=== PATIENT | female | born 1975 | race Caucasian/White ===

== ENCOUNTER 2017-10-23 01:24 | Emergency (ER) | payer BC, SELFPAY ==
[2017-10-23] VITALS (7 sets, daily range): BP systolic 123–224; BP diastolic 72–144; PULSE 77–133; RESP 12–18; TEMP 36.4–36.9; O2SAT 9–100; BMI 33.3
--- NOTE | 2017-10-23 01:32 | ED.DCSUM_ITS ---
- ER Visit Summary Date of Service: 10/23/17 Chief Complaint: Suicidal thoughts History of Present Illness: The patient is a 42 F who presents being suicidal. Over the past couple months she has been depressed and she states it hit her hard today she does not want to live anymore. Her mother on September 02 and her father on September 27. Since then she has felt very down and depressed. She thinks she is about to lose her job as well as her fianc?. She states that she has fucked up many things in her life. She thought about taking pills and filling up the bathtub and trying to drown in it. She has never been admitted for suicidal thoughts before. She has never tried anything to hurt herself previously. She does see a psychiatrist at the counseling center. Physical Examination: Vital signs reviewed. HEENT exam unremarkable. Heart is tachycardic and regular rhythm without murmurs. Lungs are clear to auscultation. Abdomen is soft and nontender. Extremities reveal no edema. Skin exam normal. Neurologic exam normal. Patient does voice suicidal thoughts. Insight and judgment are poor. Test Results: CBC normal. BMP shows sodium 135 and glucose 444. Tox screen reveals cannabinoids. Alcohol normal. Emergency Department Course and Treatment: Patient was given NovoLog 20 units Treatment Plan: The patient then told nursing that she was just restarted back on her psychiatric and her diabetic medications after not being on them. This is likely why her blood sugars elevated. Patient was discussed with crisis and they evaluated the patient. They feel the patient would be amenable to transfer to a psychiatric facility. Patient will be transferred to psychiatric facility after acceptance Disposition: Transfer Impression: Suicidal ideation This note was generated with [employer] dictation software. It may contain incorrect words, spelling, and punctuation that were not noted in review of the chart prior to signing ED Disposition - Plan for ED Patient: Chief Complaint: Suicidal Referrals: Amber Hernandez MD [Primary Care Provider] -
[2017-10-23 02:00] LABS: Absolute Neutrophil Count 5.3 X10^3/uL (2.0-7.7); Basophil# 0.02 X10^3/uL; Basophil% 0.2 % (0-1); Eosinophil# 0.24 X10^3/uL; Eosinophils% 2.9 % (0-5); Hematocrit 46.3 % (37-47); Hemoglobin 15.8 g/dl (12.0-15.0); Lymphocyte % 27.7 % (19-41); Mean Corp Hgb Conc 34.1 g/gl (32-36); Mean Corpuscular Hgb 30.2 pg (27.0-32.0); Mean Corpuscular Volume 88.4 fL (81-99); Mean Platelet Vol. 11.1 fl (6.2-12.0); Monocyte# 0.43 X10^3/uL; Monocyte% 5.2 % (0-10); Neutrophil # 5.29 X10^3/uL (2.7-7.7); Neutrophil % 63.6 % (47-70); Platelet Count 181 K/mm3 (150-450); RBC Distribution Width CV 13.5 % (11.6-14.6); RBC Distribution Width SD 43.9 fl (35.1-43.9); Red Blood Count 5.24 M/mm3 (4.2-5.4); White Blood Count 8.3 K/mm3 (4.4-11.0)
[2017-10-23 02:02] LABS: POSITIVE COUNT NO; POSITIVE DIFFERENTIAL NO; POSITIVE MORPHOLOGY NO
[2017-10-23 02:10] LABS: Anion Gap 9 (5-15); BUN 13 mg/dL (7-18); BUN/Creat Ratio 13.3 RATIO (10-20); Calcium,Total 8.6 mg/dL (8.5-10.1); Chloride 100 mmol/L (98-107); Creatinine, Serum 0.98 mg/dL (0.55-1.02); EST Glomerular Filtration Rate 66 mL/min (>60); Est Glom Filt Rate - Afr Amer 79 mL/min (>60); Estimated Creatinine Clearance 66.61 ml/min; Glucose 444 mg/dL (74-106); Potassium 4.1 mmol/L (3.5-5.1); Sodium Level 135 mmol/L (136-145)
[2017-10-23 02:11] LABS: Amphetamine Urine VISTA NEGATIVE (<1000 ng/mL); Barbiturate Urine VISTA NEGATIVE (< 200 ng/mL); Benzodiazepine Urine VISTA NEGATIVE (< 200 ng/mL); Cocaine Urine VISTA NEGATIVE (< 300 ng/mL); Ecstacy Urine VISTA NEGATIVE (< 500 ng/mL); Methadone Urine VISTA NEGATIVE (< 300 ng/mL); PCP Urine VISTA NEGATIVE (< 25 ng/mL); THC Urine VISTA POSITIVE (< 50 ng/mL); Vista UDS pH Range 5
[2017-10-23 02:25] LABS: Pregnancy, Serum, hCG Quali. NEGATIVE Negative (0-9 Nonpreg)
--- NOTE | 2017-10-23 02:41 | ED.RN ---
CALLED [facility] TO HAVE THEM COME SEE PATIENT. 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
[2017-10-23 03:06] LABS: Bedside Glucose 330 mg/dL (70-110)
--- NOTE | 2017-10-23 03:07 | ED.RN ---
CALLED [facility] AGAIN BECAUSE WE HAVE NOT HEARD BACK FROM MISAEL YET. \
--- NOTE | 2017-10-23 03:10 | ED.RN ---
[facility] CALLED STATING SHE WILL BE IN SHORTLY.
--- NOTE | 2017-10-23 04:15 | EKG12_ITS ---
Test Reason : [facility] [place] Pressure : / mmHG Vent. Rate : 100 BPM Atrial Rate : 100 BPM P-R Int : 150 ms QRS Dur : 092 ms QT Int : 360 ms P-R-T Axes : 051 -15 073 degrees QTc Int : 464 ms Normal sinus rhythm Left ventricular hypertrophy Nonspecific T wave abnormality Prolonged QT Abnormal ECG Confirmed by EDSON GUDINO, MARGARITA ([id number]), senior editor MAY WILLIS ([id number]) on 10/26/2017 8:42:26 AM Referred By: CLAUDETTE Confirmed By:MARGARITA SANDHU MD
[2017-10-23 04:24] LABS: Bacteria 0 SEEN /hpf (None Seen); Mucous, Urine 0 SEEN /hpf (<or=2+); Red Blood Cells-Urine 0 SEEN /hpf (0-5); White Blood Cells 0 SEEN /hpf (0-5)
[2017-10-23 04:28] LABS: Color, Urine Yellow (Yellow); Glucose, Dipstick 1000 mg/dl (Normal); Ketone-Dipstick Negative (Negative); Leukocyte Esterase-Dipstick Negative /ul (Negative); Nitrite-Dipstick Negative (Negative); Occult Blood-Urine Negative /ul (Negative); Protein-Dipstick Negative (Negative); Urine Bilirubin Dipstick Negative (Negative); Urine Clarity Clear (Clear); Urine Urobilinogen Normal (Normal)
[2017-10-23 04:36] LABS: AST(SGOT) 18 U/L (15-37); Alanine Aminotransfer ALT/SGPT 35 U/L (13-56); Albumin, Serum 4.1 g/dL (3.2-5.0); Alkaline Phosphatase 100 U/L (45-117); Bilirubin, Direct 0.08 mg/dL (0.00-0.30); Protein, Total 8.1 g/dL (6.4-8.2)
[2017-10-23 04:44] LABS: Squamous Epithelial Cells - UA 0-5 SEEN /hpf (5-10)
--- NOTE | 2017-10-23 06:06 | ED.RN ---
PATIENT'S CAR KEYS WITH HER NAME ON THEM WERE GIVEN TO [employer]TON[employer]. I ALSO GAVE HIM THE DESCRIPTION OF HER [facility] AND WHERE IT WAS PARKED. PATIENT TOLD THIS NURSE THAT HER BOYFRIEND MIGHT BE COMING TO GET THE CAR, AND HIS NAME WAS PUT ON THE KEYS ALSO.
[2017-10-23 07:20] LABS: Bedside Glucose 175 mg/dL (70-110)
== END 2017-10-23 08:20 ==
PROVIDERS: Emergency Provider Emergency Medicine; Family Provider Internal Medicine; PCP Internal Medicine
DX: R45.851 Suicidal ideations (principal); F41.9 Anxiety disorder, unspecified; E11.9 Type 2 diabetes mellitus without complications; Z72.0 Tobacco use
CPT/HCPCS: 80048; 80076; 80307; 80320; 81001; 82962; 84703; 85025; 93005; 99284; A4216; G0480

== ENCOUNTER 2018-02-08 14:56 | Emergency (ER) | payer BC, SELFPAY ==
[2018-02-08 14:57] VITALS: BP 165/95; PULSE 84; RESP 16; TEMP 37.1; O2SAT 98; BMI 33.4
--- NOTE | 2018-02-08 15:16 | EKG12_ITS ---
Test Reason : [facility] Blood Pressure : / mmHG Vent. Rate : 083 BPM Atrial Rate : 083 BPM P-R Int : 154 ms QRS Dur : 092 ms QT Int : 404 ms P-R-T Axes : 058 -14 026 degrees QTc Int : 474 ms Normal sinus rhythm Poor R wave progression Confirmed by DOROTHY GUDINO, DREW ([id number]), editor farm journal MAY WILLIS ([id number]) on 02/11/2018 1:19:36 PM Referred By: JAVIER Confirmed By:DREW DE LA CRUZ MD
--- NOTE | 2018-02-08 15:24 | ED.DCSUM_ITS ---
- ER Visit Summary Date of Service: 02/08/18 Chief Complaint: Syncope History of Present Illness: The patient is a 42 F reports going to the bathroom this morning. She had a hot flash, cold sweats, nausea and vomiting, and passed out. Patient states that another syncopal episode this afternoon with the same symptoms. She is a history of diabetes and admits that she has not taken her insulin in approximately 1 week. She does not check her blood sugars regularly. Physical Examination: Blood pressure is 165/95, temperature 98.7, heart rate 84 , respiratory rate 16, pulse ox 98% on room air. Patient sitting upright in bed no acute distress. Head neck examination normal. Heart is regular rate and rhythm. Lung sounds are clear. Abdomen is soft no focal tenderness on exam. Hypoactive bowel sounds noted throughout. Test Results: EKG is sinus 83 with no sign of acute ischemia. CBC reveals normal white count. Hemoglobin is concentrated at 15.4. Chemistry studies indicated glucose of 418. Urinalysis shows 1000 glucose with 5 ketones. Serum acetone is negative. Emergency Department Course and Treatment: Patient was given Zofran and 2 L of IV fluid. Repeat blood sugar after 2 L is 295. I did review labs from [facility] that were drawn yesterday. Her glucose at that time was 342 with a normal anion gap and bicarb. Her hemoglobin A1c returned at 11.9 At this time patient feels significantly improved. She only has a doctor's appointment this week. I believe his syncopal episodes were secondary to vasovagal/dehydration. She will push fluids at home and take her insulin. Treatment Plan: [] Disposition: Discharge Impression: 1. Vasovagal syncope 2. Hyperglycemia 3. Dehydration This note was generated with [employer] dictation software. It may contain incorrect words, spelling, and punctuation that were not noted in review of the chart prior to signing ED Disposition - Plan for ED Patient: Chief Complaint: General Illness Referrals: Amber Hernandez MD [Primary Care Provider] -
[2018-02-08] MEDS: Ondansetron 4 MG/2 ML Vial IV (15:54)
[2018-02-08] MEDS: 0.9% Normal Saline 1,000 ML 1000 ML IV ×2 (15:54→17:12)
[2018-02-08 15:56] LABS: Bedside Glucose 420 mg/dL (70-110)
[2018-02-08 16:15] LABS: Absolute Lymphocyte Count 1.03 X10^3/ul (0.83-4.51); Absolute Neutrophil Count 4.7 X10^3/uL (2.0-7.7); Basophil# 0.01 X10^3/uL; Basophil% 0.2 % (0-1); Eosinophil# 0.11 X10^3/uL; Eosinophils% 1.8 % (0-5); Hemoglobin 15.4 g/dl (12.0-15.0); Lymphocyte # 1.03 X10^3/ul (4.0); Lymphocyte % 16.8 % (19-41); Mean Corp Hgb Conc 33.5 g/gl (32-36); Mean Corpuscular Hgb 29.2 pg (27.0-32.0); Mean Corpuscular Volume 87.3 fL (81-99); Mean Platelet Vol. 10.7 fl (6.2-12.0); Monocyte# 0.25 X10^3/uL; Monocyte% 4.1 % (0-10); Neutrophil # 4.72 X10^3/uL (2.7-7.7); Neutrophil % 76.9 % (47-70); Platelet Count 191 K/mm3 (150-450); RBC Distribution Width CV 13.5 % (11.6-14.6); RBC Distribution Width SD 43.2 fl (35.1-43.9); Red Blood Count 5.27 M/mm3 (4.2-5.4); White Blood Count 6.1 K/mm3 (4.4-11.0)
[2018-02-08 16:19] LABS: POSITIVE COUNT NO; POSITIVE DIFFERENTIAL NO; POSITIVE MORPHOLOGY NO
[2018-02-08 16:27] LABS: Anion Gap 9 (5-15); BUN 14 mg/dL (7-18); Calcium,Total 9.3 mg/dL (8.5-10.1); Chloride 102 mmol/L (98-107); Creatinine, Serum 0.93 mg/dL (0.55-1.02); EST Glomerular Filtration Rate 69 mL/min (>60); Est Glom Filt Rate - Afr Amer 84 mL/min (>60); Estimated Creatinine Clearance 70.19 ml/min; Glucose 418 mg/dL (74-106); Potassium 4.6 mmol/L (3.5-5.1); Sodium Level 137 mmol/L (136-145)
[2018-02-08 17:13] VITALS: PULSE 82; RESP 16; O2SAT 98
[2018-02-08 17:19] LABS: Bacteria 0 SEEN /hpf (None Seen); Mucous, Urine 0 SEEN /hpf (<or=2+); Squamous Epithelial Cells - UA 0 SEEN /hpf (5-10); White Blood Cells 0 SEEN /hpf (0-5)
[2018-02-08 17:28] LABS: Color, Urine Yellow (Yellow); Glucose, Dipstick 1000 mg/dl (Normal); Ketone-Dipstick 5 mg/dl (Negative); Leukocyte Esterase-Dipstick Negative /ul (Negative); Nitrite-Dipstick Negative (Negative); Occult Blood-Urine 150 /ul (Negative); Protein-Dipstick 15 mg/dl (Negative); Specific Gravity, Urine 1.015 (1.002-1.030); Urine Bilirubin Dipstick Negative (Negative); Urine Clarity Clear (Clear); Urine Urobilinogen Normal (Normal)
[2018-02-08 17:37] LABS: Red Blood Cells-Urine 0-5 SEEN /hpf (0-5)
[2018-02-08 18:04] VITALS: BP 156/95; PULSE 89; RESP 22
[2018-02-08 18:56] LABS: Bedside Glucose 297 mg/dL (70-110)
--- NOTE | 2018-02-08 18:57 | ED.DEP ---
ED Disposition - Plan for ED Patient: Disposition: Home or Assisted Living Chief Complaint: General Illness Instructions: ED Near Syncope Vasovagal, ED Hyperglycemia Diabetic Referrals: Amber Hernandez MD [Primary Care Provider] - Keep Geovany appointment
[2018-02-08 19:07] VITALS: BP 147/78; PULSE 73; RESP 16; O2SAT 99
== END 2018-02-08 19:08 | disposition home or self-care (01) ==
PROVIDERS: Emergency Provider Emergency Medicine; Family Provider Internal Medicine; PCP Internal Medicine
DX: R55 Syncope and collapse (principal); E11.65 Type 2 diabetes mellitus with hyperglycemia; E86.0 Dehydration; Z91.14 Patient's other noncompliance with medication regimen; Z72.0 Tobacco use
CPT/HCPCS: 80048; 81001; 82009; 82962; 85025; 93005; 96361; 96374; 99284; J7030; A4216; J2405

== ENCOUNTER 2018-05-02 01:43 | Emergency (ER) | payer BC, SELFPAY ==
[2018-05-02 01:44] VITALS: BP 157/71; PULSE 103; RESP 18; TEMP 37; O2SAT 98; BMI 31.3
--- NOTE | 2018-05-02 02:29 | ED.DCSUM_ITS ---
History of Present Illness Chief Complaint: Lower Extremity Injury Informant: Patient Onset: Hours - 4 Context: Sudden Onset Timing: Continuous Quality: ache Location: left calf Current Severity: Moderate Maximum Severity: Severe Worsened by: Moving, trying to weight-bear Relieved by: Rest Narrative: Patient states she was doing a hip-hop aerobics routine to a video, and while doing aerobic exercise on her feet, she felt a sudden pop with pain in her left calf, closer to her knee/popliteal area. Pain radiates distally and proximally, but the focus is her calf. She took a bath and babied it for a little while, but the pain did not improve. Able to weight-bear but very difficult. States that she was diagnosed with diabetes and had an elevated A1c couple months ago, so has been trying to undergo a new exercise routine. She was trying to ease her way in, doing some walking for the last couple weeks. Past Medical History - Allergies and Home Meds Allergies/Adverse Reactions: Allergies No Known Allergies Allergy (Verified 05/02/18 01:46) Primary Care Physician: Amber Hernandez MD [Primary Care Provider] - Georges Batista MD [STAFF PHYSICIAN] - As soon as possible Surgical History: - - exploratory abd surgery age 16 for PID, cardiac catheterization approx 2009 Smoking Status: Current every day smoker - Family History Maternal Family History: Reports: No pertinent history Review of Systems Musculoskeletal: Reports: Extremity Pain. Denies: Back pain Skin: Denies: Abrasions, Wounds Neurological: Denies: Weakness, Parasthesia, Numbness Physical Exam Vital Signs/Narrative: Vital Signs Temp Pulse Resp BP Pulse Ox 05/02/18 01:44 98.6 F 103 H 18 157/71 H 98 Inital Vital Signs reviewed: Yes General: Well nourished, Well developed Head: Normocephalic, Atraumatic Neck: Supple, Nontender Extremities: No edema, Tenderness - Left calf and medial gastroc tendon in the popliteal area. No bony knee or lower leg tenderness. Less tender distally in the soleus and nontender Achilles which appears to be intact. She is able to dorsiflex and plantarflex, but the most painful action is passive dorsiflexion of the foot. No deformities. Skin: Normal color, No rash Neurological: Alert, Oriented x3, Cranial nerves II-XII grossly intact, Normal Strength, Normal Sensation Psychological: Normal affect Diagnostic/Tx/Re-eval - Medical Decision Making Consistent with a left gastrocnemius strain versus rupture of muscle or tendon. She may need advanced imaging if the pain persists, which is not available emergently at this time, nor is it indicated emergently. I do not think she needs any x-rays. This is not a DVT. She is given a dose of anti- inflammatories but advised not to continue those due to her diabetes, prescribed Ultram after reviewing her oarrs report, and given crutches along with orthopedic follow-up. ED Disposition - Plan for ED Patient: Chief Complaint: Lower Extremity Injury Diagnosis: Gastrocnemius strain, left Instructions: ED Strain Muscle Ext Prescriptions: traMADol [Ultram (G)] 50 mg PO Q4H PRN PRN 3 Days #16 tablet PRN Reason: Pain Referrals: Amber Hernandez MD [Primary Care Provider] - Georges Batista MD [STAFF PHYSICIAN] - As soon as possible Additional Instructions: Your calf muscle may be ruptured. Limit weightbearing using crutches. Follow- up with orthopedics.
[2018-05-02] MEDS: Naproxen 500 MG Tablet PO (02:52)
[2018-05-02 03:00] VITALS: PULSE 76; RESP 16; O2SAT 98
== END 2018-05-02 03:01 | disposition home or self-care (01) ==
PROVIDERS: Emergency Provider Emergency Medicine; Family Provider Internal Medicine; PCP Internal Medicine
DX: S86.112A Strain of other muscle(s) and tendon(s) of posterior muscle group at lower leg level, left leg, initial encounter (principal); F17.200 Nicotine dependence, unspecified, uncomplicated; X58.XXXA Exposure to other specified factors, initial encounter; Y93.A3 Activity, aerobic and step exercise; Y92.89 Other specified places as the place of occurrence of the external cause; Y99.9 Unspecified external cause status
CPT/HCPCS: 99284

== ENCOUNTER 2019-07-31 04:25 | Emergency (ER) | payer SELFPAY ==
[2019-07-31 04:26] VITALS: BP 179/94; PULSE 120; RESP 16; TEMP 37.4; O2SAT 95; BMI 34.9
--- NOTE | 2019-07-31 04:32 | EKG12_ITS ---
Test Reason : HYPERTENSION Blood Pressure : / mmHG Vent. Rate : 110 BPM Atrial Rate : 110 BPM P-R Int : 146 ms QRS Dur : 092 ms QT Int : 358 ms P-R-T Axes : 061 -24 026 degrees QTc Int : 484 ms Sinus tachycardia with occasional Premature ventricular complexes Possible Left atrial enlargement Borderline ECG Confirmed by EDSON GUDINO, MARGARITA ([id number]), video effects editor DOTTIE GAN ([id number]) on 08/01/2019 10:08:53 AM Referred By: DYLON Confirmed By:MARGARITA SANDHU MD
--- NOTE | 2019-07-31 04:39 | ED.VISSUMM ---
- ER Visit Summary Date of Service: 07/31/19 Chief Complaint: Subjective accelerated heart rate while on break at work. History of Present Illness: The patient is a 44 F prior history of hypertension and diabetes. Was on medication for both previously. His medications were stopped. She has not seen a physician for some period of time. Tonight at work she had what she felt was accelerated heart rate. 1 to the company nurse who said her pulse was fine but her blood pressure that time was around 240/132. She currently denies any headache chest pain or shortness of breath. No abdominal pain. No nausea vomiting or diarrhea. Physical Examination: Middle-aged female currently no acute distress her initial blood pressure is elevated 179/94. Heart rate of 120. Temperature 994. Pulse ox 95% on room air no signs of hypoxia. H EENT exam unremarkable. Pupils round react light. No facial droop. Normal speech. Neck nontender. Lungs clear to auscultation bilaterally. Heart regular rhythm rate about 110 no murmur. Abdomen soft nontender normal bowel sounds no peritoneal signs. Neurologic exam normal. Patient is moving all 4 extremities. Neurovascular intact. No edema. Test Results: EKG shows tachycardia rate of 110 with occasional premature ventricular contractions. CBC normal white count 9. Hemoglobin 15. No bands. Electrolytes unremarkable anion gap of 9. Creatinine of 1. Blood sugar elevated 386. She is not in DKA. Emergency Department Course and Treatment: Patient with elevated blood sugar and acute on chronic hypertension and currently is on no medications. She will be given 1 p.o. lisinopril here for blood pressure. She has been on that for the past. Patient doing well on repeat exam at 5:12 AM. Current blood pressure is 162/89. She denies discussed her test results. Need to follow-up. Need to stop smoking. Need to control her blood pressure and blood sugars. Treatment Plan: Follow-up with primary care physician. I will write patient a prescription for her prior lisinopril dose 10 mg once a day. She knows she needs to restart that. Watch her blood sugars closely. Also for her prior oral hypoglycemic glipizide 2.5 mg a day. Watch her blood sugars closely. Disposition: Discharge Impression: Acute on chronic hypertension Acute hyperglycemia with a prior history of diabetes currently not on medication Premature ventricular contractions This note was generated with [employer]ation software. It may contain incorrect words, spelling, and punctuation that were not noted in review of the chart prior to signing ED Disposition - Plan for ED Patient: Disposition: Home or Assisted Living Instructions: HYPERTENSION, Established Prescriptions: Lisinopril [Prinivil] 10 mg PO DAILY #30 tab Prescription Printed Referrals: Amber Hernandez MD [Primary Care Provider] - As soon as possible Additional Instructions: We will restart you on your prior blood pressure medication lisinopril. Take this once a day. You need to have your blood pressures rechecked to see if this is the right dose. If your blood pressures are running too low it will have to be adjusted or if they are running too high. Follow-up with your primary care physician.
[2019-07-31] MEDS: Lisinopril 10 MG Tablet PO (04:42)
--- NOTE | 2019-07-31 04:42 | ED.DEP ---
ED Disposition - Plan for ED Patient: Disposition: Home or Assisted Living Instructions: HYPERTENSION, Established Prescriptions: Glipizide [Glipizide ER] 30 mg PO DAILY #30 tab.er.24 Prescription Printed Lisinopril [Prinivil] 10 mg PO DAILY #30 tab Prescription Printed Referrals: Amber Hernandez MD [Primary Care Provider] - As soon as possible Additional Instructions: We will restart you on your prior blood pressure medication lisinopril. Take this once a day. You need to have your blood pressures rechecked to see if this is the right dose. If your blood pressures are running too low it will have to be adjusted or if they are running too high. Follow-up with your primary care physician.
[2019-07-31 04:47] LABS: Absolute Lymphocyte Count 1.97 X10^3/uL (0.83-4.51); Absolute Neutrophil Count 7.1 X10^3/uL (2.0-7.7); Basophil# 0.03 X10^3/uL; Basophil% 0.3 % (0-1); Eosinophil# 0.24 X10^3/uL; Eosinophils% 2.5 % (0-5); Hematocrit 44.9 % (37-47); Hemoglobin 15.1 g/dL (12.0-15.0); Lymphocyte # 1.97 X10^3/ul (4.0); Lymphocyte % 20.3 % (19-41); Mean Corp Hgb Conc 33.6 g/dL (32-36); Mean Corpuscular Hgb 29.1 pg (27.0-32.0); Mean Corpuscular Volume 86.5 fL (81-99); Mean Platelet Vol. 11.1 fl (6.2-12.0); Monocyte# 0.34 X10^3/uL; Monocyte% 3.5 % (0-10); NRBC Flagged by Analyzer 0 % (0-5); Platelet Count 215 K/mm3 (150-450); RBC Distribution Width CV 13.2 % (11.6-14.6); RBC Distribution Width SD 41.6 fl (35.1-43.9); Red Blood Count 5.19 M/mm3 (4.2-5.4); White Blood Count 9.7 K/mm3 (4.4-11.0)
[2019-07-31 05:01] LABS: Anion Gap 9 (5-15); BUN 20 mg/dL (7-18); BUN/Creat Ratio 18.5 RATIO (10-20); Chloride 100 mmol/L (98-107); Creatinine, Serum 1.08 mg/dL (0.55-1.02); EST Glomerular Filtration Rate 58 mL/min (>60); Est Glom Filt Rate - Afr Amer 71 mL/min (>60); Estimated Creatinine Clearance 59.19 ml/min; Glucose 386 mg/dL (74-106); Potassium 3.9 mmol/L (3.5-5.1); Sodium Level 135 mmol/L (136-145)
[2019-07-31 05:21] VITALS: BP 168/88; PULSE 109; RESP 19; O2SAT 95
[2019-07-31] MEDS: glyBURIDE 2.5 MG Tablet PO (05:27)
[2019-07-31 05:49] LABS: Hemoglobin A1c 11.7 % (4.2-6.3)
== END 2019-07-31 05:29 | disposition home or self-care (01) ==
PROVIDERS: Emergency Provider Emergency Medicine; Family Provider Internal Medicine; PCP Internal Medicine
DX: I49.3 Ventricular premature depolarization (principal); E11.65 Type 2 diabetes mellitus with hyperglycemia; I10 Essential (primary) hypertension; Z72.0 Tobacco use
CPT/HCPCS: 36415; 80048; 83036; 85025; 93005; 99285; A4216

== ENCOUNTER 2020-01-02 06:35 | Emergency (ER) | payer BC, SELFPAY ==
[2020-01-02] VITALS (9 sets, daily range): BP systolic 129–174; BP diastolic 68–115; PULSE 92–115; RESP 16–36; TEMP 36.6–37; O2SAT 95–99; BMI 42.7
--- NOTE | 2020-01-02 06:36 | EKG12_ITS ---
Test Reason : SOB Blood Pressure : / mmHG Vent. Rate : 108 BPM Atrial Rate : 108 BPM P-R Int : 152 ms QRS Dur : 090 ms QT Int : 358 ms P-R-T Axes : 067 005 065 degrees QTc Int : 479 ms Sinus tachycardia Poor R wave progression Confirmed by DOROTHY GUDINO, DREW ([id number]), editor book MAY WILLIS ([id number]) on 01/05/2020 10:54:27 AM Referred By: LALIT Confirmed By:DREW DE LA CRUZ MD
--- NOTE | 2020-01-02 07:06 | RAD_ITS ---
STUDY: X-RAY CHEST REASON FOR EXAM: Female, 44 years old. COUGH, SOB AND HEADACHE TECHNIQUE: Single AP portable view of the chest. COMPARISON: None. FINDINGS: There is ill-defined opacity in the right lung base suggesting pneumonia. There is no demonstrated pleural abnormality. Normal size heart. Normal mediastinum and liliana. Normal visualized pulmonary arteries. Normal visualized aortic arch and descending thoracic aorta. Normal visualized thoracic spine. Normal visualized ribs, clavicles, and shoulders. There is no demonstrated abnormality of the visualized soft tissue structures of the upper abdomen. RAD/Chest 1 View (Portable) IMPRESSION: Right lower lobe pneumonia. Electronically Signed: Kurt Forbes, at 7:43 EDT Tel , Service support ,
--- NOTE | 2020-01-02 07:06 | ED.VIS.GEN ---
History of Present Illness Chief Complaint: Shortness of Breath Informant: Patient Narrative: Patient presents emergency department for the evaluation of dyspnea. Patient states that towards the end of last week she came home from work exhausted experiencing generalized muscle cramps. The next day she felt short of breath and was coughing. She notes those symptoms have worsened and she is producing clear/white phlegm. She notes runny nose sore throat body aches headache. No vomiting or diarrhea. The patient states that her legs are swollen but are better this morning than they have been. She notes pain in the bilateral lower anterior chest which she describes as pressure. She states she has felt wheezing. No known lung conditions. She quit smoking approximately 6 months ago. She states that yesterday she went to her clinic and was set up for COVID-19 test today. However she feels worse today so therefore she came to the emergency department. Past Medical History - Allergies and Home Meds Allergies/Adverse Reactions: Allergies No Known Allergies Allergy (Verified 01/02/20 06:36) Primary Care Physician: Amber Hernandez MD [Primary Care Provider] - As soon as possible Surgical History: - - exploratory abd surgery age 16 for PID, cardiac catheterization approx 2009 Smoking Status: Never smoker - Family History Maternal Family History: Reports: No pertinent history Review of Systems General: Reports: Malaise. Denies: Chills, Fever, Sweats Eyes: Denies: Visual changes - bilaterally, Diplopia ENT: Reports: Rhinorrhea, Sore throat Cardiovascular: Reports: Chest pain, Heart racing. Denies: Palpitations Respiratory: Reports: Dyspnea, Cough, Dyspnea on exertion Gastrointestinal: Denies: Abdominal pain, Nausea, Vomiting, Diarrhea, Melena, Hematochezia Genitourinary: Denies: Dysuria, Hematuria, Frequency Musculoskeletal: Reports: Myalgias. Denies: Back pain, Extremity Pain Skin: Denies: Rash, Wounds Neurological: Reports: Headache. Denies: Weakness, Numbness Physical Exam Vital Signs/Narrative: Vital Signs Temp Pulse Resp BP Pulse Ox 01/02/20 06:40 97.8 F 109 H 19 H 174/115 H 97 01/02/20 06:37 97.8 F 115 H 36 H 174/115 H 97 Inital Vital Signs reviewed: Yes General: Well nourished, Well developed, Obese, No Acute Distress Head: Normocephalic, Atraumatic Eyes: Perrl, EOMI ENT: Moist mucous membranes, No rhinorrhea Neck: Supple, Nontender Cardiovascular: Regular rate, No murmurs, Tachycardia Respiratory: CTA bilaterally, Chest nontender, - - Patient appears dyspneic but not in distress Abdomen: Soft, Nontender, Nondistended, Normal bowel sounds Back: Nontender, Normal Inspection Extremities: Nontender, No edema Skin: Normal color, No rash Neurological: Alert, Oriented x3, Cranial nerves II-XII grossly intact, Normal Strength, Normal Sensation Psychological: Normal affect, Normal Mood Diagnostic/Tx/Re-eval Clinical Impression(s) from Imaging Studies Chest X-Ray 01/02/20 07:06 IMPRESSION: Right lower lobe pneumonia. Electronically Signed: Kurt Forbes, at 7:43 EDT Tel , Service support , Chest CTA 01/02/20 08:01 IMPRESSION: Small bilateral pleural effusions with bibasilar dependent atelectasis with increased interstitial markings. A mild degree of CHF should be ruled out. There is no evidence of pulmonary embolism. Electronically Signed: Jordan Verma, at 8:59 EDT , Service support , Laboratory Last Values WBC 8.4 K/mm3 (4.4-11.0) 01/02/20 07:15 RBC 4.17 M/mm3 (4.2-5.4) L 01/02/20 07:15 Hgb 12.0 g/dL (12.0-15.0) 01/02/20 07:15 Hct 37.4 % (37-47) 01/02/20 07:15 MCV 89.7 fL (81-99) 01/02/20 07:15 MCH 28.8 pg (27.0-32.0) 01/02/20 07:15 MCHC 32.1 g/dL (32-36) 01/02/20 07:15 RDW Std Deviation 46.0 fl (35.1-43.9) H 01/02/20 07:15 RDW Coeff of Silvia 14.4 % (11.6-14.6) 01/02/20 07:15 Plt Count 254 K/mm3 (150-450) 01/02/20 07:15 MPV 10.6 fl (6.2-12.0) 01/02/20 07:15 Immature Gran % (Auto) 0.500 % (0.0-0.9) 01/02/20 07:15 Neut % (Auto) 71.0 % (47-70) H 01/02/20 07:15 Lymph % (Auto) 19.4 % (19-41) 01/02/20 07:15 [place] % (Auto) 5.6 % (0-10) 01/02/20 07:15 Eos % (Auto) 3.1 % (0-5) 01/02/20 07:15 Baso % (Auto) 0.4 % (0-1) 01/02/20 07:15 Absolute Neuts (auto) 6.0 X10^3/uL (2.0-7.7) 01/02/20 07:15 Absolute Lymphs (auto) 1.63 X10^3/uL (0.83-4.51) 01/02/20 07:15 Nucleated RBC % 0 % (0-5) 01/02/20 07:15 PT 12.5 SECONDS (11.7-14.9) 01/02/20 07:15 INR 1.0 01/02/20 07:15 APTT 28.3 Seconds (24.1-36.2) 01/02/20 07:15 Sodium 139 mmol/L (136-145) 01/02/20 07:15 Potassium 4.1 mmol/L (3.5-5.1) 01/02/20 07:15 Chloride 105 mmol/L (98-107) 01/02/20 07:15 Carbon Dioxide 28.0 mmol/L (21.0-32.0) 01/02/20 07:15 Anion Gap 6 (5-15) 01/02/20 07:15 BUN 16 mg/dL (7-18) 01/02/20 07:15 Creatinine 0.77 mg/dL (0.55-1.02) 01/02/20 07:15 Estim Creat Clear Calc 83.02 ml/min 01/02/20 07:15 Est GFR (MDRD) Af Amer 103 mL/min (>60) 01/02/20 07:15 Est GFR (MDRD) Non-Af 86 mL/min (>60) 01/02/20 07:15 BUN/Creatinine Ratio 20.7 RATIO (10-20) H 01/02/20 07:15 Glucose 222 mg/dL (74-106) H 01/02/20 07:15 Lactic Acid 0.9 mmol/L (0.4-1.9) 01/02/20 07:15 Calcium 8.7 mg/dL (8.5-10.1) 01/02/20 07:15 Total Bilirubin 0.30 mg/dL (0.20-1.00) 01/02/20 07:15 AST 32 U/L (15-37) 01/02/20 07:15 ALT 60 U/L (13-56) H 01/02/20 07:15 Alkaline Phosphatase 96 U/L (45-117) 01/02/20 07:15 Troponin I < 0.015 ng/mL (<0.045) 01/02/20 07:15 B-Natriuretic Peptide 366.5 pg/mL (0-100) H 01/02/20 07:15 Total Protein 7.3 g/dL (6.4-8.2) 01/02/20 07:15 Albumin 3.2 g/dL (3.2-5.0) 01/02/20 07:15 Globulin 4.1 g/dL (2.2-4.2) 01/02/20 07:15 Albumin/Globulin Ratio 0.8 RATIO (0.9-2.4) L 01/02/20 07:15 Serum , Qual NEGATIVE Negative 01/02/20 07:15 COVID-19 (BRAVO) Negative (Not Detect) 01/02/20 06:50 - EKG Initial EKG Interpretation: Sinus Tachycardia - EKG demonstrates a sinus tachycardia at a rate of 108. There are no concerning features of ACS or ectopy. - Medical Decision Making Patient's had no events on the monitor. She reports symptomatic improvement following a DuoNeb. Heart rate is down into the 90s. She is breathing easy. Symptoms have been present for multiple days and she has a normal troponin. I do not think this represents ACS. Genevieve test is negative. CT demonstrates small bilateral pleural effusions and her beta natruretic peptide is 366. Her troponin is negative. I spoke with her primary care physician. We will place her on Lasix write for an albuterol MDI. She is to follow-up with primary care for echocardiogram and further evaluation. ED Disposition - Plan for ED Patient: Disposition: Home or Assisted Living Diagnosis: Dyspnea, Pleural effusion Instructions: ED Effusion Pleural Prescriptions: Furosemide [Lasix] 40 mg PO DAILY #7 tab Transmission Status: Pending to [id number] Albuterol Inhaler [Ventolin Hfa] 2 puff INHALATION Q4H PRN PRN #1 inhaler PRN Reason: Wheezing Transmission Status: Pending to [id number] Referrals: Amber Hernandez MD [Primary Care Provider] - As soon as possible
[2020-01-02] MEDS: 0.9% Normal Saline 1,000 ML 1000 ML IV (07:29)
[2020-01-02 07:42] LABS: Absolute Lymphocyte Count 1.63 X10^3/uL (0.83-4.51); Basophil# 0.03 X10^3/uL; Basophil% 0.4 % (0-1); Eosinophil# 0.26 X10^3/uL; Eosinophils% 3.1 % (0-5); Hematocrit 37.4 % (37-47); Lymphocyte # 1.63 X10^3/ul (4.0); Lymphocyte % 19.4 % (19-41); Mean Corp Hgb Conc 32.1 g/dL (32-36); Mean Corpuscular Hgb 28.8 pg (27.0-32.0); Mean Corpuscular Volume 89.7 fL (81-99); Mean Platelet Vol. 10.6 fl (6.2-12.0); Monocyte# 0.47 X10^3/uL; Monocyte% 5.6 % (0-10); NRBC Flagged by Analyzer 0 % (0-5); Neutrophil # 5.99 X10^3/uL (2.7-7.7); Platelet Count 254 K/mm3 (150-450); RBC Distribution Width CV 14.4 % (11.6-14.6); Red Blood Count 4.17 M/mm3 (4.2-5.4); White Blood Count 8.4 K/mm3 (4.4-11.0)
[2020-01-02 07:49] LABS: Internal QC Validated? YES +Cl - CLEAR BKGD; Pregnancy, Serum, hCG Quali. NEGATIVE Negative
[2020-01-02 08:00] LABS: ALB/GLOB Ratio 0.8 RATIO (0.9-2.4); AST(SGOT) 32 U/L (15-37); Alanine Aminotransfer ALT/SGPT 60 U/L (13-56); Albumin, Serum 3.2 g/dL (3.2-5.0); Alkaline Phosphatase 96 U/L (45-117); Anion Gap 6 (5-15); BUN 16 mg/dL (7-18); BUN/Creat Ratio 20.7 RATIO (10-20); Calcium,Total 8.7 mg/dL (8.5-10.1); Chloride 105 mmol/L (98-107); Creatinine, Serum 0.77 mg/dL (0.55-1.02); EST Glomerular Filtration Rate 86 mL/min (>60); Est Glom Filt Rate - Afr Amer 103 mL/min (>60); Estimated Creatinine Clearance 83.02 ml/min; Globulin 4.1 g/dL (2.2-4.2); Glucose 222 mg/dL (74-106); Potassium 4.1 mmol/L (3.5-5.1); Protein, Total 7.3 g/dL (6.4-8.2); Sodium Level 139 mmol/L (136-145)
--- NOTE | 2020-01-02 08:01 | CT_ITS ---
STUDY: CTA CHEST REASON FOR EXAM: Female, 44 years old. INCREASED MUCUS AND SHORTNESS OF BREATH, HX HTN, DM RADIATION DOSAGE (If Supplied By Facility): CTDIvol = ( 13.85 ) mGy, DLP = ( 55.45 ) mGycm TECHNIQUE: The examination was performed with the intravenous administration of IV 100mL Isovue-370. Post-processing of the angiographic images was performed, with multiplanar reformation and 3D reconstruction. Individualized dose optimization techniques were used for this CT. COMPARISON: None. FINDINGS: Normal enhancement of the main pulmonary artery and right and left pulmonary arteries. Normal enhancement of the bilateral peripheral pulmonary arteries. There is no demonstrated pulmonary embolism. Normal thoracic aorta and visualized great vessels. There is no demonstrated aortic dissection. Left ventricular enlargement. Normal mediastinum. Normal hilar regions. Small bilateral pleural effusions with bibasilar dependent atelectasis. Increased interstitial markings at the lung bases. Findings may represent a mild degree of the CHF. Normal chest wall structures. There are mild degenerative changes of thoracic spine. Normal visualized upper abdomen. CT/CTA Chest W/WO Contrast IMPRESSION: Small bilateral pleural effusions with bibasilar dependent atelectasis with increased interstitial markings. A mild degree of CHF should be ruled out. There is no evidence of pulmonary embolism. Electronically Signed: Jordan Verma, at 8:59 EDT , Service support ,
[2020-01-02 08:06] LABS: Lactic Acid 0.9 mmol/L (0.4-1.9)
[2020-01-02 08:09] LABS: Prothrombin Time (Protime)PT. 12.5 SECONDS (11.7-14.9)
[2020-01-02 08:10] LABS: Partial Thromboplast Time 28.3 Seconds (24.1-36.2)
[2020-01-02] MEDS: Ipratropium/Albuterol Sulfate 3 ML AMPUL.NEB INHALATION (09:28)
[2020-01-02 09:50] LABS: BNP,B-Type NATRIURETIC PEPTIDE 366.5 pg/mL (0-100)
== END 2020-01-02 11:10 | disposition home or self-care (01) ==
PROVIDERS: Emergency Medicine; Emergency Provider Emergency Medicine; PCP Internal Medicine
DX: J90 Pleural effusion, not elsewhere classified (principal); R06.00 Dyspnea, unspecified; E66.9 Obesity, unspecified; Z87.891 Personal history of nicotine dependence
CPT/HCPCS: 36415; 71045; 71275; 80053; 83605; 83880; 84484; 84703; 85025; 85610; 85730; 87040; 87635; 93005; 94640; 96360; 99284; G2023; J7030; Q9967; A4216; U0003

== ENCOUNTER → 2020-04-24 | Outpatient (CLI) | payer BC, SELFPAY ==
[2020-01-02 06:37] VITALS: BMI 42.7
--- NOTE | 2020-04-24 13:54 | NEURO ---
NCS and/or EMG Patient Report DATE OF SERVICE: 04/24/20 Sloane Shelley presents for electrodiagnostic testing of the upper limbs. She reports numbness and tingling in both hands, progressively worsening over the past 4 years. Electrodiagnostic findings: Median motor nerve demonstrates prolonged distal latency bilaterally with normal amplitudes and reduced conduction velocity. Ulnar motor responses within normal limits bilaterally. Median ulnar F waves are normal. Prolonged median sensory latency at the wrist bilaterally. Normal ulnar and radial sensory responses. On needle EMG, all muscles tested in the upper limb showed no evidence of denervation with normal motor unit action potentials. Electrodiagnostic impression: This is an abnormal study in the upper limbs. 1. Electrodiagnostic findings demonstrate bilateral median mononeuropathy. This is consistent with a moderate bilateral carpal tunnel syndrome. If there are any further questions, please do not hesitate to contact me
== END | disposition home or self-care (01) ==
LOC: PSN 11:06
PROVIDERS: PCP Internal Medicine
DX: G56.03 Carpal tunnel syndrome, bilateral upper limbs (principal)
CPT/HCPCS: 95886; 95912

== ENCOUNTER 2020-07-18 07:30 | Outpatient (RCR) | payer BC, SELFPAY ==
[2020-01-02 06:37] VITALS: BMI 42.7
--- NOTE | 2020-05-20 09:57 | HP.OTEVAL ---
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 Date of Evaluation: 05/20/20 Occupational Therapist: Janet Rojas, OTR/Rebekah, CHT - Subjective This 45 year old female was seen for OT eval with dx of middle trigger fingers and bilateral CTS. pt states she had symptoms for over 3-4 years but in the last few months pt had increase in triggering and decided to have sx on 2009. pt currently 5 day s/p demo no wrapping over incision, incision clean and dry-hand swollen. - Pain left hand 6 Pain Intensity Range: 3, 6 - ROM Wrist: right 80/40 left 60/55 Opposition: right 10 left 5 ROM Comments: right hand demo all ROM of digits WNL. left hand demo limited rom of all digits 1 away from composite fist. - Strength Supervisor Denture Department: right 25# left NT Lateral Pinch: right 10# left 2# Tripod Pinch: right 10# left NT Tip-to-Tip Pinch: right 8# left NT - Edema Wrist: right left 16.5 PIP: right MF 5.9 left 6.2 Other: MCP left 19cm right 19cm - Sensation Thumb: right 2.83 left 2.83 Index: right 2.83 left 2.83 Middle: right 2.83 left 2.83 Ring: right 2.83 left 2.83 Little: right 2.83 left 2.83 - Quick DASH-Disab of Arm,Shoulder& Hand Quick DASH Score: 90.0000 - Goals Goal:: pt will demo a left photographic developer and printer strength 30# or greater to increase pts ind. with ADls and IADLs by d/c Goal:: pt will demo the ability to form composite fist for Adls and IADLs by d/c Goal:: pt will report pain no greater than 1/10 with use of left hand with ADLS and IADls Goal:: pt will demo understanding of edema control sher of contrast warm/cool to control edema by end of 2nd session Goal:: pt will demo understanding of scar mtg by end of 2nd session to decrease risk of scar adhsions. - Rehabilitation General Assessment: PT s/p 4 days from CTR and 5 digit trigger finger release. pt demo with edema, limited ROM and pain. This has limited pt on her IND.with ADLs and ADLs at this time. Pt would benefit from skilled OT services 1-2x week for 4 weeks to return pt to pLOF. Today therapist ed. pt on edmea control, tendon glides and ROM ex- pt demo understanding and agree to POC. Rehabilitation Potential: Good - Anticipated Interventions A/AAROM/PROM, Strengthening, Edema Control, Scar Care, Triggerpoint Release, Modalities, Joint Protection/Energy Conservation, Dynamic Sitting Balance, Fine Motor Coord/Ruiz - Visit Plan Frequency: 1-2x /Week Duration: 6 Weeks TEXT: Thank you for the opportunity to evaluate your patient. For Medicare and Medicare HMO plans, please review the plan of care and approve it. It will need to be FAXED BACK to us at [phone] for Medicare purposes. Please let me know if there are questions or concerns regarding this plan of care. Physician Signature: Date:
--- NOTE | 2020-09-24 14:48 | HP.OT.NRP ---
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 The following Plan of Care was established for this patient: Initial Frequency: 1-2x /Week Initial Duration: 6 Weeks Plan: continue with OT POC. further educate on TE to jaz hands to address strength Anticipated Interventions: A/AAROM/PROM, Strengthening, Edema Control, Scar Care, Triggerpoint Release, Modalities, Joint Protection/Energy Conservation, Dynamic Sitting Balance, Fine Motor Coord/Ruiz This patient was last seen in our office 07/18/20. Pertinent comments regarding their Occupational therapy will appear below: pt was seen for 7 OT visits. pt had made gains but cancelled a number of apts. due to time lapse in care pt D/c at this time. At this point I will be discontinuing this patient from occupational therapy. I would be happy to see this patient again in the future if found appropriate by the physician. Thank you! Janet Rojas, OTR/L, CHT
== END 2020-07-18 19:00 | disposition home or self-care (01) ==
LOC: OT 07:30
PROVIDERS: PCP Internal Medicine
DX: M65.339 Trigger finger, unspecified middle finger (principal); G56.03 Carpal tunnel syndrome, bilateral upper limbs
CPT/HCPCS: 97035; 97110; 97140; 97166; 97530

== ENCOUNTER 2021-05-01 02:55 | Emergency (ER) | payer OTHER, SELFPAY ==
[2021-05-01 02:56] VITALS: BP 159/102; PULSE 117; RESP 20; TEMP 38.7; O2SAT 94; BMI 35.8
--- NOTE | 2021-05-01 03:04 | EDS_ITS ---
HPI History of Present Illness Chief Complaint: Cold Sx Informant: patient Narrative Narrative: 46-year-old female presenting to the emergency room with fever and cough. Patient states that she became ill on Wednesday and had runny nose fever nausea and vomiting. She has developed shortness of breath cough and wheezing. She has a history of chronic bronchitis. She states that she was exposed to RSV. She is immunized against Covid. She notes vomiting and diarrhea has continued [facility] Medical History Diabetes mellitus, type II HTN (hypertension) Home Medications acyclovir 400 mg PO BID 01/02/20 [History Last Taken Unknown] albuterol sulfate 2 puff INHALATION Q4H PRN PRN #1 inhaler 01/02/20 [Rx Last Taken Unknown] furosemide 40 mg PO PRN PRN 05/01/21 [History Last Taken Unknown] Allergy/AdvReac Type Severity Reaction Status Date / Time No Known Allergies Allergy Verified 05/01/21 02:58 Social History (Updated 05/01/21 @ 03:[address] Tommy Baker DO) Smoking Status: Former smoker substance use type: does not use ROS ROS ED Constitutional Constitutional ED: Reports chills, fever(s) and sweats; Denies weight loss Eyes Eyes: Denies change in vision or diplopia ENT ENT ED: Reports rhinorrhea; Denies ear pain or sore throat Cardiovascular Cardiovascular: Denies chest pain, orthopnea, palpitations or racing heartbeat Respiratory/Chest Respiratory/Chest: Reports cough, dyspnea and dyspnea on exertion; Denies orthopnea Gastrointestinal Gastrointestinal: Reports diarrhea, nausea and vomiting; Denies abdominal pain Genitourinary Genitourinary ED: Denies dysuria, hematuria or urinary frequency Musculoskeletal Musculoskeletal: Reports myalgias; Denies arthralgias Integumentary Denies abscess or rash Neurologic Neurologic: Reports headache(s); Denies weakness Psychiatric Psychiatric: Denies anxiety, depression, suicidal ideation or suicidal thoughts Endocrine Endocrinology: Denies polydipsia, polyphagia or polyuria Allergic/Immunologic Allergic/Immunologic ED: Denies mouth swelling, tongue swelling or urticaria EXAM Physical Exam Const Vital Signs: 05/01/21 02:56 05/01/21 03:02 05/01/21 03:34 Temperature 101.6 F H Temperature Source Oral Pulse Rate 117 H 117 H Respiratory Rate 20 H 22 H Respiratory Effort Short of Breath Respiratory Pattern Tachypnea Tachypnea Blood Pressure 159/102 H Blood Pressure Mean 121 Pulse Ox 94 Oxygen Delivery Method Room Air 05/01/21 04:16 05/01/21 04:51 Temperature Temperature Source Pulse Rate 95 Respiratory Rate 20 H Respiratory Effort Respiratory Pattern Normal Blood Pressure Blood Pressure Mean Pulse Ox 83 Oxygen Delivery Method Room Air Positive well nourished, well developed and obese General Appearance ED: well developed Nutritional Appearance: obese HEENT Reports normocephalic, head/scalp atraumatic and moist mucous membranes Eyes PERRL and EOMs intact bilaterally Neck no lymphadenopathy, supple and no JVD Resp normal respiratory effort Auscultation: wheezes expiratory wheezes and diminished lung sounds Cardio regular rate and no murmurs Rate: tachycardic GI normal to inspection, nondistended, normoactive bowel sounds and non-tender Palpation: soft Back/Spine no CVA tenderness and normal ROM Extremity normal to inspection General Extremety ED: Negative for edema General Extremity: Negative for edema Neuro oriented x3 and CN's II-XII intact bilaterally Sensorium / Orientation: alert Motor Exam: strength 5/5 throughout Psych mental status grossly normal Mood & Affect: Negative for depressed or tearful Skin no rashes or lesions noted and no wounds MDM MDM MDM Narrative Medical decision making narrative: Patient's Covid test was negative. RSV is My interpretation of the chest x-ray is no acute process. Patient received a DuoNeb prednisone and Tylenol. She also received Zofran. Nursing observed that the patient at one point had a pulse ox of 83%. So they put her on a couple liters of oxygen. I turned it off and observed her being mostly 90-94 depending on how she was positioned in the bed and how she was breathing. Ambulation demarco she is not hypoxic. Patient will be started on albuterol MDI as well as prednisone. Encourage fever reduction return if worsening or concerns Radiography Diagnostic Testing: Clinical Impression(s) from Imaging Studies Chest X-Ray 05/01/21 03:30 IMPRESSION: Nonspecific hazy opacification bilaterally as above, no evidence of a focal confluent pneumonia detected. This was seen to a similar degree on previous examination. Imaging features can be seen with covid 19 pneumonia, but are nonspecific and may occur with a variety of infectious and noninfectious processes. No pulmonary edema, congestive heart failure or confluent pneumonia. Electronically Signed: Alexsandra Zavala MD at 4:13 EDT , Service support , Discharge Plan Triage Chief Complaint: Cold Sx ED Provider: Tommy Baker Dx/Rx/DC Orders Clinical Impression: Acute bronchitis due to respiratory syncytial virus Instructions: ED Bronchitis with Wheezing (Adult) Prescriptions: No Action acyclovir 400 MG tablet 400 mg PO BID RF: 0 albuterol sulfate 1 INHALER inhaler 2 puff inhalation Q4H PRN PRN (Reason: Wheezing) Qty: 1 RF: 0 furosemide 40 MG tablet 40 mg PO PRN PRN (Reason: Edema) RF: 0 Primary Care Provider: Care Physician,No Primary Referrals: Care Physician,No Primary [Primary Care Provider] -
[2021-05-01] MEDS: predniSONE 20 MG Tablet 60 MG PO (03:17)
[2021-05-01] MEDS: Acetaminophen 500 MG Tablet 1000 MG PO (03:17)
[2021-05-01] MEDS: Ondansetron ODT 4 MG Tablet PO (03:20)
--- NOTE | 2021-05-01 03:30 | RAD_ITS ---
STUDY: X-RAY CHEST REASON FOR EXAM: Female, 46 years old. cough and fever TECHNIQUE: Single AP portable view of the chest. COMPARISON: 01/02/2020 FINDINGS: Mild hazy opacification in the right base and left perihilar parenchyma, no air bronchograms or focal consolidation detected. Aeration in the right base appears improved since previous exam. There is no demonstrated pleural abnormality. Normal size heart. Normal mediastinum and liliana. Normal visualized pulmonary arteries. Normal visualized aortic arch and descending thoracic aorta. Normal visualized thoracic spine. Normal visualized ribs, clavicles, and shoulders. There is no demonstrated abnormality of the visualized soft tissue structures of the upper abdomen. RAD/Chest 1 View (Portable) IMPRESSION: Nonspecific hazy opacification bilaterally as above, no evidence of a focal confluent pneumonia detected. This was seen to a similar degree on previous examination. Imaging features can be seen with covid 19 pneumonia, but are nonspecific and may occur with a variety of infectious and noninfectious processes. No pulmonary edema, congestive heart failure or confluent pneumonia. Electronically Signed: Alexsandra Zavala MD at 4:13 EDT , Service support ,
[2021-05-01] MEDS: Ipratropium/Albuterol Sulfate 3 ML AMPUL.NEB INHALATION (03:33)
[2021-05-01 03:34] VITALS: PULSE 117; RESP 22
[2021-05-01 04:16] VITALS: O2SAT 83
[2021-05-01 04:51] VITALS: PULSE 95; RESP 20
[2021-05-01] MEDS: Albuterol 2.5 MG/3 ML VIAL.NEB. INHALATION (04:51)
[2021-05-01 05:35] VITALS: O2SAT 91
[2021-05-01 06:31] VITALS: BP 137/77; PULSE 98; RESP 18; TEMP 33.3
--- NOTE | 2021-05-01 16:58 | ED.RN ---
PER DR HERRERA, PT ALREADY DIAGNOSED WITH RSV. NO NEED FOR FURTHER ACTIONS
== END 2021-05-01 06:32 | disposition home or self-care (01) ==
LOC: ED 03:46
PROVIDERS: Emergency Provider Emergency Medicine
DX: J20.5 Acute bronchitis due to respiratory syncytial virus (principal); E11.9 Type 2 diabetes mellitus without complications; I10 Essential (primary) hypertension; E66.9 Obesity, unspecified; Z87.891 Personal history of nicotine dependence
CPT/HCPCS: 71045; 87426; 87807; 94640; 99283

== ENCOUNTER 2021-06-25 12:22 | Emergency (ER) | payer OTHER, SELFPAY ==
[2021-06-25 12:23] VITALS: BP 144/101; PULSE 110; RESP 15; TEMP 36.7; O2SAT 98; BMI 35.5
[2021-06-25 12:27] VITALS: BP 144/101; PULSE 110; RESP 15; TEMP 36.7; O2SAT 98
[2021-06-25 12:29] VITALS: O2SAT 97
--- NOTE | 2021-06-25 12:54 | CT_ITS ---
STUDY: CT BRAIN WITHOUT CONTRAST REASON FOR EXAM: Female, 46 years old. Dizziness RADIATION DOSAGE (If Supplied By Facility): CTDIvol = ( 47.06 ) mGy, DLP = ( 907.97 ) mGycm TECHNIQUE: Transaxial CT imaging of the brain was performed without administration of intravenous contrast material. Individualized dose optimization techniques were used for this CT. COMPARISON: No relevant priors. FINDINGS: Normal soft tissue structures. Normal calvarium. Normal size ventricles and extra-axial spaces for the patient''s age. Normal white matter tracts of the cerebral hemispheres. Normal basal ganglia and thalami. Normal brainstem. Normal cerebellum. There is no intracranial hemorrhage. There are no findings of an acute ischemic infarction. Normal visualized paranasal sinuses. CT/Brain/Head without Contrast IMPRESSION: Normal unenhanced CT scan of the brain. Electronically Signed: Jordan Verma MD at 14:09 EST , Service support ,
--- NOTE | 2021-06-25 12:56 | EX.ED.DYSGE1 ---
HPI History of Present Illness Chief Complaint: Shortness of Breath Narrative Narrative: Patient presents with multiple somatic complaints. She relates history that 8 days ago she had a breast abscess incised by Dr. Aleman. She has been on doxycycline for the last week. This morning she awoke and states that she had blurry vision and did not feel right. Additionally, she states that she was off her diabetic medications for 3 months, but started them last week. She takes a long-acting insulin and Humalog. She is also supposed to be taking an oral medication/Glucotrol but has not filled this prescription. She took her blood sugar this morning when she did not feel well and it was only 118. She complains of dizziness. She told the RN in triage that she was short of breath. No chest pain. [facility] Medical History Diabetes mellitus, type II HTN (hypertension) Home Medications acyclovir 400 mg PO BID 01/02/20 [History Last Taken Unknown] albuterol sulfate 2 puff INHALATION Q4H PRN PRN #1 inhaler 01/02/20 [Rx Last Taken Unknown] albuterol sulfate [Ventolin HFA] 2 puff INHALATION Q4H PRN PRN #1 inhaler 05/01/21 [Rx Last Taken Unknown] furosemide 40 mg PO PRN PRN 05/01/21 [History Last Taken Unknown] prednisone 60 mg PO DAILY #15 tablet 05/01/21 [Rx Last Taken Unknown] Allergy/AdvReac Type Severity Reaction Status Date / Time No Known Allergies Allergy Verified 06/25/21 12:23 Social History Smoking Status: Former smoker substance use type: does not use ROS ROS ED ROS Narrative Constitutional: No fever, no chills. HEENT: No sore throat. No neck pain. No loss of vision. Positive blurry vision. No rhinorrhea. Cardiovascular: No chest pain. No palpitations. No pedal edema. Respiratory: No cough, no shortness of breath. Abdominal: No abdominal pain. No nausea. No vomiting. Genitourinary: No dysuria. No hematuria. Musculoskeletal: No myalgias. No arthralgias. Neurologic: No headaches. Positive dizziness. No lightheadedness. Positive blurred vision. Skin: No rash. No change in color. Psychiatric: No depression. No anxiety. EXAM Physical Exam Narrative Exam Narrative: Afebrile. Vital signs noted. HEENT: Normocephalic. Atraumatic. PERRL, EOMI. Neck soft and supple. No point tenderness or step off. Cardiovascular: Regular rate and rhythm. No murmurs, rubs, or gallops appreciated. Respiratory: No tachypnea. Lungs clear to auscultation bilaterally. Gastrointestinal: Abdomen soft, nontender, with normoactive bowel sounds. No rebound or guarding. Neurological: Awake. Alert. Nonfocal, nonlateralizing. Skin: No rash. Normal color. No pallor. Musculoskeletal: No pedal edema. Full range of motion extremities. Const Vital Signs: 06/25/21 12:23 06/25/21 12:27 06/25/21 12:29 Temperature 98.0 F 98.0 F Temperature Source Temporal Temporal Pulse Rate 110 H 110 H Respiratory Rate 15 15 Respiratory Effort Normal Respiratory Depth Normal Respiratory Pattern Normal Blood Pressure 144/101 H 144/101 H Blood Pressure Mean 115 115 Pulse Ox 98 98 Oxygen Delivery Method Room Air Room Air MDM MDM MDM Narrative Medical decision making narrative: Comprehensive work-up was pursued. CT the brain shows no acute process. Chest x-ray may show mild vascular congestion, but her pulse ox is 98% on room air, and she already takes furosemide according to her home medication list. She has normal white count of 7.1 with hemoglobin stable at 10.9. Electrolyte panel is grossly unremarkable with a normal sodium of 141, however chloride slightly elevated at 108. Glucose is elevated at 164, but her anion gap is normal at 7. BUN of 23 with a normal creatinine of 0.9. At this point in time, I feel she can be discharged safely home with follow-up. I am unsure as to the cause of her reported blurred vision/tunnel vision, but it seems to have resolved. Return instructions to the emergency department were reviewed. Her significant other is at the bedside who agrees with close follow-up with her primary care physician. Disposition is discharged home in stable condition. Lab Data Attestation: I reviewed the patient's lab results. Labs: Laboratory Results - last 24 hr 06/25/21 06/25/21 13:02 13:02 WBC 7.1 RBC 3.91 L Hgb 10.9 L Hct 34.6 L MCV 88.5 MCH 27.9 MCHC 31.5 L RDW Std Deviation 47.8 H RDW Coeff of Silvia 15.0 H Plt Count 290 MPV 10.2 Immature Gran % (Auto) 0.800 Neut % (Auto) 65.7 Lymph % (Auto) 24.8 [place] % (Auto) 4.9 Eos % (Auto) 3.2 Baso % (Auto) 0.6 Absolute Neuts (auto) 4.7 Absolute Lymphs (auto) 1.77 Nucleated RBC % 0 Sodium 141 Potassium 4.0 Chloride 108 H Carbon Dioxide 26.0 Anion Gap 7 BUN 23 H Creatinine 0.92 Estim Creat Clear Calc 70.77 Est GFR (MDRD) Af Amer 84 Est GFR (MDRD) Non-Af 69 BUN/Creatinine Ratio 24.9 H Glucose 164 H Calcium 9.3 Total Bilirubin 0.30 AST 59 H ALT 125 H Alkaline Phosphatase 191 H Total Protein 6.9 Albumin 2.5 L Globulin 4.4 H Albumin/Globulin Ratio 0.6 L Radiography Diagnostic Testing: Clinical Impression(s) from Imaging Studies Brain CT 06/25/21 12:54 IMPRESSION: Normal unenhanced CT scan of the brain. Electronically Signed: Jordan Verma MD at 14:09 EST , Service support , Chest X-Ray 06/25/21 13:36 IMPRESSION: Findings suggestive of mild degree of vascular congestion. Electronically Signed: Jordan Verma MD at 14:09 EST , Service support , Discharge Plan Triage Chief Complaint: Shortness of Breath ED Provider: Luis Angel Aleman Dx/Rx/DC Orders Clinical Impression: Blurred vision, Pain, Shortness of breath Instructions: ED Blurred Vision, ED Dyspnea, ED Pain, Acute, Uncertain Cause Prescriptions: No Action acyclovir 400 MG tablet 400 mg PO BID RF: 0 albuterol sulfate 1 INHALER inhaler 2 puff inhalation Q4H PRN PRN (Reason: Wheezing) Qty: 1 RF: 0 furosemide 40 MG tablet 40 mg PO PRN PRN (Reason: Edema) RF: 0 prednisone 20 MG tablet 60 mg PO DAILY Qty: 15 RF: 0 albuterol sulfate [Ventolin HFA] 1 INHALER inhaler 2 puff inhalation Q4H PRN PRN (Reason: Wheezing) Qty: 1 RF: 0 Primary Care Provider: Amber Hernandez Referrals: Amber Hernandez MD [Primary Care Provider] - 06/27/21 Disposition Disposition: Home, Self Care
[2021-06-25] MEDS: 0.9% Normal Saline 1,000 ML 1000 ML IV (13:08)
[2021-06-25 13:17] LABS: Absolute Lymphocyte Count 1.77 X10^3/uL (0.83-4.51); Absolute Neutrophil Count 4.7 X10^3/uL (2.0-7.7); Basophil# 0.04 X10^3/uL; Basophil% 0.6 % (0-1); Eosinophil# 0.23 X10^3/uL; Eosinophils% 3.2 % (0-5); Hematocrit 34.6 % (37-47); Hemoglobin 10.9 g/dL (12.0-15.0); Lymphocyte # 1.77 X10^3/ul (0.83-4.51); Lymphocyte % 24.8 % (19-41); Mean Corp Hgb Conc 31.5 g/dL (32-36); Mean Corpuscular Hgb 27.9 pg (27.0-32.0); Mean Corpuscular Volume 88.5 fL (81-99); Mean Platelet Vol. 10.2 fl (6.2-12.0); Monocyte# 0.35 X10^3/uL; Monocyte% 4.9 % (0-10); NRBC Flagged by Analyzer 0 % (0-5); Neutrophil # 4.69 X10^3/uL (2.7-7.7); Neutrophil % 65.7 % (47-70); Platelet Count 290 K/mm3 (150-450); RBC Distribution Width SD 47.8 fl (35.1-43.9); Red Blood Count 3.91 M/mm3 (4.2-5.4); White Blood Count 7.1 K/mm3 (4.4-11.0)
--- NOTE | 2021-06-25 13:23 | CM.ED ---
SW Note Referral Source: Case Find- No PCP listed on face sheet/demographics Referral reason: No PCP SW met with patient. She reports that her PCP is Dr. Hernandez. No further SW services needed. Ivis ORR
[2021-06-25 13:36] LABS: ALB/GLOB Ratio 0.6 RATIO (0.9-2.4); AST(SGOT) 59 U/L (15-37); Alanine Aminotransfer ALT/SGPT 125 U/L (13-56); Albumin, Serum 2.5 g/dL (3.2-5.0); Alkaline Phosphatase 191 U/L (45-117); Anion Gap 7 (5-15); BUN 23 mg/dL (7-18); BUN/Creat Ratio 24.9 RATIO (10-20); Calcium,Total 9.3 mg/dL (8.5-10.1); Chloride 108 mmol/L (98-107); Creatinine, Serum 0.92 mg/dL (0.55-1.02); EST Glomerular Filtration Rate 69 mL/min (>60); Est Glom Filt Rate - Afr Amer 84 mL/min (>60); Estimated Creatinine Clearance 70.77 ml/min; Globulin 4.4 g/dL (2.2-4.2); Glucose 164 mg/dL (74-106); Protein, Total 6.9 g/dL (6.4-8.2); Sodium Level 141 mmol/L (136-145)
--- NOTE | 2021-06-25 13:36 | RAD_ITS ---
STUDY: X-RAY CHEST REASON FOR EXAM: Female, 46 years old. Increasing shortness of breath. TECHNIQUE: Single AP portable view of the chest. COMPARISON: Comparison is made with prior study dated 05/01/2021. FINDINGS: Findings suggestive of a mild degree of vascular congestion. There is no demonstrated pleural abnormality. Normal size heart. Normal mediastinum and liliana. Normal visualized pulmonary arteries. Normal visualized aortic arch and descending thoracic aorta. Normal visualized thoracic spine. Normal visualized ribs, clavicles, and shoulders. There is no demonstrated abnormality of the visualized soft tissue structures of the upper abdomen. RAD/Chest 1 View (Portable) IMPRESSION: Findings suggestive of mild degree of vascular congestion. Electronically Signed: Jordan Verma MD at 14:09 EST , Service support ,
[2021-06-25 15:00] VITALS: BP 138/84; PULSE 82; RESP 18; O2SAT 98
== END 2021-06-25 15:07 | disposition home or self-care (01) ==
PROVIDERS: Emergency Provider Emergency Medicine; PCP Internal Medicine
DX: H53.8 Other visual disturbances (principal); R06.02 Shortness of breath; E11.9 Type 2 diabetes mellitus without complications; I10 Essential (primary) hypertension; Z79.4 Long term (current) use of insulin; Z79.899 Other long term (current) drug therapy; Z87.891 Personal history of nicotine dependence
CPT/HCPCS: 70450; 71045; 80053; 85025; 87426; 96360; 96361; 99283; J7030

== ENCOUNTER 2021-07-02 11:22 | Emergency (ER) | payer OTHER, SELFPAY ==
[2021-07-02 11:23] VITALS: BP 161/101; PULSE 107; RESP 18; TEMP 35.6; O2SAT 98; BMI 39.4
[2021-07-02 11:32] VITALS: O2SAT 100
--- NOTE | 2021-07-02 11:35 | RAD_ITS ---
STUDY: X-RAY CHEST REASON FOR EXAM: Female, 46 years old. Dyspnea TECHNIQUE: Single AP portable view of the chest. COMPARISON: Comparison is made with prior examination dated 06/25/2021. FINDINGS: EKG electrodes are seen. Mild degree of vascular congestion. There is no demonstrated pleural abnormality. There is moderate cardiac enlargement. Normal mediastinum and liliana. Normal visualized pulmonary arteries. Normal visualized aortic arch and descending thoracic aorta. Normal visualized thoracic spine. Normal visualized ribs, clavicles, and shoulders. There is no demonstrated abnormality of the visualized soft tissue structures of the upper abdomen. RAD/Chest 1 View (Portable) IMPRESSION: Cardiomegaly. Mild degree of vascular congestion. Electronically Signed: Jordan Verma MD at 13:03 EST , Service support ,
--- NOTE | 2021-07-02 11:35 | EKG12_ITS ---
Test Reason : SOB/CP Blood Pressure : / mmHG Vent. Rate : 104 BPM Atrial Rate : 104 BPM P-R Int : 154 ms QRS Dur : 090 ms QT Int : 382 ms P-R-T Axes : 064 -22 044 degrees QTc Int : 502 ms Sinus tachycardia Low voltage QRS Borderline ECG Confirmed by BETTY GUDINO, ANAYELI ([id number]), field map editor ARIELA HERNANDEZ ([id number]) on 07/04/2021 12:46:17 PM Referred By: MARCUS Confirmed By:ROSENDA HERNÁNDEZ MD
--- NOTE | 2021-07-02 11:36 | EDS_ITS ---
HPI History of Present Illness Chief Complaint: Shortness of Breath Detail of Chief Complaint: Shortness of breath and edema Informant: patient Narrative Narrative: Patient presents to the emergency department with complaint of of leg edema all the way up onto the abdomen for the last 5 days. Patient complains of exertional dyspnea as well as orthopnea and paroxysmal nocturnal dyspnea. Patient sleeps on 2 pillows at night. She started having chest tightness last evening. Patient has history of edema of the lower extremities for which in the past she is taken Lasix. Patient started taking Lasix 5 days ago 20 mg daily but not getting much relief. Patient states that she has gained about 40 pounds in the last 2 weeks which she believes is water weight. She denies any fever or cough or recent illness. Patient states that she thinks she was told years ago that she had the beginning of CHF and and she quit smoking and had been doing relatively well. Denies any heart history. Denies any kidney disease. Patient is a diabetic. Prior similar symptoms: No PFSH PFSH Medical History Diabetes mellitus, type II HTN (hypertension) Home Medications furosemide 40 mg PO PRN PRN 05/01/21 [History Last Taken Unknown] atorvastatin 20 mg PO DAILY 07/02/21 [History Last Taken Unknown] furosemide [Lasix] 40 mg PO BID #60 tab 07/02/21 [Rx Last Taken Unknown] glipizide 2.5 mg PO DAILY 07/02/21 [History Last Taken Unknown] insulin aspart U-100 [Novolog Flexpen U-100 Insulin] 15 unit SUBCUT TID 07/02/21 [History Last Taken Unknown] insulin degludec [Tresiba FlexTouch U-100] 30 unit SUBCUT QHS 07/02/21 [History Last Taken Unknown] lisinopril 10 mg PO DAILY #30 tab 07/02/21 [Rx Last Taken Unknown] Allergy/AdvReac Type Severity Reaction Status Date / Time No Known Allergies Allergy Verified 07/02/21 11:23 Social History Smoking Status: Current every day smoker tobacco type: cigarettes substance use type: does not use ROS ROS ED Constitutional Constitutional ED: Reports systems reviewed and no addt'l complaints, except as documented; Denies body ache(s), change in weight or chills Eyes Eyes: Denies acute decrease in peripheral vision, change in vision, double vision or loss of vision ENT ENT ED: Reports none; Denies ear pain, lip swelling, loss taste/smell, neck pain, otalgia or sore throat Cardiovascular Cardiovascular: Reports none; Denies abdominal pain, chest pain with activity, leg edema, lightheadedness, palpitations, rapid heart rate or syncope Respiratory/Chest Respiratory/Chest: Reports none and dyspnea; Denies change in mental status, dry cough, hemoptysis, shortness of breath at rest or shortness of breath with exertion Gastrointestinal Gastrointestinal: Reports none; Denies abdominal pain, change in stool character, diarrhea, hematemesis, hematochezia, melena, rectal bleeding or vomiting Genitourinary Genitourinary ED: Reports none; Denies abdominal discomfort, anuria, dysuria, genital pain or polyuria Musculoskeletal Musculoskeletal: Reports none and other Details: Leg edema ; Denies arthralgias, back pain, difficulty walking, extremity pain, muscle weakness or myalgias Integumentary Reports none; Denies abscess or rash Neurologic Neurologic: Reports none; Denies abnormal gait, confusion, focal weakness, frequent falls, headache(s), loss of vision, numbness, paresthesias, radicular pain, vertigo or weakness Psychiatric Psychiatric: Reports systems reviewed and no addt'l complaints, except as documented and none; Denies behavioral changes, confusion, difficulty concent rating, hallucinations, suicidal ideation, tactile hallucinations or visual hallucinations Endocrine Endocrinology: Denies none, cold intolerance, excessive sweating, fatigue or heat intolerance Hematologic/Lymphatic Hematologic/Lymphatic: Reports none; Denies anemia, easy bleeding or easy bruising Allergic/Immunologic Allergic/Immunologic ED: Denies as per HPI, none, lip swelling, mouth swelling, throat swelling, tongue swelling or hives EXAM Physical Exam Const Vital Signs: 07/02/21 11:23 07/02/21 11:32 07/02/21 12:51 Temperature 96.0 F L Temperature Source Temporal Pulse Rate 107 H 95 Respiratory Rate 18 18 Respiratory Effort Short of Breath Respiratory Depth Deep Respiratory Pattern Tachypnea Blood Pressure 161/101 H 140/95 H Blood Pressure Mean 121 110 Pulse Ox 98 97 Oxygen Delivery Method Room Air Room Air Room Air Positive well nourished and well developed General Appearance ED: well developed and NAD HEENT Reports TM's clear and moist mucous membranes normocephalic and atraumatic; Negative for trauma or tenderness Tympanic Membrane ED: Yes TM's clear Eyes PERRL and EOMs intact bilaterally General Eye ED: Negative for pale conjunctiva or scleral icterus Neck no lymphadenopathy, supple and no JVD General: Negative for tenderness Chest Wall inspection of chest normal and palpation of chest normal Chest: Negative for tenderness Resp normal respiratory effort and clear to auscultation bilaterally Effort and Inspection: Negative for respiratory distress or pain with movement Auscultation: Negative for rhonchi, wheezes or diminished lung sounds Cardio regular rate, regular rhythm, S1 normal heart sound, S2 normal heart sound and no murmurs Peripheral Pulses: pulses 2+ throughout GI normal to inspection, nondistended, normoactive bowel sounds, soft to palpation, non-tender, non-distended and no masses Back/Spine no CVA tenderness and no thoracic nor lumbar tenderness Extremity normal to inspection Extremity Narrative: +2 edema both lower extremities with edema onto the thighs and abdomen. General Extremety ED: Yes edema General Extremity: edema Neuro oriented x3, CN's II-XII intact bilaterally, no sensory deficits noted and gait normal Sensorium / Orientation: awake, alert, oriented to person, oriented to place and oriented to time Motor Exam: strength 5/5 throughout and strength abnormal Psych mental status grossly normal Skin no rashes or lesions noted and no wounds MDM MDM MDM Narrative Medical decision making narrative: IV line established on arrival. Patient placed on a cardiac cath technologist. Patient noted to have pulmonary congestion on x- ray and her BNP is elevated therefore suspect her symptoms may be due to CHF. Patient was given Lasix 60 mg IV. Case was discussed with exhibitor sales on-call Dr. Sharath Mario who would like to start patient on lisinopril and 40 mg of Lasix twice daily for home and he can see her in the office. It was not felt that she would need admission at this time. Patient advised to return if increasing sh ortness of breath or condition should worsen anyway. Lab Data Attestation: I reviewed the patient's lab results. Labs: Laboratory Results - last 24 hr 07/02/21 07/02/21 07/02/21 11:40 11:45 11:45 WBC 8.6 RBC 4.03 L Hgb 11.1 L Hct 36.8 L MCV 91.3 MCH 27.5 MCHC 30.2 L RDW Std Deviation 51.9 H RDW Coeff of Silvia 15.9 H Plt Count 281 MPV 10.5 Immature Gran % (Auto) 0.700 Neut % (Auto) 70.3 H Lymph % (Auto) 21.4 [place] % (Auto) 5.0 Eos % (Auto) 2.0 Baso % (Auto) 0.6 Absolute Neuts (auto) 6.0 Absolute Lymphs (auto) 1.83 Nucleated RBC % 0 Sodium 139 Potassium 4.3 Chloride 109 H Carbon Dioxide 23.0 Anion Gap 7 BUN 32 H Creatinine 1.09 H Estim Creat Clear Calc 59.73 Est GFR (MDRD) Af Amer 69 Est GFR (MDRD) Non-Af 57 L BUN/Creatinine Ratio 29.4 H Glucose 174 H Calcium 8.2 L Total Bilirubin 0.30 Direct Bilirubin 0.11 AST 60 H ALT 122 H Alkaline Phosphatase 197 H Troponin I High Sens 34 B-Natriuretic Peptide Total Protein 6.6 Albumin 2.7 L Globulin 3.9 Urine Color Yellow Urine Clarity Sl. Cloudy Urine pH 5.0 Ur Specific Hannah 1.025 Urine Protein 100 H Urine Glucose (UA) Normal Urine Ketones 5 H Urine Occult Blood 50 H Urine Nitrite Negative Urine Bilirubin Negative Urine Urobilinogen Normal Ur Leukocyte Esterase Negative Urine RBC 0 SEEN Urine WBC 0-5 SEEN Ur Squamous Epith Cells 0-5 SEEN Urine Bacteria 0 SEEN Fine Granular Casts 0-5 SEEN WBC Casts 0-5 SEEN Urine Mucus 0 SEEN 07/02/21 11:45 WBC RBC Hgb Hct MCV MCH MCHC RDW Std Deviation RDW Coeff of Silvia Plt Count MPV Immature Gran % (Auto) Neut % (Auto) Lymph % (Auto) [place] % (Auto) Eos % (Auto) Baso % (Auto) Absolute Neuts (auto) Absolute Lymphs (auto) Nucleated RBC % Sodium Potassium Chloride Carbon Dioxide Anion Gap BUN Creatinine Estim Creat Clear Calc Est GFR (MDRD) Af Amer Est GFR (MDRD) Non-Af BUN/Creatinine Ratio Glucose Calcium Total Bilirubin Direct Bilirubin AST ALT Alkaline Phosphatase Troponin I High Sens B-Natriuretic Peptide 781.1 H Total Protein Albumin Globulin Urine Color Urine Clarity Urine pH Ur Specific Hannah Urine Protein Urine Glucose (UA) Urine Ketones Urine Occult Blood Urine Nitrite Urine Bilirubin Urine Urobilinogen Ur Leukocyte Esterase Urine RBC Urine WBC Ur Squamous Epith Cells Urine Bacteria Fine Granular Casts WBC Casts Urine Mucus Radiography Diagnostic Testing: Clinical Impression(s) from Imaging Studies Chest X-Ray 07/02/21 11:35 IMPRESSION: Cardiomegaly. Mild degree of vascular congestion. Electronically Signed: Jordan Verma MD at 13:03 EST , Service support , 1 view chest x-ray obtained interpreted by myself is cardiomegaly and vascular congestion. Radiology was in agreement. I felt x-ray consistent with mild CHF. No effusions noted. EKG Initial EKG: Attestation: I personally reviewed and interpreted this EKG as follows: Interpretation: Sinus Rhythm Comments: Sinus rhythm with a ventricular rate of 104 bpm with low voltage. Prior EKG tracings: available for review Prior: Unchanged Discharge Plan Triage Chief Complaint: Shortness of Breath ED Provider: Ebenezer Puentes Dx/Rx/DC Orders Clinical Impression: CHF (congestive heart failure), Edema Instructions: Heart Failure Dc, ED Peripheral Edema, Bilateral Prescriptions: New lisinopril 10 mg tablet 10 mg PO DAILY Qty: 30 RF: 0 furosemide [Lasix] 40 mg tablet 40 mg PO BID Qty: 60 RF: 0 No Action furosemide 40 MG tablet 40 mg PO PRN PRN (Reason: Edema) RF: 0 atorvastatin 20 mg tablet 20 mg PO DAILY RF: 0 glipizide 2.5 mg tablet extended release 24 hr 2.5 mg PO DAILY RF: 0 insulin aspart U-100 [Novolog Flexpen U-100 Insulin] 100 unit/mL (3 mL) insulin pen 15 unit SUBCUT TID RF: 0 Tresiba FlexTouch U-100 100 unit/mL (3 mL) insulin pen 30 unit SUBCUT QHS RF: 0 Primary Care Provider: Amber Hernandez Referrals: Sharath Mario MD [STAFF PHYSICIAN] - 3-5 Days Amber Hernandez MD [Primary Care Provider] - Disposition Disposition: Home, Self Care
[2021-07-02 11:52] LABS: Bacteria 0 SEEN /hpf (None Seen); Mucous, Urine 0 SEEN /hpf (<or=2+); Red Blood Cells-Urine 0 SEEN /hpf (0-5)
[2021-07-02 11:58] LABS: Absolute Lymphocyte Count 1.83 X10^3/uL (0.83-4.51); Basophil# 0.05 X10^3/uL; Basophil% 0.6 % (0-1); Eosinophil# 0.17 X10^3/uL; Hematocrit 36.8 % (37-47); Hemoglobin 11.1 g/dL (12.0-15.0); Lymphocyte # 1.83 X10^3/ul (0.83-4.51); Lymphocyte % 21.4 % (19-41); Mean Corp Hgb Conc 30.2 g/dL (32-36); Mean Corpuscular Hgb 27.5 pg (27.0-32.0); Mean Corpuscular Volume 91.3 fL (81-99); Mean Platelet Vol. 10.5 fl (6.2-12.0); Monocyte# 0.43 X10^3/uL; NRBC Flagged by Analyzer 0 % (0-5); Neutrophil # 6.01 X10^3/uL (2.7-7.7); Neutrophil % 70.3 % (47-70); Platelet Count 281 K/mm3 (150-450); RBC Distribution Width CV 15.9 % (11.6-14.6); RBC Distribution Width SD 51.9 fl (35.1-43.9); Red Blood Count 4.03 M/mm3 (4.2-5.4); White Blood Count 8.6 K/mm3 (4.4-11.0)
[2021-07-02 12:08] LABS: Color, Urine Yellow (Yellow); Glucose, Dipstick Normal (Normal); Ketone-Dipstick 5 mg/dl (Negative); Leukocyte Esterase-Dipstick Negative /ul (Negative); Nitrite-Dipstick Negative (Negative); Occult Blood-Urine 50 /ul (Negative); Protein-Dipstick 100 mg/dl (Negative); Specific Gravity, Urine 1.025 (1.002-1.030); Urine Bilirubin Dipstick Negative (Negative); Urine Clarity Sl. Cloudy (Clear); Urine Urobilinogen Normal (Normal)
[2021-07-02 12:17] LABS: AST(SGOT) 60 U/L (15-37); Alanine Aminotransfer ALT/SGPT 122 U/L (13-56); Albumin, Serum 2.7 g/dL (3.2-5.0); Alkaline Phosphatase 197 U/L (45-117); Anion Gap 7 (5-15); BNP,B-Type NATRIURETIC PEPTIDE 781.1 pg/mL (0-100); BUN 32 mg/dL (7-18); BUN/Creat Ratio 29.4 RATIO (10-20); Bilirubin, Direct 0.11 mg/dL (0.00-0.30); Calcium,Total 8.2 mg/dL (8.5-10.1); Chloride 109 mmol/L (98-107); Creatinine, Serum 1.09 mg/dL (0.55-1.02); EST Glomerular Filtration Rate 57 mL/min (>60); Est Glom Filt Rate - Afr Amer 69 mL/min (>60); Estimated Creatinine Clearance 59.73 ml/min; Globulin 3.9 g/dL (2.2-4.2); Glucose 174 mg/dL (74-106); Potassium 4.3 mmol/L (3.5-5.1); Protein, Total 6.6 g/dL (6.4-8.2); Sodium Level 139 mmol/L (136-145); Troponin-I HS 34 pg/mL (3.0-54.0)
[2021-07-02 12:23] LABS: Squamous Epithelial Cells - UA 0-5 SEEN /hpf (5-10); White Blood Cells 0-5 SEEN /hpf (0-5); White Cell Cast 0-5 SEEN /lpf (None Seen)
[2021-07-02 12:24] LABS: Fine Granular Cast- Urine 0-5 SEEN /lpf (0-5)
[2021-07-02] MEDS: Furosemide 100 MG/10 ML Vial 60 MG IV (12:49)
[2021-07-02 12:51] VITALS: BP 140/95; PULSE 95; RESP 18; O2SAT 97
[2021-07-02 14:04] VITALS: BP 149/93; PULSE 78; RESP 17; O2SAT 98
== END 2021-07-02 14:16 | disposition home or self-care (01) ==
PROVIDERS: Emergency Provider Emergency Medicine; PCP Internal Medicine
DX: I11.0 Hypertensive heart disease with heart failure (principal); I50.9 Heart failure, unspecified; E11.9 Type 2 diabetes mellitus without complications; Z79.899 Other long term (current) drug therapy; Z79.4 Long term (current) use of insulin; F17.210 Nicotine dependence, cigarettes, uncomplicated
CPT/HCPCS: 71045; 80048; 80076; 81001; 83880; 84484; 85025; 93005; 96374; 99284; J1940

== ENCOUNTER → 2021-07-09 16:39 | Outpatient (CLI) | payer OTHER, SELFPAY ==
[2021-07-09 17:04] LABS: Absolute Lymphocyte Count 2.25 X10^3/uL (0.83-4.51); Absolute Neutrophil Count 5.4 X10^3/uL (2.0-7.7); Basophil# 0.04 X10^3/uL; Basophil% 0.5 % (0-1); Eosinophil# 0.11 X10^3/uL; Eosinophils% 1.3 % (0-5); Hematocrit 39.4 % (37-47); Hemoglobin 12.4 g/dL (12.0-15.0); Lymphocyte # 2.25 X10^3/ul (0.83-4.51); Lymphocyte % 26.5 % (19-41); Mean Corp Hgb Conc 31.5 g/dL (32-36); Mean Corpuscular Hgb 28.6 pg (27.0-32.0); Mean Corpuscular Volume 90.8 fL (81-99); Mean Platelet Vol. 10.6 fl (6.2-12.0); Monocyte% 8.2 % (0-10); NRBC Flagged by Analyzer 0 % (0-5); Neutrophil # 5.37 X10^3/uL (2.7-7.7); Neutrophil % 63.1 % (47-70); Platelet Count 238 K/mm3 (150-450); RBC Distribution Width CV 16.9 % (11.6-14.6); RBC Distribution Width SD 53.8 fl (35.1-43.9); Red Blood Count 4.34 M/mm3 (4.2-5.4); White Blood Count 8.5 K/mm3 (4.4-11.0)
[2021-07-09 17:15] LABS: Anion Gap 8 (5-15); BUN 33 mg/dL (7-18); Calcium,Total 8.5 mg/dL (8.5-10.1); Chloride 103 mmol/L (98-107); Creatinine, Serum 1.22 mg/dL (0.55-1.02); EST Glomerular Filtration Rate 50 mL/min (>60); Est Glom Filt Rate - Afr Amer 61 mL/min (>60); Glucose 117 mg/dL (74-106); Potassium 4.2 mmol/L (3.5-5.1); Sodium Level 139 mmol/L (136-145)
== END ==
LOC: LAB 16:40
PROVIDERS: PCP Internal Medicine; Referring Provider Internal Medicine Cardiovascular Disease; Visit Provider Internal Medicine Cardiovascular Disease
DX: I42.8 Other cardiomyopathies (principal); I50.21 Acute systolic (congestive) heart failure
CPT/HCPCS: 36415; 80048; 85025

== ENCOUNTER → 2021-07-14 10:42 | Outpatient (CLI) | payer OTHER, SELFPAY ==
--- NOTE | 2021-07-14 10:44 | ECHOCS_ITS ---
Reason For Study: Dyspnea/SOB Procedure This was a 2D Doppler, Color Flow transthoracic echocardiogram. Contrast injection was performed. Exam performed in department. Left Ventricle Mildly dilated left ventricle. The estimated ejection fraction is 15 %. Stage 3 diastolic dysfunction. There is severe global hypokinesis of the left ventricle. Right Ventricle Normal RV size. Normal systolic function. Atria Normal left atrium. Normal right atrium. Mitral Valve Normal mitral valve. Mild-Moderate (1-2+) mitral valve insufficiency. Tricuspid Valve Normal tricuspid valve. Moderate (2+) tricuspid valve insufficiency. Pulmonary artery systolic pressure is 60 mmHg. Moderate pulmonary hypertension. Aortic Valve Trisinus/trileaflet aortic valve. Pulmonic Valve Normal pulmonic valve. Great Vessels Normal aortic root. The pulmonary artery is normal size. No collapse of the inferior vena cava. Pericardium/Pleural No pericardial effusion. Medication Diluted definity 3ml given slow IV push to enhance endocardial definition. MMode/2D Measurements & Calculations LVIDd: 5.9 cm IVSd: 0.84 cm Ao root diam: 3.3 cm LVIDs: 5.3 cm LVPWd: 1.4 cm RVDd: 3.5 cm FS: 9.6 % LAV(MOD-bp): 57.0 ml LVAd ap4: 39.3 cm2 SV(MOD-sp4): 28.1 ml LAV(MOD-bp) Indexed: 29.5 ml/m2 LVLd ap4: 8.3 cm LAV(MOD-sp2): 69.8 ml EDV(MOD-sp4): 154.1 ml LAV(MOD-sp4): 44.7 ml EDV(sp4-el): 158.3 ml LVAs ap4: 34.7 cm2 LVLs ap4: 7.9 cm ESV(MOD-sp4): 126.0 ml ESV(sp4-el): 129.3 ml EF(MOD-sp4): 18.2 % EF(sp4-el): 18.3 % SV(sp4-el): 29.0 ml LA A4 area: 16.4 cm2 LA dimension(2D): 4.5 cm RA A4 area: 12.9 cm2 Doppler Measurements & Calculations MV E max patrick: 117.8 cm/sec Lat Peak E' Patrick: 8.6 cm/sec Med Peak E' Patrick: 4.3 cm/sec MV A max patrick: 50.2 cm/sec E/E' lat: 13.6 E/E' med: 27.2 MV E/A: 2.3 Ao V2 max: 135.2 cm/sec LV V1 max: 102.3 cm/sec PA V2 max: 72.8 cm/sec Ao max P.3 mmHg LV V1 max P.2 mmHg Ao V2 mean: 97.3 cm/sec Ao mean P.1 mmHg Ao V2 VTI: 20.6 cm PI end-d patrick: 141.7 cm/sec TR max patrick: 364.5 cm/sec TR max P.1 mmHg ECHO/Echo Complete W/ Contrast Interpretation Summary Mildly dilated left ventricle. The estimated ejection fraction is 15 %. There is severe global hypokinesis of the left ventricle. Stage 3 diastolic dysfunction. Pulmonary artery systolic pressure is 60 mmHg. Moderate pulmonary hypertension. Contrast injection was performed. Ordering Physician: Sharath Mario Referring Physician: Amber Hernandez Performed By: Mena Wise, JAI, RVT
== END ==
PROVIDERS: PCP Internal Medicine; Referring Provider Internal Medicine Cardiovascular Disease; Visit Provider Internal Medicine Cardiovascular Disease
DX: I42.8 Other cardiomyopathies (principal); R06.00 Dyspnea, unspecified
CPT/HCPCS: 93306; Q9957; A4216; C8929

== ENCOUNTER 2021-07-16 06:41 | Day surgery (SDC) | payer OTHER, SELFPAY ==
[2021-07-15 08:42] VITALS: BMI 39.0
[2021-07-16 07:11] LABS: Internal QC Validated? YES +Cl - CLEAR BKGD; Pregnancy, Urine Negative Negative
[2021-07-16 08:50] LABS: Base Excess 5 mmol/L (-2 to +2); Bicarbonate 30.2 mmol/L (22-26); Blood Gas Specimen Type ART; PO2 60 mmHG (75-100); SO2 90 % (95-99); Total Carbon Dioxide 32 mmol/L; pCO2 50.3 mmHg (35-45); pH 7.39 (7.35-7.45)
[2021-07-16 08:56] LABS: Blood Gas Specimen Type VEN; VBG BASE EXCESS 7 mmol/L (-1.0-3.5); VBG Bicarbonate 33 mmol/L (22-26); VBG PO2 29 mmHg (25-40); VBG SO2 50 % (50-70); VBG TCO2 34 mmol/L (23-33); VBG pCO2 58.2 mmHg (41-51); VBG pH 7.36 (7.32-7.42)
[2021-07-16 09:00] LABS: Blood Gas Specimen Type VEN; VBG BASE EXCESS 8 mmol/L (-1.0-3.5); VBG Bicarbonate 33 mmol/L (22-26); VBG PO2 28 mmHg (25-40); VBG SO2 49 % (50-70); VBG TCO2 35 mmol/L (23-33); VBG pCO2 58.3 mmHg (41-51); VBG pH 7.36 (7.32-7.42)
[2021-07-16 09:05] LABS: Blood Gas Specimen Type VEN; VBG BASE EXCESS 6 mmol/L (-1.0-3.5); VBG Bicarbonate 32 mmol/L (22-26); VBG PO2 29 mmHg (25-40); VBG SO2 51 % (50-70); VBG TCO2 34 mmol/L (23-33); VBG pCO2 56.7 mmHg (41-51); VBG pH 7.36 (7.32-7.42)
--- NOTE | 2021-07-16 09:05 | CL.D_ITS ---
Patient Name: NEWTON FARMER Study Date: 07/16/2021 Performing: Sharath Mario MD Ht: 66 inches 168 cm : 1975 Wt: 242.8 lbs 110 kg Age: 46 Gender: female BSA: 2.17 PROCEDURE(S) PERFORMED [id number])RHC/LHC/COR/LV CLINICAL PROFILE AND INDICATIONS Indications: Cardiomyopathy Heart Failure: NYHA Class: 3, Newly Diagnosed: Yes, Heart Failure Type: Systolic CONCLUSIONS Normal coronary arteries Cardiomyopathy: Dilated idiopathic Right heart pressures - moderately to severely elevated RECOMMENDATIONS Medical therapy DESCRIPTION OF PROCEDURE The patient arrived to the procedure lab. The risks and benefits of the procedure as well as a full d escription of our services here and current unavailability of surgical backup were fully explained to the patient and/or their significant other prior to the catheterization. The Timeout was completed, verifying the correct patient and procedure. The patient's procedural site was prepped and draped in the usual fashion. Local anesthetic was given subcutaneously to right radial region with Lidocaine 2% . Using a modified Seldinger technique, arterial access was obtained via the right radial artery, a 6 Fr sheath was inserted. Venous access was obtained via the right brachiocephalic vein, a 7Fr sheath w as inserted. Left Coronary Artery selective angiography was performed in multiple views using a 5 Fr. 4.0 [place] catheter. Right Coronary Artery selective angiography was then performed in multiple views using a 5 Fr. 4.0 [place] catheter. Left Ventriculography was performed in MOREL projection using a 5 Fr. Pigtail catheter. LV to AO pullback pressures were then recorded. A 7Fr thermal dilutio n catheter was inserted and right heart pressures were recorded, it was then advanced to PA position for cardiac outputs. Thermal dilution cardiac outputs were then recorded. O2 saturations were then ob tained. The Thermal dilution catheter was then removed.The arterial sheath was pulled and a TR Band w as applied for hemostasis. Sheath Flushed prior to removal. 10cc air inserted.. The venous sheath was then pulled and manual compression applied until hemostasis achieved CORONARY ANGIOGRAPHY DOMINANCE: Right Dominant LEFT HEART ASSESSMENT Left Ventricular Ejection Fraction: by LV Gram 15 % Global Hypokinesis - Severe Depressed Left Ventricular systolic function RIGHT HEART ASSESSMENT Thermal CO: 4.96 Thermal CI: 2.29 PW: 22/20 21 PA: 60/25 40 RV: 63/7 26 RA: 18 PVR: 306 SVR: 1484 Right Heart pressures - elevated LEFT MAIN: Angiographically normal LEFT ANTERIOR DESCENDING ARTERY: Angiographically normal CIRCUMFLEX ARTERY: Angiographically normal RIGHT CORONARY ARTERY: Angiographically normal COMPLICATIONS No Complications PROCEDURE MEDICATIONS Fentanyl 50 mcg IV Versed 1 mg IV Versed 1 mg IV Heparin given IA 07/16/2021 08:39:13 SUMMARY OF HEMODYNAMIC DATA Time AIR REST ECG 07:20:32 ECG 07:59:21 AO 138/87 (110) SA 08:41:09 LV 119/4, 20 08:45:46 LV 120/7, 26 08:45:52 LV 122/10, 33 08:46:32 LVp 124/5, 25 08:46:35 AOp 120/75 (93) 08:46:40 RA (18) SV 08:49:54 RV 63/7, 26 08:50:22 PW (21) PV 08:51:12 PA 60/25 (40) PA 08:51:30 PA 66/21 (42) 08:55:52 RV 62/6, 25 08:56:00 RA (19) 08:56:17 Type SV CO (l/m) CI (l/m/ HR Time AIR REST Thermal 56.40 4.96 2.29 88 07:20:32 Signed By Sharath Mario MD On 07/16/2021 9:05:33 AM Signed By Sharath Mario MD On 07/16/2021 09:05:11 Sharath Mario MD
== END 2021-07-16 10:45 | disposition home or self-care (01) ==
LOC: CLSP 06:44
PROVIDERS: PCP Internal Medicine; Referring Provider Internal Medicine Cardiovascular Disease; Visit Provider Internal Medicine Cardiovascular Disease
DX: I42.0 Dilated cardiomyopathy (principal); E11.9 Type 2 diabetes mellitus without complications; I11.0 Hypertensive heart disease with heart failure; I50.21 Acute systolic (congestive) heart failure; Z79.899 Other long term (current) drug therapy; Z79.4 Long term (current) use of insulin; E78.5 Hyperlipidemia, unspecified; F17.210 Nicotine dependence, cigarettes, uncomplicated; I27.21 Secondary pulmonary arterial hypertension
CPT/HCPCS: 81025; 82803; 93460; 99152; 99153; J7040; C1751; C1769; C1894; Q9967

== ENCOUNTER 2021-08-28 22:39 | Emergency (ER) | payer OTHER, SELFPAY ==
[2021-08-28 22:40] VITALS: BP 145/83; PULSE 92; RESP 16; TEMP 36.6; O2SAT 99; BMI 35.5
[2021-08-28 23:01] VITALS: BP 145/83; PULSE 92; RESP 16; TEMP 36.6; O2SAT 98
[2021-08-28] MEDS: Morphine 4 MG/ML Syringe IV (23:36)
[2021-08-28] MEDS: Ondansetron 4 MG/2 ML Vial IV (23:36)
--- NOTE | 2021-08-28 23:45 | EX.ED.DYSGE1 ---
HPI History of Present Illness Chief Complaint: Cellulitis Narrative Narrative: Patient is a 46-year-old female with history of diabetes and reported previous MRSA infection. She states that she has noticed some redness swelling and pain to her right upper abdomen over the past 2 to 3 days with no known injury. She denies any fevers or chills and states that her sugars have been relatively under control. She states she is concerned she is developing infection once again and secondary to this comes in for evaluation. [facility] Medical History Acute HFrEF (heart failure with reduced ejection fraction) (07/02/21) Bilateral pleural effusion (12/2019) Diabetes mellitus, type II Essential hypertension Genital herpes Hyperlipidemia Non-ischemic cardiomyopathy Nonrheumatic mitral (valve) insufficiency RSV (acute bronchiolitis due to respiratory syncytial virus) (04/2021) Secondary pulmonary arterial hypertension Home Medications atorvastatin 20 mg PO DAILY 07/02/21 [History Last Taken Unknown] furosemide [Lasix] 40 mg PO BID #60 tab 07/02/21 [Rx Last Taken Unknown] glipizide 2.5 mg PO DAILY 07/02/21 [History Last Taken Unknown] insulin aspart U-100 [Novolog Flexpen U-100 Insulin] 15 unit SUBCUT TID 07/02/21 [History Last Taken Unknown] insulin degludec [Tresiba FlexTouch U-100] 30 unit SUBCUT QHS 07/02/21 [History Last Taken Unknown] aspirin 81 mg tablet,delayed release 81 mg PO DAILY 07/09/21 [History Last Taken 07/16/21] carvedilol 6.25 mg tablet 6.25 mg PO BID #60 tab 07/16/21 [Rx Last Taken Unknown] spironolactone 50 mg tablet 50 mg PO DAILY #30 tab 07/16/21 [Rx Last Taken Unknown] lisinopril 10 mg tablet 10 mg PO DAILY #30 tab 08/08/21 [Rx Last Taken Unknown] clindamycin HCl [Cleocin HCl] 300 mg PO 4X/DAY #40 cap 08/29/21 [Rx Last Taken Unknown] oxycodone-acetaminophen [Endocet] 1 tab PO Q6H PRN 3 Days #12 tab 08/29/21 [Rx Last Taken Unknown] Allergy/AdvReac Type Severity Reaction Status Date / Time No Known Allergies Allergy Verified 08/28/21 22:39 Surgical History History of carpal tunnel release History of incision and drainage (06/2021) History of left heart catheterization (2006) History of right and left heart catheterization (07/16/21) Social History Smoking Status: Current every day smoker tobacco type: cigarettes substance use type: does not use ROS ROS ED Constitutional Constitutional ED: Denies chills or fever(s) ENT ENT ED: Denies sore throat Cardiovascular Cardiovascular: Denies chest pain Respiratory/Chest Respiratory/Chest: Denies cough or dyspnea Gastrointestinal Gastrointestinal: Reports abdominal pain; Denies diarrhea, nausea or vomiting Genitourinary Genitourinary ED: Denies dysuria Musculoskeletal Musculoskeletal: Denies myalgias Integumentary Reports abscess; Denies rash Neurologic Neurologic: Denies headache(s) Hematologic/Lymphatic Hematologic/Lymphatic: Denies easy bleeding or easy bruising EXAM Physical Exam Const Vital Signs: 08/28/21 22:40 08/28/21 23:01 Temperature 97.8 F 97.8 F Temperature Source Temporal Temporal Pulse Rate 92 92 Respiratory Rate 16 16 Blood Pressure 145/83 H 145/83 H Blood Pressure Mean 103 103 Pulse Ox 99 98 Oxygen Delivery Method Room Air Room Air Positive well nourished and well developed General Appearance ED: well developed HEENT Reports moist mucous membranes Eyes PERRL and EOMs intact bilaterally Neck supple Resp normal respiratory effort and clear to auscultation bilaterally Cardio regular rate and regular rhythm GI non-distended GI Narrative: Patient has asymmetric erythema and warmth that is blanchable in nature to the right upper quadrant of her abdomen is approximately 1.5 x 3.5 cm in size. There is induration with this consistent with abscess. No lymphangitic streaking or vesicular/pustule changes noted. No active drainage or discharge. No voluntary guarding or rigidity no pulsatile mass Auscultation: normoactive bowel sounds Palpation: soft Extremity normal to inspection Neuro oriented x3 and CN's II-XII intact bilaterally Sensorium / Orientation: alert Motor Exam: strength 5/5 throughout Psych mental status grossly normal Skin Skin Narrative: Soft tissue changes to the right upper quadrant of the abdomen as documented above consistent with abdominal wall abscess with cellulitis MDM MDM MDM Narrative Medical decision making narrative: Patient presented to the ER afebrile and is slightly hypertensive and without symptoms concerning for systemic infection so I felt no need for laboratory or imaging studies at this time. Based on her diabetic status and the fact that she does have a history of MRSA I did elect to go ahead and medicate her with 15 mg/kg of vancomycin at this time. The abdominal wall abscess was incised and drained as documented below. Following this patient will be placed on clindamycin and pain medication and given strict return precautions because as she is technically immunosuppressed because of her diabetes there is concern she may need IV antibiotic treatment to resolve this or even possible surgical intervention. Patient agrees with the plan at this time and will be discharged in stable condition Patient had the abdominal wall cleaned with chlorhexidine. She was anesthetized using 10 mL of 2% lidocaine with epinephrine local fashion. A 1.5 cm linear incision was made over top the area of induration with a #11 blade scalpel. A large amount of purulent material was expressed. Loculations were dissected with a needle diego and the wound did track approximately 7 cm toward the midline. The wound was copiously irrigated with normal saline and then packed with half-inch iodoform gauze. Patient tolerated procedure well without complication. Discharge Plan Triage Chief Complaint: Cellulitis ED Provider: Sami Garcia Dx/Rx/DC Orders Clinical Impression: Abdominal wall abscess Instructions: ED Abscess Incision And Drainage Prescriptions: New clindamycin HCl [Cleocin HCl] 300 mg capsule 300 mg PO 4X/DAY Qty: 40 RF: 0 oxycodone-acetaminophen [Endocet] 5-325 mg tablet 1 tab PO Q6H PRN (Reason: pain) 3 Days Qty: 12 RF: 0 No Action aspirin [Adult Aspirin Regimen] 81 mg tablet,delayed release (DR/EC) 81 mg PO DAILY RF: 0 atorvastatin 20 mg tablet 20 mg PO DAILY RF: 0 glipizide 2.5 mg tablet extended release 24 hr 2.5 mg PO DAILY RF: 0 insulin aspart U-100 [Novolog Flexpen U-100 Insulin] 100 unit/mL (3 mL) insulin pen 15 unit SUBCUT TID RF: 0 Tresiba FlexTouch U-100 100 unit/mL (3 mL) insulin pen 30 unit SUBCUT QHS RF: 0 furosemide [Lasix] 40 mg tablet 40 mg PO BID Qty: 60 RF: 0 carvedilol 6.25 mg tablet 6.25 mg PO BID Qty: 60 RF: 11 spironolactone 50 mg tablet 50 mg PO DAILY Qty: 30 RF: 11 lisinopril 10 mg tablet 10 mg PO DAILY Qty: 30 RF: 11 Primary Care Provider: Amber Hernandez Referrals: Amber Hernandez MD [Primary Care Provider] - Activity Restrictions/Additional Instructions: Please stop your doxycycline and start clindamycin. Remove your packing in 48 to 72-hour and return to the ER if you notice worsening of the redness outside the marked areas today or development of a fever over 100.4. Disposition Disposition: Home, Self Care
[2021-08-29] MEDS: HYDROmorphone 1 MG/ML Syringe IV (00:43)
[2021-08-29] MEDS: Lidocaine 2% /Epi 1:100 (20ml) 20 ML VIAL INFILT (00:44)
[2021-08-29 02:24] VITALS: BP 128/55; PULSE 85; RESP 16; TEMP 36.6; O2SAT 97
== END 2021-08-29 02:26 | disposition home or self-care (01) ==
PROVIDERS: Emergency Provider Emergency Medicine; PCP Internal Medicine; Visit Provider Emergency Medicine
DX: L02.211 Cutaneous abscess of abdominal wall (principal); I11.0 Hypertensive heart disease with heart failure; I50.22 Chronic systolic (congestive) heart failure; I42.8 Other cardiomyopathies; E11.9 Type 2 diabetes mellitus without complications; F17.210 Nicotine dependence, cigarettes, uncomplicated; E78.5 Hyperlipidemia, unspecified; Z86.14 Personal history of Methicillin resistant Staphylococcus aureus infection
CPT/HCPCS: 10060; 96365; 96366; 96375; 99283; J7040; J7050; A4216; J2405

== ENCOUNTER → 2022-09-18 | Outpatient (CLI) | payer BC, SELFPAY ==
[2022-09-18 13:00] LABS: Absolute Lymphocyte Count 2.18 X10^3/uL (0.83-4.51); Absolute Neutrophil Count 5.4 X10^3/uL (2.0-7.7); Basophil# 0.03 X10^3/uL; Basophil% 0.4 % (0-1); Eosinophil# 0.32 X10^3/uL; Eosinophils% 3.8 % (0-5); Hematocrit 36.8 % (37-47); Hemoglobin 11.9 g/dL (12.0-15.0); Lymphocyte # 2.18 X10^3/ul (0.83-4.51); Lymphocyte % 26.2 % (19-41); Mean Corp Hgb Conc 32.3 g/dL (32-36); Mean Corpuscular Hgb 29.5 pg (27.0-32.0); Mean Corpuscular Volume 91.1 fL (81-99); Monocyte# 0.42 X10^3/uL; NRBC Flagged by Analyzer 0 % (0-5); Neutrophil # 5.35 X10^3/uL (2.7-7.7); Neutrophil % 64.2 % (47-70); Platelet Count 227 K/mm3 (150-450); RBC Distribution Width CV 14.6 % (11.6-14.6); RBC Distribution Width SD 48.2 fl (35.1-43.9); Red Blood Count 4.04 M/mm3 (4.2-5.4); White Blood Count 8.3 K/mm3 (4.4-11.0)
[2022-09-18 13:37] LABS: ALB/GLOB Ratio 0.9 RATIO (0.9-2.4); AST(SGOT) 13 U/L (15-37); Alanine Aminotransfer ALT/SGPT 23 U/L (13-56); Albumin, Serum 3.4 g/dL (3.2-5.0); Alkaline Phosphatase 90 U/L (45-117); Anion Gap 10 (5-15); BUN 38 mg/dL (7-18); BUN/Creat Ratio 21.3 RATIO (10-20); Calcium,Total 8.7 mg/dL (8.5-10.1); Chloride 101 mmol/L (98-107); Cholesterol 141 mg/dL (200); Creatinine, Serum 1.78 mg/dL (0.55-1.02); EST Glomerular Filtration Rate 32 mL/min (>60); Est Glom Filt Rate - Afr Amer 39 mL/min (>60); Globulin 3.8 g/dL (2.2-4.2); Glucose 413 mg/dL (74-106); High Density Lipoprotein 37 mg/dL; Potassium 4.6 mmol/L (3.5-5.1); Protein, Total 7.2 g/dL (6.4-8.2); Sodium Level 137 mmol/L (136-145); Thyroid Stim Hormone (TSH) 2.59 uIU/mL (0.358-3.74); Triglycerides 197 mg/dL; Very Low Density Lipoprotein 39 mg/dL (5-40)
== END | disposition home or self-care (01) ==
LOC: LAB 12:16
PROVIDERS: PCP Internal Medicine; Referring Provider Physician Assistant Medical; Visit Provider Physician Assistant Medical
DX: R06.00 Dyspnea, unspecified (principal); R00.0 Tachycardia, unspecified
CPT/HCPCS: 36415; 80053; 80061; 84443; 85025

== ENCOUNTER 2023-09-14 00:58 | Emergency (ER) | payer OTHER, SELFPAY ==
[2023-09-14 01:00] VITALS: BP 169/106; PULSE 89; RESP 14; TEMP 36.8; O2SAT 97; BMI 36.5
--- NOTE | 2023-09-14 01:23 | RAD_ITS ---
EXAM: XR CHEST, 2 VIEWS CLINICAL INDICATION: chest pain chest pain TECHNIQUE: Frontal and lateral views of the chest. COMPARISON: Chest x-ray 07/02/2021. FINDINGS: LUNGS AND PLEURAL SPACES: Unremarkable. No consolidation or edema. No pneumothorax. No effusion. HEART: The heart is enlarged. MEDIASTINUM: Central airways and mediastinal contour are unremarkable. BONES/JOINTS: There is mild multilevel spondylosis in the thoracic spine. No acute fracture. SOFT TISSUES: Unremarkable. RAD/Chest PA and Lateral IMPRESSION: 1. Cardiomegaly. 2. No evidence for acute cardiopulmonary pathology. Electronically Signed: Zackary Jaeger MD at 2:28 EST Reading Location ID and State: [facility] / [place] , Service support ,
--- NOTE | 2023-09-14 01:23 | EKG12_ITS ---
Test Reason : Blood Pressure : / mmHG Vent. Rate : 086 BPM Atrial Rate : 086 BPM P-R Int : 176 ms QRS Dur : 094 ms QT Int : 388 ms P-R-T Axes : 059 -46 075 degrees QTc Int : 464 ms Normal sinus rhythm Possible Left atrial enlargement Left axis deviation Possible Anterior infarct , age undetermined Abnormal ECG Confirmed by BETTY GUDINO, ANAYELI ([id number]), city editor SERENA CAVAZOS ([id number]) on 09/20/2023 10:01:04 AM Referred By: Confirmed By:ROSENDA HERNÁNDEZ MD
--- NOTE | 2023-09-14 01:24 | EDS_ITS ---
HPI History of Present Illness Chief Complaint: Palpitations Informant: patient Narrative Narrative: Patient is a 48-year-old female with history of heart failure with reduced ejection fraction, nonischemic cardiomyopathy, type 2 diabetes mellitus, hypertension and CKD presenting with palpitations and chest discomfort. Patient states she was feeling fine earlier today and then about 30 minutes prior to arrival started feel fluttering in her chest, tingling across her scalp and then a pain in the center of her chest that she describes as sharp and stabbing the last for couple minutes. Her boss who is an EMT checked her heart rate and states it was 150. He then recommend she go to the emergency room. Patient notes that she has not had any recent weight loculations or swelling of her legs. Denies any associated nausea, vomiting or black or blood in her stool. Had normal bowel movement today. No show some chronic nasal congestion runny nose which is unchanged. Denies any recent fever or chills. Denies any recent respiratory changes or cough. Does have some tingling in her fingers bilaterally. Continues to have fluttering and discomfort in her chest. No other complaints at this time. [facility] Medical History Acute HFrEF (heart failure with reduced ejection fraction) (07/02/21) Anxiety Bilateral pleural effusion (12/2019) Depression Diabetes Diabetes mellitus, type II Essential hypertension Genital herpes Hyperlipidemia Hypertension Kidney stones Migraines Non-ischemic cardiomyopathy Nonrheumatic mitral (valve) insufficiency RSV (acute bronchiolitis due to respiratory syncytial virus) (04/2021) Secondary pulmonary arterial hypertension Smoker Home Medications aspirin 81 mg tablet,delayed release (Adult Aspirin Regimen) 81 mg PO DAILY 07/09/21 [History Last Taken 07/16/21] atorvastatin 20 mg tablet 20 mg PO DAILY #90 tabs 08/20/23 [Rx Last Taken Unknown] blood-glucose meter,continuous (FreeStyle Janna 3 [place]) #1 ea 08/20/23 [Rx Last Taken Unknown] carvedilol 3.125 mg tablet 3.125 mg PO BID this is a dose increase 30 days #60 tabs 08/20/23 [Rx Last Taken Unknown] furosemide 40 mg tablet (Lasix) 40 mg PO DAILY 30 days #30 tabs 08/20/23 [Rx Last Taken Unknown] glipizide 2.5 mg tablet, extended release 24 hr 2.5 mg PO DAILY #30 tabs 08/20/23 [Rx Last Taken Unknown] insulin aspart U-100 100 unit/mL (3 mL) subcutaneous pen (Novolog FlexPen U-100 Insulin aspart) 15 unit (0.15 mL) subcut TID #15 mL 08/20/23 [Rx Last Taken Unknown] insulin degludec 100 unit/mL (3 mL) subcutaneous pen (Tresiba FlexTouch U-100 insulin) 30 unit (0.3 mL) subcut QHS #15 mL 08/20/23 [Rx Last Taken Unknown] lisinopril 5 mg tablet 5 mg PO DAILY 30 days #30 tabs 08/20/23 [Rx Last Taken Unknown] spironolactone 25 mg tablet 25 mg PO DAILY 30 days #30 tabs 08/20/23 [Rx Last Taken Unknown] blood-glucose sensor (Walk-in Appointment SchedulerStyle Janna 3 Sensor device) #1 ea 08/26/23 [Rx Last Taken Unknown] Allergy/AdvReac Type Severity Reaction Status Date / Time metformin AdvReac Severe Abd Verified 08/20/23 07:34 cramps/diarrhea Family History Father Alcoholism Abnormal respiratory function Cancer Brother Alcoholism Myocardial infarction Sister Alcoholism Anxiety Depression Diabetes Mental disorder Psychiatric care Mother History of blood transfusion Depression Diabetes Heart disease Hypertension Age related osteoporosis Grandfather Cancer Grandmother Cancer cervical cancer Aunt Asthma Diabetes Surgical History H/O dilation and curettage History of carpal tunnel release History of incision and drainage (06/2021) History of left heart catheterization (2006) History of right and left heart catheterization (07/16/21) Social History household members: spouse current occupational status: employed Smoking Status: Current every day smoker tobacco type: cigarettes alcohol intake: never substance use type: does not use what type of physical activity do you participate in: walking do you feel safe at home: Yes ROS ROS ED Constitutional Constitutional ED: Denies chills or fever(s) ENT ENT ED: Reports rhinorrhea; Denies sore throat Cardiovascular Cardiovascular: Reports as per HPI, chest pain and palpitations Respiratory/Chest Respiratory/Chest: Denies cough, dyspnea or dyspnea on exertion Gastrointestinal Gastrointestinal: Denies diarrhea, melena, nausea or vomiting Musculoskeletal Musculoskeletal: Denies arthralgias or myalgias Integumentary Denies rash Neurologic Neurologic: Reports paresthesias; Denies headache(s) or weakness Psychiatric Psychiatric: Denies anxiety Hematologic/Lymphatic Hematologic/Lymphatic: Denies easy bleeding or easy bruising EXAM Physical Exam Const Vital Signs: 09/14/23 01:00 09/14/23 01:26 09/14/23 03:00 Temperature 98.2 F Temperature Source Oral Pulse Rate 89 82 Respiratory Rate 14 16 Blood Pressure 169/106 H 139/90 H Blood Pressure Mean 127 106 Pulse Ox 97 98 Oxygen Delivery Method Room Air Room Air Room Air 09/14/23 05:10 09/14/23 05:10 Temperature 97.5 F L 97.5 F L Temperature Source Oral Pulse Rate 87 87 Respiratory Rate 16 16 Blood Pressure 146/84 H 146/84 H Blood Pressure Mean 104 104 Pulse Ox 97 97 Oxygen Delivery Method Room Air Positive well nourished and well developed General Appearance ED: well developed and NAD HEENT Reports moist mucous membranes Eyes PERRL Neck supple and no JVD Chest Wall inspection of chest normal and palpation of chest normal Resp normal respiratory effort and clear to auscultation bilaterally Cardio regular rate, regular rhythm and no murmurs Rhythm: Negative for abnormal rhythm Peripheral Pulses: radial pulses present GI normal to inspection, nondistended, normoactive bowel sounds, soft to palpation and non-tender Extremity normal to inspection General Extremety ED: Negative for edema General Extremity: Negative for edema Neuro oriented x3 Sensorium / Orientation: awake Motor Exam: Negative for general weakness Psych mental status grossly normal Skin no rashes or lesions noted MDM MDM MDM Narrative Medical decision making narrative: Patient valuated for palpitations and reported tachycardia. Patient is currently normal sinus rhythm but does have some PVCs on the monitor. Will perform cardiac evaluation. Patient is PE RC negative so lower suspicion for pulmonary emboli. Differential includes pneumonia, arrhythmia, thyroid dysfunction, electrolyte abnormality, ACS. Workup is largely normal. Patient has normal and downtrending high-sensitivity troponin (26 and 23). No significant electrolyte abnormalities. Creatinine is mildly elevated but actually improving. She does not have a leukocytosis or anemia. 2 view chest x-ray viewed by myself as well as radiology shows cardiomegaly with no acute process. She does not appear to be in any type of acute or decompensated heart failure. The cause of her palpitations is not clear and she does not have any significant arrhythmia or tacky arrhythmia in the emergency room. Will be discharged home with outpatient follow-up with cardiology. Patient agreeable with this plan of care. Discharged home in stable condition. Lab Data Attestation: I reviewed the patient's lab results. Labs: Laboratory Results - last 24 hr 09/14/23 09/14/23 01:05 03:52 WBC 10.6 RBC 5.25 Hgb 14.6 Hct 45.3 MCV 86.3 MCH 27.8 MCHC 32.2 RDW Std Deviation 45.3 H RDW Coeff of Silvia 14.3 Plt Count 229 MPV 11.9 Immature Gran % (Auto) 0.300 Neut % (Auto) 68.3 Lymph % (Auto) 20.5 [place] % (Auto) 5.0 Eos % (Auto) 5.3 H Baso % (Auto) 0.6 Absolute Neuts (auto) 7.3 Absolute Lymphs (auto) 2.18 Nucleated RBC % 0 Sodium 138 Potassium 4.7 Chloride 109 H Carbon Dioxide 26.0 Anion Gap 3 L BUN 33 H Creatinine 1.34 H Estim Creat Clear Calc 59.36 Est GFR (MDRD) Af Amer 54 L Est GFR (MDRD) Non-Af 45 L BUN/Creatinine Ratio 24.6 H Glucose 124 H Calcium 9.4 Magnesium 2.1 Troponin I High Sens 26 23 TSH 2.21 Radiography Diagnostic Testing: Clinical Impression(s) from Imaging Studies Chest X-Ray 09/14/23 01:23 IMPRESSION: 1. Cardiomegaly. 2. No evidence for acute cardiopulmonary pathology. Electronically Signed: Zackary Jaeger MD at 2:28 EST Reading Location ID and State: [facility] / [place] , Service support , Rhythm Strip Rhythm Strip: Sinus Rhythm Rate: 86 Ectopy: PVC(s) EKG Initial EKG: Attestation: I personally reviewed and interpreted this EKG as follows: Interpretation: Sinus Rhythm Comments: Normal sinus rhythm at a rate of 86 bpm Left axis deviation Normal intervals Normal ST segments Differential Diagnosis Chest pain/SOB: pulmonary embolism Reason(s) PE less likely: Positive for PERC negative, not tachycardic and not hypoxic Discharge Plan Triage Chief Complaint: Palpitations ED Provider: Gale Hull Dx/Rx/DC Orders Clinical Impression: Heart palpitations Instructions: ED Palpitations Prescriptions: No Action aspirin [Adult Aspirin Regimen] 81 mg tablet,delayed release (DR/EC) 81 mg PO DAILY atorvastatin 20 mg tablet 20 mg PO DAILY Qty: 90 1RF insulin aspart U-100 [Novolog FlexPen U-100 Insulin] 100 unit/mL (3 mL) insulin pen 15 unit SUBCUT TID Qty: 15 2RF Tresiba FlexTouch U-100 100 unit/mL (3 mL) insulin pen 30 unit SUBCUT QHS Qty: 15 1RF glipizide 2.5 mg tablet extended release 24hr 2.5 mg PO DAILY Qty: 30 1RF carvedilol 3.125 mg tablet 3.125 mg PO BID 30 Days Qty: 60 1RF Rx Instructions: must administer with a meal/food furosemide [Lasix] 40 mg tablet 40 mg PO DAILY 30 Days Qty: 30 1RF spironolactone 25 mg tablet 25 mg PO DAILY 30 Days Qty: 30 1RF lisinopril 5 mg tablet 5 mg PO DAILY 30 Days Qty: 30 1RF (DME) FreeStyle Janna 3 [place] Misc See Rx Instructions .Route Qty: 1 0RF Rx Instructions: As directed (DME) FreeStyle Janna 3 Sensor Device See Rx Instructions .Route Qty: 1 10RF Rx Instructions: As directed Stand Alone Forms: ED Work / School Excuse Referrals: Sharath Mario MD [Med Staff - Active Staff] - As soon as possible Disposition Disposition: Home, Self Care
--- OUTSIDE RECORDS SUMMARY | 2023-09-14 01:25 | XMS RPT_ITS | CCD ---
Author Name Unknown Address [id number] [place] [address] Organization [facility] Care Team Providers Care Repair Technician Name Role Phone Rosendo Hernandez MD Primary Care Provider Jarrett Nguyen RPh Unavailable REBECCA STEINBERG Attending Unavailable ROSENDO HERNANDEZ Primary Care Unavailable Allergies Allergy Classification Reported Allergen(s) Allergy Type Date of Onset Reaction(s) Facility (1 source) metFORMIN Drug Allergy 07-03-2015 Diarrhea [facility] Work Phone: Medications Current Medications Medication Drug Class(es) Dates Sig (Normalized) Sig (Original) carvedilol 6.25 mg oral tablet (5 sources) alpha-Adrenergic Woody, beta-Adrenergic Woody Start: 07-16-2021 End: 11-12-2022 take 1 tablet by mouth twice daily at mealtime carvedilol (COREG) 6.25 mg tablet Indications: Decreased cardiac ejection fraction Take 1 tablet by mouth twice daily with meals. 180 tablet 0 08/14/2022 11/12/2022 Active Completed/Discontinued Medications Medication Drug Class(es) Dates Sig (Normalized) Sig (Original) acyclovir 400 mg oral tablet (4 sources) Herpesvirus Nucleoside Analog DNA Polymerase Inhibitor, Herpes Simplex Virus Nucleoside Analog DNA Polymerase Inhibitor, Herpes Zoster Virus Nucleoside Analog DNA Polymerase Inhibitor Start: 08-10-2019 End: 08-14-2022 take 1 tablet by mouth twice daily acyclovir (ZOVIRAX) 400 mg tablet Take 1 tablet by mouth twice daily. 60 tablet 5 08/10/2019 08/14/2022 Discontinued Problems Active Problems Problem Classification Problem Date Documented Da te Episodic/Chronic Abdominal pain (1 source) Abdominal pain; Translations: [Unspecified abdominal pain] Onset: 08-14-2022 08-14-2022 Episodic Anxiety disorders (5 sources) Generalized anxiety disorder; Translations: [Generalized anxiety disorder] Onset: 07-03-2015 07-14-2021 Chronic Congestive heart failure; nonhypertensive (1 source) Acute systolic heart failure; Translations: [Acute systolic (congestive) heart failure] Onset: 07-02-2021 08-14-2022 Chronic Diabetes mellitus with complications (2 sources) Type II diabetes mellitus uncontrolled; Translations: [Type 2 diabetes mellitus with hyperglycemia] Chronic Diabetes mellitus without complication (6 sources) Type 2 diabetes mellitus without complication; Translations: [Type 2 diabetes mellitus without complications] Onset: 07-03-2015 07-03-2015 Chronic Disorders of lipid metabolism (5 sources) Mixed hyperlipidemia; Translations: [Mixed hyperlipidemia] Onset: 07-04-2015 07-04-2015 Chronic Essential hypertension (5 sources) Essential hypertension; Translations: [Essential (primary) hypertension] Onset: 05-13-2020 05-13-2020 Chronic Genitourinary symptoms and ill-defined conditions (4 sources) Female stress incontinence; Translations: [Stress incontinence (female) (male)] Onset: 08-25-2018 08-25-2018 Chronic Heart valve disorders (4 sources) Mitral valve regurgitation; Translations: [Nonrheumatic mitral (valve) insufficiency] Onset: 05-13-2020 05-13-2020 Chronic Mood disorders (5 sources) Depressive disorder; Translations: [Depression] Onset: 07-03-2015 07-03-2015 Chronic Other gastrointestinal disorders (1 source) Ascites; Translations: [Other ascites] Onset: 08-14-2022 08-14-2022 Episodic Other inflammatory condition of skin (4 sources) Psoriasis; Translations: [Psoriasis, unspecified] 07-03-2015 Chronic Other nutritional; endocrine; and metabolic disorders (4 sources) Morbid obesity; Translations: [Morbid (severe) obesity due to excess calories] Onset: 05-13-2020 05-13-2020 Chronic Pleurisy; pneumothorax; pulmonary collapse (1 source) Bilateral pleural effusion; Translations: [Pleural effusion, not elsewhere classified] Onset: 08-14-2022 08-14-2022 Episodic Pulmonary heart disease (4 sources) Pulmonary hypertension; Translations: [Pulmonary hypertension, unspecified] Onset: 05-13-2020 05-15-2020 Chronic Substance-related disorders (5 sources) Smoker; Translations: [Nicotine dependence, unspecified, uncomplicated] Onset: 07-03-2015 07-14-2021 Chronic Viral infection (4 sources) Genital herpes simplex; Translations: [Herpesviral infection of urogenital system, unspecified] Onset: 09-28-2014 09-28-2014 Chronic Past or Other Problems Problem Classification Problem Date Documented Da te Episodic/Chronic Immunizations and screening for infectious disease (1 source) Encounter for immunization; Translations: [Encounter for immunization] Onset: 08-14-2022 Episodic Other screening for suspected conditions (not mental disorders or infectious disease) (11 sources) Patient encounter status; Translations: [Encounter for screening mammogram for malignant neoplasm of breast] Onset: 05-13-2020 Episodic Substance-related disorders (4 sources) Marijuana user; Translations: [Cannabis use, unspecified, uncomplicated] Onset: 02-19-2020 02-19-2020 Episodic Results Test Name Value Interpretation Reference Range Facil ity Vital Signs Date Time Vital Sign Value Performing Clinician Lupe guillen 08-14-2022 11:28-0500 Body weight 99.79 kg Rebecca Steinberg SAFETY AND HEALTH CONSULTANT.FURNACE BUILDER Work Phone: [facility] 08-14-2022 11:28-0500 Diastolic blood pressure 82 mm[Hg] Rebecca Rais SAFETY AND HEALTH CONSULTANT.FURNACE BUILDER Work Phone: [facility] 08-14-2022 11:28-0500 Heart rate 112 /min Rebecca Steinberg SAFETY AND HEALTH CONSULTANT.FURNACE BUILDER Work Phone: [facility] 08-14-2022 11:28-0500 Respiratory rate 16 /min Rebecca Steinberg SAFETY AND HEALTH CONSULTANT.FURNACE BUILDER Work Phone: [facility] 08-14-2022 11:28-0500 SaO2% (BldA) [Mass fraction] 97 % Rebecca Steinberg SAFETY AND HEALTH CONSULTANT.FURNACE BUILDER Work Phone: [facility] 08-14-2022 11:28-0500 Systolic blood pressure 120 mm[Hg] Rebecca Steinberg SAFETY AND HEALTH CONSULTANT.FURNACE BUILDER Work Phone: [facility] Encounters Encounter Date Encounter Type Care Provider Facility Start: 08-14-2022 End: 08-14-2022 ambulatory [facility] Facility:[facility] Start: 08-14-2022 End: 08-14-2022 Office outpatient visit 25 minutes Rebeccakerri Steinberg SAFETY AND HEALTH CONSULTANT.FURNACE BUILDER Work Phone: Internal Medicine [facility] Procedures Date Procedure Procedure Detail Performing Clinician Start: 08-14-2022 INFLUENZA VACCINE QUADRIVALENT 6 MO - 64 YRS IM Rebecca Idris SAFETY AND HEALTH CONSULTANT.FURNACE BUILDER Work Phone: Start: 08-14-2022 PFIZER-BIONTECH COVI D-19 BIVALENT BOOSTER VACCINE, AGE 12+ YR Rebecca Idris SAFETY AND HEALTH CONSULTANT.FURNACE BUILDER Work Phone: Start: 09-06-2019 Mammography Rosendo peng MD Work Phone: Plan of Treatment Date Care Activity Detail Author Start: 2039 PNEUMOCOCCAL (3 - PP SV23 if available, else PCV20) PNEUMOCOCCAL (3 - PPSV23 if available, else PCV20) [facility] Start: 2039 PNEUMOCOCCAL (3 - PP SV23 or PCV20) PNEUMOCOCCAL (3 - PPSV23 or PCV20) [facility] Start: 09-06-2024 HPV TESTING HPV TESTING [facility] Start: 09-06-2024 PAP TESTING PAP TESTING [facility] Start: 08-14-2023 ANNUAL PCP TEAM [employer]GER IRENE DISEASE VISIT ANNUAL PCP TEAM CHRONIC DISEASE VISIT [facility] Start: 08-14-2023 BP CONTROLLED (<130/80) BP CONTROLLE D (<130/80) [facility] Start: 08-14-2023 COLORECTAL CANCER SCREENING COLORECTAL CANCER SCREENING [facility] Immunizations Immunization Date Immunization Notes Care Provider Vicki estevez 08-14-2022 COVID-19 booster vaccine, age 12+ yr, bivalent (PFIZER-BIONTECH) Rebecca Steinberg SAFETY AND HEALTH CONSULTANT.FURNACE BUILDER Work Phone: [facility] Work Phone: 08-14-2022 influenza, injectabl e, quadrivalent, contains preservative Rebeccakerri Steinberg SAFETY AND HEALTH CONSULTANT.FURNACE BUILDER Work Phone: [facility] Work Phone: 03-29-2020 influenza, injectabl e, quadrivalent, contains preservative Rosendo Hernandez MD Work Phone: [facility] 03-29-2020 pneumococcal polysaccharide vaccine, 23 valent Rosendo Hernandez MD Work Phone: [facility] 08-28-2019 influenza, injectabl e, quadrivalent, contains preservative Rosendo Hernandez MD Work Phone: [facility] Work Phone: 05-08-2016 influenza, injectabl e, quadrivalent, contains preservative Rosendo Hernandez MD Work Phone: [facility] Work Phone: 07-03-2015 influenza, injectabl e, quadrivalent, contains preservative Rosendo Hernandez MD Work Phone: [facility] Work Phone: 07-03-2015 pneumococcal conjuga te vaccine, 13 valent Rosendo Hernandez MD Work Phone: [facility] Work Phone: 01-23-2013 tetanus toxoid, redu trina diphtheria toxoid, and acellular pertussis vaccine, adsorbed Rosendo Hernandez MD Work Phone: [facility] Work Phone: Payers Date Payer Category Payer Unknown PRICILA JANG PPO [id number] 2022-Present [phone] [address] [place] [address] PPO [id number] 2022 Unknown [id number] 2021 Private Health Insurance [employer] Jose Martin RACHELE OAP [id number] 2021-Present [phone] [address] [place] [id number] Open Access [id number] Social History Date Type Detail Facility Start: 06-24-2021 End: 08-14-2022 Tobacco smoking status HIIS Smokes tobacco daily [facility] Work Phone: End: 08-12-2019 History of tobacco use Cigarette Smoker [facility] Work Phone: Start: 06-24-2021 End: 08-14-2022 Cigarettes smoked current (pack per day) - Reported 1 [facility] Start: 06-24-2021 End: 08-14-2022 Tobacco use and exposure Smokeless tobacco non-user [facility] Work Phone: Start: 09-05-2021 End: 08-14-2022 Alcohol intake Ex-drinker (finding) [facility] Start: 06-19-2021 History SDOH Alcohol Frequency 2 [facility] Start: 06-19-2021 History SDOH Alcohol Std Drinks 1 [facility] Start: 05-13-2020 History SDOH Alcohol Comment last drink 09/02/2017 [facility] Start: 06-19-2021 History SDOH Social Connections Phone 5 [facility] Start: 06-19-2021 History SDOH Social Connections Living 8 [facility] Start: 06-19-2021 History SDOH Stress 3 [facility] Start: 03-28-2020 Education 15 [facility] Start: 06-24-2021 End: 08-14-2022 Tobacco Comment 5 cigarettes daily [facility] Start: 1975 Sex Assigned At Female C [facility] Medical Equipment Procedure Code Equipment Code Equipment Origin al Text Equipment Identifier Dates Start: 08-10-2019 Clinical Notes 07-03-2015 to 12-23-2022 Rebecca Steinberg APRN.CASSIDY - 08/14/2022 11:20 AM ESTTelephone Encounter - Emily Charles LPN - 07/23/2022 1:23 PM EST Note Date & Type Note Facility 12-23-2022 Note Patient Outreach (IN [facility]) SLOANE SHELLEY ([id number]) 1975 F FNS Date Time Provider Department 12/23/22 ROSENDO HERNANDEZ During your visit today, we recorded the following information about you: Allergies As of Date: 12/23/2022 Noted Allergy Reaction METFORMIN 07/03/2015 6 - Diarrhea Comments: GI (severe) Date Reviewed: 08/14/2022 Reviewed by: Emily Charles LPN - Fully Assessed Visit Diagnosis:Encounter for screening mammogram for breast cancer [Z12.31] Order(s):[facility] SCREENING [[id number]] Order #: [id number] FUTURE Prescriptions as of 12/28/2022 - insulin degludec (TRESIBA FLEXTOUCH U-100) 100 unit/mL (3 mL) injection pen Inject 30 Units subcutaneously daily at bedtime. - insulin aspart U-100 (NOVOLOG FLEXPEN U-100 INSULIN) 100 unit/mL (3 mL) Inject 15 Units subcutaneously three times daily before meals. Adjust as directed with sliding scale - glipiZIDE (GLUCOTROL XL) 2.5 mg 24 hr tablet Take 1 tablet by mouth once daily. - losartan (COZAAR) 50 mg tablet Take 1 tablet by mouth once daily. - spironolactone (ALDACTONE) 50 mg tablet Take 1 tablet by mouth once daily. - atorvastatin (LIPITOR) 20 mg tablet Take 1 tablet by mouth daily at bedtime. For cholesterol. - carvedilol (COREG) 6.25 mg tablet Take 1 tablet by mouth twice daily with meals. - furosemide (LASIX) 40 mg tablet Take 40 mg by mouth twice daily. - docusate sodium (COLACE) 100 mg capsule Take 1 capsule by mouth twice daily as needed for constipation. - aspirin, enteric coated (ASPIRIN, ENTERIC COATED) 81 mg EC tablet Take by mouth once daily. - ibuprofen (MOTRIN) 200 mg tablet Take 800 mg by mouth every 12 hours. - Insulin Kimberly, Disposable, (BD ULTRA-FINE PAULA PEN NEEDLE) 32 gauge x Use one needle for each dose. 4/day and as needed. - fluticasone (FLONASE) 50 mcg/actuation nasal spray Use 2 Sprays in each nostril once daily. Rinse mouth after use. - Blood Pressure Monitor 1 Each once daily. - levonorgestrel (MIRENA) 20 mcg/24 hours (5 yrs) 52 mg IUD 1 Each by INTRAUTERINE route as directed. - Insulin Syringe-Needle U-100 (INSULIN SYRINGE) 0.5 mL 30 gauge x 12/01 syrg Use 1 syringe for each dose 4/day and as needed - Lancets lancets Test blood sugar(s) 3 daily. Dx: Uncontrolled type 2 diabetes . Insulin: yes - blood sugar diagnostic (BLOOD GLUCOSE TEST) test strip Test blood sugar(s) 3 daily. Dx: Uncontrolled type 2 diabetes . Insulin: yes - levonorgestrel (MIRENA) 20 mcg/24 hr (5 years) IUD Inserted in office Problem List As Of Date 12/23/2022 Noted Resolved 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] 09/28/2014 Diabetes mellitus type 2, uncomplicated (HCC) [*07/03/2015 Generalized anxiety disorder [F41.1] 07/03/2015 Depression [F32.A] 07/03/2015 Psoriasis [L40.9] Well adult exam [Z00.00] 07/03/2015 04/27/2016 Smoker [F17.200] 07/03/2015 Mixed hyperlipidemia [E78.2] 07/04/2015 Urinary, incontinence, stress female [N39.3] 08/25/2018 Marijuana use [F12.90] 02/19/2020 Morbid obesity (HCC) [E66.01] 05/13/2020 Essential hypertension [I10] 05/13/2020 Mitral valve regurgitation [I34.0] 05/13/2020 Decreased cardiac ejection fraction [R93.1] 05/13/2020 Pulmonary HTN (HCC) [I27.20] 05/13/2020 Ascites [R18.8] 08/14/2022 Abdominal pain [R10.9] 08/14/2022 Acute HFrEF (heart failure with reduced ejectio*07/02/2021 Bilateral pleural effusion [J90] 08/14/2022 Encounter Status:Closed by [employer], PRODUSER on 12/28/22 [facility] 08-14-2022 Note HNO ID: [id number] Author: Rebecca Steinberg APRN.FURNACE BUILDER Service: ? Author Type: Nurse Specialist Type: Progress Notes Filed: 08/14/2022 12:43 PM Note Text: SUBJECTIVE: HEPATITIS B(1 of 3 - 3-dose series) Never done COLORECTAL CANCER SCREENING Never done DILATED RETINAL EXAM due on 08/21/2020 BP CONTROLLED (<130/80) due on 08/28/2020 MAMMOGRAM due on 09/06/2020 DIABETIC FOOT EXAM due on 02/15/2021 COVID-19 VACCINE(3 - Booster for Pfizer series) due on 02/19/2021 HBA1C due on 09/17/2021 INFLUENZA(1) due on 03/19/2022 URINE ALBUMIN:CREATININE RATIO due on 06/19/2022 LDL CHOLESTEROL due on 06/19/2022 ANNUAL PCP TEAM CHRONIC DISEASE VISIT due on 06/24/2022 HPI Sloane Shelley is a 47 year old female. PMH significant for ACTIVE PROBLEM LIST Genital Hsv Diabetes Mellitus Type 2, Uncomplicated (Hcc) Generalized Anxiety Disorder Depression Psoriasis Smoker Mixed Hyperlipidemia Urinary, Incontinence, Stress Female Marijuana Use Morbid Obesity (Hcc) Essential Hypertension Mitral Valve Regurgitation Decreased Cardiac Ejection Fraction Pulmonary Htn (Hcc) Ascites Abdominal Pain Acute Hfref (Heart Failure With Reduced Ejection Fraction) (Hcc) Bilateral Pleural Effusion HPI excerpted from previous visits: Seen at ED June 2021 for dyspnea, acute systolic heart failure hypertension and hyperlipidemia. She has been following with Dr. Mario, [facility]. On carvedilol. Presents for follow up of cellulitis and abscess of trunk, viral illness, suspected COVID-19. Seen in urgent care August 25, 2021. COVID-19 testing was negative. Doxycycline was provided to treat cellulitis x5 days. She presented [facility] on August 28, 2021 with cellulitis of the abdomen. Incision and drainage was completed. A 1.5 cm linear incision was made over the top of induration with 11 blade scalpel. Large amount of purulent material was expressed. Wound did track 7 cm toward the midline. Was irrigated and packed with half-inch iodoform gauze. Cultures not completed. Today she reports she has been applying topical dressing, no packing. Does have prior history of MRSA. Today reports changing the dressing 2-3 times per day as dressings are saturated. Notes blood and pus drainage is present. Feels as if the abscess is increasing in size, tunneling across her upper abdomen. Afebrile. She notes wound is painful and making it difficult for her to sleep. She reports continuing to smoke, trying to quit. She reports diabetes has been in better control, currently taking medications. She reports being off work due to the abscess needs a letter to be off work for this week. She is worried about her job She reports 3 deaths in family recently, that she had to arrange for one. Notes she is having a difficult time managing things now. Cardiology follow up: Dr [facility], due for follow up visit. DIABETES MELLITUS: Notes BS well controlled when checking at home. 100-120 FBS, under 200 when checking later in the day. Without report of excessive thirst or increased frequency of urination, chest pain or dyspnea , numbness, tingling or pain in extremities, new or unusual visual symptoms, low sugar/hypoglycemic reactions, weight loss/gain, lightheadedness/dizziness, and bowel changes/loose stools. She gets testing supplies OTC due to lower cost to her thta way. as Patient's last HgA1C was Hemoglobin A1C (%) Date Value 06/19/2021 14.9 02/16/2020 7.5 ) Podiatry: Eye exam: [facility] Smoking: HTN: Without report of headache, chest pain, palpitations, dyspnea, peripheral edema, orthopnea, fatigue, and PND. Last 14 Encounter BP Readings: Date: BP: 09/04/2021 122/80 08/25/2021 112/76 06/24/2021 134/68 06/20/2021 147/92 06/19/2021 138/90 06/16/2021 140/92 06/04/2021 114/84 05/31/2020 170/65 05/27/2020 115/65 05/15/2020 93/55 05/13/2020 148/94[per patient's home BP cuff[ 05/07/2020 118/60 03/29/2020 138/78 03/13/2020 140/76[BP Uday average[ Hyperlipidemia. Ms. Shelley reports doing well on current therapy Her most recent lipid panels are: Cholesterol, Total (mg/dL) Date Value 02/07/2018 202 05/22/2016 158 Total Cholesterol, Nonfasting (mg/dL) Date Value 06/19/2021 227 02/16/2020 168 HDL Cholesterol (mg/dL) Date Value 02/07/2018 41 05/22/2016 50 HDL Cholesterol, Nonfasting (mg/dL) Date Value 06/19/2021 32 02/16/2020 43 LDL Cholesterol (mg/dL) Date Value 02/07/2018 95 05/22/2016 88 LDL Cholesterol, Nonfasting (mg/dL) Date Value 06/19/2021 151 02/16/2020 73 Triglyceride (mg/dL) Date Value 02/07/2018 331 05/22/2016 101 Triglycerides, Nonfasting (mg/dL) Date Value 06/19/2021 221 02/16/2020 260 Review of Systems Constitutional: Negative. Objective BP 120/82 Pulse 112 Resp 16 Wt 99.8 kg (220 lb) LMP 05/09/2020 SpO2 97% BMI 35.51 kg/m? Physical E (more content not included)... [facility] 08-14-2022 History of Presen t illness Narrative SUBJECTIVE: HEPATITIS B(1 of 3 - 3-dose series) Never done COLORECTAL CANCER SCREENING Never done DILATED RETINAL EXAM due on 08/21/2020 BP CONTROLLED (<130/80) due on 08/28/2020 MAMMOGRAM due on 09/06/2020 DIABETIC FOOT EXAM due on 02/15/2021 COVID-19 VACCINE(3 - Booster for Pfizer series) due on 02/19/2021 HBA1C due on 09/17/2021 INFLUENZA(1) due on 03/19/2022 URINE ALBUMIN:CREATININE RATIO due on 06/19/2022 LDL CHOLESTEROL due on 06/19/2022 ANNUAL PCP TEAM CHRONIC DISEASE VISIT due on 06/24/2022 HPI Sloane Shelley is a 47 year old female. PMH significant for ACTIVE PROBLEM LIST Genital Hsv Diabetes Mellitus Type 2, Uncomplicated (Hcc) Generalized Anxiety Disorder Depression Psoriasis Smoker Mixed Hyperlipidemia Urinary, Incontinence, Stress Female Marijuana Use Morbid Obesity (Hcc) Essential Hypertension Mitral Valve Regurgitation Decreased Cardiac Ejection Fraction Pulmonary Htn (Hcc) Ascites Abdominal Pain Acute Hfref (Heart Failure With Reduced Ejection Fraction) (Hcc) Bilateral Pleural Effusion HPI excerpted from previous visits: Seen at ED June 2021 for dyspnea, acute systolic heart failure hypertension and hyperlipidemia. She has been following with Dr. Mario, [facility]. On carvedilol. Presents for follow up of cellulitis and abscess of trunk, viral illness, suspected COVID-19. Seen in urgent care August 25, 2021. COVID-19 testing was negative. Doxycycline was provided to treat cellulitis x5 days. She presented [facility] on August 28, 2021 with cellulitis of the abdomen. Incision and drainage was completed. A 1.5 cm linear incision was made over the top of induration with 11 blade scalpel. Large amount of purulent material was expressed. Wound did track 7 cm toward the midline. Was irrigated and packed with half-inch iodoform gauze. Cultures not completed. Today she reports she has been applying topical dressing, no packing. Does have prior history of MRSA. Today reports changing the dressing 2-3 times per day as dressings are saturated. Notes blood and pus drainage is present. Feels as if the abscess is increasing in size, tunneling across her upper abdomen. Afebrile. She notes wound is painful and making it difficult for her to sleep. She reports continuing to smoke, trying to quit. She reports diabetes has been in better control, currently taking medications. She reports being off work due to the abscess needs a letter to be off work for this week. She is worried about her job She reports 3 deaths in family recently, that she had to arrange for one. Notes she is having a difficult time managing things now. Cardiology follow up: Dr [facility], due for follow up visit. DIABETES MELLITUS: Notes BS well controlled when checking at home. 100-120 FBS, under 200 when checking later in the day. Without report of excessive thirst or increased frequency of urination, chest pain or dyspnea , numbness, tingling or pain in extremities, new or unusual visual symptoms, low sugar/hypoglycemic reactions, weight loss/gain, lightheadedness/dizziness, and bowel changes/loose stools. She gets testing supplies OTC due to lower cost to her ta way. as Patient's last HgA1C was Hemoglobin A1C (%) Date Value 06/19/2021 14.9 02/16/2020 7.5 ) Podiatry: Eye exam: [facility] Smoking: HTN: Without report of headache, chest pain, palpitations, dyspnea, peripheral edema, orthopnea, fatigue, and PND. Last 14 Encounter BP Readings: Date: BP: 09/04/2021 122/80 08/25/2021 112/76 06/24/2021 134/68 06/20/2021 147/92 06/19/2021 138/90 06/16/2021 140/92 06/04/2021 114/84 05/31/2020 170/65 05/27/2020 115/65 05/15/2020 93/55 05/13/2020 148/94[per patient's home BP cuff[ 05/07/2020 118/60 03/29/2020 138/78 03/13/2020 140/76[BP Uday average[ Hyperlipidemia. Ms. Shelley reports doing well on current therapy Her most recent lipid panels are: Cholesterol, Total (mg/dL) Date Value 02/07/2018 202 05/22/2016 158 Total Cholesterol, Nonfasting (mg/dL) Date Value 06/19/2021 227 02/16/2020 168 HDL Cholesterol (mg/dL) Date Value 02/07/2018 41 05/22/2016 50 HDL Cholesterol, Nonfasting (mg/dL) Date Value 06/19/2021 32 02/16/2020 43 LDL Cholesterol (mg/dL) Date Value 02/07/2018 95 05/22/2016 88 LDL Cholesterol, Nonfasting (mg/dL) Date Value 06/19/2021 151 02/16/2020 73 Triglyceride (mg/dL) Date Value 02/07/2018 331 05/22/2016 101 Triglycerides, Nonfasting (mg/dL) Date Value 06/19/2021 221 02/16/2020 260 Review of Systems Constitutional: Negative. Objective BP 120/82 Pulse 112 Resp 16 Wt 99.8 kg (220 lb) LMP 05/09/2020 SpO2 97% BMI 35.51 kg/m Physical Exam Vitals and nursing note reviewed. Constitutional: Appearance: Normal appearance. HENT: Head: Normocephalic and atraumatic. Eyes: Conjunctiva/sclera: Conjunctivae normal. Neck: Thyroid: No thyromegaly. Vascular: Normal carotid pulses. No JVD. Cardiovascular: Rate and Rhythm: Normal rate and regular rhythm. Pulses: Carotid pulses are 2+ on the right side and 2+ on the left side. Radial pulses are 2+ on the right side and 2+ on the left side. Heart sounds: Normal heart sounds. Pulmonary: Effort: Pulmonary effort is normal. Breath sounds: Normal breath sounds. Abdominal: General: Bowel sounds are normal. Palpations: Abdomen is soft. Musculoskeletal: Right lower leg: No edema. Left lower leg: No edema. Skin: General: Skin is warm and dry. Neurological: General: No focal deficit present. Mental Status: She is alert and oriented to person, place, and time. ALLERGIES Allergen Reactions Metformin Diarrhea GI (severe) MEDICATIONS carvedilol (COREG) 6.25 mg tablet TAKE 1 TABLET TWICE DAILY must take with food/meal. this is a dose increase furosemide (LASIX) 40 mg tablet Take 40 mg by mouth twice daily. spironolactone (ALDACTONE) 25 mg tablet Take 50 mg by mouth once daily. aspirin, enteric coated (ASPIRIN, ENTERIC COATED) 81 mg EC tablet Take by mouth once daily. atorvastatin (LIPITOR) 20 mg tablet Take 1 tablet by mouth daily at bedtime. For cholesterol. Insulin Kimberly, Disposable, (BD ULTRA-FINE PAULA PEN NEEDLE) 32 gauge x Use one needle for each dose. 4/day and as needed. fluticasone (FLONASE) 50 mcg/actuation nasal spray Use 2 Sprays in each nostril once daily. Rinse mouth after use. (Patient taking differently: Use 2 Sprays in each nostril as needed. Rinse mouth after use.) Blood Pressure Monitor 1 Each once daily. Lancets lancets Test blood sugar(s) 3 daily. Dx: Uncontrolled type 2 diabetes . Insulin: yes blood sugar diagnostic (BLOOD GLUCOSE TEST) test strip Test blood sugar(s) 3 daily. Dx: Uncontrolled type 2 diabetes . Insulin: yes insulin degludec (TRESIBA FLEXTOUCH U-100) 100 unit/mL (3 mL) injection pen Inject 30 Units subcutaneously daily at bedtime. insulin aspart U-100 (NOVOLOG FLEXPEN U-100 INSULIN) 100 unit/mL (3 mL) Inject 15 Units subcutaneously three times daily before meals. Adjust as directed with sliding scale glipiZIDE (GLUCOTROL XL) 2.5 mg 24 hr tablet Take 1 tablet by mouth once daily. losartan (COZAAR) 50 mg tablet Take 1 tablet by mouth once daily. buPROPion XL (WELLBUTRIN XL) 150 mg 24 hr tablet Take 1 tablet by mouth once daily. clindamycin (CLEOCIN) 300 mg capsule Take 300 mg by mouth four times daily. (Patient not taking: Reported on 08/14/2022) docusate sodium (COLACE) 100 mg capsule Take 1 capsule by mouth twice daily as needed for constipation. (Patient not taking: No sig reported) ibuprofen (MOTRIN) 200 mg tablet Take 800 mg by mouth every 12 hours. (Patient not taking: No sig reported) furosemide (LASIX) 20 mg tablet Take 1 tablet by mouth once daily. (Patient not taking: No sig reported) levonorgestrel (MIRENA) 20 mcg/24 hours (5 yrs) 52 mg IUD 1 Each by INTRAUTERINE route as directed. (Patient not taking: No sig reported) Insulin Syringe-Needle U-100 (INSULIN SYRINGE) 0.5 mL 30 gauge x 5/16 syrg Use 1 syringe for each dose 4/day and as needed (Patient not taking: No sig reported) levonorgestrel (MIRENA) 20 mcg/24 hr (5 years) IUD Inserted in office PAST MEDICAL HISTORY Diagnosis Date Depression 07/03/2015 Diabetes mellitus type 2, uncomplicated (HCC) 07/03/2015 Encounter for insertion of mirena IUD 10/22/14, 10/17/19 Generalized anxiety disorder 07/03/[address] [facility] Genital herpes Genital HSV 09/28/2014 PID (acute pelvic inflammatory disease) age 16 Psoriasis Social History Tobacco Use Smoking status: Every Day Packs/day: 1.00 Years: 23.00 Pack years: 23.00 Types: Cigarettes Last attempt to quit: 08/12/2019 Years since quittin.0 Smokeless tobacco: Never Tobacco comments: 5 cigarettes daily Vaping Use Vaping Use: Never used Substance Use Topics Alcohol use: Not Currently Comment: last drink 09/02/2017 Drug use: Not Currently Types: Marijuana Comment: last marijuana 04/2019 ASSESSMENT/PLAN: 1. Type 2 diabetes mellitus without complication, with long-term current use of insulin ([facility]) - ICD9: 250.00, V58.67, ICD10: E11.9, Z79.4 (primary diagnosis) She reports improved control at home. Endorse lab work today 6-month follow-up visit with PCP - LIPID PANEL BASIC - COMP METABOLIC PANEL - CBC + DIFF - ALBUMIN/CREAT RATIO RND UR - HGB A1C - INSULIN DEGLUDEC (U-100) 100 UNIT/ML (3 ML) SUBCUTANEOUS PEN 2. Encounter for immunization - ICD9: V03.89, ICD10: Z23 - [employer] Information COVID-19 BIVALENT BOOSTER VACCINE, AGE 12+ YR - INFLUENZA VACCINE QUADRIVALENT 6 MO - 64 YRS IM 3. Screening for colon cancer - ICD9: V76.51, ICD10: Z12.11 Declined 4. Screening for diabetic retinopathy - ICD9: V80.2, ICD10: Z13.5 Completes at [facility] 5. Mixed hyperlipidemia - ICD9: 272.2, ICD10: E78.2 Recommend a plant based diet such as Mediterranean diet with plenty of vegetables, fruits,whole grains, fish, chicken, turkey or plant proteins and routine exercise such as walking Continue with statin - ATORVASTATIN 20 MG TABLET 6. Smoker - ICD9: 305.1, ICD10: F17.200 Endorse cessation - BUPROPION XL 150 MG TAB 7. Essential hypertension - ICD9: 401.9, ICD10: I10 - good control - Continue current medication(s) - Encouraged dietary sodium restriction/DASH diet - Recommended regular aerobic exercise. - Goal of BP <130/80 8. Uncontrolled type 2 diabetes mellitus with hyperglycemia (HCC) - ICD9: 250.02, ICD10: E11.65 - GLIPIZIDE ER 2.5 MG TABLET, EXTENDED RELEASE 24 HR - ATORVASTATIN 20 MG TABLET 9. Generalized anxiety disorder - ICD9: 300.02, ICD10: F41.1 10. Depression, unspecified depression type - ICD9: 311, ICD10: F32.A Reports stopped bupropion, resume if needed. Refer to counseling if so desires 11. Decreased cardiac ejection fraction - ICD9: 794.39, ICD10: R93.1 Has been following with [facility]. Lisinopril spironolactone and carvedilol have been ordered by the heart group. She reports cough with lisinopril so we will switch to losartan today. Left abruptly and angrily at the end of the visit, presumed that she wanted cardiology medicines refilled. 3-month supply Rx provided. Follow-up with cardiology as indicated / needed - SPIRONOLACTONE 50 MG TABLET - CARVEDILOL 6.25 MG TABLET Labs today 6 mo follow up MD Rebecca Sanders APRN.FURNACE BUILDER Medical Decision Making: Problems: Moderate: 2+ stable chronic illnesses Data: Unique test(s) ordered: 3+ Risk: Moderate: Drug management Medical Decision Making Level: 4 - Moderate documented in this encounter [facility] 07-23-2022 Miscellaneous Notes Formattin g of this note is different from the original. Patient has been identified by name and date of : Yes, Provider Mary Date 07/23/22 Time 1:25pm. Called patient, no answer. Left message for patient to call office and ask to speak to nurse/stress analyst to schedule an appointment. Patient phones for refill(s): Requested Prescriptions Pending Prescriptions Disp Refills insulin degludec (TRESIBA FLEXTOUCH U-100) 100 unit/mL (3 mL) injection pen 15 mL 3 Sig: Inject 30 Units subcutaneously daily at bedtime. insulin aspart U-100 (NOVOLOG FLEXPEN U-100 INSULIN) 100 unit/mL (3 mL) 15 mL 11 Sig: Inject 15 Units subcutaneously three times daily before meals. Adjust as directed with sliding scale glipiZIDE XL (GLUCOTROL XL) 2.5 mg 24 hr tablet 30 tablet 11 Sig: Take 1 tablet by mouth once daily. Date of last office visit in primary care: 09/04/21 Last 2 Encounter Wt Readings: Date: Wt: 09/05/2021 97.5 kg (215 lb) 09/04/2021 96.6 kg (213 lb) Previous labs/tests for medication: Diabetes: Hemoglobin A1C (%) Date Value 06/19/2021 14.9 02/16/2020 7.5 Please advise. Thank you. Emily Charles LPN documented in this encounter [facility] 01-14-2022 Note Patient Outreach (IN [facility]) SLOANE SHELLEY ([id number]) 1975 F FNS Date Time Provider Department 01/14/22 TALAMPAS, ROSENDO D [facility] During your visit today, we recorded the following information about you: Allergies As of Date: 01/14/2022 (No Known Allergies) Date Reviewed: 09/05/2021 Reviewed by: Jazmine Nayak LPN - Fully Assessed Visit Diagnosis:Encounter for screening mammogram for breast cancer [Z12.31] Order(s):[facility] [[id number]] Order #: [id number] FUTURE Prescriptions as of 01/19/2022 - carvedilol (COREG) 6.25 mg tablet TAKE 1 TABLET TWICE DAILY must take with food/meal. this is a dose increase - furosemide (LASIX) 40 mg tablet Take 40 mg by mouth twice daily. - lisinopril (ZESTRIL, PRINIVIL) 10 mg tablet Take 10 mg by mouth once daily. - clindamycin (CLEOCIN) 300 mg capsule Take 300 mg by mouth four times daily. - buPROPion XL (WELLBUTRIN XL) 150 mg 24 hr tablet Take 1 tablet by mouth once daily. - docusate sodium (COLACE) 100 mg capsule Take 1 capsule by mouth twice daily as needed for constipation. - spironolactone (ALDACTONE) 25 mg tablet Take 50 mg by mouth once daily. - aspirin, enteric coated (ASPIRIN, ENTERIC COATED) 81 mg EC tablet Take by mouth once daily. - insulin degludec (TRESIBA FLEXTOUCH U-100) 100 unit/mL (3 mL) injection pen Inject 30 Units subcutaneously daily at bedtime. - atorvastatin (LIPITOR) 20 mg tablet Take 1 tablet by mouth daily at bedtime. For cholesterol. - insulin aspart U-100 (NOVOLOG FLEXPEN U-100 INSULIN) 100 unit/mL (3 mL) Inject 15 Units subcutaneously three times daily before meals. Adjust as directed with sliding scale - glipiZIDE (GLUCOTROL XL) 2.5 mg 24 hr tablet Take 1 tablet by mouth once daily. - lidocaine viscous (LIDOCAINE VISCOUS) 2 % solution Take 5-10 mL by mouth as needed. - ibuprofen (MOTRIN) 200 mg tablet Take 800 mg by mouth every 12 hours. - Insulin Kimberly, Disposable, (BD ULTRA-FINE PAULA PEN NEEDLE) 32 gauge x 5/32 Use one needle for each dose. 4/day and as needed. - metoprolol succinate ER (TOPROL XL) 25 mg 24 hr tablet Take 1 tablet by mouth once daily. - losartan (COZAAR) 100 mg tablet Take 1 tablet by mouth once daily. - furosemide (LASIX) 20 mg tablet Take 1 tablet by mouth once daily. - potassium chloride (K-TAB) 10 mEq tablet Take 1 tablet by mouth daily with breakfast. - fluticasone (FLONASE) 50 mcg/actuation nasal spray Use 2 Sprays in each nostril once daily. Rinse mouth after use. - Blood Pressure Monitor 1 Each once daily. - levonorgestrel (MIRENA) 20 mcg/24 hours (5 yrs) 52 mg IUD 1 Each by INTRAUTERINE route as directed. - Insulin Syringe-Needle U-100 (INSULIN SYRINGE) 0.5 mL 30 gauge x 5/16 syrg Use 1 syringe for each dose 4/day and as needed - acyclovir (ZOVIRAX) 400 mg tablet Take 1 tablet by mouth twice daily. - Lancets lancets Test blood sugar(s) 3 daily. Dx: Uncontrolled type 2 diabetes . Insulin: yes - blood sugar diagnostic (BLOOD GLUCOSE TEST) test strip Test blood sugar(s) 3 daily. Dx: Uncontrolled type 2 diabetes . Insulin: yes - levonorgestrel (MIRENA) 20 mcg/24 hr (5 years) IUD Inserted in office Problem List As Of Date 01/14/2022 Noted Resolved 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] 09/28/2014 Diabetes mellitus type 2, uncomplicated (HCC) [*07/03/2015 Generalized anxiety disorder [F41.1] 07/03/2015 Depression [F32.A] 07/03/2015 Psoriasis [L40.9] Well adult exam [Z00.00] 07/03/2015 04/27/2016 Smoker [F17.200] 07/03/2015 Mixed hyperlipidemia [E78.2] 07/04/2015 Urinary, incontinence, stress female [N39.3] 08/25/2018 Marijuana use [F12.90] 02/19/2020 Morbid obesity (HCC) [E66.01] 05/13/2020 Essential hypertension [I10] 05/13/2020 Mitral valve regurgitation [I34.0] 05/13/2020 Decreased cardiac ejection fraction [R93.1] 05/13/2020 Pulmonary HTN (HCC) [I27.20] 05/13/2020 Encounter Status:Closed by EPIC, PRODUSER on 01/19/22 [facility] documented as of this encounter (statuses as of 01/19/2022) [facility]12-16-2015 History of Past illness Narrative* Problem Noted Date Resolved Date Well adult exam 07/03/2015 04/27/2016 Overview: Last done: 07/03/2015 documented as of this encounter (statuses as of 07/24/2022) [facility]12-16-2015 History of Past illness Narrative* Problem Noted Date Resolved Date Well adult exam 07/03/2015 04/27/2016 Overview: Last done: 07/03/2015 documented as of this encounter (statuses as of 07/24/2022) [place] [id number] History of Past illness Narrative* Problem Noted Date Resolved Date Well adult exam 07/03/2015 04/27/2016 Overview: Last done: 07/03/2015 documented as of this encounter (statuses as of 08/14/2022) [facility] [place] [facility] Diagnosis Encounter for screening mammogram for breast cancer [facility] [place] [facility]* Diagnosis Type 2 diabetes mellitus without complication, with long-term current use of insulin (HCC) Uncontrolled type 2 diabetes mellitus with hyperglycemia (HCC) [facility] [place] [facility]* Diagnosis Type 2 diabetes mellitus without complication, with long-term current use of insulin (HCC)- Primary Encounter for immunization Need for other specified prophylactic vaccination against single bacterial disease Screening for colon cancer Special screening for malignant neoplasms, colon Screening for diabetic retinopathy Screening for other eye conditions Mixed hyperlipidemia Smoker Tobacco use disorder Essential hypertension Unspecified essential hypertension Uncontrolled type 2 diabetes mellitus with hyperglycemia (HCC) Generalized anxiety disorder Depression, unspecified depression type Decreased cardiac ejection fraction Other nonspecific abnormal cardiovascular system function study [facility] this [facility] Diagnostic Procedure Only (Routine) - Pending Review Specialty Diagnoses / Procedures Referred By Contac t Referred To Contact [facility] Diagnoses Encounter for screening mammogram for breast cancer Procedures CHICO SCREENING SCREENING MAMMOGRAPHY BI 2-VIEW BREAST INC CAD Rosendo Hernandez MD [address] [place] [address] [facility] [address] [place] [address] Referral ID Status Reason Start Date Expiration Date Visits Requested Visits Authorized [id number] Pending Review Auto-Generat ed Referral 01/14/2022 02/13/2023 1 1 [facility] Summary Purpose Family History No Family History Records FoundNo Family History Records FoundNo Family History Records Found Advance Directives No Advanced Directives Records FoundDocuments on File Type Date Recorded Patient Service Member Expl anation Advance Directive(s) 05/28/2020 8:38 AM Advance Directive(s) 05/15/2020 1:09 PM Advance Directive(s) 05/13/2020 8:23 AM Additional Source Comments INFORMATION SOURCE (unrecogn ized section and content) DATE CREATED AUTHOR AUTHOR'S ORGANIZ ATION 05/31/[address] [facility] DATE CREATED AUTHOR AUTHOR'S ORGANIZ ATION 12/30/2022 [facility] Source Comments (unrecognize d section and content) In the event this informatio n is protected by the Federal Confidentiality of Alcohol and Drug Abuse Patient Records regulations: The Federal rules restrict any use of the information to criminally investigate or prosecute any alcohol or drug abuse patient.[facility] the event this information is protected by the Federal Confidentiality of Alcohol and Drug Abuse Patient Records regulations: The Federal rules restrict any use of the information to criminally investigate or prosecute any alcohol or drug abuse patient.[facility] the event this information is protected by the Federal Confidentiality of Alcohol and Drug Abuse Patient Records regulations: The Federal rules restrict any use of the information to criminally investigate or prosecute any alcohol or drug abuse patient.[facility] the event this information is protected by the Federal Confidentiality of Alcohol and Drug Abuse Patient Records regulations: The Federal rules restrict any use of the information to criminally investigate or prosecute any alcohol or drug abuse patient.[facility] Care Teams (unrecognized sec tion and content) Repair Technician Relationship Specialty Start Date End Date Rosendo Hernandez MD [address] [place] [address] PCP - General Internal Medicine 07/27/18 Jarrett Nguyen [facility] [address] [place] [address] Pharmacist Pharmacy 06/26/21 Repair Technician Relationship Specialty Start Date End Date Rosendo Hernandez MD [address] [place] [address] PCP - General Internal Medicine 07/27/18 Jarrett Nguyen, [facility] [address] [place] [address] Pharmacist Pharmacy 06/26/21 Repair Technician Relationship Specialty Start Date End Date Rosendo Hernandez MD [address] [place] [address] PCP - General Internal Medicine 07/27/18 Jarrett Nguyen, [facility] [address] [facility] [place] [address] Pharmacist Pharmacy 06/26/21 Reason for Visit (unrecogniz ed section and content) Reason Comments Follow Up FOR RECORDS PERTAINING TO PATIENTS WHO ARE OR HAVE BEEN ENROLLED IN A CHEMICAL DEPENDENCY/SUBSTANCEABUSE PROGRAM, SOME INFORMATION MAY BE OMITTED. This clinical summary was aggregated from multiple sources. Caution should be exercised in using it in the provision of clinical care. This summary normalizes information from multiple sources, and as a consequence, information in this document may materially change the coding, format and clinical context of patient data. In addition, data may be omitted in some cases. CLINICAL DECISIONS SHOULD BE BASED ON THE PRIMARY CLINICAL RECORDS. [facility]. provides no warranty or guarantee of the accuracy or completeness of information in this document.
[2023-09-14] MEDS: Aspirin 81 MG TAB.CHEW 324 MG PO (01:28)
[2023-09-14 01:41] LABS: Absolute Lymphocyte Count 2.18 X10^3/uL (0.83-4.51); Absolute Neutrophil Count 7.3 X10^3/uL (2.0-7.7); Basophil# 0.06 X10^3/uL; Basophil% 0.6 % (0-1); Eosinophil# 0.56 X10^3/uL; Eosinophils% 5.3 % (0-5); Hematocrit 45.3 % (37-47); Hemoglobin 14.6 g/dL (12.0-15.0); Lymphocyte # 2.18 X10^3/ul (0.83-4.51); Lymphocyte % 20.5 % (19-41); Mean Corp Hgb Conc 32.2 g/dL (32-36); Mean Corpuscular Hgb 27.8 pg (27.0-32.0); Mean Corpuscular Volume 86.3 fL (81-99); Mean Platelet Vol. 11.9 fl (6.2-12.0); Monocyte# 0.53 X10^3/uL; NRBC Flagged by Analyzer 0 % (0-5); Neutrophil # 7.27 X10^3/uL (2.7-7.7); Neutrophil % 68.3 % (47-70); Platelet Count 229 K/mm3 (150-450); RBC Distribution Width CV 14.3 % (11.6-14.6); RBC Distribution Width SD 45.3 fl (35.1-43.9); Red Blood Count 5.25 M/mm3 (4.2-5.4); White Blood Count 10.6 K/mm3 (4.4-11.0)
[2023-09-14 02:09] LABS: Anion Gap 3 (5-15); BUN 33 mg/dL (7-18); BUN/Creat Ratio 24.6 RATIO (10-20); Calcium,Total 9.4 mg/dL (8.5-10.1); Chloride 109 mmol/L (98-107); Creatinine, Serum 1.34 mg/dL (0.55-1.02); EST Glomerular Filtration Rate 45 mL/min (>60); Est Glom Filt Rate - Afr Amer 54 mL/min (>60); Estimated Creatinine Clearance 59.36 ml/min; Glucose 124 mg/dL (74-106); Magnesium 2.1 mg/dL (1.6-2.6); Potassium 4.7 mmol/L (3.5-5.1); Sodium Level 138 mmol/L (136-145); Thyroid Stim Hormone (TSH) 2.21 uIU/mL (0.358-3.74); Troponin-I HS (w/2H Reflex) 26 pg/mL (3.0-54.0)
[2023-09-14 03:00] VITALS: BP 139/90; PULSE 82; RESP 16; O2SAT 98
[2023-09-14 03:38] LABS: Reflex Troponin-HS? (from REC) Y
[2023-09-14 04:42] LABS: Troponin-I HS 23 pg/mL (3.0-54.0)
[2023-09-14 05:10] VITALS: BP 146/84; PULSE 87; RESP 16; TEMP 36.4; O2SAT 97
== END 2023-09-14 05:28 | disposition home or self-care (01) ==
PROVIDERS: Emergency Provider Emergency Medicine; Visit Provider Emergency Medicine
DX: R00.2 Palpitations (principal); I50.22 Chronic systolic (congestive) heart failure; I13.0 Hypertensive heart and chronic kidney disease with heart failure and stage 1 through stage 4 chronic kidney disease, or unspecified chronic kidney disease; E11.22 Type 2 diabetes mellitus with diabetic chronic kidney disease; N18.9 Chronic kidney disease, unspecified; Q24.8 Other specified congenital malformations of heart
CPT/HCPCS: 71046; 80048; 83735; 84443; 84484; 85025; 93005; 99285; A4216

== ENCOUNTER → 2023-09-21 | Outpatient (CLI) | payer OTHER, SELFPAY ==
[2023-09-21 18:11] LABS: Absolute Lymphocyte Count 2.53 X10^3/uL (0.83-4.51); Absolute Neutrophil Count 5.4 X10^3/uL (2.0-7.7); Basophil# 0.04 X10^3/uL; Basophil% 0.4 % (0-1); Eosinophil# 0.53 X10^3/uL; Eosinophils% 5.9 % (0-5); Hematocrit 43.5 % (37-47); Hemoglobin 13.8 g/dL (12.0-15.0); Lymphocyte # 2.53 X10^3/ul (0.83-4.51); Lymphocyte % 28.2 % (19-41); Mean Corp Hgb Conc 31.7 g/dL (32-36); Mean Corpuscular Hgb 28.3 pg (27.0-32.0); Mean Corpuscular Volume 89.1 fL (81-99); Mean Platelet Vol. 10.8 fl (6.2-12.0); Monocyte# 0.45 X10^3/uL; NRBC Flagged by Analyzer 0 % (0-5); Neutrophil % 60.3 % (47-70); Platelet Count 199 K/mm3 (150-450); RBC Distribution Width CV 14.2 % (11.6-14.6); RBC Distribution Width SD 46.5 fl (35.1-43.9); Red Blood Count 4.88 M/mm3 (4.2-5.4)
[2023-09-21 18:29] LABS: ALB/GLOB Ratio 0.9 RATIO (0.9-2.4); AST(SGOT) 19 U/L (15-37); Alanine Aminotransfer ALT/SGPT 26 U/L (13-56); Albumin, Serum 3.3 g/dL (3.2-5.0); Alkaline Phosphatase 83 U/L (45-117); Anion Gap 0 (5-15); BUN 39 mg/dL (7-18); BUN/Creat Ratio 26.5 RATIO (10-20); Calcium,Total 9.2 mg/dL (8.5-10.1); Chloride 111 mmol/L (98-107); Cholesterol 168 mg/dL (200); Creatinine, Serum 1.47 mg/dL (0.55-1.02); EST Glomerular Filtration Rate 40 mL/min (>60); Est Glom Filt Rate - Afr Amer 49 mL/min (>60); Globulin 3.7 g/dL (2.2-4.2); Glucose 96 mg/dL (74-106); High Density Lipoprotein 51 mg/dL; Potassium 4.6 mmol/L (3.5-5.1); Sodium Level 141 mmol/L (136-145); Triglycerides 132 mg/dL; Very Low Density Lipoprotein 26 mg/dL (5-40)
[2023-09-21 18:34] LABS: Protein:Creat Ratio 1138 mg/g CRE (0-200)
== END | disposition home or self-care (01) ==
LOC: LAB 17:55
PROVIDERS: Referring Provider Nurse Practitioner; Visit Provider Nurse Practitioner
DX: I12.9 Hypertensive chronic kidney disease with stage 1 through stage 4 chronic kidney disease, or unspecified chronic kidney disease (principal); I50.21 Acute systolic (congestive) heart failure; E78.5 Hyperlipidemia, unspecified; N18.9 Chronic kidney disease, unspecified
CPT/HCPCS: 36415; 80053; 80061; 82043; 82570; 84156; 85025

== ENCOUNTER → 2023-10-01 | Outpatient (CLI) | payer OTHER, SELFPAY ==
[2023-10-01 13:19] LABS: Anion Gap 6 (5-15); BUN 49 mg/dL (7-18); BUN/Creat Ratio 25.8 RATIO (10-20); Calcium,Total 8.8 mg/dL (8.5-10.1); Chloride 108 mmol/L (98-107); EST Glomerular Filtration Rate 30 mL/min (>60); Est Glom Filt Rate - Afr Amer 36 mL/min (>60); Glucose 186 mg/dL (74-106); Potassium 5.1 mmol/L (3.5-5.1); Sodium Level 137 mmol/L (136-145)
== END | disposition home or self-care (01) ==
LOC: BIMLAB 09:11
PROVIDERS: Visit Provider Nurse Practitioner
DX: N18.9 Chronic kidney disease, unspecified (principal)
CPT/HCPCS: 36415; 80048

== ENCOUNTER → 2023-10-08 | Outpatient (CLI) | payer OTHER, SELFPAY ==
[2023-10-08 12:26] LABS: Anion Gap 6 (5-15); BUN 60 mg/dL (7-18); BUN/Creat Ratio 26.9 RATIO (10-20); Calcium,Total 9.9 mg/dL (8.5-10.1); Chloride 106 mmol/L (98-107); Creatinine, Serum 2.23 mg/dL (0.55-1.02); EST Glomerular Filtration Rate 25 mL/min (>60); Est Glom Filt Rate - Afr Amer 30 mL/min (>60); Glucose 153 mg/dL (74-106); Potassium 5.3 mmol/L (3.5-5.1); Sodium Level 138 mmol/L (136-145)
== END | disposition home or self-care (01) ==
LOC: BIMLAB 08:21
PROVIDERS: PCP Nurse Practitioner; Referring Provider Nurse Practitioner; Visit Provider Nurse Practitioner
DX: N18.32 Chronic kidney disease, stage 3b (principal)
CPT/HCPCS: 36415; 80048

== ENCOUNTER → 2023-10-15 | Outpatient (CLI) | payer OTHER, SELFPAY ==
[2023-10-15 13:21] LABS: Anion Gap 3 (5-15); BUN 34 mg/dL (7-18); BUN/Creat Ratio 26.8 RATIO (10-20); Calcium,Total 9.1 mg/dL (8.5-10.1); Chloride 108 mmol/L (98-107); Creatinine, Serum 1.27 mg/dL (0.55-1.02); EST Glomerular Filtration Rate 47 mL/min (>60); Est Glom Filt Rate - Afr Amer 57 mL/min (>60); Glucose 191 mg/dL (74-106); Potassium 4.8 mmol/L (3.5-5.1); Sodium Level 140 mmol/L (136-145)
== END | disposition home or self-care (01) ==
LOC: BIMLAB 08:04
PROVIDERS: PCP Nurse Practitioner; Referring Provider Nurse Practitioner; Visit Provider Nurse Practitioner
DX: N18.32 Chronic kidney disease, stage 3b (principal)
CPT/HCPCS: 36415; 80048

== ENCOUNTER → 2023-12-24 | Outpatient (CLI) | payer OTHER, SELFPAY ==
[2023-12-24 10:18] LABS: Absolute Lymphocyte Count 1.93 X10^3/uL (0.83-4.51); Absolute Neutrophil Count 6.4 X10^3/uL (2.0-7.7); Basophil# 0.04 X10^3/uL; Basophil% 0.4 % (0-1); Eosinophil# 0.38 X10^3/uL; Eosinophils% 4.1 % (0-5); Hemoglobin 12.3 g/dL (12.0-15.0); Lymphocyte # 1.93 X10^3/ul (0.83-4.51); Lymphocyte % 20.9 % (19-41); Mean Corp Hgb Conc 32.4 g/dL (32-36); Mean Corpuscular Hgb 29.4 pg (27.0-32.0); Mean Corpuscular Volume 90.9 fL (81-99); Mean Platelet Vol. 11.5 fl (6.2-12.0); Monocyte# 0.46 X10^3/uL; NRBC Flagged by Analyzer 0 % (0-5); Neutrophil # 6.39 X10^3/uL (2.7-7.7); Neutrophil % 69.3 % (47-70); Platelet Count 230 K/mm3 (150-450); RBC Distribution Width CV 13.5 % (11.6-14.6); Red Blood Count 4.18 M/mm3 (4.2-5.4); White Blood Count 9.2 K/mm3 (4.4-11.0)
[2023-12-24 10:45] LABS: Hemoglobin A1c 6.2 % (3.8-5.6)
[2023-12-24 11:12] LABS: ALB/GLOB Ratio 0.9 RATIO (0.9-2.4); AST(SGOT) 22 U/L (15-37); Alanine Aminotransfer ALT/SGPT 26 U/L (13-56); Albumin, Serum 3.7 g/dL (3.2-5.0); Alkaline Phosphatase 92 U/L (45-117); Anion Gap 7 (5-15); BUN 33 mg/dL (7-18); BUN/Creat Ratio 22.6 RATIO (10-20); Calcium,Total 9.3 mg/dL (8.5-10.1); Chloride 106 mmol/L (98-107); Creatinine, Serum 1.46 mg/dL (0.55-1.02); EST Glomerular Filtration Rate 40 mL/min (>60); Est Glom Filt Rate - Afr Amer 49 mL/min (>60); Globulin 3.9 g/dL (2.2-4.2); Glucose 99 mg/dL (74-106); Potassium 4.4 mmol/L (3.5-5.1); Protein, Total 7.6 g/dL (6.4-8.2); Sodium Level 139 mmol/L (136-145)
== END | disposition home or self-care (01) ==
LOC: MTLAB 08:34
PROVIDERS: PCP Nurse Practitioner; Referring Provider Nurse Practitioner; Visit Provider Nurse Practitioner
DX: E11.22 Type 2 diabetes mellitus with diabetic chronic kidney disease (principal); N18.32 Chronic kidney disease, stage 3b
CPT/HCPCS: 36415; 80053; 82043; 83036; 85025

== ENCOUNTER 2024-05-03 20:21 | Emergency (ER) | payer OTHER, SELFPAY ==
[2024-05-03 20:22] VITALS: BP 155/96; PULSE 86; RESP 18; TEMP 36.6; O2SAT 98; BMI 34.9
--- NOTE | 2024-05-03 21:10 | CT_ITS ---
EXAM: CT ABDOMEN AND PELVIS WITH INTRAVENOUS CONTRAST CLINICAL INDICATION: LUQ abd pain TECHNIQUE: Helically acquired images were obtained of the abdomen and pelvis with intravenous contrast. This CT exam was performed using one or more of the following dose reduction techniques: automated exposure control, adjustment of the mA and/or kV according to patient size, and/or use of iterative reconstruction technique. CONTRAST: IV 100mL Isovue-370 COMPARISON: 08/12/2016 FINDINGS: LOWER THORAX: Small hiatal hernia. Lung bases are clear. No cardiomegaly. No significant pericardial effusion. ABDOMEN: LIVER: Low-attenuation foci scattered throughout the liver are too small to further characterize. GALLBLADDER AND BILE DUCTS: No significant abnormality. No calcified gallstones. No gallbladder distention or wall edema. No intra- or extrahepatic biliary ductal dilation. PANCREAS: No significant abnormality. No focal cystic or solid mass. SPLEEN: No significant abnormality. Normal size without focal cystic or solid mass. ADRENALS: No significant abnormality. No nodules. KIDNEYS AND URETERS: No significant abnormality. Normal renal size and position. No hydronephrosis. STOMACH AND BOWEL: Mildly distended gastric lumen. Colonic diverticulosis without evidence of acute diverticulitis. PELVIS: APPENDIX: There is a normal appendix identified in the right lower quadrant. BLADDER: No significant abnormality. REPRODUCTIVE: An IUD is present. ABDOMEN and PELVIS: INTRAPERITONEAL SPACE: No significant abnormality. No ascites or other fluid collection. No free air. BONES/JOINTS: Degenerative changes in the axial and appendicular skeleton visualized. No suspicious lytic or blastic abnormality. SOFT TISSUES: No significant abnormality. No discrete abdominal or pelvic wall hernia. VASCULATURE: Atherosclerosis of the aorta. Abdominal aorta is non-dilated. LYMPH NODES: No significant abnormality. No enlarged lymph nodes. CT/Abdomen/Pelvis W IV Cont ONLY IMPRESSION: 1. Low-attenuation foci scattered throughout the liver are too small to further characterize. ACR White Paper guidelines (Jacky et al. JACR 2017; 14(11):9344-4342.) suggest the following. For patients with a low risk of malignancy, no further follow-up is necessary. For patients with high risk of malignancy (known malignancy with a propensity to metastasize to the liver, cirrhosis, and/or other hepatic risk factors), recommend follow-up abdominal CT or MR in 6 months. 2. Small hiatal hernia. 3. Mildly distended gastric lumen. Correlate for gastroparesis. No definitive evidence of gastric outlet obstruction. No bowel obstruction. 4. Colonic diverticulosis without evidence of acute diverticulitis. Electronically Signed: Talib Humphrey DO at 22:08 EDT ,
--- NOTE | 2024-05-03 21:13 | ED.VIS.GI ---
HPI HPI - GI History of Present Illness Chief Complaint: Nausea/Vomiting Informant: patient Abdominal Pain/Flank Pain Onset: Days Context: Gradual Onset Timing: Continuous Location: LUQ Current Severity: Mild Maximum Severity: Mild Worsened by: Nothing Relieved by: Nothing Nausea/Vomiting/Emesis GI Symptom: Positive for Nausea and Vomiting Onset: Days Severity: Moderate Diarrhea/Melena/Hematochezia GI Symptom: Positive for Diarrhea (On Wednesday then resolved after she has not been able to hold anything down.); Negative for Melena or Hematochezia Stool Quality: Positive for Loose Severity: Mild Associated Symptoms Associated Symptoms: Negative for Dysuria, Frequency, Hematuria or Urgency Narrative Narrative: 49-year-old female history of diabetes, cardiomyopathy with CHF. States she started Ozempic on Wednesday and since that time on Wednesday started having nausea vomiting and left upper quadrant abdominal pain. No prior abdominal surgery other than a prior D&C. Said she had diarrhea on Wednesday and it has since resolved. She is having left upper quadrant abdominal pain after all the nausea and vomiting. Denies fever. Denies dysuria. Prior similar symptoms: Yes Recent Illness/Hospitalization: No PFSH PFSH Medical History Depression Anxiety Diabetes Kidney stones Smoker Hypertension Migraines RSV (acute bronchiolitis due to respiratory syncytial virus) (04/2021) Hyperlipidemia Non-ischemic cardiomyopathy Genital herpes Bilateral pleural effusion (12/2019) Nonrheumatic mitral (valve) insufficiency Secondary pulmonary arterial hypertension Acute HFrEF (heart failure with reduced ejection fraction) (07/02/21) Essential hypertension Diabetes mellitus, type II Home Medications ?Medication ?Instructions ?Recorded ?Last Taken ?Type blood-glucose meter,continuous #1 ea 08/20/23 Unknown Rx (FreeStyle Janna 3 [place]) aspirin 81 mg tablet,delayed 81 mg PO DAILY #30 tabs 09/24/23 Unknown Rx release (Adult Aspirin Regimen) insulin lispro 100 unit/mL 15 unit (0.15 mL) subcut BID #15 mL 10/15/23 Unknown Rx subcutaneous pen (Humalog KwikPen (U-100) Insulin) atorvastatin 20 mg tablet 20 mg PO DAILY #90 tabs 03/06/24 Unknown Rx blood-glucose sensor (FreeStyle #1 ea 03/06/24 Unknown Rx Janna 3 Sensor device) insulin degludec 100 unit/mL (3 30 unit (0.3 mL) subcut QHS #15 mL 03/06/24 Unknown Rx mL) subcutaneous pen (Tresiba FlexTouch U-100 insulin) carvedilol 3.125 mg tablet 3.125 mg PO BID 30 days #60 tabs 03/31/24 Unknown Rx furosemide 40 mg tablet (Lasix) 40 mg PO DAILY 30 days #30 tabs 03/31/24 Unknown Rx lisinopril 10 mg tablet 10 mg PO DAILY 30 days #30 tabs 03/31/24 Unknown Rx semaglutide 0.25 mg or 0.5 mg (2 0.25 mg (0.368 mL) subcut QWEEK #3 03/31/24 Unknown Rx mg/3 mL) subcutaneous pen injector mL ondansetron 4 mg disintegrating 4 mg PO Q6H PRN nausea and 05/03/24 Unknown Rx tablet vomiting #7 tabs Allergy/AdvReac Type Severity Reaction Status Date / Time metformin AdvReac Severe Abd Verified 05/03/24 20:22 cramps/diarrhea Family History Father Alcoholism Abnormal respiratory function Cancer Brother Alcoholism Myocardial infarction Sister Alcoholism Anxiety Depression Diabetes Mental disorder Psychiatric care Mother History of blood transfusion Depression Diabetes Heart disease Hypertension Age related osteoporosis Grandfather Cancer Grandmother Cancer cervical cancer Aunt Asthma Diabetes Surgical History H/O dilation and curettage History of right and left heart catheterization (07/16/21) History of incision and drainage (06/2021) History of carpal tunnel release History of left heart catheterization (2006) Social History household members: spouse current occupational status: employed Smoking Status: Current every day smoker tobacco type: cigarettes alcohol intake: never substance use type: does not use what type of physical activity do you participate in: walking do you feel safe at home: Yes ROS ROS ED ROS Narrative Nausea, vomiting and diarrhea. Left upper quadrant abdominal pain. Constitutional Constitutional ED: Denies chills ENT ENT ED: Denies ear pain Cardiovascular Cardiovascular: Denies chest pain Respiratory/Chest Respiratory/Chest: Denies cough or dyspnea Gastrointestinal Gastrointestinal: Reports abdominal pain, diarrhea, nausea and vomiting; Denies constipation or melena Genitourinary Genitourinary ED: Denies dysuria or hematuria Musculoskeletal Musculoskeletal: Denies arthralgias Integumentary Denies abscess Neurologic Neurologic: Denies headache(s) Psychiatric Psychiatric: Denies anxiety Endocrine Endocrinology: Denies polydipsia Hematologic/Lymphatic Hematologic/Lymphatic: Denies easy bleeding Allergic/Immunologic Allergic/Immunologic ED: Denies mouth swelling, tongue swelling or urticaria EXAM Physical Exam Narrative Exam Narrative: 49-year-old female sitting upright in bed. Vital signs stable afebrile. H EENT exam unremarkable. Pupils round react light. Mytrex members. Neck nontender no lymphadenopathy. Lungs clear to auscultation. Heart regular rate and rhythm rate about 85 no murmur. Chest wall and ribs nontender. Abdomen soft nondistended normal bowel sounds no peritoneal signs. Left upper quadrant tenderness. Right upper or right lower quadrant unremarkable. No hernia or mass. No obvious obstruction. Moving all 4 extremities. Nontender. No edema. Neurologically she is awake alert no focal motor deficits. Answering questions following commands. Const Vital Signs: 05/03/24 20:22 05/03/24 22:19 Temperature 97.8 F Temperature Source Temporal Pulse Rate 86 95 Respiratory Rate 18 18 Blood Pressure 155/96 H 140/91 H Blood Pressure Mean 115 107 Pulse Ox 98 95 Oxygen Delivery Method Room Air Room Air Positive well nourished and well developed; Negative for cachectic, contractures or unkempt General Appearance ED: well developed and NAD; Negative for unkempt, cachectic, contractures or pallor Nutritional Appearance: Negative for cachectic HEENT Reports moist mucous membranes normocephalic and atraumatic; Negative for trauma or tenderness Eyes EOMs intact bilaterally General Eye ED: Negative for pale conjunctiva or scleral icterus Neck no lymphadenopathy, supple and no JVD Resp normal respiratory effort and clear to auscultation bilaterally Cardio regular rate, regular rhythm, S1 normal heart sound, S2 normal heart sound and no murmurs GI non-distended and no masses; Negative for non-tender GI Narrative: Left upper quadrant reproducible tenderness only. Auscultation: normoactive bowel sounds Palpation: soft and tender; Negative for guarding, rigid, hepatomegaly, splenomegaly, hernia, mass, pulsatile mass or rebound tenderness present Back/Spine no CVA tenderness General Back: Negative for CVA tenderness Cervical Spine: Negative for cervical spine tenderness Thoracic Spine / Upper Back: Negative for thoracic spinal tenderness Lumbar Spine / Lower Back: Negative for lumbar spinal tenderness Extremity full ROM General Extremety ED: Negative for edema General Extremity: Negative for edema Neuro CN's II-XII intact bilaterally Sensorium / Orientation: alert, oriented to person, oriented to place and oriented to time; Negative for orientation impaired Psych mental status grossly normal and thought process normal Appearance: Negative for unkempt Attitude: No agitated Mood & Affect: Negative for depressed, anxious or tearful Skin no wounds General Skin Exam: Negative for jaundice or pallor Lesions: no lesions Rashes: no rashes Trauma: Negative for abrasion MDM MDM MDM Narrative Medical decision making narrative: 49-year-old female with nausea, vomiting diarrhea may be secondary to viral syndrome. She also has left upper quadrant abdominal pain. States that she is able to hold down p.o. fluids socially given p.o. fluids and set IV. IV Zofran. CAT scan and labs. Repeat exam at 11 PM patient is doing much better. Abdomen is benign. Nausea is resolved. Pain is resolved. She and I went over her test results. I think this is a viral gastroenteritis versus possibly a reaction to the Ozempic. Increase diet slowly. Follow-up if not improving. Zofran as needed for nausea. History & Record Review Discussion w/independent historian: Patient Additional record(s) reviewed:: Prior inpatient record, Prior outpatient record, Prior ED visit and Prior labs Lab Data Attestation: I reviewed the patient's lab results. Lab results narrative: CBC normal. White count of 9. H&H 12.9 and 39. Platelets 197. Electrolytes show gap 6. BUN and creatinine 25 and 1.7. Glucose 213. Liver enzymes normal. Lipase normal at 33. Serum test negative. UA shows no white or red cells. No nitrites. 2+ bacteria. Negative. Labs: Laboratory Results - last 24 hr 05/03/24 21:27 WBC 9.6 RBC 4.46 Hgb 12.9 Hct 39.1 MCV 87.7 MCH 28.9 MCHC 33.0 RDW Std Deviation 43.3 RDW Coeff of Silvia 13.4 Plt Count 197 MPV 11.2 Immature Gran % (Auto) 0.400 Neut % (Auto) 74.5 H Lymph % (Auto) 16.4 L [place] % (Auto) 4.8 Eos % (Auto) 3.5 Baso % (Auto) 0.4 Absolute Neuts (auto) 7.2 Absolute Lymphs (auto) 1.58 Nucleated RBC % 0 Sodium 137 Potassium 4.1 Chloride 104 Carbon Dioxide 27.0 Anion Gap 6 BUN 25 H Creatinine 1.77 H Estim Creat Clear Calc 43.41 Est GFR (MDRD) Af Amer 39 L Est GFR (MDRD) Non-Af 32 L BUN/Creatinine Ratio 14.1 Glucose 213 H Calcium 9.0 Total Bilirubin 0.60 AST 14 L ALT 19 Alkaline Phosphatase 84 Total Protein 7.1 Albumin 3.3 Globulin 3.8 Albumin/Globulin Ratio 0.9 Lipase 33 Serum , Qual NEGATIVE Urine Color Yellow Urine Clarity Clear Urine pH 6.5 Ur Specific [place] 1.015 Urine Protein 500 H Urine Glucose (UA) Normal Urine Ketones Negative Urine Occult Blood 50 H Urine Nitrite Negative Urine Bilirubin Negative Urine Urobilinogen 1 H Ur Leukocyte Esterase 25 H Urine RBC 0-5 SEEN Urine WBC 0-5 SEEN Ur Squamous Epith Cells 5-10 SEEN Ur Renal Epithelial Cell 0-5 SEEN Urine Bacteria 2+ Hyaline Casts 10-25 SEEN Urine Mucus 0 SEEN Radiography Diagnostic Testing: Clinical Impression(s) from Imaging Studies Abdomen/Pelvis CT 05/03/24 21:10 IMPRESSION: 1. Low-attenuation foci scattered throughout the liver are too small to further characterize. ACR White Paper guidelines (Jacky et al. JACR 2017; 14(11):1566-4307.) suggest the following. For patients with a low risk of malignancy, no further follow-up is necessary. For patients with high risk of malignancy (known malignancy with a propensity to metastasize to the liver, cirrhosis, and/or other hepatic risk factors), recommend follow-up abdominal CT or MR in 6 months. 2. Small hiatal hernia. 3. Mildly distended gastric lumen. Correlate for gastroparesis. No definitive evidence of gastric outlet obstruction. No bowel obstruction. 4. Colonic diverticulosis without evidence of acute diverticulitis. Electronically Signed: Talib Humphrey DO at 22:08 EDT , Discharge Plan Triage Chief Complaint: Nausea/Vomiting ED Provider: Clifton Esquivel Dx/Rx/DC Orders Clinical Impression: Nausea vomiting and diarrhea, Viral gastroenteritis, Chronic renal insufficiency, History of diabetes mellitus, History of cardiomyopathy Instructions: Viral Gastroenteritis, ED Vomiting (Adult) Prescriptions: New ondansetron 4 mg tablet,disintegrating 4 mg PO Q6H PRN (Reason: nausea and vomiting) Qty: 7 0RF No Action (DME) FreeStyle Janna 3 [place] Misc See Rx Instructions .Route Qty: 1 0RF Rx Instructions: As directed aspirin [Adult Aspirin Regimen] 81 mg tablet,delayed release (DR/EC) 81 mg PO DAILY Qty: 30 0RF carvedilol 3.125 mg tablet 3.125 mg PO BID 30 Days Qty: 60 1RF Rx Instructions: must administer with a meal/food furosemide [Lasix] 40 mg tablet 40 mg PO DAILY 30 Days Qty: 30 1RF lisinopril 10 mg tablet 10 mg PO DAILY 30 Days Qty: 30 1RF semaglutide 0.25 mg or 0.5 mg (2 mg/3 mL) pen injector 0.25 mg subcut QWEEK Qty: 3 1RF Rx Instructions: for 4 weeks insulin lispro [Humalog KwikPen Insulin] 100 unit/mL insulin pen 15 unit subcut BID Qty: 15 2RF (DME) FreeStyle Janna 3 Sensor Device See Rx Instructions .Route Qty: 1 10RF Rx Instructions: As directed Tresiba FlexTouch U-100 100 unit/mL (3 mL) insulin pen 30 unit SUBCUT QHS Qty: 15 1RF atorvastatin 20 mg tablet 20 mg PO DAILY Qty: 90 1RF Primary Care Provider: Irene Park Referrals: Irene Park, [facility] [Primary Care Provider] - 3-5 Days if not improving Activity Restrictions/Additional Instructions: Plenty of fluids and rest. Increase your diet slowly as tolerated. Follow-up with your primary care provider if not improving. Zofran as needed for nausea. All for tonight and tomorrow night. Print Language: Marshallese Disposition Disposition: Home, Self Care
[2024-05-03 21:33] LABS: Mucous, Urine 0 SEEN /hpf (<or=2+)
[2024-05-03 21:35] LABS: Absolute Lymphocyte Count 1.58 X10^3/uL (0.83-4.51); Absolute Neutrophil Count 7.2 X10^3/uL (2.0-7.7); Basophil# 0.04 X10^3/uL; Basophil% 0.4 % (0-1); Eosinophil# 0.34 X10^3/uL; Eosinophils% 3.5 % (0-5); Hematocrit 39.1 % (37-47); Hemoglobin 12.9 g/dL (12.0-15.0); Lymphocyte # 1.58 X10^3/ul (0.83-4.51); Lymphocyte % 16.4 % (19-41); Mean Corpuscular Hgb 28.9 pg (27.0-32.0); Mean Corpuscular Volume 87.7 fL (81-99); Mean Platelet Vol. 11.2 fl (6.2-12.0); Monocyte# 0.46 X10^3/uL; Monocyte% 4.8 % (0-10); NRBC Flagged by Analyzer 0 % (0-5); Neutrophil # 7.15 X10^3/uL (2.7-7.7); Neutrophil % 74.5 % (47-70); Platelet Count 197 K/mm3 (150-450); RBC Distribution Width CV 13.4 % (11.6-14.6); RBC Distribution Width SD 43.3 fl (35.1-43.9); Red Blood Count 4.46 M/mm3 (4.2-5.4); White Blood Count 9.6 K/mm3 (4.4-11.0)
[2024-05-03] MEDS: Morphine 4 MG/ML Syringe IV (21:35)
[2024-05-03] MEDS: Ondansetron 4 MG/2 ML Vial IV (21:35)
[2024-05-03 21:42] LABS: Color, Urine Yellow (Yellow); Glucose, Dipstick Normal (Normal); Ketone-Dipstick Negative (Negative); Leukocyte Esterase-Dipstick 25 /ul (Negative); Nitrite-Dipstick Negative (Negative); Occult Blood-Urine 50 /ul (Negative); Protein-Dipstick 500 mg/dl (Negative); Specific Gravity, Urine 1.015 (1.002-1.030); Urine Bilirubin Dipstick Negative (Negative); Urine Clarity Clear (Clear); Urine Urobilinogen 1 mg/dl (Normal); Urine pH 6.5 (5.0 - 8.0)
[2024-05-03 21:53] LABS: Internal QC Validated? YES +Cl - CLEAR BKGD; Pregnancy, Serum, hCG Quali. NEGATIVE Negative; Record Kit Lot#, Serum Preg. 869294
[2024-05-03 21:55] LABS: Hyaline Cast 10-25 SEEN /lpf (0-5); Squamous Epithelial Cells - UA 5-10 SEEN /hpf (5-10)
[2024-05-03 21:56] LABS: Bacteria 2+ /hpf (None Seen); Red Blood Cells-Urine 0-5 SEEN /hpf (0-5); Renal Epithelial Cells 0-5 SEEN /hpf (0-5); White Blood Cells 0-5 SEEN /hpf (0-5)
[2024-05-03 21:57] LABS: ALB/GLOB Ratio 0.9 RATIO (0.9-2.4); AST(SGOT) 14 U/L (15-37); Alanine Aminotransfer ALT/SGPT 19 U/L (13-56); Albumin, Serum 3.3 g/dL (3.2-5.0); Alkaline Phosphatase 84 U/L (45-117); Anion Gap 6 (5-15); BUN 25 mg/dL (7-18); BUN/Creat Ratio 14.1 RATIO (10-20); Chloride 104 mmol/L (98-107); Creatinine, Serum 1.77 mg/dL (0.55-1.02); EST Glomerular Filtration Rate 32 mL/min (>60); Est Glom Filt Rate - Afr Amer 39 mL/min (>60); Estimated Creatinine Clearance 43.41 ml/min; Globulin 3.8 g/dL (2.2-4.2); Glucose 213 mg/dL (74-106); Lipase 33 U/L (13-75); Potassium 4.1 mmol/L (3.5-5.1); Protein, Total 7.1 g/dL (6.4-8.2); Sodium Level 137 mmol/L (136-145)
[2024-05-03 22:19] VITALS: BP 140/91; PULSE 95; RESP 18; O2SAT 95
[2024-05-03 23:14] VITALS: BP 140/76; PULSE 95; RESP 18; TEMP 36.3; O2SAT 95
== END 2024-05-03 23:15 | disposition home or self-care (01) ==
PROVIDERS: Emergency Provider Emergency Medicine; PCP Nurse Practitioner; Visit Provider Emergency Medicine
DX: A08.4 Viral intestinal infection, unspecified (principal); I13.0 Hypertensive heart and chronic kidney disease with heart failure and stage 1 through stage 4 chronic kidney disease, or unspecified chronic kidney disease; I50.22 Chronic systolic (congestive) heart failure; I42.9 Cardiomyopathy, unspecified; E11.22 Type 2 diabetes mellitus with diabetic chronic kidney disease; Z79.4 Long term (current) use of insulin; E78.5 Hyperlipidemia, unspecified; F17.210 Nicotine dependence, cigarettes, uncomplicated; N18.9 Chronic kidney disease, unspecified; R11.2 Nausea with vomiting, unspecified; R19.7 Diarrhea, unspecified
CPT/HCPCS: 74177; 80053; 81001; 83690; 84703; 85025; 96361; 96374; 96375; 99284; Q9967; A4216; J2405

== ENCOUNTER 2025-07-09 16:48 | Observation (INO) | payer BC, SELFPAY ==
[2025-07-09] VITALS (8 sets, daily range): BP systolic 148–187; BP diastolic 95–112; PULSE 87–102; RESP 12–19; TEMP 36.4–36.6; O2SAT 92–100; BMI 36.1; BMI 34.7
--- NOTE | 2025-07-09 19:14 | EKG12_ITS ---
Test Reason : DYSRHYTHMIA Blood Pressure : */* mmHG Vent. Rate : 101 BPM Atrial Rate : 101 BPM P-R Int : 198 ms QRS Dur : 100 ms QT Int : 374 ms P-R-T Axes : 61 -49 92 degrees QTcB Int : 484 ms Sinus tachycardia Possible Left atrial enlargement Left axis deviation Abnormal QRS-T angle, consider primary T wave abnormality QTcB >= 480 msec Abnormal ECG Confirmed by Red Low ([id number]), editor trade journal SERENA CAVAZOS ([id number]) on 07/10/2025 10:54:15 AM Also confirmed by Red Low ([id number]), editor trade journal SERENA CAVAZOS ([id number]) on 07/11/2025 10:59:58 AM Referred By: Confirmed By: Red Low
--- NOTE | 2025-07-09 19:15 | ED.VIS.CHEST ---
HPI History of Present Illness Chief Complaint: Palpitations PFSH [facility] Medical History Abscess of right breast MRSA cellulitis Depression Anxiety Diabetes Kidney stones Smoker Hypertension Migraines RSV (acute bronchiolitis due to respiratory syncytial virus) (04/2021) Hyperlipidemia Non-ischemic cardiomyopathy Genital herpes Bilateral pleural effusion (12/2019) Nonrheumatic mitral (valve) insufficiency Secondary pulmonary arterial hypertension Acute HFrEF (heart failure with reduced ejection fraction) (07/02/21) Essential hypertension Diabetes mellitus, type II Home Medications ?Medication ?Instructions ?Recorded ?Last Taken ?Type aspirin 81 mg tablet,delayed 81 mg PO DAILY #30 tabs 09/24/23 Unknown Rx release (Adult Aspirin Regimen) carvedilol 3.125 mg tablet 3.125 mg PO BID 30 days #60 tabs 03/31/24 Unknown Rx lisinopril 10 mg tablet 10 mg PO DAILY 30 days #30 tabs 03/31/24 Unknown Rx atorvastatin 20 mg tablet 20 mg PO DAILY #90 tabs 03/12/25 Unknown Rx blood-glucose sensor (FreeStyle #1 ea 03/12/25 Unknown Rx Janna 3 Sensor device) blood-glucose,veterans service representative,cont #1 ea 03/12/25 Unknown Rx (FreeStyle Janna 3 [place]) furosemide 40 mg tablet (Lasix) 40 mg PO DAILY PRN edema #30 tabs 03/12/25 Unknown Rx insulin degludec 100 unit/mL (3 30 unit (0.3 mL) subcut QHS #15 mL 03/12/25 Unknown Rx mL) subcutaneous pen (Tresiba FlexTouch U-100 insulin) insulin lispro 100 unit/mL 15 unit (0.15 mL) subcut BID #15 mL 03/12/25 Unknown Rx subcutaneous pen (Humalog KwikPen (U-100) Insulin) Allergy/AdvReac Type Severity Reaction Status Date / Time metformin AdvReac Severe Abd Verified 07/09/25 17:00 cramps/diarrhea Family History Father Alcoholism Abnormal respiratory function Cancer Brother Alcoholism Myocardial infarction Sister Alcoholism Anxiety Depression Diabetes Mental disorder Psychiatric care Mother History of blood transfusion Depression Diabetes Heart disease Hypertension Age related osteoporosis Grandfather Cancer Grandmother Cancer cervical cancer Aunt Asthma Diabetes Surgical History H/O dilation and curettage History of right and left heart catheterization (07/16/21) History of incision and drainage (06/2021) History of carpal tunnel release History of left heart catheterization (2006) Social History household members: spouse current occupational status: employed Smoking Status: Current every day smoker tobacco type: cigarettes alcohol intake: never substance use type: does not use what type of physical activity do you participate in: walking do you feel safe at home: Yes EXAM Physical Exam Const Vital Signs: 07/09/25 16:58 07/09/25 19:06 07/09/25 19:11 Temperature 97.5 F L Temperature Source Temporal Pulse Rate 96 100 Respiratory Rate 18 19 H Respiratory Effort Normal Blood Pressure 187/110 H 161/106 H Blood Pressure Mean 135 124 Pulse Ox 99 98 Oxygen Delivery Method Room Air Room Air 07/09/25 20:00 07/09/25 21:00 07/09/25 22:00 Temperature Temperature Source Pulse Rate 102 H 99 93 Respiratory Rate 18 18 18 Respiratory Effort Blood Pressure 162/103 H 174/112 H 166/108 H Blood Pressure Mean 122 132 127 Pulse Ox 92 96 97 Oxygen Delivery Method Room Air Room Air Room Air 07/09/25 22:02 07/09/25 23:00 Temperature 97.5 F L Temperature Source Pulse Rate 93 87 Respiratory Rate 18 18 Respiratory Effort Blood Pressure 166/108 H 150/95 H Blood Pressure Mean 127 113 Pulse Ox 97 99 Oxygen Delivery Method Room Air MDM MDM MDM Narrative Medical decision making narrative: HISTORY OF PRESENT ILLNESS: Chief complaint: Palpitation 50-year-old F here with palpitations. Hx of nonischemic cardiomyopathy, hypertension, hypervolemia, type 2 diabetes, heart failure, CKD nose palpitations began earlier today. Denies reyes chest pain. Denies any shortness of breath. Does note increased lower extremity swelling denies unilateral leg swelling any other PE risk factors denies new cough fever or chills. Denies any bleeding diathesis. Denies syncope. REVIEW OF SYSTEMS: Pertinent positives: Palpitations Pertinent negatives: As per HPI PHYSICAL EXAM: Nursing triage notes reviewed, Vital signs reviewed Constitutional: please see mdm HENT: MMM Eyes: Pupils equal round and reactive to light, Extraocular muscles intact Neck: No stridor, no JVD, full neck ROM Lungs: Clear to auscultation, No wheezing or rales. No increased work of breathing, no conversational dyspnea, no accessory muscle use, no nasal flaring. No respiratory distress noted Heart: Regular rate and rhythm, No murmurs, No rubs and No gallops, 2+ distal pulses (radial, femoral, posterior tibial) in all extremities Abdomen: Soft, there is no tenderness, rigidity, rebound or guarding, no obvious peritoneal signs, no palpable pulsatile abdominal masses, no auscultated abdominal bruit : No CVAT Extremities: Trace edema Neuro: No new focal neurological deficits, cranial nerves II through XII intact, 5/5 strength in all present extremities. Intact sensation to light touch in all present extremities, 2+ reflexes bilateral patella tendons. Skin: No rash or lesions noted MEDICAL DECISION MAKING: Chief Complaint: please see HPI External records reviewed: Reviewed medications. Patient is currently on carvedilol, lisinopril and Lasix for blood pressure control at home. Reviewed prior echocardiogram from 2020 that showed ejection fraction of 15% Factors affecting care: n as per HPI Social determinants of health: Denies drug use History obtained from others: none Consults: Internal medicine (Dr. Asher Villarreal) [facility] Narrative: Patient was seen approximate 2 hours after initial arrival to the ED secondary to poor department of dynamics including high-volume high acuity The patient was initially hypertensive with a blood pressure 187/110, afebrile and nontoxic-appearing. Exam without focal cardiopulmonary normalities. There is slight less than 1+ edema in bilateral lower EXTR I considered the following differential diagnosis: Arrhythmia, anemia, electrolyte disturbance, poorly controlled hypertension, heart failure exacerbation I obtained a broad lab and imaging work to further determine if the patient was suffering from a life-threatening etiology. Initially treat the patient with oral metoprolol. ALL IMAGES (IF OBTAINED) HAVE BEEN PERSONALLY REVIEWED AND INTERPRETED BY MYSELF. EKG with sinus tachycardia 101, left ax deviation, prolonged QTc interval, no obvious STEMI BMP grossly elevated from baseline consistent with likely volume overload and likely heart failure Chest x-ray with cardiomegaly and slight pulmonary edema High-sensitivity troponin is negative, no evidence of myocardial ischemia x2 CBC without leukocytosis, severe anemia, no thrombocytopenia. BMP with baseline CKD, no significant electrolyte abnormalities, no reported controlled diabetes The synthesis of the patient's history, physical exam, labs images suggest likely heart failure exacerbation. Given the patient's history of heart failure, signs of heart exacerbation and poorly controlled diabetes I opted to admit the patient to the internal medicine service for diuresis and blood pressure control. Discussed with Dr. Asher Villarreal who agreed with admit. The patient and/or family, caregivers express understanding. The patient and/or family, caregivers agrees with the plan. Shared decision making: I will have a discussion with the patient and or visitors regarding risk/benefits of further testing or admission. They will be made aware of of the risk/benefits inherent in this decision they will be given the opportunity to voice understanding. Total critical care time today provided was at least 0 [] minutes. This excludes separately billable procedures. Critical care time (if documented) is secondary to the patient having high probability of clinically significant/life threatening deterioration in the patient's condition which required my urgent intervention. Impression: 1. Palpitations 2. CHF exacerbation 3. Poorly controlled Hypertension Dispo: admit This note was generated with [employer] dictation software. It may contain incorrect words, spelling, and punctuation that were not noted in review of the chart prior to signing. Lab Data Labs: Laboratory Results - last 24 hr 07/09/25 07/09/25 19:04 20:55 WBC 8.8 RBC 5.11 Hgb 14.7 Hct 45.4 MCV 88.8 MCH 28.8 MCHC 32.4 RDW Std Deviation 47.2 H RDW Coeff of Silvia 14.6 Plt Count 198 MPV 12.3 H Immature Gran % (Auto) 0.600 Neut % (Auto) 77.9 H Lymph % (Auto) 15.5 L [place] % (Auto) 4.3 Eos % (Auto) 1.1 Baso % (Auto) 0.6 Absolute Neuts (auto) 6.8 Absolute Lymphs (auto) 1.36 Nucleated RBC % 0 Sodium 137 Potassium 4.1 Chloride 98 Carbon Dioxide 24.9 Anion Gap 14 BUN 28 H Creatinine 1.76 H Estim Creat Clear Calc 43.91 L Est GFR (MDRD) Non-Af 35 L BUN/Creatinine Ratio 15.7 Glucose 365 H Calcium 9.0 Troponin T High Sens 48 H Troponin T Hi Sens 2 Hr 45 [place] [address] H Radiography Diagnostic Testing: Clinical Impression(s) from Imaging Studies Chest X-Ray 07/09/25 19:28 IMPRESSION: Mild cardiomegaly and central vascular congestion. No airspace consolidation or sizable pleural effusion. Reading Location: [id number] Discharge Plan Triage Chief Complaint: Palpitations ED Provider: Abilio Aranda Dx/Rx/DC Orders Prescriptions: No Action aspirin [Adult Aspirin Regimen] 81 mg tablet,delayed release (DR/EC) 81 mg PO DAILY Qty: 30 0RF carvedilol 3.125 mg tablet 3.125 mg PO BID 30 Days Qty: 60 1RF Rx Instructions: must administer with a meal/food lisinopril 10 mg tablet 10 mg PO DAILY 30 Days Qty: 30 1RF atorvastatin 20 mg tablet 20 mg PO DAILY Qty: 90 1RF (DME) FreeStyle Janna 3 Sensor Device See Rx Instructions .Route Qty: 1 10RF Rx Instructions: As directed (DME) FreeStyle Janna 3 [place] Misc See Rx Instructions .Route Qty: 1 0RF Rx Instructions: As directed furosemide [Lasix] 40 mg tablet 40 mg PO DAILY PRN (Reason: edema) Qty: 30 0RF Tresiba FlexTouch U-100 100 unit/mL (3 mL) insulin pen 30 unit SUBCUT QHS Qty: 15 1RF insulin lispro [Humalog KwikPen Insulin] 100 unit/mL insulin pen 15 unit subcut BID Qty: 15 2RF Primary Care Provider: Care Physician,No Primary Referrals: Care Physician,No Primary [Primary Care Provider, Medical] Print Language: Yoruba
--- NOTE | 2025-07-09 19:28 | RAD_ITS ---
PROCEDURE: CHEST 1 VIEW (PORTABLE) 07/09/2025 REASON FOR EXAM: PALPITATIONS TECHNIQUE: Frontal view of the chest. COMPARISON: 09/14/2023 FINDINGS: Mildly enlarged cardiac silhouette, although likely exaggerated by technique. There is mild central vascular congestion. No airspace consolidation, pneumothorax or sizable pleural effusion. RAD/Chest 1 View (Portable) IMPRESSION: Mild cardiomegaly and central vascular congestion. No airspace consolidation or sizable pleural effusion. Reading Location: [id number]
[2025-07-09 19:47] LABS: Hematocrit 45.4 % (37-47); Hemoglobin 14.7 g/dL (12.0-15.0); Immature Granulocytes Count 0.050 X10^3/uL (0.0-0.0); Mean Corp Hgb Conc 32.4 g/dL (32-36); Mean Corpuscular Volume 88.8 fL (81-99); Mean Platelet Vol. 12.3 fl (6.2-12.0); NRBC Flagged by Analyzer 0 % (0-5); Platelet Count 198 K/mm3 (150-450); RBC Distribution Width CV 14.6 % (11.6-14.6); RBC Distribution Width SD 47.2 fl (35.1-43.9); Red Blood Count 5.11 M/mm3 (4.2-5.4); White Blood Count 8.8 K/mm3 (4.4-11.0)
[2025-07-09 20:13] LABS: Anion Gap 14 (7-18); BUN 28 mg/dL (4-19); BUN/Creat Ratio 15.7 RATIO (10-20); Calcium,Total 9.0 mg/dL (7.6-11.0); Carbon Dioxide 24.9 mmol/L (20.0-29.0); Chloride 98 mmol/L (96-106); Estimated Creatinine Clearance 43.91 ml/min (50-250); Glucose 365 mg/dL (70-99); Potassium 4.1 mmol/L (3.5-5.1); Pro- Brain NATRIURETIC PEPTIDE 27920 pg/mL (<=900); Troponin T High Sensitivity 48 ng/L (<=14)
[2025-07-09 21:44] LABS: Troponin T High Sens 2 HR 45 ng/L (<=14)
--- NOTE | 2025-07-09 21:49 | CM.ED ---
Social Work Reason for visit: No PCP Patient confirmed she does not currently have a PCP. [facility] provider list along with Why Wait brochure was given to patient. No further needs identified at this time HUGO Hernandez, EMERGENCY SERVICES DIRECTOR
--- OUTSIDE RECORDS SUMMARY | 2025-07-09 23:14 | XMS RPT_ITS | CCD ---
Author Organization [facility] Care Team Providers Care Trade Specialist Name Role Phone Rosendo Hernandez MD [facility] Unavailable Dr. Rosendo Hernandez Primary Care Provider Dr. Rosendo Hernandez Referring Provider VERONIKA Clinton Attending Provider Dr. Rosendo Hernandez Primary Care Provider Dr. Rosendo Hernandez Referring Provider JUDE Park Attending Provider Dr. Rosendo Hernandez Primary Care Provider Dr. Rosendo Hernandez Referring Provider IRENE ParkC Irene Attending Provider NURSE, BIM Attending Provider Unavailable Rosendo Hernandez MD Primary Care Provider Steinberg PLOW AND BORING MACHINE TENDER.CLOTHING AND TEXTILES TEACHER, Rebecca Unavailable Lulu PLOW AND BORING MACHINE TENDER.PERFECT BINDER SETTER, Michaela Unavailable ROSENDO HERNANDEZ Primary Care Unavailable Amanda ENVIRONMENTAL ADVISER-CBridgett Attending Provider [phone] Raoul Hancock Attending Unavailable Irene Park Referring Unavailable JonathanoIrene Primary Care Unavailable Raoul Hancock Attending Unavailable Bridgett Patel Attending Unavailable Ferullo, Irene Primary Care Unavailable Ferullo, Irene Attending Unavailable Ferullo, Irene Referring Unavailable Raoul Hancock Attending Unavailable Clifton Esquivel Attending Unavailable Irene Park Primary Care Unavailable Allergies Allergy Classification Reported Allergen(s) Allergy Type Date of Onset Reaction(s) Facility (10 sources) metFORMIN; Translations: [METFORMIN] Drug Allergy 07-03-2015 Diarrhea [facility] Work Phone: (1 source) metFORMIN Drug Allergy 03-08-2025 [facility] Medications Current Medications Medication Drug Class(es) Dates Sig (Normalized) Sig (Original) aspirin 81 mg delayed release oral tablet (18 sources) Platelet Aggregation Inhibitor, Nonsteroidal Anti-inflammatory Drug Start: 07-09-2021 End: 09-24-2023 take 1 tablet by mouth once daily Aspirin (Adult Aspirin Regimen) 81 mg tablet,delayed release (DR/EC) Active 81 mg PO DAILY 30 September 24, 2023 9:10am Comment on above: Take by mouth once d aily. Blood Pressure Monitor (7 sources) Start: 01-02-2020 Blood Pressure Monitor Indications: Elevated blood pressure reading with diagnosis of hypertension 1 Each once daily. 1 Each 01/02/2020 Active Start: 01-02-2020 Blood Pressure Monitor Indications: Elevated blood pressure reading with diagnosis of hypertension 1 Each once daily. 1 Each 0 01/02/2020 Active Comment on above: 1 Each once daily. Blood-Glucose Meter,Continuous (Freestyle Janna 3 [place]) misc (4 sources) Start: 08-20-2023 Blood-Glucose Meter,Continuous (Freestyle Janna 3 [place]) misc Active 0 .Route 1 August 20, 2023 1:00am As directed Start: 08-20-2023 Blood-Glucose Meter,Continuous (Freestyle Janna 3 [place]) misc Active 0 .Route 1 August 20, 2023 12:00am As directed Blood-Glucose Sensor (Freest yle Janna 3 Sensor) device (16 sources) Start: 03-06-2024 Blood-Glucose Sensor (Freestyle Janna 3 Sensor) device Active 0 .Route 1 March 06, 2024 8:00am Type 2 diabetes mellitus Type 2 diabetes mellitus without complications lobsterman (current) use of insulin As directed Start: 09-24-2023 End: 03-06-2024 Blood-Glucose Sensor (Freest yle Janna 3 Sensor) device Discontinued 0 .Route 1 September 24, 2023 9:10am March 06, 2024 8:00am Type 2 diabetes mellitus Type 2 diabetes mellitus without complications lobsterman (current) use of insulin As directed Start: 09-24-2023 Blood-Glucose Sensor (Freestyle Janna 3 Sensor) device Active 0 .Route September 24, 2023 9:10am As directed Start: 09-24-2023 Blood-Glucose Sensor (Freestyle Janna 3 Sensor) device Active 0 .Route September 24, 2023 8:10am As directed Start: 08-26-2023 End: 09-24-2023 Blood-Glucose Sensor (Freest yle Janna 3 Sensor) device Discontinued 0 .Route 1 August 26, 2023 10:12am September 24, 2023 9:11am Type 2 diabetes mellitus Type 2 diabetes mellitus without complications [facility] (current) use of insulin As directed Start: 08-26-2023 End: 09-24-2023 Blood-Glucose Sensor (Freest yle Janna 3 Sensor) device Discontinued 0 .Route August 26, 2023 10:12am September 24, 2023 9:11am As directed Start: 08-26-2023 End: 09-24-2023 Blood-Glucose Sensor (Freest yle Janna 3 Sensor) device Discontinued 0 .Route August 26, 2023 9:12am September 24, 2023 8:11am As directed Start: 08-20-2023 End: 08-26-2023 Blood-Glucose Sensor (Freest yle Janna 3 Sensor) device Discontinued 0 .Route 1 0 August 20, 2023 1:00am August 26, 2023 10:12am As directed Start: 08-20-2023 End: 08-26-2023 Blood-Glucose Sensor (Freest yle Janna 3 Sensor) device Discontinued 0 .Route August 20, 2023 1:00am August 26, 2023 10:12am As directed Start: 08-20-2023 End: 08-26-2023 Blood-Glucose Sensor (Freest yle Janna 3 Sensor) device Discontinued 0 .Route August 20, 2023 12:00am August 26, 2023 9:12am As directed Blood-Glucose,Director Of Product Design,Cont (Freestyle Janna 3 [place]) misc (1 source) Start: 08-20-2023 Blood-Glucose,Director Of Product Design,Cont (Freestyle Janna 3 [place]) misc Active 0 .Route 1 0 August 20, 2023 1:00am As directed carvedilol 3.125 mg oral tablet (20 sources) alpha-Ad renergic Woody, beta-Adr energic Woody Start: 08-20-2023 End: 03-31-2024 take 1 tablet by mouth twice daily at mealtime Carvedilol 3.125 mg tablet Active 3.125 mg PO TWICE A DAY 60 30 1 March 31, 2024 9:12am Primary hypertension Essential (primary) hypertension must administer with a meal/food Start: 07-16-2021 End: 08-20-2023 take 1 tablet by mouth twice daily at mealtime Carvedilol 6.25 mg tablet Discontinued 6.25 mg PO TWICE A DAY 180 3 August 14, 2022 5:54pm August 20, 2023 8:39am this is a dose increase must administer with a meal/food Start: 07-09-2021 End: 07-16-2021 take 1 tablet by mouth twice daily at mealtime Carvedilol (Coreg) 3.125 mg tablet Discontinued 3.125 mg PO TWICE A DAY 60 2 July 09, 2021 1:00am July 16, 2021 10:41am administer with food (meal or snack) Comment on above: TAKE 1 TABLET TWICE DAILY must take with food/meal. this is a dose increase Take 1 tablet by santhosh twice daily with meals. docusate sodium 100 mg oral capsule (7 sources) Start: 09-04-19 take 1 capsule by mouth every twelve hours as needed docusate sodium (COLACE) 100 mg capsule Take 1 capsule by mouth twice daily as needed for constipation. 14 capsule 09/04/2021 Active Comment on above: Take 1 capsule by mo [facility] twice daily as needed for constipation. fluticasone propionate 0.05 mg/actuat metered dose nasal spray (7 sources) Corticosteroid Start: 01-05-20 take 2 spray(s) by mouth once daily fluticasone (FLONASE) 50 mcg/actuation nasal spray Indications: PND (post-nasal drip) Use 2 Sprays in each nostril once daily. Rinse mouth after use. 1 Bottle 11 01/05/2020 Active Comment on above: Use 2 Sprays in each nostril once daily. Rinse mouth after use. furosemide 40 mg oral tablet (20 sources) Loop Diuretic Start: 05-01-20 End: 08-20-19 take 1 tablet by mouth twice daily Furosemide (Lasix) 40 mg tablet Discontinued 40 mg PO TWICE A DAY 180 August 14, 2022 5:54pm August 20, 2023 9:46am Start: 01-15-2020 End: 08-14-2022 take 1 tablet by mouth once daily furosemide (LASIX) 20 mg tablet Take 1 tablet by mouth once daily. 30 tablet 2 01/15/2020 08/14/2022 Discontinued Start: 01-02-2020 End: 03-08-2025 take 1 tablet by mouth once daily as needed Furosemide (Lasix) 40 mg tablet Active 40 mg PO DAILY as needed March 08, 2025 9:08am Acute systolic heart failure Acute systolic (congestive) heart failure Comment on above: Take 1 tablet by santhosh th once daily. Take 40 mg by mouth twice daily. ibuprofen 200 mg oral tablet (7 sources) Nonsteroidal Anti-inflammatory Drug take 4 tablets by mouth every twelve hours ibuprofen (MOTRIN) 200 mg tablet Take 800 mg by mouth every 12 hours. Active Comment on above: Take 800 mg by mouth every 12 hours. 3 ml insulin degludec 100 unt/ml pen injector (20 sources) Insulin Analog Start: End: Insulin Degludec (Tresiba Flextouch U-100) 100 unit/mL (3 mL) insulin pen Active 30 U SC AT BEDTIME 15 March 06, 2024 8:00am Type 2 diabetes mellitus Type 2 diabetes mellitus without complications Start: 06-26-2021 End: 08-14-2022 insulin degludec (TRESIBA FL EXTOUCH U-100) 100 unit/mL (3 mL) injection pen Indications: Type 2 diabetes mellitus without complication, with long-term current use of insulin (HCC) Inject 30 Units subcutaneously daily at bedtime. 15 mL 11 08/14/2022 Active Comment on above: Inject 30 Units subc utaneously daily at bedtime. 3 ml insulin lispro 100 unt/ml pen injector (3 sources) Insulin Analog Start: 10-15-2023 Insulin Lispro (Humalog Kwikpen Insulin) 100 unit/mL insulin pen Active 15 U SC TWICE A DAY 15 October 15, 2023 12:00am Type 2 diabetes mellitus Type 2 diabetes mellitus without complications [facility] (current) use of insulin levonorgestrel 0.259969 mg/hr intrauterine system (12 sources) Progestin, Progestin-containing Intrauterine Device Start: 10-17-2019 End: 10-15-2024 levonorgestrel (MIRENA) 20 mcg/24 hours (5 yrs) 52 mg IUD Indications: Encounter for IUD insertion 1 Each by INTRAUTERINE route as directed. 1 Each 10/17/2019 10/15/2024 Active Start: 10-22-2014 levonorgestrel (MIRENA) 20 mcg/24 hr (5 years) IUD Inserted in office 1 Each 0 10/22/2014 Active Comment on above: 1 Each by INTRAUTERI NE route as directed. Inserted in office lisinopril 10 mg oral tablet (20 sources) Angiotensin Converting Enzyme Inhibitor Start: End: take 1 tablet by mouth once daily Lisinopril 10 mg tablet Active 10 mg PO DAILY March 31, 2024 9:12am Primary hypertension Essential (primary) hypertension Start: 08-20-2023 End: 09-24-2023 take 1 tablet by mouth once daily Lisinopril 5 mg tablet Discontinued 5 mg PO DAILY August 20, 2023 9:45am September 24, 2023 9:11am Primary hypertension Essential (primary) hypertension Start: 07-02-2021 End: 08-20-2023 take 1 tablet by mouth once daily Lisinopril 10 mg tablet Discontinued 10 mg PO DAILY 17 06August 08, 2021 3:05pm August 20, 2023 8:40am Comment on above: Take 10 mg by mouth once daily. OZEMPIC 0.25 mg or 0.5 mg (2 mg/3 mL) pen (1 source) Start: 03-31-2024 OZEMPIC 0.25 mg or 0.5 mg (2 mg/3 mL) pen Inject 0.25 mg subcutaneously one time a week. 03/31/2024 Active Completed/Discontinued Medications Medication Drug Class(es) Dates Sig (Normalized) Sig (Original) acetaminophen 325 mg / oxyCODONE hydrochloride 5 mg oral tablet (6 sources) Opioid Agonist Start: 08-29-2021 End: 09-18-2022 Oxycodone-Acetamin ophen (Endocet) 5-325 mg tablet Discontinued 1 {tbl} PO EVERY 6 HOURS as needed for pain 12 3 August 29, 2021 September 18, 2022 12:41pm Abscess of abdominal wall Cutaneous abscess of abdominal wall acyclovir 400 mg oral tablet (4 sources) Herpesvirus Nucleoside Analog DNA Polymerase Inhibitor, Herpes Simplex Virus Nucleoside Analog DNA Polymerase Inhibitor, Herpes Zoster Virus Nucleoside Analog DNA Polymerase Inhibitor Start: 08-10-2019 End: 08-14-2022 take 1 tablet by mouth twice daily acyclovir (ZOVIRAX) 400 mg tablet Take 1 tablet by mouth twice daily. 60 tablet 5 08/10/2019 08/14/2022 Discontinued Comment on above: Take 1 tablet by santhosh th twice daily. atorvastatin 20 mg oral tablet (20 sources) HMG-CoA Reductase Inhibitor Start: 06-24-2021 End: 03-06-2024 take 1 tablet by mouth once daily Atorvastatin 20 mg tablet Discontinued 20 mg PO DAILY 90 August 14, 2022 5:53pm August 20, 2023 9:46am Comment on above: Take 1 tablet by santhosh daily at bedtime. For cholesterol. 24 hr buPROPion hydrochloride 150 mg extended release oral tablet (5 sources) Aminoketone Start: 09-04-2021 End: 08-14-2022 take 1 tablet by mouth once daily buPROPion XL (WELLBUTRIN XL) 150 mg 24 hr tablet Indications: Smoker , Generalized anxiety disorder , Depression, unspecified depression type Take 1 tablet by mouth once daily. 30 tablet 11 08/14/2022 08/14/2022 Discontinued Comment on above: Take 1 tablet by santhosh once daily. clindamycin 300 mg oral capsule (10 sources) Lincosamide Antibacterial Start: 08-29-2021 End: 09-18-2022 take 1 capsule by mouth four times daily Clindamycin Hcl (Cleocin Hcl) 300 mg capsule Discontinued 300 mg PO 4 TIMES DAILY 40 0 August 29, 2021 1:00am September 18, 2022 12:41pm Comment on above: Take 300 mg by mouth four times daily. empagliflozin 10 mg oral tablet (5 sources) Sodium-Glucose Cotransporter 2 Inhibitor Start: 09-24-2023 End: 12-24-2023 take 1 tablet by mouth once daily in the morning Empagliflozin 10 mg tablet Discontinued 10 mg PO EVERY MORNING 30 September 24, 2023 1:00am December 24, 2023 7:46am glipiZIDE er 2.5 mg 24 hr extended release oral tablet (20 sources) Sulfonylurea Start: 06-19-2021 End: 09-24-2023 take 1 tablet by mouth once daily Glipizide 2.5 mg tablet extended release 24 hr Discontinued 2.5 mg PO DAILY July 02, 2021 1:00am August 20, 2023 9:46am Comment on above: Take 1 tablet by santhosh th once daily. 3 ml insulin aspart, human 100 unt/ml pen injector (20 sources) Insulin Analog Start: 09-24-2023 End: 10-15-2023 Insulin Aspart U-100 (Novolog Flexpen U-100 Insulin) 100 unit/mL (3 mL) insulin pen Discontinued 15 U SC TWICE A DAY 02 09September 24, 2023 10:41am October 15, 2023 8:10am Type 2 diabetes mellitus Type 2 diabetes mellitus without complications Start: 07-02-2021 End: 09-24-2023 Insulin Aspart U-100 (Novolo g Flexpen U-100 Insulin) 100 unit/mL (3 mL) insulin pen Discontinued 15 U SC THREE TIMES A DAY 15 August 20, 2023 9:28am September 24, 2023 9:11am Type 2 diabetes mellitus Type 2 diabetes mellitus without complications Start: 06-24-2021 End: 09-16-2022 insulin aspart U-100 (NOVOLO G FLEXPEN U-100 INSULIN) 100 unit/mL (3 mL) Inject 15 Units subcutaneously three times daily before meals. Adjust as directed with sliding scale 15 mL 08/14/2022 Active Comment on above: Inject 15 Units subc utaneously three times daily before meals. Adjust as directed with sliding scale lidocaine hydrochloride 20 mg/ml mucous membrane topical solution (4 sources) Antiarrhythmic, Amide Local Anesthetic Start: 06-04-20 End: 08-14-19 lidocaine viscous (LIDOCAINE VISCOUS) 2 % solution Indications: Sore throat Take 5-10 mL by mouth as needed. 100 mL 1 06/04/2021 08/14/2022 Discontinued Comment on above: Take 5-10 mL by mout h as needed. losartan potassium 50 mg oral tablet (8 sources) Angiotensin 2 Receptor Woody Start: 08-14-19 23 End: 05-02-20 24 take 1 tablet by mouth once daily losartan (COZAAR) 50 mg tablet Take 1 tablet by mouth once daily. 30 tablet 11 08/14/2022 05/02/2024 Discontinued (Other) Start: 03-29-2020 End: 08-14-2022 take 1 tablet by mouth once daily losartan (COZAAR) 100 mg tablet Take 1 tablet by mouth once daily. 30 tablet 11 08/14/2022 08/14/2022 Discontinued Comment on above: Take 1 tablet by santhosh th once daily. 24 hr metoprolol succinate 25 mg extended release oral tablet (4 sources) beta-Adrenergic Woody Start: 0 End: 3 take 1 tablet by mouth once daily metoprolol succinate ER (TOPROL XL) 25 mg 24 hr tablet Take 1 tablet by mouth once daily. 90 tablet 1 03/29/2020 08/14/2022 Discontinued Comment on above: Take 1 tablet by santhosh th once daily. ondansetron 4 mg disintegrating oral tablet (4 sources) Serotonin-3 Receptor Antagonist Start: 4 End: 4 take 1 tablet by mouth once 4 mg, ORAL, ONCE, 1 dose, On Wed05/02/24 at 1900, Place tablet on tongue and allow to dissolve; do not chew. Open packaging using dry hands; do not push tablet through packaging. Start: 05-02-2024 End: 03-08-2025 take 1 tablet by mouth every six hours as needed for nausea and vomiting Ondansetron 4 mg tablet,disintegrating Discontinued 4 mg PO EVERY 6 HOURS as needed for nausea and vomiting 7 0 May 03, 2024 12:00am March 08, 2025 9:08am potassium chloride 10 meq extended release oral tablet (4 sources) Start: 01-15-2020 End: 08-14-2022 take 1 tablet by mouth once daily at breakfast potassium chloride (K-TAB) 10 mEq tablet Take 1 tablet by mouth daily with breakfast. 30 tablet 2 01/15/2020 08/14/2022 Discontinued Comment on above: Take 1 tablet by santhosh th daily with breakfast. Semaglutide 0.25 mg or 0.5 mg (2 mg/3 mL) pen injector (1 source) Start: 03-31-2024 End: 03-08-2025 Semaglutide 0.25 mg or 0.5 mg (2 mg/3 mL) pen injector Discontinued 0.25 mg SC EVERY WEEK 3 March 31, 2024 12:00am March 08, 2025 9:09am Type 2 diabetes mellitus Type 2 diabetes mellitus without complications [facility] (current) use of insulin for 4 weeks spironolactone 25 mg oral tablet (20 sources) Aldosterone Antagonist Start: 08-20-2023 End: 12-24-2023 take 1 tablet by mouth once daily Spironolactone 25 mg tablet Discontinued 25 mg PO DAILY 30 30 September 24, 2023 9:11am December 24, 2023 7:59am Primary hypertension Essential (primary) hypertension Start: 07-16-2021 End: 08-20-2023 take 1 tablet by mouth once daily Spironolactone 50 mg tablet Discontinued 50 mg PO DAILY 90 August 14, 2022 5:54pm August 20, 2023 9:46am Start: 07-09-2021 End: 08-14-2022 take 2 tablets by mouth once daily spironolactone (ALDACTONE) 25 mg tablet Take 50 mg by mouth once daily. 0 07/09/2021 08/14/2022 Discontinued Start: 07-09-2021 End: 07-16-2021 take 1 tablet by mouth once daily Spironolactone 25 mg tablet Discontinued 25 mg PO DAILY 60 0 July 09, 2021 1:00am July 16, 2021 10:41am Comment on above: Take 50 mg by mouth once daily. Take 1 tablet by santhosh th once daily. traMADol hydrochloride 50 mg oral tablet (6 sources) Opioid Agonist Start: 8 End: 8 take 1 tablet by mouth every four hours as needed for pain Tramadol 50 MG tablet Discontinued 50 mg PO EVERY 4 HOURS NEEDED as needed for Pain 16 3 0 May 02, 2018 12:00am May 04, 2018 12:00am May 05, 2018 12:11am Gastrocnemius strain, left Problems Active Problems Problem Classification Problem Date Documented Da te Episodic/Chronic Abdominal pain (10 sources) Abdominal pain; Translations: [Unspecified abdominal pain] Onset: 08-14-2022 08-14-2022 Episodic Acute bronchitis (6 sources) Acute respiratory syncytial virus bronchitis; Translations: [Acute bronchitis due to respiratory syncytial virus] 05-09-2021 Episodic Anxiety disorders (8 sources) Generalized anxiety disorder; Translations: [Generalized anxiety disorder] Onset: 07-03-2015 07-14-2021 Chronic Blindness and vision defects (6 sources) Blurring of visual image; Translations: [Other visual disturbances] 07-03-2021 Episodic Cardiac dysrhythmias (12 sources) Tachycardia; Translations: [Tachycardia, unspecified] 09-18-2022 Episodic Chronic kidney disease (14 sources) Chronic kidney disease; Translations: [Chronic kidney disease, unspecified] 09-24-2023 Chronic Comment on above: stage 3a Congestive heart failure; nonhypertensive (20 sources) Acute systolic heart failure; Translations: [Acute systolic (congestive) heart failure] Onset: 07-02-2021 08-14-2022 Chronic Contraceptive and procreative management (1 source) Intrauterine contraceptive device in situ; Translations: [Presence of (intrauterine) contraceptive device] 12-24-2023 Episodic Diabetes mellitus with complications (2 sources) Type II diabetes mellitus uncontrolled; Translations: [Type 2 diabetes mellitus with hyperglycemia] Chronic Diabetes mellitus without complication (20 sources) Type 2 diabetes mellitus without complication; Translations: [Type 2 diabetes mellitus without complications] Onset: 07-03-2015 07-03-2015 Chronic Disorders of lipid metabolism (20 sources) Mixed hyperlipidemia; Translations: [Mixed hyperlipidemia] Onset: 07-04-2015 07-04-2015 Chronic Disorders of teeth and jaw (6 sources) Toothache; Translations: [Other specified disorders of teeth and supporting structures] 12-12-2014 Episodic Essential hypertension (20 sources) Essential hypertension; Translations: [Essential (primary) hypertension] Onset: 05-13-2020 05-13-2020 Chronic Genitourinary symptoms and ill-defined conditions (7 sources) Female stress incontinence; Translations: [Stress incontinence (female) (male)] Onset: 08-25-2018 08-25-2018 Chronic Heart valve disorders (14 sources) Mitral valve regurgitation; Translations: [Nonrheumatic mitral (valve) insufficiency] Onset: 05-13-2020 05-13-2020 Chronic Intestinal infection (1 source) Viral gastroenteritis; Translations: [Viral intestinal infection, unspecified] 05-11-2024 Episodic Mood disorders (8 sources) Depressive disorder; Translations: [Depression] Onset: 07-03-2015 07-03-2015 Chronic Nonmalignant breast conditions (6 sources) Abscess of breast; Translations: [Abscess of the breast and nipple] 07-09-2021 Episodic Other aftercare (1 source) [facility] (current) use of insulin; Translations: [lobsterman (current) use of insulin] Onset: 03-08-2025 Episodic Other circulatory disease (1 source) History of cardiomyopathy; Translations: [Personal history of other diseases of the circulatory system] 05-11-2024 Episodic Other gastrointestinal disorders (10 sources) Ascites; Translations: [Other ascites] Onset: 08-14-2022 08-14-2022 Episodic Other inflammatory condition of skin (7 sources) Psoriasis; Translations: [Psoriasis, unspecified] 07-03-2015 Chronic Other lower respiratory disease (18 sources) Dyspnea; Translations: [Shortness of breath] 07-03-2021 Episodic Other lower respiratory disease (6 sources) Orthopnea; Translations: [Orthopnea] 07-09-2021 Episodic Other nutritional; endocrine; and metabolic disorders (7 sources) Morbid obesity; Translations: [Morbid (severe) obesity due to excess calories] Onset: 05-13-2020 05-13-2020 Chronic Other nutritional; endocrine; and metabolic disorders (1 source) H/O: diabetes mellitus; Translations: [Personal history of other endocrine, nutritional and metabolic disease] 05-11-2024 Episodic Other screening for suspected conditions (not mental disorders or infectious disease) (20 sources) Patient encounter status; Translations: [Encounter for screening mammogram for malignant neoplasm of breast] Onset: 05-13-2020 Episodic Ruma-; endo-; and myocarditis; cardiomyopathy (except that caused by tuberculosis or sexually transmitted disease) (11 sources) Cardiomyopathy; Translations: [Other cardiomyopathies] 07-09-2021 Chronic Pleurisy; pneumothorax; pulmonary collapse (16 sources) Bilateral pleural effusion; Translations: [Pleural effusion, not elsewhere classified] Onset: 12-18-2019 08-14-2022 Episodic Pulmonary heart disease (14 sources) Pulmonary hypertension; Translations: [Pulmonary hypertension, unspecified] Onset: 05-13-2020 05-15-2020 Chronic Residual codes; unclassified (6 sources) Pain; Translations: [Pain, unspecified] 07-03-2021 Episodic Residual codes; unclassified (6 sources) Edema; Translations: [Edema, unspecified] 07-10-2021 Episodic Skin and subcutaneous tissue infections (12 sources) Abscess of abdominal wall; Translations: [Cutaneous abscess of abdominal wall] 09-06-2021 Episodic Sprains and strains (6 sources) Strain of other muscle(s) and tendon(s) of posterior muscle group at lower leg level, left leg, initial encounter; Translations: [Gastrocnemius strain, left] 05-03-2018 Episodic Substance-related disorders (8 sources) Smoker; Translations: [Nicotine dependence, unspecified, uncomplicated] Onset: 07-03-2015 07-14-2021 Chronic Viral infection (7 sources) Genital herpes simplex; Translations: [Herpesviral infection of urogenital system, unspecified] Onset: 09-28-2014 09-28-2014 Chronic Viral infection (1 source) Viral disease; Translations: [Viral infection, unspecified] 05-02-2024 Episodic Past or Other Problems Problem Classification Problem Date Documented Date Episodic/Chronic Administrative/social admission (6 sources) Persons encountering health services in other specified circumstances; Translations: [Other reasons for seeking consultation] Onset: 09-14-2024 08-20-2023 Episodic Immunizations and screening for infectious disease (2 sources) Influenza vaccination given; Translations: [Encounter for immunization] Onset: 03-31-2024 03-31-2024 Episodic Nausea and vomiting (2 sources) Nausea, vomiting and diarrhea; Translations: [Nausea with vomiting, unspecified] Onset: 05-24-2024 05-11-2024 Episodic Residual codes; unclassified (6 sources) History of cardiac catheterization; Translations: [Other specified postprocedural states] Onset: 07-16-2021 07-26-2021 Episodic Comment on above: 07/16/2021 Normal co ronary arteriesCardiomyopathy: Dilated idiopathicRight heart pressures - moderately to severely elevated Substance-related disorders (7 sources) Marijuana user; Translations: [Cannabis use, unspecified, uncomplicated] Onset: 02-19-2020 02-19-2020 Episodic Results Test Name Value Interpretation Reference Range Facility Internal Medicine Office Vis kiran 03-08-2025 Internal Medicine Office Visit [facility] [address] [place] [address] [place] [address] OFFICE VISIT Date of Service: 03/08/25 MR#: [id number] Acct: [id number] Name: SLOANE THORNE Rep #: [id number] : 1975 Provider: JUDE ramires Age/Sex: 49/F Location: [facility] Status: Signed with Addenda ADDENDUM by JUDE Patel on 03/22/25 at 0830 HPI Details: SLOANE THORNE, is a 49 F who presents to the office today for Assessment and Plan Assessment and Plan (1) Diabetes mellitus, type II: Status: Acute Qualifiers: Diabetes mellitus correction insulin use: with correction use Diabetes mellitus complication status: without complication Qualified Code(s): E11.9 - Type 2 diabetes mellitus without complications; Z79.4 - MCFP (current) use of insulin (2) CKD (chronic kidney disease): Status: Chronic Qualifiers: Chronic kidney disease stage: stage 3 (moderate) Chronic kidney disease stage 3 subtype: stage 3b (GFR 30-44) Qualified Code(s): N18.32 - Chronic kidney disease, stage 3b Comment: stage 3a (3) Acute HFrEF (heart failure with reduced ejection fraction): Status: Acute (4) Essential hypertension: Status: Acute (5) Hyperlipidemia: Status: Acute Qualifiers: Hyperlipidemia type: pure hypercholesterolemia Qualified Code(s): E78.00 - Pure hypercholesterolemia, unspecified (6) Screening for depression: Status: Acute Orders: Orders POC A1C 03/08/25 JUDE Flores E11.9 - Type 2 diabetes mellitus without complications, Z79.4 - MCFP (current) use of insulin CBC W/Diff, Automated 1 Month JUDE Flores E78.00 - Pure hypercholesterolemia, unspecified, I10 - Essential (primary) hypertension, N18.32 - Chronic kidney disease, stage 3b Comprehensive Metabolic Profil 1 Month JUDE Flores E78.00 - Pure hypercholesterolemia, unspecified, I10 - Essential (primary) hypertension, N18.32 - Chronic kidney disease, stage 3b Lipid Profile 1 Month JUDE Flores E78.00 - Pure hypercholesterolemia, unspecified, I10 - Essential (primary) hypertension, N18.32 - Chronic kidney disease, stage 3b Medications: Changed From furosemide 40 mg PO DAILY 30 days 30 tabs 1RF I50.21 - Acute systolic (congestive) heart failure To furosemide 40 mg PO DAILY PRN I50.21 - Acute systolic (congestive) heart failure Irene Park, PRATIK-C Refilled atorvastatin 20 mg PO DAILY 90 tabs 1RF Bridgettjoy Hurdr, ENVIRONMENTAL ADVISER-C E78.5 - Hyperlipidemia, unspecified blood-glucose sensor As directed 1 ea 10RF Bridgett Manuelaadamr, ENVIRONMENTAL ADVISER-C E11.9 - Type 2 diabetes mellitus without complications, Z79.4 - lobsterman (current) use of insulin blood-glucose,floor technician,c ont As directed 1 ea 0RF Bridgettjoy Hurdr ENVIRONMENTAL ADVISER-C insulin degludec 30 units (0.3 mL) subcut QHS 15 mL 1RF Bridgett Vannessar, ENVIRONMENTAL ADVISER-C E11.9 - Type 2 diabetes mellitus without complications insulin lispro 15 units (0.15 mL) subcut BID 15 mL 2RF Bridgett Vannessar, ENVIRONMENTAL ADVISER-C E11.9 - Type 2 diabetes mellitus without complications, Z79.4 - lobsterman (current) use of insulin Plan Details Follow Up: As scheduled 03/22/25829 Date Bridgett Patel cc: * Signed Intake Vital Signs 03/05/25 13:31 03/08/25 09:10 Height 5 ft 5 in 5 ft 5 in Weight: 207 lb BMI 34.4 BP 130/80 H Blood Pressure Location Lt brachial Position Sitting Respiration 16 Pulse 76 Pulse Source Monitor Temp 98.2 F Temp Source Temporal Pulse Oximetry (%) 99 Oxygen Delivery Method room air Intake Visit Reasons: MED REFILL-ESTABLISHING WITH DR. BRAUN Chief Complaint: MED REFILL-ESTABLISHING WITH DR. BRAUN Is patient in pain?: Yes (LEFT LOWER BACK RIGHT HEEL) Pain scale (1-10): 3 Allergies metformin Adverse Reaction (Severe, Verified 03/08/25 09:05) Abd cramps/diarrhea Medications ???Medication ???Instructions ???Recorded ???Confirmed ???Type aspirin 81 mg tablet,delayed 81 mg PO DAILY #30 tabs 09/24/23 0 03/08/25 Rx release (Adult Aspirin Regimen) carvedilol 3.125 mg tablet 3.125 mg PO BID 30 days #60 tabs 0 03/31/24 03/08/25 Rx lisinopril 10 mg tablet 10 mg PO DAILY 30 days #30 tabs 03/08/25 Rx atorvastatin 20 mg tablet 20 mg PO DAILY #90 tabs 03/08/25 0 03/08/25 Rx blood-glucose sensor (FreeStyle #1 ea 03/08/25 03/08/25 Rx Janna 3 Sensor device) blood-glucose,floor technician,c ont #1 ea 03/08/25 03/08/25 Rx (FreeStyle Janna 3 [place]) furosemide 40 mg tablet (Lasix) 40 mg PO DAILY PRN 03/08/25 History insulin degludec 100 unit/mL (3 30 unit (0.3 mL) subcut QHS #15 mL 03/08/25 03/08/25 Rx mL) subcutaneous pen (Tresiba FlexTouch U-100 insulin) insulin lispro 100 unit/mL 15 unit (0.15 mL) subcut BID #15 m L 03/08/25 03/08/25 Rx subcutaneous pen (Humalog KwikPen (U-100) Insulin) PFSH (more content not included)... 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 Chief Complaint: 3m f/u Allergies metformin Adverse Reaction (Severe, Verified 07/27/24 15:11) Abd cramps/diarrhea Office Procedures [facility] Billing Sheet Testing Breath Alcohol Test Pre-Employment: Yes Pre-Employment Drug Screen: Yes Pre-Employment PE: Yes 09/15/24 1558 Date Raoul Oliver Signature: Date (if applicable) CC: [facility] Urgent Care Visit Reporton 0 09-14-2024 Urgent Care Visit Report [facility] [address], [address] [place] [address] OFFICE VISIT Date of Service: 09/14/24 MR#: [id number] Acct: [id number] Name: SLOANE THORNE Rep #: [id number] : 1975 Provider: VERONIKA Saravia Age/Sex: 49/F Location: [facility] Status: Signed Intake Vital Signs 05/03/24 20:22 09/14/24 06:28 Height 5 ft 5 in 5 ft 5 in Intake Visit Reasons: 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 Chief Complaint: 3m f/u Allergies metformin Adverse Reaction (Severe, Verified 07/27/24 15:11) Abd cramps/diarrhea [facility] Medical History Depression Anxiety Diabetes Kidney stones Smoker Hypertension Migraines RSV (acute bronchiolitis due to respiratory syncytial virus) (04/2021) Hyperlipidemia Non-ischemic cardiomyopathy Genital herpes Bilateral pleural effusion (12/2019) Nonrheumatic mitral (valve) insufficiency Secondary pulmonary arterial hypertension Acute HFrEF (heart failure with reduced ejection fraction) (07/02/21) Essential hypertension Diabetes mellitus, type II Surgical History H/O dilation and curettage History of right and left heart catheterization (07/16/21) History of incision and drainage (06/2021) History of carpal tunnel release History of left heart catheterization (2006) Family History Father Alcoholism Abnormal respiratory function Cancer Brother Alcoholism Myocardial infarction Sister Alcoholism Anxiety Depression Diabetes Mental disorder Psychiatric care Mother History of blood transfusion Depression Diabetes Heart disease Hypertension Age related osteoporosis Grandfather Cancer Grandmother Cancer cervical cancer Aunt Asthma Diabetes Social History household members: spouse current occupational status: employed Smoking Status: Current every day smoker tobacco type: cigarettes alcohol intake: never substance use type: does not use what type of physical activity do you participate in: walking do you feel safe at home: Yes HPI HPI Chief Complaint: 3m f/u Details: SLOANE THORNE, is a 49 F who presents to the office today for Office Procedures Physical Exam Coding PE Coding Pre-employment PE: Yes Coding Level of Care Code No Charge Diagnoses Encounter for pre-employment health screening examination Z02.1 Assessment and Plan Assessment and Plan (1) Encounter for pre-employment health screening examination: Status: Acute 09/14/24 1229 Date Raoul Oliver Signature: Date (if applicable) CC: [facility] Office Visit Reporton 2024 Office Visit Report [facility] [address] 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 Chief Complaint: 3m f/u Allergies metformin Adverse Reaction (Severe, Verified 07/27/24 15:11) Abd cramps/diarrhea [facility] Billing Sheet Testing Breath Alcohol Test Pre-Employment: Yes Other Non-DOT Drug Screen: Yes Pre-Employment PE: Yes 08/17/24914 Date Raoul Nealignsarabjit Signature: Date (if applicable) CC: [facility] Urgent Care Visit Reporton 0 07-27-2024 Urgent Care Visit Report [facility] [address], [address] [place] [address] OFFICE VISIT Date of Service: 07/27/24 MR#: [id number] Acct: [id number] Name: SLOANE THORNE Rep #: [id number] : 1975 Provider: VERONIKA Saravia Age/Sex: 49/F Location: [facility] Status: Signed Intake Vital Signs 05/03/24 20:22 Height 5 ft 5 in Intake Visit Reasons: 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 Allergies metformin Adverse Reaction (Severe, Verified 07/27/24 15:11) Abd cramps/diarrhea Medications ???Medication ???Instructions ???Recorded ???Confirmed ???Type blood-glucose meter,continuous #1 ea 08/20/23 03/31/24 Rx (FreeStyle Janna 3 [place]) aspirin 81 mg tablet,delayed 81 mg PO DAILY #30 tabs 09/24/23 03/31/24 Rx release (Adult Aspirin Regimen) insulin lispro 100 unit/mL 15 unit (0.15 mL) subcut BID #15 mL 10/15/23 03/31/24 Rx subcutaneous pen (Humalog KwikPen (U-100) Insulin) atorvastatin 20 mg tablet 20 mg PO DAILY #90 tabs 03/06/24 07/27/24 Rx blood-glucose sensor (FreeStyle #1 ea 03/06/24 03/31/24 Rx Janna 3 Sensor device) insulin degludec 100 unit/mL (3 30 unit (0.3 mL) subcut QHS #15 mL 03/06/24 03/31/24 Rx mL) subcutaneous pen (Tresiba FlexTouch U-100 insulin) carvedilol 3.125 mg tablet 3.125 mg PO BID 30 days #60 tabs 03/31/24 07/27/24 Rx furosemide 40 mg tablet (Lasix) 40 mg PO DAILY 30 days #30 tabs 03/31/24 03/31/24 Rx lisinopril 10 mg tablet 10 mg PO DAILY 30 days #30 tabs 03/31/24 07/27/24 Rx semaglutide 0.25 mg or 0.5 mg (2 0.25 mg (0.368 mL) subcut QWEEK #3 03/31/24 03/31/24 Rx mg/3 mL) subcutaneous pen injector mL ondansetron 4 mg disintegrating 4 mg PO Q6H PRN nausea and 05/03/24 Rx tablet vomiting #7 tabs Nurse's Note: Patient here for a pre-employment physical. [facility] Medical History Depression Anxiety Diabetes Kidney stones Smoker Hypertension Migraines RSV (acute bronchiolitis due to respiratory syncytial virus) (04/2021) Hyperlipidemia Non-ischemic cardiomyopathy Genital herpes Bilateral pleural effusion (12/2019) Nonrheumatic mitral (valve) insufficiency Secondary pulmonary arterial hypertension Acute HFrEF (heart failure with reduced ejection fraction) (07/02/21) Essential hypertension Diabetes mellitus, type II Surgical History H/O dilation and curettage History of right and left heart catheterization (07/16/21) History of incision and drainage (06/2021) History of carpal tunnel release History of left heart catheterization (2006) Family History Father Alcoholism Abnormal respiratory function Cancer Brother Alcoholism Myocardial infarction Sister Alcoholism Anxiety Depression Diabetes Mental disorder Psychiatric care Mother History of blood transfusion Depression Diabetes Heart disease Hypertension Age related osteoporosis Grandfather Cancer Grandmother Cancer cervical cancer Aunt Asthma Diabetes Social History household members: spouse current occupational status: employed Smoking Status: Current every day smoker tobacco type: cigarettes alcohol intake: never substance use type: does not use what type of physical activity do you participate in: walking do you feel safe at home: Yes HPI HPI Details: SLOANE THORNE, is a 49 F who presents to the office today for preemployment physical. Please see corresponding scanned documents with today's date. Office Procedures Physical Exam Coding PE Coding Pre-employment PE: Yes Coding Level of Care Code No Charge Diagnoses Encounter for pre-employment health screening examination Z02.1 Assessment and Plan Assessment and Plan (1) Encounter for pre-employment health screening examination: Status: Acute 07/27/24 1548 Date Raoul Oliver Signature: Date (if applicable) CC: [facility] Abdomen/Pelvis W IV Cont ONL [facility] 05-03-2024 Abdomen/Pelvis W IV Cont ONLY [facility] Imaging Services [address] [place] [id number] Abdomen/Pelvis W IV Cont ONLY MR#: [id number] Acct: [id number] Name: SLOANE THORNE Rep #: [id number] : 1975 F 49 From: Talib bro DO PCP: Irene Park, ENVIRONMENTAL ADVISER-C Status: REG ER Study: Abdomen/Pelvis W IV Cont ONLY Date of Exam: Exam# [id number] Ordering Dr: Clifton Esquivel MD [id number] EXAM: CT ABDOMEN AND PELVIS WITH INTRAVENOUS CONTRAST CLINICAL INDICATION: LUQ abd pain TECHNIQUE: Helically acquired images were obtained of the abdomen and pelvis with intravenous contrast. This CT exam was performed using one or more of the following dose reduction techniques: automated exposure control, adjustment of the mA and/or kV according to patient size, and/or use of iterative reconstruction technique. CONTRAST: IV 100mL Isovue-370 COMPARISON: 08/12/2016 FINDINGS: LOWER THORAX: Small hiatal hernia. Lung bases are clear. No cardiomegaly. No significant pericardial effusion. ABDOMEN: LIVER: Low-attenuation foci scattered throughout the liver are too small to further characterize. GALLBLADDER AND BILE DUCTS: No significant abnormality. No calcified gallstones. No gallbladder distention or wall edema. No intra- or extrahepatic biliary ductal dilation. PANCREAS: No significant abnormality. No focal cystic or solid mass. SPLEEN: No significant abnormality. Normal size without focal cystic or solid mass. ADRENALS: No significant abnormality. No nodules. KIDNEYS AND URETERS: No significant abnormality. Normal renal size and position. No hydronephrosis. STOMACH AND BOWEL: Mildly distended gastric lumen. Colonic diverticulosis without evidence of acute diverticulitis. PELVIS: APPENDIX: There is a normal appendix identified in the right lower quadrant. BLADDER: No significant abnormality. REPRODUCTIVE: An IUD is present. ABDOMEN and PELVIS: INTRAPERITONEAL SPACE: No significant abnormality. No ascites or other fluid collection. No free air. BONES/JOINTS: Degenerative changes in the axial and appendicular skeleton visualized. No suspicious lytic or blastic abnormality. SOFT TISSUES: No significant abnormality. No discrete abdominal or pelvic wall hernia. VASCULATURE: Atherosclerosis of the aorta. Abdominal aorta is non-dilated. LYMPH NODES: No significant abnormality. No enlarged lymph nodes. CT/Abdomen/Pelvis W IV Cont ONLY IMPRESSION: 1. Low-attenuation foci scattered throughout the liver are too small to further characterize. ACR White Paper guidelines (Jacky et al. JACR 2017; 14(11):4785-3648.) suggest the following. For patients with a low risk of malignancy, no further follow-up is necessary. For patients with high risk of malignancy (known malignancy with a propensity to metastasize to the liver, cirrhosis, and/or other hepatic risk factors), recommend follow-up abdominal CT or MR in 6 months. 2. Small hiatal hernia. 3. Mildly distended gastric lumen. Correlate for gastroparesis. No definitive evidence of gastric outlet obstruction. No bowel obstruction. 4. Colonic diverticulosis without evidence of acute diverticulitis. Electronically Signed: Talib Humphrey DO at 22:08 EDT , CC: JUDE Park; Dr. Clifton Esquivel MD Cold Rolling Machine Setter: Signed [facility] CBC W/Diff, Automatedon 04-18 Absolute Lymph 1.58 X10 3/uL Normal 0.83-4.51 [facility] Comment on above: Performed By: #### L 700.6800, L501.2450, L100.0100, L500.4050 #### [facility] [address] [place], [address] Absolute Neut 7.2 X10 3/uL Normal 2.0-7.7 [facility] Comment on above: Performed By: #### L 700.6800, L501.2450, L100.0100, L500.4050 #### [facility] [address] [place], [address] Basophils/100 WBC (Bld) 0.4 % Normal 0-1 [facility] Comment on above: Performed By: #### L 700.6800, L501.2450, L100.0100, L500.4050 #### [facility] [address] [place], [address] Eosinophils/100 WBC (Bld) 3.5 % Normal 0-5 [facility] Comment on above: Performed By: #### L 700.6800, L501.2450, L100.0100, L500.4050 #### [facility] [address] [place], [address] Erythrocyte distribution width (RBC) [Ratio] 13.4 % Normal 11.6-14.6 [facility] Comment on above: Performed By: #### L 700.6800, L501.2450, L100.0100, L500.4050 #### [facility] [address] [place], [address] Hematocrit (Bld) [Volume fraction] 39.1 % Normal 37-47 [facility] Comment on above: Performed By: #### L 700.6800, L501.2450, L100.0100, L500.4050 #### [facility] [address] [place], [address] Hemoglobin (Bld) [Mass/Vol] 12.9 g/dL Normal 12.0-15.0 [facility] Comment on above: Performed By: #### L 700.6800, L501.2450, L100.0100, L500.4050 #### [facility] [address] [place], [address] IG% 0.400 Normal 0.0-0.9 [facility] Comment on above: Result Comment: IG% - Immature Granulocytes (promyelocytes, myelocytes and metamyelocytes) > 1% indicates that a LEFT SHIFT is Present. Performed By: #### L 700.6800, L501.2450, L100.0100, L500.4050 #### [facility] [address] [place], [address] Lymphocytes/100 WBC (Bld) 16.4 % Low 19-41 [facility] Comment on above: Performed By: #### L 700.6800, L501.2450, L100.0100, L500.4050 #### [facility] [address] [place], [address] MCH (RBC) [Entitic mass] 28.9 pg Normal 27.0-32.0 [facility] Comment on above: Performed By: #### L 700.6800, L501.2450, L100.0100, L500.4050 #### [facility] [address] [place], [address] MCHC (RBC) [Mass/Vol] 33.0 g/dL Normal 32-36 [facility] Comment on above: Performed By: #### L 700.6800, L501.2450, L100.0100, L500.4050 #### [facility] [address] [place], [address] MCV (RBC) [Entitic vol] 87.7 fL Normal 81-99 [facility] Comment on above: Performed By: #### L 700.6800, L501.2450, L100.0100, L500.4050 #### [facility] [address] [place], [address] Monocytes/100 WBC (Bld) 4.8 % Normal 0-10 [facility] Comment on above: Performed By: #### L 700.6800, L501.2450, L100.0100, L500.4050 #### [facility] [address] [place], [address] Neutrophils/100 WBC (Bld) 74.5 % High 47-70 [facility] Comment on above: Performed By: #### L 700.6800, L501.2450, L100.0100, L500.4050 #### [facility] [address] [place], [address] Nucleated RBC (Bld) [#/Vol] 0 10*3/uL Normal 0-5 [facility] Comment on above: Performed By: #### L 700.6800, L501.2450, L100.0100, L500.4050 #### [facility] [address] [place], [address] Platelet mean volume (Bld) [Entitic vol] 11.2 fL Normal 6.2-12.0 [facility] Comment on above: Performed By: #### L 700.6800, L501.2450, L100.0100, L500.4050 #### [facility] [address] [place], [address] Platelets (Bld) [#/Vol] 197 10*3/uL Normal 150-450 [facility] Comment on above: Performed By: #### L 700.6800, L501.2450, L100.0100, L500.4050 #### [facility] [address] [place], [address] RBC (Bld) [#/Vol] 4.46 10*6/uL Normal 4.2-5.4 [facility] Comment on above: Performed By: #### L 700.6800, L501.2450, L100.0100, L500.4050 #### [facility] [address] [place], [address] RDW SD 43.3 fl Normal 35.1-43.9 [facility] Comment on above: Performed By: #### L 700.6800, L501.2450, L100.0100, L500.4050 #### [facility] [address] [place], [address] WBC (Bld) [#/Vol] 9.6 10*3/uL Normal 4.4-11.0 [facility] Comment on above: Performed By: #### L 700.6800, L501.2450, L100.0100, L500.4050 #### [facility] [address] [place], [address] Comprehensive Metabolic Prof ilon 05-03-2024 Albumin [Mass/Vol] 3.3 g/dL Normal 3.2-5.0 [facility] Comment on above: Performed By: #### L 700.6800, L501.2450, L100.0100, L500.4050 #### [facility] [address] [place], [address] Albumin/Globulin [Mass ratio] 0.9 {ratio} Normal 0.9-2.4 [facility] Comment on above: Performed By: #### L 700.6800, L501.2450, L100.0100, L500.4050 #### [facility] [address] [place], [address] ALK P 84 U/L Normal 45-117 [facility] Comment on above: Performed By: #### L 700.6800, L501.2450, L100.0100, L500.4050 #### [facility] [address] [place], [address] ALT [Catalytic activity/Vol] 19 U/L Normal 13-56 [facility] Comment on above: Performed By: #### L 700.6800, L501.2450, L100.0100, L500.4050 #### [facility] [address] [place], [address] AST [Catalytic activity/Vol] 14 U/L Low 15-37 [facility] Comment on above: Performed By: #### L 700.6800, L501.2450, L100.0100, L500.4050 #### [facility] [address] [place], [address] Bilirubin [Mass/Vol] 0.60 mg/dL Normal 0.20-1.00 [facility] Comment on above: Result Comment: For patients on eltrombopag therapy, use of Dimension [place] TBIL is not recommended. Performed By: #### L 700.6800, L501.2450, L100.0100, L500.4050 #### [facility] [address] [place], [address] BUN/CRE 14.1 RATIO Normal 10-20 [facility] Comment on above: Performed By: #### L 700.6800, L501.2450, L100.0100, L500.4050 #### [facility] [address] [place], [address] CA,Total 9.0 mg/dL Normal 8.5-10.1 [facility] Comment on above: Performed By: #### L 700.6800, L501.2450, L100.0100, L500.4050 #### [facility] [address] [place], [address] Chloride [Moles/Vol] 104 mmol/L Normal 98-107 [facility] Comment on above: Performed By: #### L 700.6800, L501.2450, L100.0100, L500.4050 #### [facility] [address] [place], [address] CO2 [Moles/Vol] 27.0 mmol/L Normal 21.0-32.0 [facility] Comment on above: Performed By: #### L 700.6800, L501.2450, L100.0100, L500.4050 #### [facility] [address] [place], [address] Creatinine [Mass/Vol] 1.77 mg/dL High 0.55-1.02 [facility] Comment on above: Result Comment: The validity of the calculated GFR GFRAA in patients over 70 years has not been determined. Clinical correlation is essential. Performed By: #### L 700.6800, L501.2450, L100.0100, L500.4050 #### [facility] [address] [place], [address] ECRCL 43.41 ml/min Normal [facility] Comment on above: Performed By: #### L 700.6800, L501.2450, L100.0100, L500.4050 #### [facility] [address] [place], [address] EST GFR - AA 39 mL/min Low >60 [facility] Comment on above: Result Comment: Afri can Polish GFR Calc Performed By: #### L 700.6800, L501.2450, L100.0100, L500.4050 #### [facility] [address] [place], [address] GAP 6 Normal 5-15 [facility] Comment on above: Performed By: #### L 700.6800, L501.2450, L100.0100, L500.4050 #### [facility] [address] [place], [address] GFR/1.73 sq M.predicted among non-blacks MDRD (S/P/Bld) [Vol rate/Area] 32 mL/min/{1.73_m2} Low >60 [facility] Comment on above: Result Comment: Non- GFR Calc Performed By: #### L 700.6800, L501.2450, L100.0100, L500.4050 #### [facility] [address] [place], [address] Globulin (S) [Mass/Vol] 3.8 g/dL Normal 2.2-4.2 [facility] Comment on above: Performed By: #### L 700.6800, L501.2450, L100.0100, L500.4050 #### [facility] [address] [place], [address] Glucose [Mass/Vol] 213 mg/dL High 74-106 [facility] Comment on above: Result Comment: Gluc ose result greater than or equal to 200 mg/dL suggests DIABETES MELLITUS per A.D.A. criteria. Performed By: #### L 700.6800, L501.2450, L100.0100, L500.4050 #### [facility] [address] [place], [address] Potassium [Moles/Vol] 4.1 mmol/L Normal 3.5-5.1 [facility] Comment on above: Performed By: #### L 700.6800, L501.2450, L100.0100, L500.4050 #### [facility] [address] [place], [address] Sodium [Moles/Vol] 137 mmol/L Normal 136-145 [facility] Comment on above: Performed By: #### L 700.6800, L501.2450, L100.0100, L500.4050 #### [facility] [address] [place], [address] T PROT 7.1 g/dL Normal 6.4-8.2 [facility] Comment on above: Performed By: #### L 700.6800, L501.2450, L100.0100, L500.4050 #### [facility] [address] [place], [address] Urea nitrogen [Mass/Vol] 25 mg/dL High 7-18 [facility] Comment on above: Performed By: #### L 700.6800, L501.2450, L100.0100, L500.4050 #### [facility] [address] [place], [address] Emergency Department Summary on 05-03-2024 Emergency Department Summary [facility] Medical Records Department [address] [place] [address] Emergency Department Summary 05/03/24 MR#: [id number] Acct: [id number] Name: SLOANE THORNE Rep #: [id number] : 1975 49 From: Clifton Esquivel MD PCP: Irene Park ENVIRONMENTAL ADVISER-C Status:REG ER Location: ED HPI HPI - GI History of Present Illness Chief Complaint: Nausea/Vomiting Informant: patient Abdominal Pain/Flank Pain Onset: Days Context: Gradual Onset Timing: Continuous Location: LUQ Current Severity: Mild Maximum Severity: Mild Worsened by: Nothing Relieved by: Nothing Nausea/Vomiting/Emesis GI Symptom: Positive for Nausea and Vomiting Onset: Days Severity: Moderate Diarrhea/Melena/Hematoch ezia GI Symptom: Positive for Diarrhea (On Wednesday then resolved after she has not been able to hold anything down.); Negative for Melena or Hematochezia Stool Quality: Positive for Loose Severity: Mild Associated Symptoms Associated Symptoms: Negative for Dysuria, Frequency, Hematuria or Urgency Narrative Narrative: 49-year-old female history of diabetes, cardiomyopathy with CHF. States she started Ozempic on Wednesday and since that time on Wednesday started having nausea vomiting and left upper quadrant abdominal pain. No prior abdominal surgery other than a prior D C. Said she had diarrhea on Wednesday and it has since resolved. She is having left upper quadrant abdominal pain after all the nausea and vomiting. Denies fever. Denies dysuria. Prior similar symptoms: Yes Recent Illness/Hospitalization: No PFSH [facility] Medical History Depression Anxiety Diabetes Kidney stones Smoker Hypertension Migraines RSV (acute bronchiolitis due to respiratory syncytial virus) (04/2021) Hyperlipidemia Non-ischemic cardiomyopathy Genital herpes Bilateral pleural effusion (12/2019) Nonrheumatic mitral (valve) insufficiency Secondary pulmonary arterial hypertension Acute HFrEF (heart failure with reduced ejection fraction) (07/02/21) Essential hypertension Diabetes mellitus, type II Home Medications ???Medication ???Instructions ???Recorded ???Last Taken ???Type blood-glucose meter,continuous #1 ea 08/20/23 Unknown Rx (FreeStyle Janna 3 [place]) aspirin 81 mg tablet,delayed 81 mg PO DAILY #30 tabs 09/24/23 Unknown Rx release (Adult Aspirin Regimen) insulin lispro 100 unit/mL 15 unit (0.15 mL) subcut BID #15 mL 10/15/23 Unknown Rx subcutaneous pen (Humalog KwikPen (U-100) Insulin) atorvastatin 20 mg tablet 20 mg PO DAILY #90 tabs 03/06/24 Unknown Rx blood-glucose sensor (FreeStyle #1 ea 03/06/24 Unknown Rx Janna 3 Sensor device) insulin degludec 100 unit/mL (3 30 unit (0.3 mL) subcut QHS #15 mL 03/06/24 Unknown Rx mL) subcutaneous pen (Tresiba FlexTouch U-100 insulin) carvedilol 3.125 mg tablet 3.125 mg PO BID 30 days #60 tabs 03/31/24 Unknown Rx furosemide 40 mg tablet (Lasix) 40 mg PO DAILY 30 days #30 tabs 03/31/24 Unknown Rx lisinopril 10 mg tablet 10 mg PO DAILY 30 days #30 tabs 03/31/24 Unknown Rx semaglutide 0.25 mg or 0.5 mg (2 0.25 mg (0.368 mL) subcut QWEEK #3 03/31/24 Unknown Rx mg/3 mL) subcutaneous pen injector mL ondansetron 4 mg disintegrating 4 mg PO Q6H PRN nausea and 05/03/24 Unknown Rx tablet vomiting #7 tabs Allergy/AdvReac Type Severity Reaction Status Date / Time metformin AdvReac Severe Abd Verified 05/03/24 20:22 cramps/diarrhea Family History Father Alcoholism Abnormal respiratory function Cancer Brother Alcoholism Myocardial infarction Sister Alcoholism Anxiety Depression Diabetes Mental disorder Psychiatric care Mother History of blood transfusion Depression Diabetes Heart disease Hypertension Age related osteoporosis Grandfather Cancer Grandmother Cancer cervical cancer Aunt Asthma Diabetes Surgical History H/O dilation and curettage History of right and left heart catheterization (07/16/21) History of incision and drainage (06/2021) History of carpal tunnel release History of left heart catheterization (2006) Social History household members: spouse current occupational status: employed Smoking Status: Current every day smoker tobacco type: cigarettes alcohol intake: never substance use type: does not use what type of physical activity do you participate in: walking do you feel safe at home: Yes ROS ROS ED ROS Narrative Nausea, vomiting and diarrhea. Left upper quadrant abdominal pain. Constitutional Constitutional ED: Denies chills ENT ENT ED: Denies ear pain Cardiovascular Cardiovascular: Denies chest pain Respiratory/Chest Respiratory/Chest (more content not included)... Normal [facility] Lipaseon 10-16-2024 Lipase [Catalytic activity/Vol] 33 U/L Normal 13-75 [facility] Comment on above: Result Comment: Nelida camarena note: LIPASE revised reference range effective 22. New Lipase methodology. Expected to produce lower values than the previous assay method. NEW Reference Range: 13 - 75 U/L Performed By: #### L 700.6800, L501.2450, L100.0100, L500.4050 #### [facility] [address] [place], [address] ,Serum,hCG Quali.on 05-03-2024 HCG, SERUM QUAL Negative Normal [facility] Comment on above: Performed By: #### L 700.6800, L501.2450, L100.0100, L500.4050 #### [facility] [address] [place], [address] Urinalysis, Completeon 05-03 BACTERIA 2+ /hpf Normal None Seen [facility] Comment on above: Order Comment: CLEAN CATCH Performed By: #### L 400.0001 #### [facility] [address] [place], [address] EPI,RENAL 0-5 SEEN Normal 0-5 [facility] Comment on above: Order Comment: CLEAN CATCH Performed By: #### L 400.0001 #### [facility] [address] [place], [address] RBC 0-5 SEEN Normal 0-5 [facility] Comment on above: Order Comment: CLEAN CATCH Performed By: #### L 400.0001 #### [facility] [address] [place], [address] WBC 0-5 SEEN Normal 0-5 [facility] Comment on above: Order Comment: CLEAN CATCH Performed By: #### L 400.0001 #### [facility] [address] [place], [address] CAST,HYALINE 10-25 SEEN Normal 0-5 [facility] Comment on above: Order Comment: CLEAN CATCH Performed By: #### L 400.0001 #### [facility] [address] [place], [address] EPI,SQUAMOUS 5-10 SEEN Normal 5-10 [facility] Comment on above: Order Comment: CLEAN CATCH Performed By: #### L 400.0001 #### [facility] [address] [place], [address] Mucus Ql (Urine sed) 0 SEEN Normal [facility] Comment on above: Order Comment: CLEAN CATCH Performed By: #### L 400.0001 #### [facility] [address] [place], [place], [address] CNOVon 05-02-2024 CNOV Office Visit (UCWSTR ) -------- SLOANE THORNE ([id number]) 1975 F FNS Date Time Provider Department 05/02/24 6:15 PM GUILLE GRIFFITH [facility] During your visit today, we recorded the following information about you: Temperature Pulse Respiration Blood pressure 97.2 degrees 90/minute 18/minute 167/99 Weight 95 kg Guille Griffith APRN.PERFECT BINDER SETTER 05/02/2024 7:04 PM Signed Subjective HPI Nontoxic-appearing female presents urgent care chief complaint nausea vomiting stomach cramping cough chest congestion runny nose headache fatigue. Duration of symptoms 2 days. Associated symptoms listed above. Most prominent symptom today is body aches chills vomiting. Vomited 3-4 times today. Vomited more yesterday. Was able to sleep today. Does work third shift. sick similar signs and symptoms. Denies any blood in vomit chest pain hemoptysis pleuritic pain. Is urinating. Able to tolerate oral fluids. Past medical history prescription medications allergies reviewed. BP 167/99 Pulse 90 Temp 36.2 ?C (97.2 ?F) Resp 18 Wt 95 kg (209 lb 7 oz) LMP 05/09/2020 SpO2 100% BMI 33.80 kg/m? .Patient presents with: Nausea AND Vomiting: Stomach cramping, some cough and congestion, runny nose, headache, body aching x 2 days PAST MEDICAL HISTORY Diagnosis Date Depression 07/03/2015 Diabetes mellitus type 2, uncomplicated (HCC) 07/03/2015 Encounter for insertion of Mirena IUD 10/22/14, 10/17/19 Generalized anxiety disorder 07/03/[address] Gonzalez at the [facility] Genital herpes Genital HSV 09/28/2014 PID (acute pelvic inflammatory disease) age 16 Psoriasis PAST SURGICAL HISTORY Procedure Laterality Date DANDC DIAG AND/OR THERAP, NOT OB PID- 16years old HEART CATHETERIZATION 2011 INCISE FINGER TENDON SHEATH Left 05/15/2020 Left 1-5 trigger finger releases INSERTION OF IUD 10/17/2019 Mirena LAPAROSCOPY DIAGNOSTIC 1991 NEUROPLASTY AND/TRANSPOS MEDIAN NRV CARPAL TUNNE Left 05/15/2020 Left carpal tunnel syndrome NEUROPLASTY AND/TRANSPOS MEDIAN NRV CARPAL TUNNE Right 05/31/2020 Right carpal tunnel release PAST SURGICAL HISTORY OF 2021 heart catherization ALLERGIES Metformin MEDICATIONS insulin degludec (TRESIBA FLEXTOUCH U-100) 100 unit/mL [...] Take 1 tablet by mouth once daily. spironolactone (ALDACTONE) 50 mg tablet Take 1 tablet by mouth once daily. atorvastatin (LIPITOR) 20 mg tablet Take 1 tablet by mouth daily at bedtime. For cholesterol. carvedilol (COREG) 6.25 mg tablet Take 1 tablet by mouth twice daily with meals. furosemide (LASIX) 40 mg tablet Take 40 mg by mouth twice daily. docusate sodium (COLACE) 100 mg capsule Take 1 capsule by mouth twice daily as needed for constipation. (Patient not taking: No sig reported) aspirin, enteric coated (ASPIRIN, ENTERIC COATED) 81 mg EC tablet Take by mouth once daily. ibuprofen (MOTRIN) 200 mg tablet Take 800 mg by mouth every 12 hours. (Patient not taking: No sig reported) Insulin Fishtail, Disposable, (BD ULTRA-FINE PAULA PEN NEEDLE) 32 gauge x 5/32 Use one needle for each dose. 4/day and as needed. fluticasone (FLONASE) 50 mcg/actuation nasal spray Use 2 Sprays in each nostril once daily. Rinse mouth after use. (Patient taking differently: Use 2 Sprays in each nostril as needed. Rinse mouth after use.) Blood Pressure Monitor 1 Each once daily. levonorgestrel (MIRENA) 20 mcg/24 hours (5 yrs) 52 mg IUD 1 Each by INTRAUTERINE route as directed. (Patient not taking: No sig reported) Insulin Syringe-Needle U-100 (INSULIN SYRINGE) 0.5 mL 30 gauge x 5/16 syrg Use 1 syringe for each dose 4/day and as needed (Patient not taking: No sig reported) Lancets lancets Test blood sugar(s) 3 daily. Dx: Uncontrolled type 2 diabetes . Insulin: yes blood sugar diagnostic (BLOOD GLUCOSE TEST) test strip Test blood sugar(s) 3 daily. Dx: Uncontrolled type 2 diabetes . Insulin: yes levonorgestrel (MIRENA) 20 mcg/24 hr (5 years) IUD Inserted in office FAMILY HISTORY Problem Relation Age of Onset Diabetes Mother Heart Mother Hypertension Mother Alzheimer's Disease Mother Cancer Maternal Grandfather Cervical Cancer Paternal Grandmother other (lung cancer) Father smoker Anesthesia Problems No Family History Early No Family History Social History Tobacco Use Smoking status: Every Day Current packs/day: 0.00 Average packs/day: 1 pack/day for 23.0 years (23.0 ttl pk-yrs) Types: Cigarettes Start date: 08/12/1996 Last attempt to quit: 08/12/2019 Years since alyssa (more content not included)... Normal [facility] COVID AND INFLUENZA A/B AND RSV PCR, ROUTINEon 05-02-2024 SARS-CoV-2 (COVID-19) RNA BRAVO+probe Ql (Unsp spec) SARS-COV-2 (AGENT OF COVID-19) RNA: Not detected INFLUENZA A RNA: Not detected INFLUENZA B RNA: Not detected RESPIRATORY SYNCYTIAL VIRUS (RSV) RNA: Not detected Normal [facility] Comment on above: Performed By: #### C VFLRS #### [facility] CLIA [id number] [address] [place] [address] [address] [facility] Internal Medicine Office Vis iton 03-30-2024 Internal Medicine Office Visit [facility] [address] [place] [id number] OFFICE VISIT Date of Service: 03/31/24 MR#: [id number] Acct: [id number] Name: SLOANE THORNE Rep #: [id number] : 1975 Provider: JUDE vega Age/Sex: 48/F Location: [facility] Status: Signed Intake Vital Signs 12/24/23 07:34 03/31/24 07:40 Height 5 ft 5 in 5 ft 5 in Weight: 217 lb 4 oz 222 lb BMI 36.1 36.9 BP 120/76 126/80 H Blood Pressure Location Lt brachial Lt brachial Position Sitting Sitting Respiration 16 016 H Pulse 80 93 Pulse Source Monitor Monitor Temp 97.0 F L 97.2 F L Temp Source Temporal Temporal Pulse Oximetry (%) 97 96 Oxygen Delivery Method room air room air Intake Visit Reasons: 3 M FU Chief Complaint: 3m f/u 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 Required: No Accompanied by: Self Is patient in pain?: No Allergies metformin Adverse Reaction (Severe, Verified 03/31/24 07:31) Abd cramps/diarrhea Medications ???Medication ???Instructions ???Recorded ???Confirmed ???Type blood-glucose meter,continuous #1 ea 08/20/23 03/31/24 Rx (FreeStyle Janna 3 [place]) aspirin 81 mg tablet,delayed 81 mg PO DAILY #30 tabs 09/24/23 03/31/24 Rx release (Adult Aspirin Regimen) insulin lispro 100 unit/mL 15 unit (0.15 mL) subcut BID #15 mL 10/15/23 03/31/24 Rx subcutaneous pen (Humalog KwikPen (U-100) Insulin) atorvastatin 20 mg tablet 20 mg PO DAILY #90 tabs 03/06/24 03/31/24 Rx blood-glucose sensor (FreeStyle #1 ea 03/06/24 03/31/24 Rx Janna 3 Sensor device) insulin degludec 100 unit/mL (3 30 unit (0.3 mL) subcut QHS #15 mL 03/06/24 03/31/24 Rx mL) subcutaneous pen (Tresiba FlexTouch U-100 insulin) carvedilol 3.125 mg tablet 3.125 mg PO BID 30 days #60 tabs 03/31/24 03/31/24 Rx furosemide 40 mg tablet (Lasix) 40 mg PO DAILY 30 days #30 tabs 03/31/24 03/31/24 Rx lisinopril 10 mg tablet 10 mg PO DAILY 30 days #30 tabs 03/31/24 03/31/24 Rx semaglutide 0.25 mg or 0.5 mg (2 0.25 mg (0.368 mL) subcut QWEEK #3 03/31/24 03/31/24 Rx mg/3 mL) subcutaneous pen injector mL PFSH Medical History Depression Anxiety Diabetes Kidney stones Smoker Hypertension Migraines RSV (acute bronchiolitis due to respiratory syncytial virus) (04/2021) Hyperlipidemia Non-ischemic cardiomyopathy Genital herpes Bilateral pleural effusion (12/2019) Nonrheumatic mitral (valve) insufficiency Secondary pulmonary arterial hypertension Acute HFrEF (heart failure with reduced ejection fraction) (07/02/21) Essential hypertension Diabetes mellitus, type II Surgical History H/O dilation and curettage History of right and left heart catheterization (07/16/21) History of incision and drainage (06/2021) History of carpal tunnel release History of left heart catheterization (2006) Family History Father Alcoholism Abnormal respiratory function Cancer Brother Alcoholism Myocardial infarction Sister Alcoholism Anxiety Depression Diabetes Mental disorder Psychiatric care Mother History of blood transfusion Depression Diabetes Heart disease Hypertension Age related osteoporosis Grandfather Cancer Grandmother Cancer cervical cancer Aunt Asthma Diabetes Social History household members: spouse current occupational status: employed Smoking Status: Current every day smoker tobacco type: cigarettes alcohol intake: never substance use type: does not use what type of physical activity do you participate in: walking do you feel safe at home: Yes HPI HPI Chief Complaint: 3m f/u Details: SLOANE SHELLEY, is a 48 F who presents to the office today for 3 month follow-up. DM: She has a CGM. BG have been ranging 114 fasting, 280s PP. She reports a few of her sensors fell off and she was not monitoring her glucose well at these times over the past few months and was only using tresiba and not her sliding scale insulin during these periods. 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 At her last visit on 12/24/2023, novolog was changed from scheduled to sliding scale due to hypoglycemia. HTN: Checks BP at home: yes BP has been rangin/70-80s Medications:coreg 3.125 mg BID, lisinopril 10 mg BID Medication adherence: 100% No chest pain, SOB, edema, PN (more content not included)... Normal [facility] 02-07-2024 [facility] Telephone (INTMWS) -------- SLOANE THORNE ([id number]) 1975 F Date Time Provider Department 02/07/24 ROSENDO HERNANDEZ INTMWS During your visit today, we recorded the following information about you: Emily De Jesus LPN 02/07/2024 2:40 PM Signed Attempted to contact patient for an appointment. Patient has not been seen in over a year for her diabetes. When scheduled please route back so provider can order lab work to be done prior to appointment. Allergies As of Date: 02/07/2024 Noted Allergy Reaction METFORMIN 07/03/2015 6 - Diarrhea Comments: GI (severe) Date Reviewed: 08/14/2022 Reviewed by: Emily Charles LPN - Fully Assessed Reason for Visit: Appointment [[id number]] Prescriptions as of 08/15/2024 - OZEMPIC 0.25 mg or 0.5 mg (2 mg/3 mL) pen Inject 0.25 mg subcutaneously one time a week. - lisinopril (ZESTRIL) 10 mg tablet Take 10 mg by mouth once daily. - insulin degludec [...] mg tablet Take 40 mg by mouth as needed (swelling). - docusate sodium (COLACE) 100 mg capsule Take 1 capsule by mouth twice daily as needed for constipation. - aspirin, enteric coated (ASPIRIN, ENTERIC COATED) 81 mg EC tablet Take by mouth once daily. - ibuprofen (MOTRIN) 200 mg tablet Take 800 mg by mouth every 12 hours. - Insulin Fishtail, Disposable, (BD ULTRA-FINE PAULA PEN NEEDLE) 32 [...] in office Problem List As Of Date 02/07/2024 Noted Resolved 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] 09/28/2014 Diabetes [...] pleural effusion [J90] 08/14/2022 Encounter Status:Closed by EMILY DE JESUS on 08/15/24 Normal [facility] Basophil percentageOrdered B y: Irene Xavier on 10-15-2023 Chloride [Moles/Vol] 108 mmol/L 98-107 [facility] Glucose [Mass/Vol] 191 mg/dL 74-106 [facility] Comment on above: Fasting Glucose resu lt greater than or equal to 126 mg/dL suggests DIABETES MELLITUS per A.D.A. criteria. Potassium [Moles/Vol] 4.8 mmol/L 3.5-5.1 [facility] Sodium [Moles/Vol] 140 mmol/L 136-145 [facility] - Chemistry and C hemistry - challengeOrdered By: Irene Park on 10-15-2023 CO2 [Moles/Vol] 29.0 mmol/L 21.0-32.0 [facility] Urea nitrogen/Creatinine [Mass ratio] 26.8 mg/mg 10-20 [facility] No Panel InformationOrdered By: Irene Park on 10-15-2023 Estimated GFR (MDRD) Amer 57 mL/min >60 [facility] Comment on above: GFR Calc Estimated GFR (MDRD) Non-Af Amer 47 mL/min >60 [facility] Comment on above: Non- GFR Calc Serum or plasma calcium kit urement (mass/volume)Ordered By: Irene Park on 10-15-2023 Calcium [Mass/Vol] 9.1 mg/dL 8.5-10.1 [facility] Serum or plasma creatinine m easurement (mass/volume)Ordered By: Irene Park on 10-15-2023 Creatinine [Mass/Vol] 1.27 mg/dL 0.55-1.02 [facility] Comment on above: The validity of the calculated GFR & GFRAA in patients over 70 years has not been determined. Clinical correlation is essential. Serum or plasma urea nitroge n measurement (mass/volume)Ordered By: Irene Park on 10-15-2023 Urea nitrogen [Mass/Vol] 34 mg/dL 7-18 [facility] Thin prep Papanicolaou smear with manual screeningOrdered By: Irene Park on 10-15-2023 Thin prep Papanicolaou smear with manual screening 3 5-15 [facility] Basophil percentageOrdered B y: Irene Park on 10-08-2023 Chloride [Moles/Vol] 106 mmol/L 98-107 [facility] Glucose [Mass/Vol] 153 mg/dL 74-106 [facility] Comment on above: Fasting Glucose resu lt greater than or equal to 126 mg/dL suggests DIABETES MELLITUS per A.D.A. criteria. Potassium [Moles/Vol] 5.3 mmol/L 3.5-5.1 [facility] Sodium [Moles/Vol] 138 mmol/L 136-145 [facility] - Chemistry and C hemistry - challengeOrdered By: Irene Park on 10-08-2023 CO2 [Moles/Vol] 26.0 mmol/L 21.0-32.0 [facility] Urea nitrogen/Creatinine [Mass ratio] 26.9 mg/mg 10-20 [facility] No Panel InformationOrdered By: Irene Park on 10-08-2023 Estimated GFR (MDRD) Amer 30 mL/min >60 [facility] Comment on above: GFR Calc Estimated GFR (MDRD) Non-Af Amer 25 mL/min >60 [facility] Comment on above: Non- GFR Calc Serum or plasma calcium kit urement (mass/volume)Ordered By: Irene Park on 10-08-2023 Calcium [Mass/Vol] 9.9 mg/dL 8.5-10.1 [facility] Serum or plasma creatinine m easurement (mass/volume)Ordered By: Irene Park on 10-08-2023 Creatinine [Mass/Vol] 2.23 mg/dL 0.55-1.02 [facility] Comment on above: The validity of the calculated GFR & GFRAA in patients over 70 years has not been determined. Clinical correlation is essential. Serum or plasma urea nitroge n measurement (mass/volume)Ordered By: Irene Park on 10-08-2023 Urea nitrogen [Mass/Vol] 60 mg/dL 7-18 [facility] Thin prep Papanicolaou smear with manual screeningOrdered By: Irene Park on 10-08-2023 Thin prep Papanicolaou smear with manual screening 6 5-15 [facility] Basophil percentageOrdered B y: Irene Park on 10-01-2023 Chloride [Moles/Vol] 108 mmol/L 98-107 [facility] Glucose [Mass/Vol] 186 mg/dL 74-106 [facility] Comment on above: Fasting Glucose resu lt greater than or equal to 126 mg/dL suggests DIABETES MELLITUS per A.D.A. criteria. Potassium [Moles/Vol] 5.1 mmol/L 3.5-5.1 [facility] Sodium [Moles/Vol] 137 mmol/L 136-145 [facility] - Chemistry and C hemistry - challengeOrdered By: Irene Park on 10-01-2023 CO2 [Moles/Vol] 23.0 mmol/L 21.0-32.0 [facility] Urea nitrogen/Creatinine [Mass ratio] 25.8 mg/mg 10- [facility] No Panel InformationOrdered By: Irene Park on 10-01-2023 Estimated GFR (MDRD) Amer 36 mL/min >60 [facility] Comment on above: GFR Calc Estimated GFR (MDRD) Non-Af Amer 30 mL/min >60 [facility] [facility] Comment on above: Non- GFR Calc Serum or plasma calcium kit urement (mass/volume)Ordered By: Irene Park on 10-01-2023 Calcium [Mass/Vol] 8.8 mg/dL 8.5-10.1 [facility] Serum or plasma creatinine m easurement (mass/volume)Ordered By: Irene Park on 10-01-2023 Creatinine [Mass/Vol] 1.90 mg/dL 0.55-1.02 [facility] Comment on above: The validity of the calculated GFR & GFRAA in patients over 70 years has not been determined. Clinical correlation is essential. Serum or plasma urea nitroge n measurement (mass/volume)Ordered By: Irene Park on 10-01-2023 Urea nitrogen [Mass/Vol] 49 mg/dL - [facility] Thin prep Papanicolaou smear with manual screeningOrdered By: Irene Park on 10-01-2023 Thin prep Papanicolaou smear with manual screening 6 11-30 [facility] Absolute lymphocyte countOrd ered By: Irene Park on 09-21-2023 Lymphocytes Auto (Unsp spec) [#/Vol] 2.53 10*3/uL 0.83-4.51 [facility] Automated lymphocyte count a s percentage of total leukocytesOrdered By: Irene Park on 09-21-2023 Lymphocytes/100 WBC Auto (Unsp spec) 28.2 % 19-41 [facility] Basophil percentageOrdered B y: Irene Park on 09-21-2023 Basophils/100 WBC (Bld) 0.4 % 0-1 [facility] Bilirubin [Mass/Vol] 0.20 mg/dL 0.20-1.00 [facility] Comment on above: For patients on eltr ombopag therapy, use of Dimension [place] TBIL is not recommended. Chloride [Moles/Vol] 111 mmol/L 98-107 [facility] Cholesterol [Mass/Vol] 168 mg/dL <200 [facility] Comment on above: <200 mg/dL Desirable 200-240 mg/dL Borderline >240 mg/dL High Risk Eosinophils/100 WBC (Bld) 5.9 % 0-5 [facility] Glucose [Mass/Vol] 96 mg/dL 74-106 [facility] Hemoglobin (Bld) [Mass/Vol] 13.8 g/dL 12.0-15.0 [facility] Monocytes/100 WBC (Bld) 5.0 % 0-10 [facility] Neutrophils (Bld) [#/Vol] 5.4 10*3/uL 2.0-7.7 [facility] Neutrophils/100 WBC (Bld) 60.3 % 47-70 [facility] Potassium [Moles/Vol] 4.6 mmol/L 3.5-5.1 [facility] Protein [Mass/Vol] 7.0 g/dL 6.4-8.2 [facility] Sodium [Moles/Vol] 141 mmol/L 136-145 [facility] Triglyceride [Mass/Vol] 132 mg/dL <199 [facility] Comment on above: The drugs N-Acetylcy steine and Metamizole may falsely depress this assay.Serum Triglycerides Reference Interval Normal <150 mg/dL Borderline high 150 - 199 mg/dL High 200 - 499 mg/dL Very High > or = 500 mg/dL WBC (Bld) [#/Vol] 9.0 10*3/uL 4.4-11.0 [facility] Determination of erythrocyte mean corpuscular volume (MCV)Ordered By: Irene Park on 09-21-2023 MCV (RBC) [Entitic vol] 89.1 fL 81-99 [facility] Erythrocyte distribution wid th ratioOrdered By: Irene Park on 09-21-2023 Erythrocyte distribution width (RBC) [Ratio] 14.2 % 11.6-14.6 [facility] Erythrocyte distribution wid th standard deviationOrdered By: Irene Park on 09-21-2023 Erythrocyte distribution width (RBC) [Entitic vol] 46.5 fL 35.1-43.9 [facility] Hematocrit Auto (Bld) [Volum e fraction]Ordered By: Irene Park on 09-21-2023 Hematocrit (Bld) [Volume fraction] 43.5 % 37-47 [facility] Immature granulocytes/100 WB C Auto (Bld)Ordered By: Irene Park on 09-21-2023 Immature granulocytes/100 WBC (Bld) 0.200 % 0.0-0.9 [facility] Comment on above: IG% - Immature Granu locytes (promyelocytes, myelocytes and metamyelocytes) > 1% indicates that a LEFT SHIFT is Present. Laboratory - Chemistry and C hemistry - challengeOrdered By: Irene Park on 09-21-2023 Albumin/Globulin [Mass ratio] 0.9 {ratio} 0.9-2.4 [facility] ALP [Catalytic activity/Vol] 83 U/L 45-117 [facility] ALT [Catalytic activity/Vol] 26 U/L 13-56 [facility] Cholesterol in HDL [Mass/Vol] 51 mg/dL >40 [facility] Comment on above: The drugs N-Acetylcy steine and Metamizole may falsely depress this assay. Reference Range HDL <40 mg/dL Low HDL Cholesterol HDL >or= 60 mg/dL High HDL Cholesterol Cholesterol in LDL [Mass/Vol] 91 mg/dL 0-130 [facility] CO2 [Moles/Vol] 30.0 mmol/L 21.0-32.0 [facility] Globulin (S) [Mass/Vol] 3.7 g/dL 2.2-4.2 [facility] Urea nitrogen/Creatinine [Mass ratio] 26.5 mg/mg 10-20 [facility] Laboratory - Hematology and Cell countsOrdered By: Irene Park on 09-21-2023 MCH (RBC) [Entitic mass] 28.3 pg 27.0-32.0 [facility] MCHC (RBC) [Mass/Vol] 31.7 g/dL 32-36 [facility] Nucleated RBC/100 WBC (Bld) [Ratio] 0 % 0-5 [facility] Platelet mean volume (Bld) [Entitic vol] 10.8 fL 6.2-12.0 [facility] Platelets (Bld) [#/Vol] 199 10*3/uL 150-450 [facility] No Panel InformationOrdered By: Irene Park on 09-21-2023 Estimated GFR (MDRD) Amer 49 mL/min >60 [facility] Comment on above: GFR Calc Estimated GFR (MDRD) Non-Af Amer 40 mL/min >60 [facility] Comment on above: Non- GFR Calc VLDL Cholesterol 26 mg/dL 5-40 [facility] RBC Auto (Bld) [#/Vol]Ordere d By: Irene Park on 09-21-2023 RBC (Bld) [#/Vol] 4.88 10*6/uL 4.2-5.4 [facility] Serum or plasma calcium kit urement (mass/volume)Ordered By: Irene Park on 09-21-2023 Calcium [Mass/Vol] 9.2 mg/dL 8.5-10.1 [facility] Serum or plasma creatinine m easurement (mass/volume)Ordered By: Irene Park on 09-21-2023 Creatinine [Mass/Vol] 1.47 mg/dL 0.55-1.02 [facility] Comment on above: The validity of the calculated GFR & GFRAA in patients over 70 years has not been determined. Clinical correlation is essential. Serum or plasma urea nitroge n measurement (mass/volume)Ordered By: Irene Park on 09-21-2023 Urea nitrogen [Mass/Vol] 39 mg/dL 7-18 [facility] Thin prep Papanicolaou smear with manual screeningOrdered By: Irene Park on 09-21-2023 Protein (U) [Mass/Vol] 124.0 mg/dL 0.0-11.8 [facility] Thin prep Papanicolaou smear with manual screening 3.3 g/dL 3.2-5.0 [facility] Thin prep Papanicolaou smear with manual screening 19 U/L 15-37 [facility] Thin prep Papanicolaou smear with manual screening 0 5-15 [facility] Thin prep Papanicolaou smear with manual screening 859.0 mg/L NO RANGE EST. [facility] Urine creatinine measurement (mass/volume)Ordered By: Irene Park on 09-21-2023 Creatinine (U) [Mass/Vol] 109.00 mg/dL NO RANGE EST. [facility] Urine protein/creatinine mas s ratioOrdered By: Irene Park on 09-21-2023 Protein/Creatinine (U) [Mass ratio] 1138 mg/g CRE 0-200 [facility] Absolute lymphocyte countOrd ered By: Gale Hull on 09-14-2023 Lymphocytes Auto (Unsp spec) [#/Vol] 2.18 10*3/uL 0.83-4.51 [facility] Automated lymphocyte count a s percentage of total leukocytesOrdered By: Gale Hull on 09-14-2023 Lymphocytes/100 WBC Auto (Unsp spec) 20.5 % 19-41 [facility] Basophil percentageOrdered B y: Gale Hull on 09-14-2023 Basophils/100 WBC (Bld) 0.6 % 0-1 [facility] Chloride [Moles/Vol] 109 mmol/L 98-107 [facility] Eosinophils/100 WBC (Bld) 5.3 % 0-5 [facility] Glucose [Mass/Vol] 124 mg/dL 74-106 [facility] Comment on above: Fasting Glucose resu lt from 100 to 125 mg/dL suggests IMPAIRED HOMEOSTASIS per A.D.A. criteria. Hemoglobin (Bld) [Mass/Vol] 14.6 g/dL 12.0-15.0 [facility] Monocytes/100 WBC (Bld) 5.0 % 0-10 [facility] Neutrophils (Bld) [#/Vol] 7.3 10*3/uL 2.0-7.7 [facility] Neutrophils/100 WBC (Bld) 68.3 % 47-70 [facility] Potassium [Moles/Vol] 4.7 mmol/L 3.5-5.1 [facility] Sodium [Moles/Vol] 138 mmol/L 136-145 [facility] WBC (Bld) [#/Vol] 10.6 10*3/uL 4.4-11.0 [facility] Determination of erythrocyte mean corpuscular volume (MCV)Ordered By: Gale Hull on 09-14-2023 MCV (RBC) [Entitic vol] 86.3 fL 81-99 [facility] Erythrocyte distribution wid th ratioOrdered By: Galehaydee Hull on 09-14-2023 Erythrocyte distribution width (RBC) [Ratio] 14.3 % 11.6-14.6 [facility] Erythrocyte distribution wid th standard deviationOrdered By: Gale Hull on 09-14-2023 Erythrocyte distribution width (RBC) [Entitic vol] 45.3 fL 35.1-43.9 [facility] Hematocrit Auto (Bld) [Volum e fraction]Ordered By: Gale Hull on 09-14-2023 Hematocrit (Bld) [Volume fraction] 45.3 % 37-47 [facility] Immature granulocytes/100 WB C Auto (Bld)Ordered By: Gale Hull on 09-14-2023 Immature granulocytes/100 WBC (Bld) 0.300 % 0.0-0.9 [facility] Comment on above: IG% - Immature Granu locytes (promyelocytes, myelocytes and metamyelocytes) > 1% indicates that a LEFT SHIFT is Present. Laboratory - Chemistry and C hemistry - challengeOrdered By: Gale Hull on 09-14-2023 CO2 [Moles/Vol] 26.0 mmol/L 21.0-32.0 [facility] Magnesium [Mass/Vol] 2.1 mg/dL 1.6-2.6 [facility] Urea nitrogen/Creatinine [Mass ratio] 24.6 mg/mg 10-20 [facility] Laboratory - Hematology and Cell countsOrdered By: Gale Hull on 09-14-2023 MCH (RBC) [Entitic mass] 27.8 pg 27.0-32.0 [facility] MCHC (RBC) [Mass/Vol] 32.2 g/dL 32-36 [facility] Nucleated RBC/100 WBC (Bld) [Ratio] 0 % 0-5 [facility] Platelet mean volume (Bld) [Entitic vol] 11.9 fL 6.2-12.0 [facility] Platelets (Bld) [#/Vol] 229 10*3/uL 150-450 [facility] No Panel InformationOrdered By: Gale Hull on 09-14-2023 Troponin I High Sensitivity 23 pg/mL 3.0-54.0 [facility] Comment on above: Please Note: [place] t Units and Gender Specific Reference Ranges. For more information see Policy Stat Procedure [place] High Sensitivity Troponin (TNIH) and attachments. Estimated Creatinine Clearance Calc 59.36 ml/min [facility] Estimated GFR (MDRD) Amer 54 mL/min >60 [facility] Comment on above: GFR Calc Estimated GFR (MDRD) Non-Af Amer 45 mL/min >60 [facility] Comment on above: Non- GFR Calc RBC Auto (Bld) [#/Vol]Ordere d By: Gale Hull on 09-14-2023 RBC (Bld) [#/Vol] 5.25 10*6/uL 4.2-5.4 [facility] Serum or plasma calcium kit urement (mass/volume)Ordered By: Gale Hull on 09-14-2023 Calcium [Mass/Vol] 9.4 mg/dL 8.5-10.1 [facility] Serum or plasma creatinine m easurement (mass/volume)Ordered By: Gale Hull on 09-14-2023 Creatinine [Mass/Vol] 1.34 mg/dL 0.55-1.02 [facility] Comment on above: The validity of the calculated GFR & GFRAA in patients over 70 years has not been determined. Clinical correlation is essential. Serum or plasma thyroid stim ulating hormone (TSH) measurement (units/volume)Ordered By: Gale Hull on 09-14-2023 TSH Qn 2.21 uIU/mL 0.358-3.74 [facility] Serum or plasma urea nitroge n measurement (mass/volume)Ordered By: Gale Hull on 09-14-2023 Urea nitrogen [Mass/Vol] 33 mg/dL 7-18 [facility] Thin prep Papanicolaou smear with manual screeningOrdered By: Gale Hull on 09-14-2023 Thin prep Papanicolaou smear with manual screening 3 5-15 [facility] Laboratory - Hematology and Cell countson 08-20-2023 HbA1c (Bld) [Mass fraction] 10.0 % 4.2-6.3 [facility] Absolute lymphocyte countOrd ered By: Janetmikaela Urbina on 09-18-2022 Lymphocytes Auto (Unsp spec) [#/Vol] 2.18 10*3/uL 0.83-4.51 [facility] Basophil percentageOrdered B y: Janet Urbina on 09-18-2022 Basophils/100 WBC (Bld) 0.4 % 0-1 [facility] Bilirubin [Mass/Vol] 0.20 mg/dL 0.20-1.00 [facility] Comment on above: For patients on eltr ombopag therapy, use of Dimension [place] TBIL is not recommended. Chloride [Moles/Vol] 101 mmol/L 98-107 [facility] Cholesterol [Mass/Vol] 141 mg/dL <200 [facility] Comment on above: <200 mg/dL Desirable 200-240 mg/dL Borderline >240 mg/dL High Risk Eosinophils/100 WBC (Bld) 3.8 % 0-5 [facility] Glucose [Mass/Vol] 413 mg/dL 74-106 [facility] Comment on above: Glucose result great er than or equal to 200 mg/dLsuggests DIABETES MELLITUS per A.D.A. criteria. Neutrophils (Bld) [#/Vol] 5.4 10*3/uL 2.0-7.7 [facility] Neutrophils/100 WBC (Bld) 64.2 % 47-70 [facility] Potassium [Moles/Vol] 4.6 mmol/L 3.5-5.1 [facility] Protein [Mass/Vol] 7.2 g/dL 6.4-8.2 [facility] Sodium [Moles/Vol] 137 mmol/L 136-145 [facility] Triglyceride [Mass/Vol] 197 mg/dL <199 [facility] Comment on above: The drugs N-Acetylcy steine and Metamizole may falsely depress this assay.Serum Triglycerides Reference Interval Normal <150 mg/dL Borderline high 150 - 199 mg/dL High 200 - 499 mg/dL Very High > or = 500 mg/dL WBC (Bld) [#/Vol] 8.3 10*3/uL 4.4-11.0 [facility] Blood erythrocytes count (nu mber/volume)Ordered By: Janet Urbina on 09-18-2022 RBC (Bld) [#/Vol] 4.04 10*6/uL 4.2-5.4 [facility] Blood hemoglobin measurement (mass/volume)Ordered By: Janet Urbina on 09-18-2022 Hemoglobin (Bld) [Mass/Vol] 11.9 g/dL 12.0-15.0 [facility] Blood lymphocytes/100 leukoc ytesOrdered By: Jnaet Urbina on 09-18-2022 Lymphocytes/100 WBC (Bld) 26.2 % 19-41 [facility] Blood monocytes/100 leukocyt esOrdered By: Janet Urbina on 09-18-2022 Monocytes/100 WBC (Bld) 5.0 % 0-10 [facility] Blood platelet mean volumeOr dered By: Janet Urbina on 09-18-2022 Platelet mean volume (Bld) [Entitic vol] 11.0 fL 6.2-12.0 [facility] Determination of erythrocyte mean corpuscular volume (MCV)Ordered By: Janet Urbina on 09-18-2022 MCV (RBC) [Entitic vol] 91.1 fL 81-99 [facility] Hematocrit Auto (Bld) [Volum e fraction]Ordered By: Janet Urbina on 09-18-2022 Hematocrit (Bld) [Volume fraction] 36.8 % 37-47 [facility] Laboratory - Chemistry and C hemistry - challengeOrdered By: Janet Urbina on 09-18-2022 ALP [Catalytic activity/Vol] 90 U/L 45-117 [facility] ALT [Catalytic activity/Vol] 23 U/L 13-56 [facility] CO2 [Moles/Vol] 26.0 mmol/L 21.0-32.0 [facility] Globulin (S) [Mass/Vol] 3.8 g/dL 2.2-4.2 [facility] Urea nitrogen/Creatinine [Mass ratio] 21.3 mg/mg 10-20 [facility] Laboratory - Hematology and Cell countsOrdered By: Janet Urbina on 09-18-2022 Erythrocyte distribution width (RBC) [Entitic vol] 48.2 fL 35.1-43.9 [facility] Erythrocyte distribution width (RBC) [Ratio] 14.6 % 11.6-14.6 [facility] Immature granulocytes/100 WBC (Bld) 0.400 % 0.0-0.9 [facility] Comment on above: IG% - Immature Granu locytes (promyelocytes, myelocytes and metamyelocytes) > 1% indicates that a LEFT SHIFT is Present. MCH (RBC) [Entitic mass] 29.5 pg 27.0-32.0 [facility] Nucleated RBC/100 WBC (Bld) [Ratio] 0 % 0-5 [facility] MCHC Auto (RBC) [Mass/Vol]Or dered By: Janet Urbina on 09-18-2022 MCHC (RBC) [Mass/Vol] 32.3 g/dL 32-36 [facility] No Panel InformationOrdered By: Janet Urbina on 09-18-2022 Estimated GFR (MDRD) Amer 39 mL/min >60 [facility] Comment on above: GFR Calc Estimated GFR (MDRD) Non-Af Amer 32 mL/min >60 [facility] Comment on above: Non- GFR Calc Thyroid Stimulating Hormone (TSH) 2.59 uIU/mL 0.358-3.74 [facility] Platelets bldOrdered By: Nolan Urbina on 09-18-2022 Platelets (Bld) [#/Vol] 227 10*3/uL 150-450 [facility] Serum or plasma albumin kit urement (mass/volume)Ordered By: Janet Urbina on 09-18-2022 Albumin [Mass/Vol] 3.4 g/dL 3.2-5.0 [facility] Serum or plasma albumin/glob ulin mass ratioOrdered By: Janet Urbina on 09-18-2022 Albumin/Globulin [Mass ratio] 0.9 {ratio} 0.9-2.4 [facility] Serum or plasma calcium kit urement (mass/volume)Ordered By: Janet Urbina on 09-18-2022 Calcium [Mass/Vol] 8.7 mg/dL 8.5-10.1 [facility] Serum or plasma cholesterol in HDL measurement (mass/volume)Ordered By: Janet Urbina on 09-18-2022 Cholesterol in HDL [Mass/Vol] 37 mg/dL >40 [facility] Comment on above: The drugs N-Acetylcy steine and Metamizole may falsely depress this assay. Reference Range HDL <40 mg/dL Low HDL Cholesterol HDL >or= 60 mg/dL High HDL Cholesterol Serum or plasma cholesterol in VLDL measurement (mass/volume)Ordered By: Janet Urbina on 09-18-2022 Cholesterol in VLDL [Mass/Vol] 39 mg/dL 5-40 [facility] Serum or plasma creatinine m easurement (mass/volume)Ordered By: Janet Urbina on 09-18-2022 Creatinine [Mass/Vol] 1.78 mg/dL 0.55-1.02 [facility] Comment on above: The validity of the calculated GFR & GFRAA in patients over 70 years has not been determined. Clinical correlation is essential. Serum or plasma low density lipoprotein (LDL) cholesterol measurement (mass/volume)Ordered By: Janet Urbina on 09-18-2022 Cholesterol in LDL [Mass/Vol] 65 mg/dL 0-130 [facility] Serum or plasma urea nitroge n measurement (mass/volume)Ordered By: Janet Urbina on 09-18-2022 Urea nitrogen [Mass/Vol] 38 mg/dL 7-18 [facility] Thin prep Papanicolaou smear with manual screeningOrdered By: Janet Urbina on 09-18-2022 Thin prep Papanicolaou smear with manual screening 13 U/L 15-37 [facility] Thin prep Papanicolaou smear with manual screening 10 5-15 [facility] ANES POSTPROC EVALon 05-31-2 020 ANES POSTPROC EVAL HNO ID: [id number] Author: Mazin Savage Service: ? Author Type: Anesthesiologist Type: Anesthesia Postprocedure Evaluation Filed: 05/31/2020 2:33 PM Note Text: POST ANESTHESIA EVALUATION NOTE : 1975 Procedure Summary Date: 05/31/20 Room / Location: [place] [address] / [place] Anesthesia Start: 1042 Anesthesia Stop: 1149 Procedures: DECOMPRESSION NERVE MEDIAN CARPAL TUNNEL (Right Hand) RELEASE TRIGGER FINGER (Right Hand) RELEASE TRIGGER THUMB (Right Hand) Diagnosis: Carpal tunnel syndrome of right wrist Trigger finger of right hand, unspecified finger Surgeons: Gonzales Brown Responsible Provider: Mazin Savage Anesthesia Type: MAC ASA Status: 3 Anesthesia Type: MAC Last vitals Vitals Value Taken Time BP 115/65 05/31/20 1230 Temp 36.6 ?C (97.9 ?F) 05/31/20 1145 Pulse 79 05/31/20 1230 Resp 13 05/31/20 1230 SpO2 96 % 05/31/20 1230 Post Anesthesia Patient Status Patient Evaluation: PACU. PACU/ICU Patient Condition: stable. Anticipated Disposition: inpatient floor planned admission. Neurological Status: aware and responsive. Pulmonary Status: breathing comfortably on room air Airway Control: returned to baseline unsupported. Cardiovascular Status: stable. Pain Management: clinically adequate - multimodal analgesia pain management approach Postoperative Hydration: acceptable. Intraoperative Events: no significant anesthesia events Post Operative Nausea/Vomiting Status: Anesthetic Observations: no significant anesthetic observations Recommendation: continue current plan of care and further care per PACU/ICU/floor team. SIGNATURE: Mazin Savage MD PATIENT NAME: Sloane Shelley DATE: May 31, 2020 TIME: 2:33 PM CSN: [id number] [facility] ANES PRE-OPon 05-31-2020 ANES PRE-OP HNO ID: [id number] Author: Mazin Savage Service: ? Author Type: Anesthesiologist Type: Anesthesia Preprocedure Evaluation Filed: 05/31/2020 9:34 AM Note Text: ANESTHESIOLOGY DAY OF SURGERY NOTE : 1975 Procedure(s) (LRB): DECOMPRESSION NERVE MEDIAN CARPAL TUNNEL (Right) RELEASE TRIGGER FINGER (Right) RELEASE TRIGGER THUMB (Right) Surgeon(s): Gonzales Borwn Estimated body mass index is 39.94 kg/m? as calculated from the following: Height as of 05/15/20: 165.1 cm (5' 5). Weight as of 05/15/20: 108.9 kg (240 lb). Most recent hematocrit and potassium results: Potassium 4.4 02/16/2020 Relevant Problems CARDIO (+) Essential hypertension (+) Mitral valve regurgitation (+) Pulmonary HTN (HCC) ENDO (+) Diabetes mellitus type 2, uncomplicated (HCC) I - PHYSICAL EVALUATION AIRWAY Patient intubated: No. Tracheostomy tube not present Mallampati: II. TM distance: >3 FB. Neck ROM: full ROM without neurological symptoms. Mouth opening: adequate. Additional exam findings: no II - ANESTHESIA PLAN ASA Score: 3 Anesthetic Plan: MAC NPO Status: adequate Monitoring plan: standard ASA. Postoperative analgesic plan: parenteral or oral opioids and multimodal analgesia. Anesthetic Risks, Benefits, Alternatives, Personnel Discussed. Consent obtained from: patient. Patient / Surrogate agrees to blood products: blood products not planned Significant changes in the patient condition since the History and Physical, not otherwise documented in primary service progress note: no. Vitals Value Taken Time BP 168/90 05/31/20911 Pulse 102 05/31/20911 Resp Temp 36.6 ?C (97.9 ?F) 05/31/20911 SpO2 95 % 05/31/20911 Facility-Administered Medications as of 05/31/2020 Medication Dose Route Frequency - lidocaine 10 mg/mL (1 %) 1-2 mg injection (XYLOCAINE) 0.1-0.2 mL INTRADERMAL PRN - lactated ringers infusion 5-30 mL/hr INTRAVENOUS CONTINUOUS - ceFAZolin iv piggyback 2 g in D5W (iso-osmotic) 100 mL (ANCEF) 2 g INTRAVENOUS Pre-Op Once Outpatient Medications as of 05/31/2020 Medication Sig - buPROPion XL (WELLBUTRIN XL) 150 mg 24 hr tablet Take 1 tablet by mouth once daily. - metoprolol succinate ER (TOPROL XL) 25 mg 24 hr tablet Take 1 tablet by mouth once daily. - losartan (COZAAR) 100 mg tablet Take 1 tablet by mouth once daily. - escitalopram oxalate (LEXAPRO) 20 mg tablet Take 1 tablet by mouth once daily. - fluticasone (FLONASE) 50 mcg/actuation nasal spray Use 2 Sprays in each nostril once daily. Rinse mouth after use. - insulin glargine (BASAGLAR KWIKPEN U-100 INSULIN) 100 unit/mL (3 mL) inpn Inject 30 Units subcutaneously daily at bedtime. - insulin aspart U-100 (NOVOLOG FLEXPEN U-100 INSULIN) 100 unit/mL (3 mL) inpn Inject 15 Units subcutaneously three times daily before meals. Adjust as directed with sliding scale - glipiZIDE (GLUCOTROL XL) 2.5 mg 24 hr tablet Take 1 tablet by mouth once daily. - acyclovir (ZOVIRAX) 400 mg tablet Take 1 tablet by mouth twice daily. - furosemide (LASIX) 20 mg tablet Take 1 tablet by mouth once daily. - potassium chloride (K-TAB) 10 mEq tablet Take 1 tablet by mouth daily with breakfast. - Blood Pressure Monitor 1 Each once daily. - levonorgestrel (MIRENA) 20 mcg/24 hours (5 yrs) 52 mg IUD 1 Each by INTRAUTERINE route as directed. - Insulin Fishtail, Disposable, (BD ULTRA-FINE PAULA PEN NEEDLE) 32 gauge x 5/32 ndle Use one needle for each dose. 4/day and as needed. - Insulin Syringe-Needle U-100 (INSULIN SYRINGE) 0.5 mL 30 gauge x 5/16 syrg Use 1 syringe for each dose 4/day and as needed - Lancets lancets Test blood sugar(s) 3 daily. Dx: Uncontrolled type 2 diabetes . Insulin: yes - blood sugar diagnostic (BLOOD GLUCOSE TEST) test strip Test blood sugar(s) 3 daily. Dx: Uncontrolled type 2 diabetes . Insulin: yes I have interviewed and examined the patient. I have reviewed the medical record and/or the pre-anesthesia evaluation, pertinent labs, and test results. This contains updated information obtained within 48 hours of Surgery/Procedure. SIGNATURE: Mazin Savage MD PATIENT NAME: Sloane Shelley DATE: May 31, 2020 TIME: 9:34 AM CSN: [id number] [facility] OPERATIVE NOon 05-31-2020 OPERATIVE NO HNO ID: [id number] Author: Gonzales Brown Service: Orthopaedic Surgery Author Type: Physician Type: Operative Report Filed: 05/31/2020 11:48 AM Note Text: OPERATIVE/PROCEDURE REPORT LOG ID: [id number] SURGERY/PROCEDURE DATE: 05/31/2020 INCISION/PROCEDURE START TIME: 10:56 AM INCISION CLOSE/PROCEDURE END TIME: 1143 SURGEON(S)/PROCEDURALIST (S) AND DRUM SAW OPERATOR(S): Surgeon(s) and Role: * Gonzales Brown - Primary Physician Community Outreach Director: Gloria Gonzalez) Bebe SURGERY/PROCEDURE(S): 1. Right carpal tunnel release. Modifier 79 2. Right thumb, index, middle, ring and small finger trigger releases. ? ANESTHESIA: Monitored Anesthesia Care with local. ? OPERATIVE INDICATIONS: This is a pleasant 45 year old female who had worsening, numbness, and tingling and well as impressive locking and catching in all of her fingers. Her electrodiagnostic showed Moderate carpal tunnel syndrome. She underwent successful surgeries on the left and wished to go forward with the same procedures on the right. She exhausted conservative management and in the office, we discussed the risks, benefits, alternatives, and potential complications involving carpal tunnel release and all five trigger finger releases and she wished to pursue surgical interventions. ? OPERATIVE FINDINGS: Consistent with postoperative diagnosis. ? OPERATIVE PROCEDURE: On May 31, 2020, the patient was clearly identified in the preoperative area and marked accordingly on the right palm by myself. She was taken to the operative suite and placed in the supine position with an armboard on the right. She received 2 g of Ancef in the IV within 1 hour of incision or tourniquet. Anesthesia assumed care of the head and neck for the remainder of the case and began a MAC anesthetic. All other bony landmarks were appropriately padded in standard fashion. The upper extremity had a well-padded upper brachium tourniquet applied with Webril padding and set at 250 mmHg, but not yet inflated. The arm was then sterilely prepped and draped in standard fashion. An appropriate time-out was conducted and all in the room were in agreement, signed consent form was on the chart. The upper extremity was exsanguinated with an Esmarch bandage and the tourniquet was applied at 250 mmHg. Local anesthetic was provided at the palm and wrist with 1% lidocaine woth epi 1:100,000 for total of 10 mL and 2cc at each A1 isabela. ? A longitudinal incision was made with in line with the third web space from 1 cm distal of the wrist crease to Palma's cardinal line. I used Britt Rakes to retract the soft tissues. Bipolar electrocautery was used for hemostasis. I bluntly dissected down with Littler scissors to distal edge of the transverse carpal ligament until a flash of fat was noted. I directly divided distal edge of the transverse carpal ligament with a #15 blade. Attention was then focused on the proximal portion and I used Littler scissors to bluntly dissect off the volar surface of the transverse carpal ligament. A carpal tunnel and median nerve protection guide was slid directly under the ligament for dilation and a second time for appropriate positioning, this was passed freely without any resistance. Subsequently, I selected a mini meniscotome [place] blade and slid this in the protective guide, completely dividing the transverse carpal ligament. Britt rakes were used to view up the wound to visualize for complete release and a [place] elevator was used to palpate for complete release. ? I then sequentially released each trigger finger starting with the thumb with a horizontal incision at the flexion crease. Soft tissue dissection down to the flexor tendon and A1 isabela while keeping the digital nerves completely protected. The A1 isabela was released under direct visualization freeing up the tendon in its entirety. I then proceeded with longitudinal incisions to the index, middle, ring and small digits in the exact same fashion, releasing all 5 tendons and removing some synovium as each tendon had quite impressive tenosynovitis. ? At this point, the tourniquet was taken down and hemostasis was observed at each location. The wounds were copiously irrigated with normal saline and I closed with 3-0 nylons in horizontal mattress fashion for a total of 3 in the palm and 2 in each digit. Xeroform gauze, sterile 4 x 4 gauze, Webril padding, and a Bias roll was used for final bandage. There were no complications during the procedure. The patient was safely awoken and transferred to the Postanesthetic Care Unit in stable condition. ? ? PRE-OP/PRE-PROCEDURE DIAGNOSIS: 1. Righ carpal tunnel syndrome. 2. Flexor tenosynovitis of Right thumb, index, middle, ring and small fingers. ? POST-OP/POST-PROCEDURE DIAGNOSIS: Same as Preop ? ESTIMATED BLOOD LOSS: 15 mls ? SPECIMENS: None ? IMPLANTABLE DEVICES: None ? DRAINS: None ? COMPLICATIONS: None ? PARTICIPATION IN SURGERY/PROCEDURE: I/primary surgeon/proceduralist performed the entire procedures. SIGNATURE: Gonzales Brown MD PATIENT NAME: Sloane Shelley DATE: May 31, 2020 TIME: 11:43 AM PAGER/CONTACT #: [facility] HOSPon 05-27-2020 HOSP Patient:Sloane Shelley MRN: Height:5' 5[patient reported[(1.651 m) Weight:240 lb (108.863 kg) Outpatient Medications as of 05/31/20: buPROPion XL (WELLBUTRIN XL) 150 mg 24 hr tablet metoprolol succinate ER (TOPROL XL) 25 mg 24 hr tablet losartan (COZAAR) 100 mg tablet escitalopram oxalate (LEXAPRO) 20 mg tablet furosemide (LASIX) 20 mg tablet potassium chloride (K-TAB) 10 mEq tablet fluticasone (FLONASE) 50 mcg/actuation nasal spray Blood Pressure Monitor levonorgestrel (MIRENA) 20 mcg/24 hours (5 yrs) 52 mg IUD insulin glargine (BASAGLAR KWIKPEN U-100 INSULIN) 100 unit/mL (3 mL) inpn insulin aspart U-100 (NOVOLOG FLEXPEN U-100 INSULIN) 100 unit/mL (3 mL) inpn Insulin Fishtail, Disposable, (BD ULTRA-FINE PAULA PEN NEEDLE) 32 gauge x 5/32 ndle glipiZIDE (GLUCOTROL XL) 2.5 mg 24 hr tablet Insulin Syringe-Needle U-100 (INSULIN SYRINGE) 0.5 mL 30 gauge x 5/16 syrg acyclovir (ZOVIRAX) 400 mg tablet Lancets lancets blood sugar diagnostic (BLOOD GLUCOSE TEST) test strip levonorgestrel (MIRENA) 20 mcg/24 hr (5 years) IUD Admission/Clinic Administered Medications as of 05/31/20: lidocaine 10 mg/mL (1 %) 1-2 mg injection (XYLOCAINE) lactated ringers infusion ceFAZolin iv piggyback 2 g in D5W (iso-osmotic) 100 mL (ANCEF) Problem List: 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): Delfina Grace RN 05/27/2020 1:15 PM Signed Pt. to be scheduled for right CTR and right , thumb, index, middle, ring and small trigger releases under MAC on 05-31-[address]. [address] COVID testing order. Gloria Spence PA-C 05/27/2020 2:05 PM Signed COVID test ordered. Delfina Grace RN 05/27/2020 5:19 PM Signed Post-ops mailed to pt. Pt. called and notified of COVID testing place and time and verbalizes understanding. Karen Beck [facility] 05/28/2020 8:59 AM Signed Noted in [place]. Temitope Ford Ma 05/28/2020 9:53 AM Signed Surgery scheduled as requested. Progress Notes ([facility]): Gonzales Brown MD 05/27/2020 2:02 PM Signed Gonzales Brown MD Department of Orthopaedics Orthopaedics [address] [place] [id number] Dept: [phone] Dept May 27, 2020 CHIEF COMPLAINT: Post Op of the Right Wrist and 1 week 5 days post op Right CTR (and 1-5 left trigger finger releases). HPI Sutures intact except she popped one of the sutures in her thumb when doing her OT exercises. Continuing OT and home exercises. Taking Rector as needed for the pain. Patient would like to schedule surgery for her right hand. AMB ROOMING INTAKE FLOWSHEET DATA Risk Screening Do you have concerns about personal safety or safety in the home?: No Pain Pain Level: 3 Pain Location: Hand-Left Description: Aching Duration Amount of Time: 12 Duration Units: Days Frequency: Intermittent(After Occupational therapy exercises) Intervention: Medication ASSESSMENT: G56.02 Carpal tunnel syndrome of left wrist (primary encounter diagnosis) M65.30 Trigger finger of left hand, unspecified finger G56.01 Carpal tunnel syndrome of right wrist M65.30 Trigger finger of right hand, unspecified finger SUMMARY/PLAN: Patient is status post all 5 trigger releases as well as her carpal tunnel. She is doing remarkably well and is extremely pleased. She would like to sign up almost immediately for the right side. Exam: All 6 surgical sites look excellent. Sutures removed without complication. Supporting Information Below: Medications: Current Outpatient Medications Medication Sig - buPROPion XL (WELLBUTRIN XL) 150 mg 24 hr tablet Take 1 tablet by mouth once daily. - metoprolol succinate ER (TOPROL XL) 25 mg 24 hr tablet Take 1 tablet by mouth once daily. - losartan (COZAAR) 100 mg tablet Take 1 tablet by mouth once daily. - escitalopram oxalate (LEXAPRO) 20 mg tablet Take 1 tablet by [...] Each by INTRAUTERINE route as directed. - insulin glargine (BASAGLAR KWIKPEN U-100 INSULIN) 100 unit/mL (3 mL) inpn Inject 30 Units subcutaneously daily at bedtime. - insulin aspart U-100 (NOVOLOG FLEXPEN U-100 INSULIN) 100 unit/mL (3 mL) inpn Inject 15 Units subcutaneously three times daily before meals. Adjust as directed with sliding scale - Insulin Fishtail, Disposable, (BD ULTRA-FINE PAULA PEN NEEDLE) 32 gauge x 532 ndle Use one needle for each dose. 4/day and as needed. - glipiZIDE (GLUCOTROL XL) 2.5 mg 24 hr tablet Take 1 tablet by mouth once daily. - Insulin Syringe-Needle U-100 (INSULIN SYRINGE) 0.5 [...] hr (5 years) IUD Inserted in office No current facility-administered medications for this visit. Allergies: Patient has no known allergies. This note was partially generated using [employer] voice recognition system, and there may be some incorrect words, spellings, and punctuation that were not noted in checking the note before saving. Gonzales Brown MD Previous Version Delfina Grace RN 05/28/2020 9:04 AM Addendum Incision cleansed with Chlora Prep and sutures removed. Pt. tolerated well. pt. instructed to avoid immersion in pool, bath or dish water x 72 hours, and to keep incisions clean and dry. Pt. verbalizes understanding. Pt. has been using vaseline as instructed by [facility] OT on incisions. Pt. instructed not to do this until incisions well healed, and to keep clean and dry and open to air as much as possible. She verbalizes understanding. Previous Version Normal [facility] ANES POSTPROC EVALon 020 ANES POSTPROC EVAL HNO ID: [id number] Author: Michael Bliss Service: ? Author Type: Anesthesiologist Type: Anesthesia Postprocedure Evaluation Filed: 05/15/2020 5:48 PM Note Text: POST ANESTHESIA EVALUATION NOTE : 1975 Procedure Summary Date: 05/15/20 Room / Location: MO OR / MO OR Anesthesia Start: 1547 Anesthesia Stop: 1648 Procedures: DECOMPRESSION NERVE MEDIAN CARPAL TUNNEL (Left Wrist) RELEASE TRIGGER FINGER (Left Finger) Diagnosis: Left carpal tunnel syndrome Trigger finger, acquired Surgeons: Gonzales Brown Responsible Provider: Bismark Su Anesthesia Type: MAC ASA Status: 3 Anesthesia Type: MAC Last vitals Vitals Value Taken Time BP 118/60 05/15/20 1729 Temp 36.4 ?C (97.5 ?F) 05/15/20 1653 HR SpO2 80 05/15/201728 Resp 16 05/15/201728 SpO2 93 % 05/15/201728 Post Anesthesia Patient Status Patient Evaluation: PACU. PACU/ICU Patient Condition: stable. Anticipated Disposition: phase 2 then home. Neurological Status: aware and responsive. Pulmonary Status: breathing comfortably on room air Airway Control: returned to baseline unsupported. Cardiovascular Status: stable. Pain Management: clinically adequate - multimodal analgesia pain management approach Postoperative Hydration: acceptable. Intraoperative Events: no significant anesthesia events Post Operative Nausea/Vomiting Status: Anesthetic Observations: no significant anesthetic observations Recommendation: continue current plan of care. SIGNATURE: Michael Bliss MD PATIENT NAME: Sloane Shelley DATE: May 15, 2020 TIME: 5:48 PM CSN: [id number] [facility] ANES PRE-OPon 05-15-2020 ANES PRE-OP HNO ID: [id number] Author: Segundo Tomas MD Service: ? Author Type: Anesthesiologist Type: Anesthesia Preprocedure Evaluation Filed: 05/15/2020 1:59 PM Note Text: ANESTHESIOLOGY DAY OF SURGERY NOTE : 1975 Procedure(s) (LRB): DECOMPRESSION NERVE MEDIAN CARPAL TUNNEL (Left) RELEASE TRIGGER FINGER (Left) Surgeon(s): Gonzales Brown Estimated body mass index is 39.94 kg/m? as calculated from the following: Height as of this encounter: 165.1 cm (5' 5). Weight as of this encounter: 108.9 kg (240 lb). Most recent hematocrit and potassium results: Potassium 4.4 02/16/2020 Relevant Problems CARDIO (+) Essential hypertension (+) Mitral valve regurgitation (+) Pulmonary HTN (HCC) ENDO (+) Diabetes mellitus type 2, uncomplicated (HCC) I - PHYSICAL EVALUATION AIRWAY Patient intubated: No. Tracheostomy tube not present Mallampati: I. TM distance: >3 FB. Neck ROM: full ROM without neurological symptoms. Mouth opening: adequate. Short neck: no. Thick neck: no DENTAL Normal dental observations. Dental findings: teeth intact. Additional exam findings: no II - ANESTHESIA PLAN ASA Score: 3 Anesthetic Plan: MAC The patient is not a current smoker. NPO Status: adequate Monitoring plan: standard ASA. Postoperative analgesic plan: parenteral or oral opioids. Anesthetic Risks, Benefits, Alternatives, Personnel Discussed. Consent obtained from: patient. Patient / Surrogate agrees to blood products: blood products not planned DNR status not reviewed with patient and/or family prior to surgery. Significant changes in the patient condition since the History and Physical, not otherwise documented in primary service progress note: no. Potential Anesthesia issues that may suggest increased risk of complications or contraindication to planned procedure: none. Vitals Value Taken Time BP 158/84 05/15/20 1332 Pulse 96 05/15/20 1332 Resp 16 05/15/20 1332 Temp 36.3 ?C (97.3 ?F) 05/15/20 1332 SpO2 98 % 05/15/20 1332 Facility-Administered Medications as of 05/15/2020 Medication Dose Route Frequency - lidocaine 10 mg/mL (1 %) 1-2 mg injection (XYLOCAINE) 0.1-0.2 mL INTRADERMAL PRN - lactated ringers infusion 5-30 mL/hr INTRAVENOUS CONTINUOUS - ceFAZolin iv piggyback 2 g in D5W (iso-osmotic) 100 mL (ANCEF) 2 g INTRAVENOUS Pre-Op Once Outpatient Medications as of 05/15/2020 Medication Sig - buPROPion XL (WELLBUTRIN XL) 150 mg 24 hr tablet Take 1 tablet by mouth once daily. - metoprolol succinate ER (TOPROL XL) 25 mg 24 hr tablet Take 1 tablet by mouth once daily. - losartan (COZAAR) 100 mg tablet Take 1 tablet by mouth once daily. - escitalopram oxalate (LEXAPRO) 20 mg tablet Take 1 tablet by mouth once daily. - fluticasone (FLONASE) 50 mcg/actuation nasal spray Use 2 Sprays in each nostril once daily. Rinse mouth after use. - insulin glargine (BASAGLAR KWIKPEN U-100 INSULIN) 100 unit/mL (3 mL) inpn Inject 30 Units subcutaneously daily at bedtime. - insulin aspart U-100 (NOVOLOG FLEXPEN U-100 INSULIN) 100 unit/mL (3 mL) inpn Inject 15 Units subcutaneously three times daily before meals. Adjust as directed with sliding scale - glipiZIDE (GLUCOTROL XL) 2.5 mg 24 hr tablet Take 1 tablet by mouth once daily. - acyclovir (ZOVIRAX) 400 mg tablet Take 1 tablet by mouth twice daily. - furosemide (LASIX) 20 mg tablet Take 1 tablet by mouth once daily. - potassium chloride (K-TAB) 10 mEq tablet Take 1 tablet by mouth daily with breakfast. - Blood Pressure Monitor 1 Each once daily. - levonorgestrel (MIRENA) 20 mcg/24 hours (5 yrs) 52 mg IUD 1 Each by INTRAUTERINE route as directed. - Insulin Fishtail, Disposable, (BD ULTRA-FINE PAULA PEN NEEDLE) 32 gauge x 5/32 ndle Use one needle for each dose. 4/day and as needed. - Insulin Syringe-Needle U-100 (INSULIN SYRINGE) 0.5 mL 30 gauge x 5/16 syrg Use 1 syringe for each dose 4/day and as needed - Lancets lancets Test blood sugar(s) 3 daily. Dx: Uncontrolled type 2 diabetes . Insulin: yes - blood sugar diagnostic (BLOOD GLUCOSE TEST) test strip Test blood sugar(s) 3 daily. Dx: Uncontrolled type 2 diabetes . Insulin: yes I have interviewed and examined the patient. I have reviewed the medical record and/or the pre-anesthesia evaluation, pertinent labs, and test results. This contains updated information obtained within 48 hours of Surgery/Procedure. SIGNATURE: Segundo Tomas MD PATIENT NAME: Sloane Shelley DATE: May 15, 2020 TIME: 1:59 PM CSN: [id number] [facility] OPERATIVE NOon 05-15-2020 OPERATIVE NO HNO ID: [id number] Author: Gonzales Brown Service: Orthopaedic Surgery Author Type: Physician Type: Operative Report Filed: 05/17/2020 5:49 PM Note Text: OPERATIVE/PROCEDURE REPORT LOG ID: [id number] SURGERY/PROCEDURE DATE: 05/15/2020 INCISION/PROCEDURE START TIME: 3:59 PM INCISION CLOSE/PROCEDURE END TIME: 4:42 PM SURGEON(S)/PROCEDURALIST (S) AND DRUM SAW OPERATOR(S): Surgeon(s) and Role: * Gonzales Brown - Primary Physician Community Outreach Director: Gloria Spence (Pa) SURGERY/PROCEDURE(S): 1. Left carpal tunnel release. 2. Left thumb, index, middle, ring and small finger trigger releases. ANESTHESIA: Monitored Anesthesia Care with local. OPERATIVE INDICATIONS: This is a pleasant 45 year old female who had worsening, numbness, and tingling and well as impressive locking and catching in all of her fingers. Her electrodiagnostic showed Moderate carpal tunnel syndrome. She exhausted conservative management and in the office, we discussed the risks, benefits, alternatives, and potential complications involving carpal tunnel release and all five trigger finger releases and she wished to pursue surgical interventions. OPERATIVE FINDINGS: Consistent with postoperative diagnosis. OPERATIVE PROCEDURE: On May 17, 2020, the patient was clearly identified in the preoperative area and marked accordingly on the Left palm by myself. She was taken to the operative suite and placed in the supine position with an armboard on the Left. She received 2 g of Ancef in the IV within 1 hour of incision or tourniquet. Anesthesia assumed care of the head and neck for the remainder of the case and began a MAC anesthetic. All other bony landmarks were appropriately padded in standard fashion. The upper extremity had a well-padded upper brachium tourniquet applied with Webril padding and set at 250 mmHg, but not yet inflated. The arm was then sterilely prepped and draped in standard fashion. An appropriate time-out was conducted and all in the room were in agreement, signed consent form was on the chart. The upper extremity was exsanguinated with an Esmarch bandage and the tourniquet was applied at 250 mmHg. Local anesthetic was provided at the palm and wrist with 1% lidocaine woth epi 1:100,000 for total of 10 mL and 2cc at each A1 isabela. A longitudinal incision was made with in line with the third web space from 1 cm distal of the wrist crease to Palma's cardinal line. I used Britt Rakes to retract the soft tissues. Bipolar electrocautery was used for hemostasis. I bluntly dissected down with Littler scissors to distal edge of the transverse carpal ligament until a flash of fat was noted. I directly divided distal edge of the transverse carpal ligament with a #15 blade. Attention was then focused on the proximal portion and I used Littler scissors to bluntly dissect off the volar surface of the transverse carpal ligament. A carpal tunnel and median nerve protection guide was slid directly under the ligament for dilation and a second time for appropriate positioning, this was passed freely without any resistance. Subsequently, I selected a mini meniscotome [place] blade and slid this in the protective guide, completely dividing the transverse carpal ligament. Britt rakes were used to view up the wound to visualize for complete release and a [place] elevator was used to palpate for complete release. I then sequentially released each trigger finger starting with the thumb with a horizontal incision at the flexion crease. Soft tissue dissection down to the flexor tendon and A1 isabela while keeping the digital nerves completely protected. The A1 isabela was released under direct visualization freeing up the tendon in its entirety. I then proceeded to the index, middle, ring and small digits in the exact same fashion, releasing all 5 tendons and removing some synovium as each tendon had quite impressive tenosynovitis. At this point, the tourniquet was taken down and hemostasis was observed at each location. The wounds were copiously irrigated with normal saline and I closed with 3-0 nylons in horizontal mattress fashion for a total of 3 in the palm and 2 in each digit. Xeroform gauze, sterile 4 x 4 gauze, Webril padding, and a Bias roll was used for final bandage. There were no complications during the procedure. The patient was safely awoken and transferred to the Postanesthetic Care Unit in stable condition. PRE-OP/PRE-PROCEDURE DIAGNOSIS: 1. Left carpal tunnel syndrome. 2. Flexor tenosynovitis of left thumb, index, middle, ring and small fingers. POST-OP/POST-PROCEDURE DIAGNOSIS: Same as Preop ESTIMATED BLOOD LOSS: 15 mls SPECIMENS: None IMPLANTABLE DEVICES: None DRAINS: None COMPLICATIONS: None PARTICIPATION IN SURGERY/PROCEDURE: I/primary surgeon/proceduralist performed the entire procedure. SIGNATURE: Gonzales Brown MD PATIENT NAME: Sloane Shelley DATE: May 17, 2020 TIME: 5:43 PM PAGER/CONTACT #: [facility] 05-07-2020 [facility] Patient:Sloane Shelley MRN: Height:5' 5[patient reported[(1.651 m) Weight:240 lb (108.863 kg) Outpatient Medications as of 05/15/20: buPROPion XL (WELLBUTRIN XL) 150 mg 24 hr tablet metoprolol succinate ER (TOPROL XL) 25 mg 24 hr tablet losartan (COZAAR) 100 mg tablet escitalopram oxalate (LEXAPRO) 20 mg tablet furosemide (LASIX) 20 mg tablet potassium chloride (K-TAB) 10 mEq tablet fluticasone (FLONASE) 50 mcg/actuation nasal spray Blood Pressure Monitor levonorgestrel (MIRENA) 20 mcg/24 hours (5 yrs) 52 mg IUD insulin glargine (BASAGLAR KWIKPEN U-100 INSULIN) 100 unit/mL (3 mL) inpn insulin aspart U-100 (NOVOLOG FLEXPEN U-100 INSULIN) 100 unit/mL (3 mL) inpn Insulin Fishtail, Disposable, (BD ULTRA-FINE PAULA PEN NEEDLE) 32 gauge x 5/32 ndle glipiZIDE (GLUCOTROL XL) 2.5 mg 24 hr tablet Insulin Syringe-Needle U-100 (INSULIN SYRINGE) 0.5 mL 30 gauge x 5/16 syrg acyclovir (ZOVIRAX) 400 mg tablet Lancets lancets blood sugar diagnostic (BLOOD GLUCOSE TEST) test strip levonorgestrel (MIRENA) 20 mcg/24 hr (5 years) IUD Admission/Clinic Administered Medications as of 05/15/20: lidocaine 10 mg/mL (1 %) 1-2 mg injection (XYLOCAINE) lactated ringers infusion ceFAZolin iv piggyback 2 g in D5W (iso-osmotic) 100 mL (ANCEF) midazolam injection (VERSED) fentaNYL 50 mcg/mL injection (SUBLIMAZE) lidocaine HCl (PF) 20 mg/mL (2 %) injection propofol iv bolus (DIPRIVAN) propofol infusion (DIPRIVAN) ketorolac injection (TORADOL) ondansetron (PF) injection (ZOFRAN) Problem List: 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] Diabetes mellitus type 2, uncomplicated (HCC) [E11.9] Generalized anxiety disorder [F41.1] Depression [F32.9] Psoriasis [L40.9] Smoker [F17.200] Mixed hyperlipidemia [E78.2] Urinary, incontinence, stress female [N39.3] Marijuana use [F12.90] Morbid obesity (HCC) [E66.01] Essential hypertension [I10] Mitral valve regurgitation [I34.0] Decreased cardiac ejection fraction [R93.1] Pulmonary HTN (HCC) [I27.20] Allergies: No Known Allergies Date Verified:05/15/20 Lab Values No results within the last 30 days for the following basenames: K,HCT Progress Notes ([facility]): Delfina Grace RN 05/13/2020 12:59 PM Signed Pt. dropped of signed release only for [employer] and states they will be faxing paperwork. Progress Notes ([facility]): Temitope Ford Ma 05/06/2020 9:49 AM Signed Please schedule patient for Left CTR and trigger finger releases left hand digits 1-5. Please schedule post op appointments in [place]. Pre op COVID test in [place], if possible. Please file pre op COVID order. Temitope Ford Ma 05/06/2020 2:24 PM Signed Sorry, 05/15/2020. Karen Beck [facility] 05/07/2020 10:52 AM Signed Surgical request, post ops and covid test scheduled. Please place covid test order. Gloria Spence PA-C 05/07/2020 12:24 PM Signed COVID test ordered. Temitope Ford Ma 05/08/2020 10:01 AM Signed Surgery has been scheduled as requested. Normal [facility] Glucose,Bedsideon 10-25-2017 Glucose mass conc 261 mg/dL High 70-100 [facility] Comment on above: Result Comment: Test performed by glucose meter. Results may be 10%-15% lowerthan serum/plasma values. (CLIA ID [id number]) Performed By: #### B GLU ####The performing lab is in the report. Basic Metabolic Panelon Anion gap 8 mmol/L Normal [facility] Comment on above: Performed By: #### B MP3, LIPD2 ####The performing lab is in the report. Calcium 8.7 mg/dL Normal 8.2-10.1 [facility] Comment on above: Performed By: #### B MP3, LIPD2 ####The performing lab is in the report. Chloride 105 mmol/L Normal 98-109 [facility] Comment on above: Performed By: #### B MP3, LIPD2 ####The performing lab is in the report. CO2 25 mmol/L Normal 21-32 [facility] Comment on above: Performed By: #### B MP3, LIPD2 ####The performing lab is in the report. Creatinine 0.66 mg/dL Normal 0.55-1.40 [facility] Comment on above: Performed By: #### B MP3, LIPD2 ####The performing lab is in the report. eGFR (black) mL/min/{1.73_m2} Normal >60 [facility] Comment on above: Performed By: #### B MP3, LIPD2 ####The performing lab is in the report. eGFR (non-black) mL/min/{1.73_m2} Normal >60 [facility] Comment on above: Result Comment: Sour ce- MDRD equation with creatinine calibration to IDMS(NKDEP)eGFR not recommended for drug dose adjustment Performed By: #### B MP3, LIPD2 ####The performing lab is in the report. Glucose mass conc 242 mg/dL High 70-100 [facility] Comment on above: Performed By: #### B MP3, LIPD2 ####The performing lab is in the report. Potassium molar conc 3.8 mmol/L Normal 3.5-5.1 [facility] Comment on above: Performed By: #### B MP3, LIPD2 ####The performing lab is in the report. Sodium 138 mmol/L Normal 135-145 [facility] Comment on above: Performed By: #### B MP3, LIPD2 ####The performing lab is in the report. Urea nitrogen 12 mg/dL Normal 7-25 [facility] Comment on above: Performed By: #### B MP3, LIPD2 ####The performing lab is in the report. Lipid Panelon 10-24-2017 Cholesterol to HDL Ratio 6 {ratio} Normal [facility] Comment on above: Result Comment: Ref Range:< 3 Low Risk for CHD3-6 Mod Risk for CHD> 6 High Risk for CHD Performed By: #### B MP3, LIPD2 ####The performing lab is in the report. HDL Cholesterol 32 mg/dL Low 40-60 [facility] Comment on above: Performed By: #### B MP3, LIPD2 ####The performing lab is in the report. Low Density Lipoprotein 119 mg/dL Abnormal <100 [facility] Comment on above: Performed By: #### B MP3, LIPD2 ####The performing lab is in the report. Triglyceride 172 mg/dL Abnormal <150 [facility] Comment on above: Performed By: #### B MP3, LIPD2 ####The performing lab is in the report. Cholesterol 185 mg/dL Normal < 200 [facility] Comment on above: Performed By: #### B MP3, LIPD2 ####The performing lab is in the report. Vital Signs Date Time Vital Sign Value Performing Clinician Lupe guillen 03-08-2025 09:10-0400 Body height 165.1 cm Bridgett Ungerer ENVIRONMENTAL ADVISER-C Work Phone: [facility] 03-08-2025 09:10-0400 Body mass index (BMI) [Ratio] 34.4 kg/m2 Bridgett Ungerer ENVIRONMENTAL ADVISER-C Work Phone: [facility] 03-08-2025 09:10-0400 Body temperature 98.2 [degF] Bridgett Ungerer ENVIRONMENTAL ADVISER-C Work Phone: [facility] 03-08-2025 09:10-0400 Body weight 93.89 kg Bridgett Ungerer ENVIRONMENTAL ADVISER-C Work Phone: [facility] 03-08-2025 09:10-0400 Diastolic blood pressure 80 mm[Hg] Bridgett Ungerer ENVIRONMENTAL ADVISER-C Work Phone: [facility] 03-08-2025 09:10-0400 Heart rate 76 /min Bridgett Ungerer ENVIRONMENTAL ADVISER-C Work Phone: [facility] 03-08-2025 09:10-0400 Respiratory rate 16 /min Bridgett Ungerer ENVIRONMENTAL ADVISER-C Work Phone: [facility] 03-08-2025 09:10-0400 SaO2% (BldA) [Mass fraction] 99 % Bridgett Ungerer ENVIRONMENTAL ADVISER-C Work Phone: [facility] 03-08-2025 09:10-0400 Systolic blood pressure 130 mm[Hg] Bridgett Ungerer ENVIRONMENTAL ADVISER-C Work Phone: [facility] 05-02-2024 18:32-0400 Body mass index (BMI) [Ratio] 33.8 kg/m2 Guille Griffith APRN.CNP Work Phone: [facility] 05-02-2024 18:32-0400 Body temperature 97.2 [degF] [facility] PLOW AND BORING MACHINE TENDER.PERFECT BINDER SETTER Work Phone: [facility] 05-02-2024 18:32-0400 Body weight 95 kg [facility] PLOW AND BORING MACHINE TENDER.PERFECT BINDER SETTER Work Phone: [facility] 05-02-2024 18:32-0400 Diastolic blood pressure 99 mm[Hg] [facility] PLOW AND BORING MACHINE TENDER.PERFECT BINDER SETTER Work Phone: [facility] 05-02-2024 18:32-0400 Heart rate 90 /min Gu[facility] PLOW AND BORING MACHINE TENDER.PERFECT BINDER SETTER Work Phone: [facility] 05-02-2024 18:32-0400 Respiratory rate 18 /min [facility] PLOW AND BORING MACHINE TENDER.PERFECT BINDER SETTER Work Phone: [facility] 05-02-2024 18:32-0400 SaO2% (BldA) [Mass fraction] 100 % Guille [facility] PLOW AND BORING MACHINE TENDER.PERFECT BINDER SETTER Work Phone: [facility] 05-02-2024 18:32-0400 Systolic blood pressure 167 mm[Hg] [facility] PLOW AND BORING MACHINE TENDER.PERFECT BINDER SETTER Work Phone: [facility] 10-01-2023 07:34-0400 Diastolic blood pressure 84 mm[Hg] Dr. Rosendo Hernandez Work Phone: [facility] 10-01-2023 07:34-0400 Heart rate 86 /min Dr. Rosendo Hernandez Work Phone: [facility] 10-01-2023 07:34-0400 SaO2% (BldA) [Mass fraction] 99 % Dr. Rosendo Hernandez Work Phone: [facility] 10-01-2023 07:34-0400 Systolic blood pressure 128 mm[Hg] Dr. Rosendo Hernandez Work Phone: [facility] 09-24-2023 07:29-0500 Body height 165.[address] Rosendo Hernandez Work Phone: [facility] 09-24-2023 07:29-0500 Body mass index (BMI) [Ratio] 35.8 kg/m2 Dr. Rosendo Hernandez Work Phone: 6(138)740-412937 [place] [address] 09-24-2023 07:29-0500 Body temperature 97 [degF] Dr. Rosendo Hernandez Work Phone: 3(540)887-292548 [place] [address] 09-24-2023 07:29-0500 Body weight 97.[address] Rosendo Hernandez Work Phone: 6(080)910-386048 [place] [address] 09-24-2023 07:29-0500 Diastolic blood pressure 80 mm[Hg] Dr. Rosendo Hernandez Work Phone: 7(425)032-009448 [place] [address] 09-24-2023 07:29-0500 Heart rate 62 /min Dr. Rosendo Hernandez Work Phone: 0(569)284-575648 [place] [address] 09-24-2023 07:29-0500 Respiratory rate 16 /min Dr. Rosendo Hernandez Work Phone: 3(561)388-542448 [place] [address] 09-24-2023 07:29-0500 SaO2% (BldA) [Mass fraction] 97 % Dr. Rosendo Hernandez Work Phone: 1(864)469-072948 [place] [address] 09-24-2023 07:29-0500 Systolic blood pressure 138 mm[Hg] Dr. Rosendo Hernandez Work Phone: 1(369)720-054748 [place] [address] 09-14-2023 05:10-0500 Body temperature 97.5 [degF] Dr. Rosendo Hernandez Work Phone: 8(319)471-479648 [place] [address] 09-14-2023 05:10-0500 Diastolic blood pressure 84 mm[Hg] Dr. Rosendo Hernandez Work Phone: 7(552)990-641148 [place] [address] 09-14-2023 05:10-0500 Heart rate 87 /min Dr. Rosendo Hernandez Work Phone: 3(503)774-374848 [place] [address] 09-14-2023 05:10-0500 Respiratory rate 16 /min Dr. Rosendo Hernandez Work Phone: 2(715)667-676048 [place] [address] 09-14-2023 05:10-0500 SaO2% (BldA) [Mass fraction] 97 % Dr. Rosendo Hernandez Work Phone: 2(571)412-777237 [place] [address] 09-14-2023 05:10-0500 Systolic blood pressure 146 mm[Hg] Dr. Rosendo Hernandez Work Phone: 1(665)735-170548 [place] [address] 09-14-2023 01:00-0500 Body mass index (BMI) [Ratio] 36.5 kg/m2 Dr. Rosendo Hernandez Work Phone: 0(123)945-786948 [place] [address] 09-14-2023 01:00-0500 Body weight 99.[address] Rosendo Hernandez Work Phone: 2(271)156-035548 [place] [address] 08-20-2023 07:41-0500 Body mass index (BMI) [Ratio] 35.5 kg/m2 Dr. Rosendo Hernandez Work Phone: 8(270)293-763748 [place] [address] 08-20-2023 07:41-0500 Body temperature 97.4 [degF] Dr. Rosendo Hernandez Work Phone: 0(058)759-839348 [place] [address] 08-20-2023 07:41-0500 Body weight 99.[address] Rosendo Hernandez Work Phone: 2(282)417-381348 [place] [address] 08-20-2023 07:41-0500 Diastolic blood pressure 80 mm[Hg] Dr. Rosendo Hernandez Work Phone: 8(729)400-103348 [place] [address] 08-20-2023 07:41-0500 Heart rate 96 /min Dr. Rosendo Hernandez Work Phone: 2(960)177-127048 [place] [address] 08-20-2023 07:41-0500 Respiratory rate 16 /min Dr. Rosendo Hernandez Work Phone: 2(826)498-659648 [place] [address] 08-20-2023 07:41-0500 SaO2% (BldA) [Mass fraction] 97 % Dr. Rosendo Hernandez Work Phone: 8(031)943-364048 [place] [address] 08-20-2023 07:41-0500 Systolic blood pressure 140 mm[Hg] Dr. Rosendo Hernandez Work Phone: [facility] 09-18-2022 12:05-0500 Diastolic blood pressure 70 mm[Hg] Dr. Rosendo Hernandez Work Phone: [facility] 09-18-2022 12:05-0500 Heart rate 92 /min Dr. Rosendo Hernandez Work Phone: 1(928)554-512237 [place] [address] 09-18-2022 12:05-0500 Systolic blood pressure 140 mm[Hg] Dr. Rosendo Hernandez Work Phone: 6(390)368-498437 [place] [address] 09-18-2022 11:40-0500 Body height 167.[address] Rosendo Hernandez Work Phone: 0(711)231-039348 [place] [address] 09-18-2022 11:40-0500 Body mass index (BMI) [Ratio] 37.1 kg/m2 Dr. Rosendo Hernandez Work Phone: 9(268)306-991037 [place] [address] 09-18-2022 11:40-0500 Body weight 104.[address] Rosendo Hernandez Work Phone: 0(415)999-434137 [place] [address] 09-18-2022 11:40-0500 Respiratory rate 16 /min Dr. Rosendo Hernandez Work Phone: [facility] 08-14-2022 11:28-0500 Body weight 99.79 kg Rebecca Steinberg PLOW AND BORING MACHINE TENDER.CLOTHING AND TEXTILES TEACHER Work Phone: [facility] 08-14-2022 11:28-0500 Diastolic blood pressure 82 mm[Hg] Rebecca Steinberg PLOW AND BORING MACHINE TENDER.CLOTHING AND TEXTILES TEACHER Work Phone: [facility] 08-14-2022 11:28-0500 Heart rate 112 /min Rebecca Steinberg PLOW AND BORING MACHINE TENDER.CLOTHING AND TEXTILES TEACHER Work Phone: [facility] 08-14-2022 11:28-0500 Respiratory rate 16 /min Rebecca Steinberg PLOW AND BORING MACHINE TENDER.CLOTHING AND TEXTILES TEACHER Work Phone: [facility] 08-14-2022 11:28-0500 SaO2% (BldA) [Mass fraction] 97 % Rebecca Steinberg PLOW AND BORING MACHINE TENDER.CLOTHING AND TEXTILES TEACHER Work Phone: [facility] 08-14-2022 11:28-0500 Systolic blood pressure 120 mm[Hg] Rebecca Steinberg PLOW AND BORING MACHINE TENDER.CLOTHING AND TEXTILES TEACHER Work Phone: [facility] Encounters Encounter Date Encounter Type Care Provider Facility Start: 03-08-2025 End: 03-08-2025 Patient encounter procedure Bridgett Patel ENVIRONMENTAL ADVISER-C -[facility] Work Phone: Start: 03-08-2025 End: 03-08-2025 ambulatory Bridgett Patel [facility] Start: 09-14-2024 End: 09-14-2024 ambulatory Raoul BANDA Facility:[facility] Start: 07-27-2024 End: 07-27-2024 ambulatory [facility] Facility:[facility] Start: 05-03-2024 End: 05-03-2024 Emergency department patient visit Clifton Esquivel Facility:[facility] Start: 05-02-2024 End: 05-02-2024 ambulatory ROSENDO HERNANDEZ Facility:[facility] Start: 05-02-2024 End: 05-02-2024 Office outpatient visit 25 minutes Guille Griffith PLOW AND BORING MACHINE TENDER.PERFECT BINDER SETTER Work Phone: [facility] Comment on above: Viral illness (Prima ry Dx) Start: 03-31-2024 Patient encounter status Barb Patel ENVIRONMENTAL ADVISER-C Work Phone: [facility] Start: 03-31-2024 End: 03-31-2024 ambulatory [facility] Facility:[facility] Start: 02-07-2024 End: 08-15-2024 Telephone encounter Rosendo Hernandez MD Work Phone: [facility] [place] Comment on above: Appointment Start: 12-08-2023 ambulatory Rosendo chan MD Work Phone: [facility] Start: 10-15-2023 End: 10-15-[address] Rosendo Hernandez Work Phone: [facility] Work Phone: Start: 10-15-2023 End: 10-15-[address] Rosendo Hernandez Work Phone: [facility] [place] Start: 10-08-2023 End: 10-08-[address] Rosendo Hernandez Work Phone: [facility] Work Phone: Start: 10-08-2023 End: 10-08-[address] Rosendo Hernandez Work Phone: [facility] [place] Start: 10-01-2023 End: 10-01-[address] Rosendo Hernandez Work Phone: [facility] Work Phone: Start: 10-01-2023 End: 10-01-[address] Rosendo Hernandez Work Phone: [facility] [place] Start: 10-01-2023 End: 10-01-[address] Rosendo Hernandez Work Phone: [facility] Work Phone: Start: 09-24-2023 End: 09-24-[address] Rosendo Hernandez Work Phone: [facility] Work Phone: Start: 09-21-2023 End: 09-21-[address] Rosendo Hernandez Work Phone: [facility] Work Phone: Start: 09-21-2023 End: 09-21-[address] [facility] Start: 09-14-2023 End: 09-14-2023 Emergency department patient visit [facility] Work Phone: Start: 08-20-2023 End: 08-20-[address] Rosendo Hernandez Work Phone: [facility] Work Phone: Start: 09-18-2022 End: 09-18-[address] Rosendo Hernandez Work Phone: [facility] Work Phone: Start: 09-18-2022 End: 09-18-[address] Rosendo Hernandez Work Phone: [facility] Start: 08-14-2022 End: 08-14-2022 Office outpatient visit 25 minutes Rebecca Steinberg PLOW AND BORING MACHINE TENDER.CLOTHING AND TEXTILES TEACHER Work Phone: [facility] [place] Comment on above: Type 2 diabetes matheus itus without complication, with long-term current use of insulin (HCC) (Primary Dx); Encounter for immunization; Screening for colon cancer; Screening for diabetic retinopathy; Mixed hyperlipidemia; Smoker; Essential hypertension; Uncontrolled type 2 diabetes mellitus with hyperglycemia (HCC); Generalized anxiety disorder; Depression, unspecified depression type; Decreased cardiac ejection fraction Start: 07-23-2022 Refill Bhavana Gramajo Work Phone: [facility] Comment on above: Refill Request Start: 01-14-2022 ambulatory Rosendo chan MD Work Phone: [facility] [place] Start: 07-03-2015 End: 04-27-2016 Patient encounter status Rosendo Hernandez MD Work Phone: [facility] Procedures Date Procedure Procedure Detail Performing Clinician Start: 09-14-2023 Plain chest X-ray Dr. Rebekah Hernandez Work Phone: Start: 08-14-2022 INFLUENZA VACCINE QUADRIVALENT 6 MO - 64 YRS IM Rebecca Steinberg PLOW AND BORING MACHINE TENDER.CLOTHING AND TEXTILES TEACHER Work Phone: Start: 08-14-2022 PFIZER-BIONTECH COVI D-19 BIVALENT BOOSTER VACCINE, AGE 12+ YR Rebecca Steinberg PLOW AND BORING MACHINE TENDER.CLOTHING AND TEXTILES TEACHER Work Phone: Start: 09-06-2019 Mammography Rosendo peng MD Work Phone: Plan of Treatment Date Care Activity Detail Author Start: 2039 PNEUMOCOCCAL (3 - PP SV23 if available, else PCV20) PNEUMOCOCCAL (3 - PPSV23 if available, else PCV20) [facility] Start: 2039 PNEUMOCOCCAL (3 - PP SV23 or PCV20) PNEUMOCOCCAL (3 - PPSV23 or PCV20) [facility] Start: 2039 Pneumococcal vaccination Pneum ococcal Vaccine (3 of 3 - PPSV23 or PCV20) [facility] Start: 03-29-2025 Pneumococcal Vaccine : 50+ (3 of 3 - PCV20 or PCV21) Pneumococcal Vaccine: 50+ (3 of 3 - PCV20 or PCV21) [facility] Start: 09-06-2024 HPV TESTING HPV TESTING [facility] Start: 09-06-2024 PAP TESTING PAP TESTING [facility] Start: 09-06-2024 Screening for malign ant neoplasm of cervix [facility] Start: 2024 Screening for malign ant neoplasm of lung Lung Cancer Screening [facility] Start: 2024 Shingrix Vaccine (1 of 2) Shingrix Vaccine (1 of 2) [facility] Start: 03-19-2024 Covid-19 Vaccine ( season) Covid-19 Vaccine ( season) [facility] Start: 03-19-2024 Influenza vaccination Influenz a Vaccine (Season Ended) [facility] Start: 09-14-2023 [facility] Start: 09-14-2023 [facility] Start: 08-20-2023 Patient referral [facility] Work Phone: Start: 08-14-2023 ANNUAL PCP TEAM SEAFOOD TECHNOLOGY SPECIALIST IRENE DISEASE VISIT ANNUAL PCP TEAM CHRONIC DISEASE VISIT [facility] Start: 08-14-2023 BP CONTROLLED (<130/80) BP CONTROLLE D (<130/80) [facility] Start: 08-14-2023 COLORECTAL CANCER SCREENING COLORECTAL CANCER SCREENING [facility] Comment on above: Postponed from 04/08 (Declined at this time) Start: 03-19-2023 Covid-19 Vaccine (4 - 2023-24 season) Covid-19 Vaccine () [facility] Start: 01-23-2023 Urine microalbumin profile [facility] Start: 09-05-2022 BP CONTROLLED (<130/80) BP CONTROLLE D (<130/80) [facility] Start: 08-14-2022 End: 10-14-2022 ALBUMIN/CREAT RATIO RND UR ALBUMIN/CREAT RATIO RND UR Lab Routine Type 2 diabetes mellitus without complication, with long-term current use of insulin (HCC) Expected: 08/14/2022, Expires: 10/14/2022 [facility] Work Phone: Comment on above: Expected: 08/14/2022 , Expires: 10/14/2022 Start: 08-14-2022 End: 10-14-2022 CBC W Auto Differential panel - Blood CBC + DIFF Lab Routine Type 2 diabetes mellitus without complication, with long-term current use of insulin ([facility]) Expected: 08/14/2022, Expires: 10/14/2022 [facility] Work Phone: Comment on above: Expected: 08/14/2022 , Expires: 10/14/2022 Start: 08-14-2022 End: 10-14-2022 Comprehensive metabolic 2000 panel - Serum or Plasma COMP METABOLIC PANEL Lab Routine Type 2 diabetes mellitus without complication, with long-term current use of insulin (HCC) Expected: 08/14/2022, Expires: 10/14/2022 [facility] Work Phone: Comment on above: Expected: 08/14/2022 , Expires: 10/14/2022 Start: 08-14-2022 End: 10-14-2022 Hemoglobin A1c in Blood HGB A1C Lab Routine Type 2 diabetes mellitus without complication, with long-term current use of insulin (HCC) Expected: 08/14/2022, Expires: 10/14/2022 [facility] Work Phone: Comment on above: Expected: 08/14/2022 , Expires: 10/14/2022 Start: 08-14-2022 End: 10-14-2022 Lipid 1996 panel - Serum or Plasma LIPID PANEL BASIC Lab Routine Type 2 diabetes mellitus without complication, with long-term current use of insulin (HCC) Expected: 08/14/2022, Expires: 10/14/2022 [facility] Work Phone: Comment on above: Expected: 08/14/2022 , Expires: 10/14/2022 Start: 06-24-2022 ANNUAL PCP TEAM SEAFOOD TECHNOLOGY SPECIALIST IRENE DISEASE VISIT ANNUAL PCP TEAM CHRONIC DISEASE VISIT [facility] Start: 06-19-2022 Hepatitis B screening URINE ALBUMIN:CREATININE RATIO [facility] Start: 06-19-2022 Hepatitis B surface antibody level LDL CHOLESTEROL [facility] Start: 03-19-2022 Influenza vaccination INFLUENZA (#1) [facility] Start: 09-17-2021 Hemoglobin A1c measurement HbA1C [facility] Start: 09-17-2021 Hemoglobin A1c/Hemoglobin.total in Blood HBA1C [facility] Start: 05-27-2021 COVID-19 VACCINE (3 - Booster for Pfizer series) COVID-19 VACCINE (3 - Booster for Pfizer series) [facility] Start: 02-19-2021 COVID-19 VACCINE (3 - Booster for Pfizer series) COVID-19 VACCINE (3 - Booster for Pfizer series) [facility] Start: 02-15-2021 3 comp foot exam completed DIABETIC FOOT EXAM [facility] Start: 02-15-2021 Diabetic foot examination Diabetic Foot Exam [facility] Start: 09-06-2020 Mammography MAMMOGRAM [facility] Start: 09-06-2020 Screening for malign ant neoplasm of breast Mammogram Screening [facility] Start: 08-21-2020 Glaucoma screening Dilated Retinal E xam [facility] Start: 08-21-2020 Hepatitis C antibody , confirmatory test DILATED RETINAL EXAM [facility] Start: 2019 COLOGUARD (FIT-DNA) COLOGUARD (FIT-D NA) [facility] Start: 2019 Colonoscopy COLONOSCOPY [facility] Start: 2019 COLORECTAL CANCER SCREENING COLORECTAL CANCER SCREENING [facility] Start: [address] COLONOGRAPHY [facility] Start: 2019 FECAL OCCULT BLOOD FECAL OCCULT BLOO D [facility] Start: 2019 Screening for malign ant neoplasm of colon [facility] Start: 2019 SIGMOIDOSCOPY SIGMOIDOSCOPY [facility] Start: 1993 HEPATITIS B (1 of 3 - Risk 3-dose series) HEPATITIS B (1 of 3 - Risk 3-dose series) [facility] Start: 1993 Hepatitis B Vaccine (1 of 3 - 19+ 3-dose series) Hepatitis B Vaccine (1 of 3 - 19+ 3-dose series) [facility] Start: 1974 HEPATITIS B (1 of 3 - 3-dose series) HEPATITIS B (1 of 3 - 3-dose series) [facility] 24 Hour ECG [facility] Anion gap measurement [facility] Blood chemistry [facility] BUN/Creatinine ratio [facility] Calcium [Mass/volume ] in Serum or Plasma [facility] Carbon dioxide, tota l [Moles/volume] in Serum or Plasma [facility] CBC W Auto Different ial panel - Blood [facility] Chloride [Moles/volu me] in Serum or Plasma [facility] COVID & INFLUENZA A/ B & RSV PCR, ROUTINE COVID & INFLUENZA A/B & RSV PCR, ROUTINE Microbiology Routine Viral illness 05/02/2024 6:49 PM EDT [facility] Work Phone: Creatinine [Moles/volume] in Serum or Plasma [facility] Glucose [Mass/volume ] in Serum or Plasma [facility] Hemoglobin A1c/Hemoglobin.total in Blood [facility] Measurement of renal function [facility] MG Breast - bilatera l Screening [facility] End: 01-06-2025 MG Breast Screening [facility] SCREENING Radiology Routine Encounter for screening mammogram for breast cancer 1 Occurrences starting 12/08/2023 until 01/06/2025 [facility] Work Phone: Comment on above: 1 Occurrences starti ng 12/08/2023 until 01/06/2025 Patient Education ED Palpitations [facility] Work Phone: Patient referral [facility] Work Phone: Potassium [Moles/vol ume] in Serum or Plasma [facility] End: 02-13-2023 Screening mammography bi 2-view [facility] Radiology Routine Encounter for screening mammogram for breast cancer 1 Occurrences starting 01/14/2022 until 02/13/2023 [facility] Work Phone: Comment on above: 1 Occurrences starti ng 01/14/2022 until 02/13/2023 Sodium [Moles/volume ] in Serum or Plasma [facility] Urea nitrogen [Mass/volume] in Serum or Plasma [facility] [place] Immunizations Immunization Date Immunization Notes Care Provider Vicki estevez 03-31-2024 influenza, injectabl e, quadrivalent, preservative free Bridgett Patel ENVIRONMENTAL ADVISER-C Work Phone: [facility] 08-14-2022 COVID-19 booster vaccine, age 12+ yr, bivalent ([employer]NT[employer]) Rebecca Steinberg APRN.CLOTHING AND TEXTILES TEACHER Work Phone: [facility] Work Phone: 08-14-2022 influenza, injectabl e, quadrivalent, contains preservative Rebecca Steinberg APRN.CLOTHING AND TEXTILES TEACHER Work Phone: [facility] Work Phone: 08-14-2022 influenza virus vacc ine, unspecified formulation Rosendo Hernandez MD Work Phone: [facility] 03-29-2020 influenza, injectabl e, quadrivalent, contains preservative Rosendo Hernandez MD Work Phone: [facility] 03-29-2020 pneumococcal polysaccharide vaccine, 23 valent Rosendo Hernandez MD Work Phone: [facility] 08-28-2019 influenza, injectabl e, quadrivalent, contains preservative Rosendo Hernandez MD Work Phone: [facility] Work Phone: 05-08-2016 influenza, injectabl e, quadrivalent, contains preservative Rosendo Hernandez MD Work Phone: [facility] Work Phone: 07-03-2015 influenza, injectabl e, quadrivalent, contains preservative Rosendo Hernandez MD Work Phone: [facility] Work Phone: 07-03-2015 pneumococcal conjuga te vaccine, 13 valent Rosendo Hernandez MD Work Phone: [facility] Work Phone: 01-23-2013 tetanus toxoid, redu trina diphtheria toxoid, and acellular pertussis vaccine, adsorbed Rosendo Hernandez MD Work Phone: [facility] Work Phone: Payers Date Payer Category Payer Unknown [id number] 2024 Self-pay [id number] 2023 Private Health Insurance [facility] SUREST [id number] 2023-Present [phone] [address] [place] [address] PPO [id number] 2023 Unknown [id number] 2022 Unknown [id number] 2021 Private Health Insurance URSULA JEFFREY OAP [id number] 2021-Present [phone] [address] [place] [address] Open Access [id number] Medicaid MEDICAID [id number] Private Health Insurance [id number] Unknown ANTHEM [id number] Unknown [id number] Unknown [id number] Unknown [id number] Unknown [id number] Unknown [id number] Unknown [id number] Unknown [id number] Social History Date Type Detail Facility Start: 06-24-2021 End: 03-05-2025 Tobacco smoking status NHIS Smokes tobacco daily [facility] Work Phone: Start: 08-12-1996 End: 08-12-2019 History of tobacco use Cigarette Smoker [facility] Work Phone: Start: 06-24-2021 End: 03-03-2023 Cigarettes smoked current (pack per day) - Reported 1 [facility] Start: 06-24-2021 End: 08-14-2022 Tobacco use and exposure Smokeless tobacco non-user [facility] Work Phone: Start: 09-05-2021 End: 08-14-2022 Alcohol intake Ex-drinker (finding) [facility] Start: 06-19-2021 History SDOH Alcohol Frequency 2 [facility] Start: 06-19-2021 History SDOH Alcohol Std Drinks 1 [facility] Start: 05-13-2020 History SDOH Alcohol Comment last drink 09/02/2017 [facility] Start: 06-19-2021 History SDOH Social Connections Phone 5 [facility] Start: 06-19-2021 History SDOH Social Connections Living 8 [facility] Start: 06-19-2021 History SDOH Stress 3 [facility] Start: 03-28-2020 Education 15 [facility] Start: 06-24-2021 End: 08-14-2022 Tobacco Comment 5 cigarettes daily [facility] Start: 1975 Sex Assigned At Female C [facility] Start: 09-18-2022 End: 10-01-2023 Tobacco smoking status NHIS Unknown if ever smoked [facility] Start: 06-19-2021 End: 03-03-2023 Social connection and isolation panel [facility] Do you belong to any clubs or organizations such as orthodox groups, unions, fraternal or athletic groups, or school groups? No [facility] Are you now , , , , never or living with a partner? Living with partner [facility] How often to you hav e a drink containing alcohol? Monthly or less [facility] How many standard dr inks containing alcohol do you have on a typical day? 1 or 2 [facility] How often do you hav e 6 or more drinks on 1 occasion? Never [facility] How hard is it for y ou to pay for the very basics like food, housing, medical care, and heating Hard [facility] Adult Depression Screening Assessment 0 [facility] Do you feel stress - tense, restless, nervous, or anxious, or unable to sleep at night because your mind is troubled all the time - these days [OSQ] To some extent [facility] (I/We) worried wheth er (my/our) food would run out before (I/we) got money to buy more. Sometimes true [facility] In the past 12 month s, was there a time when you were not able to pay the mortgage or rent on time? Yes [facility] Start: 05-29-2020 Gender identity Identifies as female gender (finding) [facility] Start: 05-29-2020 Sexual orientation Bisexual (finding ) [facility] Medical Equipment Procedure Code Equipment Code Equipment Original Text Equipment Identifier Dates [id number], [id number], [id number], [id number] Start: 08-10-2019 Comment on above: Test blood sugar(s) 3 daily. Dx: Uncontrolled type 2 diabetes . Insulin: yes Use one needle for e ach dose. 4/day and as needed. Use 1 syringe for ea ch dose 4/day and as needed Mental Status Date Assessment Result Facility 09-14-2023 Cognitive function Voice/Name [facility] Work Phone: Clinical Notes 07-03-2015 to 05-02-2024 Patient InstructionsGuille Griffith APRN.PERFECT BINDER SETTER - 05/02/2024 6:30 PM EDTTelephone Encounter - Emily De JesusCARLENE - 02/07/2024 2:38 PM Dell Steinberg APRN.CLOTHING AND TEXTILES TEACHER - 08/14/2022 11:20 AM EST Note Date & Type Note Facility 05-02-2024 Instructions Guille Griffith APRN.PERFECT BINDER SETTER - 05/02/2024 6:43 PM EDT How to Manage Common Symptoms Associated with COVID for Adults Fever- Fever is a temperature over 100.4 F and can occur when the body is fighting an infection. To help treat a fever: Drink plenty of fluids and stay well hydrated. Eat small amounts of easy to digest food. Rest. Your body needs rest to recover, but getting up and moving around the house frequently is a good idea. You should try to continue doing your normal daily activities (bathing, toileting, grooming, cooking), though you will probably feel tired, and need to rest often. Avoid any heavy activity or exercise, as this will increase your body temperature. Dress in light clothing and stay covered in a light sheet. Keep the room temperature cool. Take a slightly warm (not cold or cool) bath, or apply damp washcloths to the forehead and wrists. Cough- Cough is a common symptom associated with COVID and can be bothersome. To help treat a cough: Stay well hydrated. Try warm water or tea with lemon and/or honey to help soothe the cough. Use a humidifier to add moisture to the air. Try a product with menthol, like a cough drop or a rub for your chest such as Vicks, which can help reduce cough. Try cough drops. Avoid smoking and other strong odors or perfumes. Try breathing exercises to keep your lungs open and clear. Take a big deep breath through your nose and hold for 5 seconds before slowly releasing. Repeat frequently, while you are awake. Congestion- Runny nose or nasal congestion can occur with COVID. Treatment can help relieve symptoms: Try OTC nasal saline spray, or nasal saline rinse to relieve mucus congestion. Nasal strips can help keep nasal passages open, to increase airflow. Elevating your head with an extra pillow in bed can help reduce congestion. Using a humidifier can increase moisture in the air, and make breathing easier. Sore Throat- Another common symptom with COVID, can be managed at home by: Stay well hydrated. Gargle with salt water - mix teaspoon salt with 1 cup of warm water and gargle. This helps to loosen mucus in the back of the throat and may reduce discomfort. Try ice chips, popsicles or lozenges to soothe the throat. Nausea/Vomiting/Diarrhea- These are common symptoms, and staying hydrated is most important. If you are nauseous or vomiting, start with small sips of water every 10-15 minutes and increase as tolerated. You can try sucking an ice cube too. If tolerating, you can try pedialyte or Gatorade, or flat sprite or aura-jeniffer. Start slowly and increase as you are able to. Instead of meals, try smaller, more frequent snacks. Try eating bland foods like crackers, toast, rice, and applesauce. Avoid spicy, greasy or fried foods and dairy containing foods. Even if you aren't feeling hungry due to lack of smell or taste, it is important to try to take in some food when you are able. After drinking and eating, rest in an upright position for up to two hours as needed to help decrease nauseous feelings. Try closing your eyes, avoid moving and watching TV. Avoid strong odors that can make you feel more nauseated. When to seek emergency medical attention Look for emergency warning signs for COVID-19. If having any of these symptoms, seek emergency medical care immediately: Trouble breathing Persistent pain or pressure in the chest New confusion Inability to wake or stay awake Bluish lips or face *This list is not all possible symptoms. Please call your medical provider for any other symptoms that are severe or concerning to you. documented in this encounter [facility] 05-02-2024 Note HNO ID: [id number] Author: GUILLE GRIFFITH APRN.CNP Service: ? Author Type: Nurse Practitioner Type: Progress Notes Filed: 05/02/2024 19:04 Note Text: Subjective HPI Nontoxic-appearing female presents urgent care chief complaint nausea vomiting stomach cramping cough chest congestion runny nose headache fatigue. Duration of symptoms 2 days. Associated symptoms listed above. Most prominent symptom today is body aches chills vomiting. Vomited 3-4 times today. Vomited more yesterday. Was able to sleep today. Does work third shift. sick similar signs and symptoms. Denies any blood in vomit chest pain hemoptysis pleuritic pain. Is urinating. Able to tolerate oral fluids. Past medical history prescription medications allergies reviewed. BP 167/99 Pulse 90 Temp 36.2 ?C (97.2 ?F) Resp 18 Wt 95 kg (209 lb 7 oz) LMP 05/09/2020 SpO2 100% BMI 33.80 kg/m? .Patient presents with: Nausea AND Vomiting: Stomach cramping, some cough and congestion, runny nose, headache, body aching x 2 days PAST MEDICAL HISTORY Diagnosis Date Depression 07/03/2015 Diabetes mellitus type 2, uncomplicated (HCC) 07/03/2015 Encounter for insertion of Mirena IUD 10/22/14, 10/17/19 Generalized anxiety disorder 07/03/[address] [facility] Genital herpes Genital HSV 09/28/2014 PID (acute pelvic inflammatory disease) age 16 Psoriasis PAST SURGICAL HISTORY Procedure Laterality Date DANDC DIAG AND/OR THERAP, NOT OB PID- 16years old HEART CATHETERIZATION 2011 INCISE FINGER TENDON SHEATH Left 05/15/2020 Left 1-5 trigger finger releases INSERTION OF IUD 10/17/2019 Mirena LAPAROSCOPY DIAGNOSTIC 1991 NEUROPLASTY AND/TRANSPOS MEDIAN NRV CARPAL TUNNE Left 05/15/2020 Left carpal tunnel syndrome NEUROPLASTY AND/TRANSPOS MEDIAN NRV CARPAL TUNNE Right 05/31/2020 Right carpal tunnel release PAST SURGICAL HISTORY OF 2021 heart catherization ALLERGIES Metformin MEDICATIONS insulin degludec (TRESIBA FLEXTOUCH U-100) 100 unit/mL [...] Take 1 tablet by mouth once daily. spironolactone (ALDACTONE) 50 mg tablet Take 1 tablet by mouth once daily. atorvastatin (LIPITOR) 20 mg tablet Take 1 tablet by mouth daily at bedtime. For cholesterol. carvedilol (COREG) 6.25 mg tablet Take 1 tablet by mouth twice daily with meals. furosemide (LASIX) 40 mg tablet Take 40 mg by mouth twice daily. docusate sodium (COLACE) 100 mg capsule Take 1 capsule by mouth twice daily as needed for constipation. (Patient not taking: No sig reported) aspirin, enteric coated (ASPIRIN, ENTERIC COATED) 81 mg EC tablet Take by mouth once daily. ibuprofen (MOTRIN) 200 mg tablet Take 800 mg by mouth every 12 hours. (Patient not taking: No sig reported) Insulin Fishtail, Disposable, (BD ULTRA-FINE PAULA PEN NEEDLE) 32 gauge x 5/32 Use one needle for each dose. 4/day and as needed. fluticasone (FLONASE) 50 mcg/actuation nasal spray Use 2 Sprays in each nostril once daily. Rinse mouth after use. (Patient taking differently: Use 2 Sprays in each nostril as needed. Rinse mouth after use.) Blood Pressure Monitor 1 Each once daily. levonorgestrel (MIRENA) 20 mcg/24 hours (5 yrs) 52 mg IUD 1 Each by INTRAUTERINE route as directed. (Patient not taking: No sig reported) Insulin Syringe-Needle U-100 (INSULIN SYRINGE) 0.5 mL 30 gauge x 5/16 syrg Use 1 syringe for each dose 4/day and as needed (Patient not taking: No sig reported) Lancets lancets Test blood sugar(s) 3 daily. Dx: Uncontrolled type 2 diabetes . Insulin: yes blood sugar diagnostic (BLOOD GLUCOSE TEST) test strip Test blood sugar(s) 3 daily. Dx: Uncontrolled type 2 diabetes . Insulin: yes levonorgestrel (MIRENA) 20 mcg/24 hr (5 years) IUD Inserted in office FAMILY HISTORY Problem Relation Age of Onset Diabetes Mother Heart Mother Hypertension Mother Alzheimer's Disease Mother Cancer Maternal Grandfather Cervical Cancer Paternal Grandmother other (lung cancer) Father smoker Anesthesia Problems No Family History Early No Family History Social History Tobacco Use Smoking status: Every Day Current packs/day: 0.00 Average packs/day: 1 pack/day for 23.0 years (23.0 ttl pk-yrs) Types: Cigarettes Start date: 08/12/1996 Last attempt to quit: 08/12/2019 Years since quittin.7 Smokeless tobacco: Never Tobacco comments: 5 cigarettes daily Vaping Use Vaping status: Never Used Substance Use Topics Alcohol use: Not Currently Comment: last drink 09/02/2017 Drug use: Not Currently Types: Marijuana Comment: last marijuana 04/2019 Review of System (more content not included)... [facility] 05-02-2024 History of Presen t illness Narrative Subjective HPI Nontoxic-appearing female presents urgent care chief complaint nausea vomiting stomach cramping cough chest congestion runny nose headache fatigue. Duration of symptoms 2 days. Associated symptoms listed above. Most prominent symptom today is body aches chills vomiting. Vomited 3-4 times today. Vomited more yesterday. Was able to sleep today. Does work third shift. sick similar signs and symptoms. Denies any blood in vomit chest pain hemoptysis pleuritic pain. Is urinating. Able to tolerate oral fluids. Past medical history prescription medications allergies reviewed. BP 167/99 Pulse 90 Temp 36.2 C (97.2 F) Resp 18 Wt 95 kg (209 lb 7 oz) LMP 05/09/2020 SpO2 100% BMI 33.80 kg/m .Patient presents with: Nausea & Vomiting: Stomach cramping, some cough and congestion, runny nose, headache, body aching x 2 days PAST MEDICAL HISTORY Diagnosis Date Depression 07/03/2015 Diabetes mellitus type 2, uncomplicated (HCC) 07/03/2015 Encounter for insertion of Mirena IUD 10/22/14, 10/17/19 Generalized anxiety disorder 07/03/[address] [facility] Genital herpes Genital HSV 09/28/2014 PID (acute pelvic inflammatory disease) age 16 Psoriasis PAST SURGICAL HISTORY Procedure Laterality Date D&C DIAG &/OR THERAP, NOT OB PID- 16years old HEART CATHETERIZATION 2011 INCISE FINGER TENDON SHEATH Left 05/15/2020 Left 1-5 trigger finger releases INSERTION OF IUD 10/17/2019 Mirena LAPAROSCOPY DIAGNOSTIC 1991 NEUROPLASTY &/TRANSPOS MEDIAN NRV CARPAL TUNNE Left 05/15/2020 Left carpal tunnel syndrome NEUROPLASTY &/TRANSPOS MEDIAN NRV CARPAL TUNNE Right 05/31/2020 Right carpal tunnel release PAST SURGICAL HISTORY OF 2021 heart catherization ALLERGIES Metformin MEDICATIONS insulin degludec (TRESIBA FLEXTOUCH U-100) 100 unit/mL [...] Take 1 tablet by mouth once daily. spironolactone (ALDACTONE) 50 mg tablet Take 1 tablet by mouth once daily. atorvastatin (LIPITOR) 20 mg tablet Take 1 tablet by mouth daily at bedtime. For cholesterol. carvedilol (COREG) 6.25 mg tablet Take 1 tablet by mouth twice daily with meals. furosemide (LASIX) 40 mg tablet Take 40 mg by mouth twice daily. docusate sodium (COLACE) 100 mg capsule Take 1 capsule by mouth twice daily as needed for constipation. (Patient not taking: No sig reported) aspirin, enteric coated (ASPIRIN, ENTERIC COATED) 81 mg EC tablet Take by mouth once daily. ibuprofen (MOTRIN) 200 mg tablet Take 800 mg by mouth every 12 hours. (Patient not taking: No sig reported) Insulin Fishtail, Disposable, (BD ULTRA-FINE PAULA PEN NEEDLE) 32 gauge x 5/32 Use one needle for each dose. 4/day and as needed. fluticasone (FLONASE) 50 mcg/actuation nasal spray Use 2 Sprays in each nostril once daily. Rinse mouth after use. (Patient taking differently: Use 2 Sprays in each nostril as needed. Rinse mouth after use.) Blood Pressure Monitor 1 Each once daily. levonorgestrel (MIRENA) 20 mcg/24 hours (5 yrs) 52 mg IUD 1 Each by INTRAUTERINE route as directed. (Patient not taking: No sig reported) Insulin Syringe-Needle U-100 (INSULIN SYRINGE) 0.5 mL 30 gauge x 5/16 syrg Use 1 syringe for each dose 4/day and as needed (Patient not taking: No sig reported) Lancets lancets Test blood sugar(s) 3 daily. Dx: Uncontrolled type 2 diabetes . Insulin: yes blood sugar diagnostic (BLOOD GLUCOSE TEST) test strip Test blood sugar(s) 3 daily. Dx: Uncontrolled type 2 diabetes . Insulin: yes levonorgestrel (MIRENA) 20 mcg/24 hr (5 years) IUD Inserted in office FAMILY HISTORY Problem Relation Age of Onset Diabetes Mother Heart Mother Hypertension Mother Alzheimer's Disease Mother Cancer Maternal Grandfather Cervical Cancer Paternal Grandmother other (lung cancer) Father smoker Anesthesia Problems No Family History Early No Family History Social History Tobacco Use Smoking status: Every Day Current packs/day: 0.00 Average packs/day: 1 pack/day for 23.0 years (23.0 ttl pk-yrs) Types: Cigarettes Start date: 08/12/1996 Last attempt to quit: 08/12/2019 Years since quittin.7 Smokeless tobacco: Never Tobacco comments: 5 cigarettes daily Vaping Use Vaping status: Never Used Substance Use Topics Alcohol use: Not Currently Comment: last drink 09/02/2017 Drug use: Not Currently Types: Marijuana Comment: last marijuana 04/2019 Review of Systems Constitutional: Positive for chills and malaise/fatigue. Negative for fever. HENT: Positive for congestion and sore throat. Negative for ear discharge, ear pain and sinus pain. Eyes: Negative for blurred vision, pain, discharge and redness. Respiratory: Positive for cough. Negative for hemoptysis, sputum production, shortness of breath, wheezing and stridor. Cardiovascular: Negative for chest pain. Gastrointestinal: Positive for abdominal pain, nausea and vomiting. Negative for diarrhea. Musculoskeletal: Positive for myalgias. Skin: Negative for itching and rash. Neurological: Positive for headaches. Negative for dizziness. Objective Physical Exam Constitutional: General: She is not in acute distress. Appearance: She is not diaphoretic. HENT: Head: Normocephalic. Jaw: No trismus, tenderness, swelling or pain on movement. Nose: Congestion present. Mouth/Throat: Mouth: Mucous membranes are moist. Pharynx: Oropharynx is clear. Uvula midline. No pharyngeal swelling, oropharyngeal exudate, posterior oropharyngeal erythema or uvula swelling. Eyes: Conjunctiva/sclera: Conjunctivae normal. Pupils: Pupils are equal, round, and reactive to light. Cardiovascular: Rate and Rhythm: Normal rate and regular rhythm. Heart sounds: Normal heart sounds. Pulmonary: Effort: Pulmonary effort is normal. No tachypnea, accessory muscle usage or respiratory distress. Breath sounds: Normal breath sounds. No stridor. No wheezing, rhonchi or rales. Abdominal: General: There is no distension. Palpations: Abdomen is soft. Tenderness: There is no abdominal tenderness. There is no guarding or rebound. Musculoskeletal: Cervical back: Normal range of motion and neck supple. No edema, erythema, rigidity or tenderness. No pain with movement. Normal range of motion. Lymphadenopathy: Cervical: No cervical adenopathy. Skin: General: Skin is warm and dry. Neurological: Mental Status: She is alert and oriented to person, place, and time. ASSESSMENT/PLAN: 1. Viral illness - ICD9: 079.99, ICD10: B34.9 - ONDANSETRON 4 MG DISINTEGRATING TABLET - COVID & INFLUENZA A/B & RSV PCR, ROUTINE Patient nontoxic-appearing. Hemodynamically stable. No evidence of dehydration. Diagnosis viral illness. Generalized abdominal tenderness. No evidence of acute abdomen. Did vomit once during visit. Zofran was administered. Patient was able to tolerate p.o. fluids. Suspicious of viral illness with sick contact similar signs and symptoms. If patient is unable to tolerate p.o. fluids or if abdominal pain worsens will be seen ED for further evaluation care. Patient was educated on supportive therapies. Patient will follow up with primary care provider as needed. Patient was instructed to immediately proceed to emergency room for any new, worsening, or symptoms lasting longer than anticipated. The patient's clinical presentation is otherwise unremarkable at this time. Based on exam and clinical finding, the patient is stable for discharge. Plan of care was discussed with patient. Patient verbalizes understanding and agrees to plan of care. This note was generated using [employer] software. It may contain errors in wording, punctuation, or spelling. Guille Griffith APRN.NETTIE documented in this encounter [facility] 02-07-2024 Telephone encounter Note Attempted to contact patient for an appointment. Patient has not been seen in over a year for her diabetes. When scheduled please route back so provider can order lab work to be done prior to appointment. [facility] 02-07-2024 Miscellaneous Notes Attempted to contact patient for an appointment. Patient has not been seen in over a year for her diabetes. When scheduled please route back so provider can order lab work to be done prior to appointment. documented in this encounter [facility] 12-08-2023 Note Patient Outreach (IN [facility]) SLOANE SHELLEY ([id number]) 1975 F FNS Date Time Provider Department 12/08/23 ROSENDO HERNANDEZ During your visit today, we recorded the following information about you: Allergies As of Date: 12/08/2023 Noted Allergy Reaction METFORMIN 07/03/2015 6 - Diarrhea Comments: GI (severe) Date Reviewed: 08/14/2022 Reviewed by: Emily Charles LPN - Fully Assessed Visit Diagnosis:Encounter for screening mammogram for breast cancer [Z12.31] Order(s):[facility] SCREENING [[id number]] Order #: [id number] FUTURE Prescriptions as of 12/13/2023 - insulin degludec (TRESIBA FLEXTOUCH U-100) 100 [...] by mouth every 12 hours. - Insulin Fishtail, Disposable, (BD ULTRA-FINE PAULA PEN NEEDLE) 32 gauge x 5 Use one needle for each dose. 4/day [...] (INSULIN SYRINGE) 0.5 mL 30 gauge x 16 syrg Use 1 syringe for each dose [...] in office Problem List As Of Date 12/08/2023 Noted Resolved 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] 09/28/2014 Diabetes [...] pleural effusion [J90] 08/14/2022 Encounter Status:Closed by [employer], [employer] on 12/13/23 [facility] 08-14-2022 History of Presen t illness Narrative [...] She has been following with Dr. Mario, [facility]. On carvedilol. Presents for follow up of cellulitis and abscess of trunk, viral illness, suspected COVID-19. Seen in urgent care August 25, 2021. COVID-19 testing was negative. Doxycycline was provided to treat cellulitis x5 days. She presented [facility] on August 28, 2021 with cellulitis of [...] mouth daily at bedtime. For cholesterol. Insulin Fishtail, Disposable, (BD ULTRA-FINE PAULA PEN NEEDLE) 32 [...] Depression 07/03/2015 Diabetes mellitus type 2, uncomplicated ([facility]) 07/03/2015 Encounter for insertion of mirena IUD [...] complication, with long-term current use of insulin ([facility]) - ICD9: 250.00, V58.67, ICD10: [...] immunization - ICD9: V03.89, ICD10: Z23 - PFIZER-BIONTAzimuth COVID-19 BIVALENT BOOSTER VACCINE, AGE 12+ YR - INFLUENZA VACCINE QUADRIVALENT 6 MO - 64 YRS IM 3. Screening for colon cancer - ICD9: V76.51, ICD10: Z12.11 Declined 4. Screening for diabetic retinopathy - ICD9: V80.2, ICD10: Z13.5 Completes at [facility] 5. Mixed hyperlipidemia - ICD9: 272.2, ICD10: [...] 794.39, ICD10: R93.1 Has been following with [facility]. 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 Called patient, no answer. Left message for patient to call office and ask to speak to nurse/medical appointment scheduler to schedule an appointment. Patient phones for [...] Emily Charles LPN documented in this encounter [facility] 07-03-2015 History of Past i llness Narrative Problem Noted Date Resolved Date Well adult exam 07/03/2015 04/27/2016 Overview: Last done: 07/03/2015 documented as of this encounter (statuses as of 01/19/2022) [facility] History of Past illness Narrative* Problem Noted Date Resolved Date Well adult exam 07/03/2015 04/27/2016 Overview: Last done: 07/03/2015 documented as of this encounter (statuses as of 07/24/2022) [facility] History of Past illness Narrative* Problem Noted Date Resolved Date Well adult exam 07/03/2015 04/27/2016 Overview: Last done: 07/03/2015 documented as of this encounter (statuses as of 07/24/2022) [facility] History of Past illness Narrative* Problem Noted Date Resolved Date Well adult exam 07/03/2015 04/27/2016 Overview: Last done: 07/03/2015 documented as of this encounter (statuses as of 08/14/2022) [facility] Diagnosis Encounter for screening mammogram for breast cancer [facility] Diagnosis Type 2 diabetes mellitus without complication, with long-term current use of insulin (HCC) Uncontrolled type 2 diabetes mellitus with hyperglycemia (HCC) [facility] Diagnosis Type 2 diabetes mellitus without [...] system function study [facility] Diagnosis Onset Date Resolution Status Essential hypertension acute Hyperlipidemia acute Nonrheumatic mitral (valve) insufficiency acute Secondary pulmonary arterial hypertension acute Tachycardia acute Non-ischemic cardiomyopathy [facility] Work Phone: Evaluation note* Diagnosis Onset Date Resolution Status Diabetes mellitus, type II a cute Encounter to establish care acute Essential hypertension acute Hyperlipidemia acute CKD (chronic kidney disease) chronic Non-ischemic cardiomyopathy chronic Acute HFrEF (heart failure w ith reduced ejection fraction) July 02, 2021 acute Diabetes mellitus, type II a cute Essential hypertension acute Hyperlipidemia acute Screening for breast cancer acute CKD (chronic kidney disease) [facility] Work Phone: Evaluation note* Diagnosis Onset Date Resolution Status Diabetes mellitus, type II a cute Encounter to establish care acute Essential hypertension acute Hyperlipidemia acute CKD (chronic kidney disease) chronic Non-ischemic cardiomyopathy chronic Acute HFrEF (heart failure w ith reduced ejection fraction) July 02, 2021 acute Diabetes mellitus, type II a cute Essential hypertension acute Hyperlipidemia acute Screening for breast cancer acute CKD (chronic kidney disease) chronic Essential hypertension acute [facility] Work Phone: Evaluation note* Diagnosis Encounter for screening mammogram for breast cancer documented in this encounter [facility] note* Diagnosis Pre-op exam- Primary Preoperative examination, unspecified Type 2 diabetes mellitus without complication, with long-term current use of insulin (HCC) Marijuana use Cannabis abuse, unspecified Morbid obesity (HCC) Morbid obesity Essential hypertension Unspecified essential hypertension Mitral valve insufficiency, unspecified etiology Decreased cardiac ejection fraction Other nonspecific abnormal cardiovascular system function study Pulmonary HTN (HCC) Other chronic pulmonary heart diseases Viral illness- Primary Unspecified viral infection, in conditions classified elsewhere and of unspecified site documented in this encounter [facility] noteNo assessment information availableMendoc[facility] Work Phone: Reason for referral (narrative)* Diagnostic Procedure Only (Routine) - Pending Review Specialty Diagnoses / Procedures Referred By Jamel cole Referred To Contact [facility] Diagnoses Encounter for screening mammogram for breast cancer Procedures CHICO SCREENING SCREENING MAMMOGRAPHY [place] 2-[place] [address] [place] [id number] [facility] [address], [place] [address] Referral ID Status Reason Start Date Expiration Date Visits Requested Visits Authorized [id number] Pending Review Auto-Generat ed Referral 01/14/2022 02/13/2023 1 1 [facility] for referral (narrative)* Diagnostic Procedure Only (Routine) - Pending Review Specialty Diagnoses / Procedures Referred By Jamel cole Referred To Contact [facility] Diagnoses Encounter for screening mammogram for breast cancer Procedures CHICO SCREENING SCREENING MAMMOGRAPHY BI 2-VIEW BREAST INC Rosendo Underwood MD [address] [place] [address] [facility] [address] [place] [address] Referral ID Status Reason Start Date Expiration Date Visits Requested Visits Authorized [id number] Pending Review Auto-Generat ed Referral 12/08/2023 01/06/2025 1 1 [facility] for referral (narrative)No reason for referral information [facility]Bloom[facility] Work Phone: Summary Purpose Family History No Family History Records Found Relationship Condition Age at Onset Recorded Date/T jeison Unknown Family History?No pe rtinent history Unknown August 27, 2016 3:37pm Family History?No pe rtinent history Unknown May 02, 2018 1:57am Relationship Condition Age at Onset Recorded Date/T jeison father Alcoholism Unknown Impaired respiratory function Unknown Malignant neoplasm Unknown brother Alcoholism Unknown Myocardial infarction Unknown sister Alcoholism Unknown Anxiety Unknown Depression Unknown Diabetes mellitus Unknown Mental disorder Unknown Psychiatric care Unknown mother History of blood transfusion Unknown Cardiac disease Unknown Hypertension Unknown Age related osteoporosis Unknown grandfather Malignant neoplasm Unknown grandmother Malignant neoplasm Unknown aunt Asthma Unknown Advance Directives No Advanced Directives Records FoundDocuments on File Type Date Recorded 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 Advance Directive(s) 05/28/2020 8:38 AM Advance Directive(s) 05/15/2020 1:09 PM Advance Directive(s) 05/13/2020 8:23 AM Advance Directive Response Recorded Date/ Time Living Will No August 28 022 11:01pm Power of Flight [employer] Operator No August 28, 2021 11:01pm Advance Directive Response Recorded Date/ Time Living Will No September 14 024 1:05am Power of Flight [employer] Operator No September 14, 2023 1:05am Advance Directive Response Recorded Date/ Time Living Will No September 14 024 2:05am Power of Flight [employer] Operator No September 14, 2023 2:05am Chief Complaint and Reason for Visit Chief Complaint OVERDUE FOR OV (2020 ) E ORDERS Reason for Visit Essential hypertensi on Hyperlipidemia Nonrheumatic mitral (valve) insufficiency Secondary pulmonary arterial hypertension Tachycardia Non-ischemic cardiomyopathy Chief Complaint ENVIRONMENTAL ADVISER EST CARE - PPW SE NT palpitation 5 WEEK FOLLOW UP Reason for Visit Diabetes mellitus, t ype II Encounter to establish care Essential hypertension Hyperlipidemia CKD (chronic kidney disease) Non-ischemic cardiomyopathy Acute HFrEF (heart failure with reduced ejection fraction) Diabetes mellitus, type II Essential hypertension Hyperlipidemia Screening for breast cancer CKD (chronic kidney disease) Chief Complaint ENVIRONMENTAL ADVISER EST CARE - PPW SE NT palpitation 5 WEEK FOLLOW UP bp check Reason for Visit Diabetes mellitus, t ype II Encounter to establish care Essential hypertension Hyperlipidemia CKD (chronic kidney disease) Non-ischemic cardiomyopathy Acute HFrEF (heart failure with reduced ejection fraction) Diabetes mellitus, type II Essential hypertension Hyperlipidemia Screening for breast cancer CKD (chronic kidney disease) Essential hypertension Chief Complaint Admit Date MED REFILL-ESTABLISHING WITH DR. BRAUN March 08, 2025 8:56am Additional Source Comments INFORMATION SOURCE (unrecogn ized section and content) DATE CREATED AUTHOR 01/06/2018 [facility] DATE CREATED AUTHOR AUTHOR'S ORGANIZ ATION 05/31/[address] [facility] DATE CREATED AUTHOR AUTHOR'S ORGANIZ ATION 08/17/2024 [facility] DATE CREATED AUTHOR AUTHOR'S ORGANIZ ATION 03/24/2025 [facility] Source Comments (unrecognize d section and content) In the event this informatio n is protected by the Federal Confidentiality of Alcohol and Drug Abuse Patient Records regulations: The Federal rules restrict any use of the information to criminally investigate or prosecute any alcohol or drug abuse patient.[facility] the event this information is protected by the Federal Confidentiality of Alcohol and Drug Abuse Patient Records regulations: The Federal rules restrict any use of the information to criminally investigate or prosecute any alcohol or drug abuse patient.[facility] Center[facility] the event this information is protected by the Federal Confidentiality of Alcohol and Drug Abuse Patient Records regulations: The Federal rules restrict any use of the information to criminally investigate or prosecute any alcohol or drug abuse patient.[facility] Center[facility] the event this information is protected by the Federal Confidentiality of Alcohol and Drug Abuse Patient Records regulations: The Federal rules restrict any use of the information to criminally investigate or prosecute any alcohol or drug abuse patient.[facility] Center[facility] the event this information is protected by the Federal Confidentiality of Alcohol and Drug Abuse Patient Records regulations: The Federal rules restrict any use of the information to criminally investigate or prosecute any alcohol or drug abuse patient.[facility] CenterIn the event this information is protected by the Federal Confidentiality of Alcohol and Drug Abuse Patient Records regulations: The Federal rules restrict any use of the information to criminally investigate or prosecute any alcohol or drug abuse patient.[facility] CenterIn the event this information is protected by the Federal Confidentiality of Alcohol and Drug Abuse Patient Records regulations: The Federal rules restrict any use of the information to criminally investigate or prosecute any alcohol or drug abuse patient.[facility] Care Teams (unrecognized sec tion and content) Trade Specialist Relationship Specialty Start Date End Date Rosendo Hernandez MD [address] [place] [address] PCP - General Internal Medicine 07/27/18 [facility] [address] [place] [address] Pharmacist Pharmacy 06/26/21 Trade Specialist Relationship Specialty Start Date End Date Rosendo Hernandez MD [address] [place] [address] PCP - General Internal Medicine 07/27/18 [facility] [address] [facility] [address] Pharmacist Pharmacy 06/26/21 Trade Specialist Relationship Specialty Start Date End Date Rosendo Hernandez MD [address] [facility] [place] [address] PCP - General Internal Medicine 07/27/18 [facility] [address] [facility] [place] [address] Pharmacist Pharmacy 06/26/21 Trade Specialist Relationship Specialty Start Date End Date Rosendo Hernandez MD [address] [place] [address] PCP - General Internal Medicine 07/27/18 Jarrett Nguyen, [facility] [address] [place], [place] [address] Pharmacist Pharmacy 06/26/21 Team Status: Active Member Role Status Dates Dr. Rosendo Hernandez MD Family Provider Active Dr. Rosendo Hernandez MD Primary Care Provider Active Team Status: Inactive Member Role Status Dates Dr. Rosendo Hernandez MD Primary Care Provider, Referr ing Provider Active Janet BANDA, PA Attending Provider Active Team Status: Inactive Member Role Status Dates Dr. Rosendo Hernandez MD Primary Care Provider Active Janet Urbina PA, PA Attending Provider, Referr ing Provider Active Team Status: Active Member Role Status Dates Dr. Rosendo Hernandez MD Family Provider Active Team Status: Inactive Member Role Status Dates Dr. Rosendo Hernandez MD Primary Care Provider, Referr ing Provider Active Irene Park NP-Jose Martin Attending Provider Active Team Status: Inactive Member Role Status Dates Dr. Rosendo Hernandez MD Referring Provider Active Irene Park NP-Jose Martin Attending Provider Active Team Status: Inactive Member Role Status Dates Dr. Gale Hull DO Attending Provider, Emergency P kelsi Active Team Status: Inactive Member Role Status JUDE Andre Attending Provider, Referring Pro vider Active Team Status: Active Member Role Status Dates Dr. Rosendo Hernandez MD Family Provider Active Irene Park NP-Jose Martin Primary Care Provider Active Team Status: Inactive Member Role Status Dates BIM NURSE Attending Provider Active Team Status: Inactive Member Role Status Dates Irene Park NP-Jose Martin Attending Provider Active Team Status: Active Member Role Status Dates JUDE Andre Primary Care Provid er, Attending Provider, Referring Provider Active Team Status: Inactive Member Role Status Dates JUDE Andre Primary Care Provid er, Attending Provider, Referring Provider Active Trade Specialist Relationship Specialty Start Date End Date Rosendo Hernandez MD [address] [place] [address] PCP - General Internal Medicine 07/27/18 Trade Specialist Relationship Specialty Start Date End Date Rosendo Hernandez MD [address] [place] [address] PCP - General Internal Medicine 07/27/18 Trade Specialist Relationship Specialty Start Date End Date Rosendo Hernandez MD [address] [place] [address] PCP - General Internal Medicine 07/27/18 Rebecca Steinberg APRN.CLOTHING AND TEXTILES TEACHER [address] [place] [address] [facility] 06/26/24 Michaela Lawson PLOW AND BORING MACHINE TENDER.PERFECT BINDER SETTER [address] [place] [address] [facility] 06/26/24 Team Status: Active Member Role/Relationship Status Dates Dr. Rosendo Hernandez MD Family Provider Active Team Status: Inactive Member Role/Relationship Status Dates Bridgett Patel NP-C Attending Provider Active Start: March 08, 2025 End: March 08, 2025 Reason for Visit (unrecogniz ed section and content) Reason Onset Date Comments Refill Request 07/23/2022 Reason Comments Follow Up Reason Comments Nausea & Vomiting Stomach cramping, so me cough and congestion, runny nose, headache, body aching x 2 days Reason Comments Appointment Goals (unrecognized section and content) Goals may be documented in a n alternate sectionGoals may be documented in an alternate sectionGoals may be documented in an alternate sectionGoals may be documented in an alternate sectionGoals may be documented in an alternate sectionGoals may be documented in an alternate section FOR RECORDS PERTAINING TO PATIENTS WHO ARE [...] THE PRIMARY CLINICAL RECORDS. [facility] [facility]. provides no warranty or guarantee of the accuracy or completeness of information in this document.
[2025-07-10] VITALS (8 sets, daily range): BP systolic 118–174; BP diastolic 85–111; PULSE 61–89; RESP 14–20; TEMP 36.2–36.8; O2SAT 95–98; BMI 34.2
[2025-07-10] LABS: Troponin T High Sens 4 HR 48 ng/L (<=14)
--- NOTE | 2025-07-10 01:39 | ECHOCS_ITS ---
Reason For Study Reason For Study: CHF Procedure This was a 2D Doppler, Color Flow transthoracic echocardiogram. Myocardial strain analysis was performed in this exam to aid in the assessment of cardiac function. Exam performed portable in ICU/CCU. Left Ventricle Mild concentric left ventricular hypertrophy. Mildly dilated left ventricle. Definity contrast utilized to visualize the endocardial border and no thrombus appreciated. The estimated ejection fraction is 10???15 %. Stage 2 diastolic dysfunction. Right Ventricle Mildly dilated right ventricle. Mild global right ventricular systolic dysfunction. Atria The left and right atria are normal. Mitral Valve Mild diffuse mitral valve thickening. There is no mitral valve stenosis. Moderate (2+) mitral valve insufficiency. Tricuspid Valve Normal tricuspid valve. There is no tricuspid stenosis. Moderate (2+) tricuspid valve insufficiency. Right ventricular systolic pressure estimated to be 55-60 mmHg. Severe pulmonary hypertension. Aortic Valve Trisinus/trileaflet aortic valve. Mild diffuse aortic valve thickening. There is no aortic valve stenosis. Trivial aortic valve insufficiency. Pulmonic Valve Normal pulmonic valve. There is no pulmonic valvular stenosis. Mild (1+) pulmonic valve insufficiency identified. Great Vessels Borderline dilated ascending aorta measured at 3.4 cm. IVC dilated with poor respiratory collapse. Righter pressure estimated at 15 mmHg. Pericardium/Pleural No pericardial effusion. Medication Diluted definity 1.5ml given slow IV push to enhance endocardial definition. MMode/2D Measurements & Calculations LVIDd: 6.1 cm IVSd: 0.98 cm LVOT diam: 1.9 cm LVIDs: 5.7 cm LVPWd: 1.5 cm RVDd: 4.6 cm FS: 6.8 % LVOT area: 2.8 cm2 Ao root diam: 3.6 cm LAV(MOD-bp): 42.1 ml LVAd ap4: 39.3 cm2 LAV(MOD-bp) Indexed: 20.9 ml/m2 LVLd ap4: 8.2 cm LAV(MOD-sp2): 54.5 ml EDV(MOD-sp4): 155.4 ml LAV(MOD-sp4): 33.3 ml EDV(sp4-el): 159.4 ml LVAs ap4: 34.9 cm2 LVLs ap4: 7.5 cm ESV(MOD-sp4): 132.2 ml ESV(sp4-el): 137.3 ml EF(MOD-sp4): 14.9 % EF(sp4-el): 13.9 % SV(MOD-sp4): 23.2 ml SV(sp4-el): 22.1 ml LA A4 area: 13.9 cm2 SI(MOD-sp4): 11.5 ml/m2 LA dimension(2D): 4.6 cm RA A4 area: 15.5 cm2 TAPSE: 1.3 cm Time Measurements MV dec time: 0.19 sec Doppler Measurements & Calculations MV E max patrick: 94.5 cm/sec Lat Peak E' Patrick: 5.4 cm/sec Med Peak E' Patrick: 3.6 cm/sec MV A max patrick: 55.8 cm/sec E/E' lat: 17.5 E/E' med: 26.4 MV E/A: 1.7 MV dec slope: 499.6 cm/sec2 Ao V2 max: 136.9 cm/sec LV V1 max: 99.7 cm/sec Ao max P.5 mmHg LV V1 max P.0 mmHg Ao V2 mean: 98.3 cm/sec LV V1 mean P.9 mmHg Ao mean P.4 mmHg LV V1 mean: 62.4 cm/sec Ao V2 VTI: 25.4 cm LV V1 VTI: 16.5 cm AV (velocity ratio): 0.65 RAUL(I,D): 1.8 cm2 RAUL(V,D): 2.1 cm2 SV(LVOT): 46.6 ml PA V2 max: 85.4 cm/sec PI end-d patrick: 141.5 cm/sec TR max patrick: 403.4 cm/sec TR max P.1 mmHg ECHO/Echo Complete W/ Contrast Interpretation Summary The estimated ejection fraction is 10???15 %. Mild concentric left ventricular hypertrophy. Mildly dilated left ventricle. Stage 2 diastolic dysfunction. Definity contrast utilized to visualize the endocardial border and no thrombus appreciated. Mildly dilated right ventricle. Mild global right ventricular systolic dysfunction. Moderate (2+) mitral valve insufficiency. Moderate (2+) tricuspid valve insufficiency. Right ventricular systolic pressure estimated to be 55-60 mmHg. Severe pulmonary hypertension. Mild (1+) pulmonic valve insufficiency identified. IVC dilated with poor respiratory collapse. Righter pressure estimated at 15 mm Hg. Compared to previous echocardiogram from 2020 no significant changes appreciate d. Stable severe dilated cardiomyopathy with ejection fraction of 10-15% with grade 2 diastolic dysfunction. Moderate v alvular heart disease with moderate to severe pulmonary hypertension. Ordering Physician: Malena Paz Performed By: Mena Wise, JAI, RVT
--- NOTE | 2025-07-10 01:51 | HP.PCM.HOS_ITS ---
[facility] - General General Date of Admission: 07/09/25 Date of Service: 07/09/25 Chief Complaint: Shortness of breath and leg swelling HPI Narrative NEWTON THORNE, is a 50 F with medical history of nonischemic cardiomyopathy, CKD, hypertension and diabetes who is noncompliant with cardiology presents with worsening dyspnea on exertion, orthopnea requiring 3 pillows from 1 at baseline, PND and leg swelling over the past week. She has class II NYHA symptoms when she walks but what was significant was her leg edema and orthopnea/PND. She uses Lasix as needed and she has been taking 40 mg twice daily over the past week with no response. She is hypertensive in the ED, she took herself off Coreg years ago and she has not seen a lozenge dough mixer as she thought she was feeling better and improving. She does not know the cause of her cardiomyopathy, I asked if it was viral or vaccine related she does not know. She never had childbirth so not peripartum. Her cath in 2020 showed normal coronaries but EF of 10% In the ED she received a dose of IV Lasix 60 mg and she felt better. She did not require oxygen No recent echo in the system and she does not have an ICD [facility] Medical History (Updated 07/10/25 @ 02:[address] Malena Paz MD) Abscess of right breast MRSA cellulitis Depression Anxiety Diabetes Kidney stones Smoker Hypertension Migraines RSV (acute bronchiolitis due to respiratory syncytial virus) (04/2021) Hyperlipidemia Non-ischemic cardiomyopathy Genital herpes Bilateral pleural effusion (12/2019) Nonrheumatic mitral (valve) insufficiency Secondary pulmonary arterial hypertension Acute HFrEF (heart failure with reduced ejection fraction) (07/02/21) Essential hypertension Diabetes mellitus, type II Home Medications ?Medication ?Instructions ?Recorded ?Last Taken ?Type aspirin 81 mg tablet,delayed 81 mg PO DAILY #30 tabs 0 09/24/23 Unknown Rx release (Adult Aspirin Regimen) carvedilol 3.125 mg tablet 3.125 mg PO BID 30 days #60 tabs 03/31/24 Unknown Rx lisinopril 10 mg tablet 10 mg PO DAILY 30 days #30 t abs 03/31/24 Unknown Rx atorvastatin 20 mg tablet 20 mg PO DAILY #90 tabs 02/17 12/10 Unknown Rx blood-glucose sensor (FreeStyle #1 ea 03/12/25 Unknown Rx Janna 3 Sensor device) blood-glucose,head of ethics and compliance,cont #1 ea 03/12/25 Unknown Rx (FreeStyle Janna 3 [place]) furosemide 40 mg tablet (Lasix) 40 mg PO DAILY PRN zenaida ma #30 tabs 03/12/25 Unknown Rx insulin degludec 100 unit/mL (3 30 unit (0.3 mL) subcu t QHS #15 mL 03/12/25 Unknown Rx mL) subcutaneous pen (Tresiba FlexTouch U-100 insulin) insulin lispro 100 unit/mL See Protocol subcut .COMPLE X DM2 07/10/25 Unknown History subcutaneous pen (Humalog KwikPen (U-100) Insulin) Allergy/AdvReac Type Severity Reaction Status Date / Time metformin AdvReac Severe Abd Verified 07/09/25 17:00 cramps/diarrhea Family History Father Alcoholism Abnormal respiratory function Cancer Brother Alcoholism Myocardial infarction Sister Alcoholism Anxiety Depression Diabetes Mental disorder Psychiatric care Mother History of blood transfusion Depression Diabetes Heart disease Hypertension Age related osteoporosis Grandfather Cancer Grandmother Cancer cervical cancer Aunt Asthma Diabetes Surgical History H/O dilation and curettage History of right and left heart catheterization (07/16/21) History of incision and drainage (06/2021) History of carpal tunnel release History of left heart catheterization (2006) Social History household members: spouse current occupational status: employed Smoking Status: Current every day smoker tobacco type: cigarettes alcohol intake: never substance use type: does not use what type of physical activity do you participate in: walking do you feel safe at home: Yes ROS Constitutional Constitutional: Denies fever(s) or poor appetite ENT HEENT: Reports none Cardiovascular Cardiovascular: Reports dyspnea; Denies chest pain Respiratory/Chest Respiratory/Chest: Denies cough or wheezing Gastrointestinal Gastrointestinal: Denies abdominal pain or change in bowel habits Genitourinary Genitourinary: Denies change in urinary stream or dysuria Musculoskeletal Musculoskeletal: Denies arthralgias or myalgias Integumentary Integumentary: Reports none Neurologic Neurologic: Denies abnormal speech, dizziness, focal weakness, loss of vision or numbness Hematologic/Lymphatic Hematologic/Lymphatic: Reports none Patient's Goals Of Care . What would you like to achieve or improve as a result of your hospital stay?: C HF improvement Vital Signs Vital Signs Vital Signs: 07/09/25 16:58 07/09/25 19:06 07/09/25 19:11 Temperature 97.5 F L Temperature Source Temporal Pulse Rate 96 100 Respiratory Rate 18 19 H Respiratory Effort Normal Respiratory Depth Respiratory Pattern Blood Pressure 187/110 H 161/106 H Blood Pressure Mean 135 124 Blood Pressure Source Blood Pressure Position Blood Pressure Location Pulse Ox 99 98 Oxygen Delivery Method Room Air Room Air 07/09/25 20:00 07/09/25 21:00 07/09/25 22:00 Temperature Temperature Source Pulse Rate 102 H 99 93 Respiratory Rate 18 18 18 Respiratory Effort Respiratory Depth Respiratory Pattern Blood Pressure 162/103 H 174/112 H 166/108 H Blood Pressure Mean 122 132 127 Blood Pressure Source Blood Pressure Position Blood Pressure Location Pulse Ox 92 96 97 Oxygen Delivery Method Room Air Room Air Room Air 07/09/25 22:02 07/09/25 23:00 07/09/25 23:50 Temperature 97.5 F L 97.8 F Temperature Source Temporal Pulse Rate 93 87 88 Respiratory Rate 18 18 12 Respiratory Effort Respiratory Depth Respiratory Pattern Blood Pressure 166/108 H 150/95 H 148/110 H Blood Pressure Mean 127 113 122 Blood Pressure Source Monitor Blood Pressure Position Semi-Fowlers Blood Pressure Location Right Arm Pulse Ox 97 99 100 Oxygen Delivery Method Room Air Room Air 07/09/25 23:55 07/10/25 00:00 07/10/25 00:15 Temperature Temperature Source Pulse Rate 87 87 Respiratory Rate 20 H 15 Respiratory Effort Normal Non-Labored Respiratory Depth Normal Respiratory Pattern Normal Blood Pressure 140/101 H 148/101 H Blood Pressure Mean 114 116 Blood Pressure Source Monitor Monitor Blood Pressure Position Semi-Fowlers Semi-Fowlers Blood Pressure Location Right Arm Right Arm Pulse Ox Oxygen Delivery Method Room Air 07/10/25 00:30 Temperature Temperature Source Pulse Rate 89 Respiratory Rate 19 H Respiratory Effort Respiratory Depth Respiratory Pattern Blood Pressure 118/85 H Blood Pressure Mean 96 Blood Pressure Source Monitor Blood Pressure Position Semi-Fowlers Blood Pressure Location Right Arm Pulse Ox Oxygen Delivery Method Weight Weight: 94.6 kg Body Mass Index (BMI) 34.7 Physical Exam Const alert and oriented x3 HEENT normocephalic and head/scalp atraumatic Eyes EOMs intact bilaterally; Negative for no scleral icterus Neck supple Resp normal respiratory effort and clear to auscultation bilaterally Cardio regular rate and regular rhythm; Negative for no murmurs GI normal to inspection, nondistended, normoactive bowel sounds; Negative for non- tender no CVA tenderness Extremity no joint enlargement Extremity Narrative: Bilateral edema Skin no rashes or lesions noted Neuro oriented x3 and moves all extremities Results Lab / Micro Data 07/09/25 19:04 07/09/25 19:04 Labs: Laboratory Results - last 24 hr 07/09/25 19:04: WBC 8.8, RBC 5.11, Hgb 14.7, Hct 45.4, MCV 88.8, MCH 28.8, MCHC 32.4, RDW Std Deviation 47.2 H, RDW Coeff of Silvia 14.6, Plt Count 198, MPV 12.3 H , Immature Gran % (Auto) 0.600, Neut % (Auto) 77.9 H, Lymph % (Auto) 15.5 L, [place] % (Auto) 4.3, Eos % (Auto) 1.1, Baso % (Auto) 0.6, Absolute Neuts (auto) 6.8, Absolute Lymphs (auto) 1.36, Nucleated RBC % 0, Sodium 137, Potassium 4.1, Chloride 98, Carbon Dioxide 24.9, Anion Gap 14, BUN 28 H, Creatinine 1.76 H, E stim Creat Clear Calc 43.91 L, Est GFR (MDRD) Non-Af 35 L, BUN/Creatinine Ratio 15.7, Glucose 365 H, Calcium 9.0, Troponin T High Sens 48 H, [place] [id number] H 07/09/25 20:55: Troponin T Hi Sens 2 Hr 45 H 07/09/25 23:20: Troponin T Hi Sens 4Hr 48 H 07/10/25 00:20: POC Glucose 298 H Imaging Radiology Impression Chest X-Ray 07/09/25 19:28 IMPRESSION: Mild cardiomegaly and central vascular congestion. No airspace consolidation or sizable pleural effusion. Reading Location: [id number] Assessment & Plan Assessment/Plan (1) Acute decompensated heart failure: (2) Non-ischemic cardiomyopathy: (3) Essential hypertension: (4) Diabetes mellitus, type II: QUALIFIERS: Diabetes mellitus usp insulin use: with long distance operator use Diabetes mellitus complication status: without complication Qualified Code(s): E11.9 - Type 2 diabetes mellitus without complications; Z79.4 - retirement (current) use of insulin (5) CKD (chronic kidney disease): QUALIFIERS: Chronic kidney disease stage: stage 3 (moderate) C hronic kidney disease stage 3 subtype: stage 3b (GFR 30-44) Qualified Code(s): N18.32 - Chronic kidney disease, stage 3b PLAN: Plan Admission to PCU Decompensated CHF: IV Lasix 40 twice daily. Monitor urine output and electrolytes as well as kidney function. Continue lisinopril, currently on 10 mg. Once stable then need to be titrated up to maximum effective dose if tolerated. She states she was tried on SGL 2 inhibitor, Ozempic and Mounjaro at different times but kidney function worsened and she was taken off Check 2D echo and cardiology consultation EKG unchanged from before, left axis deviation with no signs of ischemia Hypertension: Was very elevated systolic in the 190 but is responding to diuresis. Does not seem like having hypertensive emergency, she is not requiring oxygen not in flash edema and no acute coronary ischemia CKD: Creatinine 1.7 which is her baseline. May improve or go up with diuresis which she needs, all expected. Diabetes: Uncontrolled, continue Lantus and ACHS insulin Charges/Coding Visit Charges Inpatient E&M: 70205 Init Hosp L3
--- NOTE | 2025-07-10 07:03 | PCM.PN.HOSP ---
Reason for Visit Chief Complaint: Shortness of breath and leg swelling Subjective Subjective Patient is a 50-year-old lady with multiple comorbidities including chronic congestive heart failure with reduced ejection fraction, chronic kidney disease stage III diabetes mellitus type 2 dyslipidemia presented to the emergency department with palpitations and markedly elevated blood. Checks x-ray did reveal mild cardiomegaly with central vascular congestion. Admitted to a monitored bed as a case of acute hypertensive emergency and CHF exacerbation Objective Data Objective Data Vital Signs: Vital Signs Temp Pulse Resp BP Pulse Ox O2 Del Method 97.8 F 89 19 H 153/89 H 100 Room Air 07/09/25 23:50 07/10/25 00:30 07/10/25 00:30 07/10/25 05:01 07/09/25 23:50 07/09/25 23:55 Oxygen Delivery Method Room Air Weight: 93.349 kg Body Mass Index (BMI) 34.2 Intake & Output: Intake and Output for Last 24 Hours 07/08/25 07/09/25 07/10/25 23:59 23:59 23:59 Intake Total 180 / 180 Balance 180 / 180 Lab / Micro Data 07/09/25 19:04 07/09/25 19:04 Labs: Laboratory Results - last 24 hr 07/09/25 19:04: WBC 8.8, RBC 5.11, Hgb 14.7, Hct 45.4, MCV 88.8, MCH 28.8, MCHC 32.4, RDW Std Deviation 47.2 H, RDW Coeff of Silvia 14.6, Plt Count 198, MPV 12.3 H, Immature Gran % (Auto) 0.600, Neut % (Auto) 77.9 H, Lymph % (Auto) 15.5 L, [place] % (Auto) 4.3, Eos % (Auto) 1.1, Baso % (Auto) 0.6, Absolute Neuts (auto) 6.8, Absolute Lymphs (auto) 1.36, Nucleated RBC % 0, Sodium 137, Potassium 4.1, Chloride 98, Carbon Dioxide 24.9, Anion Gap 14, BUN 28 H, Creatinine 1.76 H, Estim Creat Clear Calc 43.91 L, Est GFR (MDRD) Non-Af 35 L, BUN/Creatinine Ratio 15.7, Glucose 365 H, Calcium 9.0, Troponin T High Sens 48 H, [place] [id number] H 07/09/25 20:55: Troponin T Hi Sens 2 Hr 45 H 07/09/25 23:20: Troponin T Hi Sens 4Hr 48 H 07/10/25 00:20: POC Glucose 298 H Radiography Diagnostic Testing: Radiology Impression Chest X-Ray 07/09/25 19:28 IMPRESSION: Mild cardiomegaly and central vascular congestion. No airspace consolidation or sizable pleural effusion. Reading Location: [facility] Physical Exam Narrative GENERAL: cooperative HEENT: Atraumatic; normocephalic EYES; Anicteric, Normal Conjunctiva NECK; supple, normal thyroid, RESPIRATORY: Diminished to auscultation CARDIOVASCULAR: Regular S1 S2, GI: soft, normoactive bowel sounds, : No Renal angle tenderness; EXTREMITIES: Bipedal edema, no clubbing, MUSCULOSKELETAL: no muscle wasting NEURO: Awake; no lateralizing signs. SKIN: No Rash PSYCH; Flat affect Assessment & Plan Assessment/Plan (1) Acute decompensated heart failure: (2) Non-ischemic cardiomyopathy: (3) Essential hypertension: (4) Diabetes mellitus, type II: QUALIFIERS: Diabetes mellitus complication status: without complication Diabetes mellitus fdc insulin use: with salvage determiner use Qualified Code(s): E11.9 - Type 2 diabetes mellitus without complications; Z79.4 - salvage determiner (current) use of insulin (5) CKD (chronic kidney disease): QUALIFIERS: Chronic kidney disease stage: stage 3 (moderate) Chronic kidney disease stage 3 subtype: stage 3b (GFR 30-44) Qualified Code(s): N18.32 - Chronic kidney disease, stage 3b PLAN: Plan Patient is a 50-year-old lady with multiple comorbidities including chronic congestive heart failure with reduced ejection fraction, chronic kidney disease stage III diabetes mellitus type 2 dyslipidemia presented to the emergency department with palpitations and markedly elevated blood. Chest x-ray did reveal mild cardiomegaly with central vascular congestion. Admitted to a monitored bed as a case of acute hypertensive emergency and CHF exacerbation 1. Acute hypertensive urgency ? Patient presented with markedly elevated blood pressure with evidence of endorgan damage?CHF. Admitted to monitored bed for subsequent management of the blood pressure as well as congestive heart failure 2. Acute on chronic congestive heart failure with systolic dysfunction ? Patient previous 2D echo from 2020 demonstrated EF of 15%. Admitted to monitored bed manage with strict input and output, low-sodium diet, daily weight, fluid restriction low-sodium diet as well as diuretic therapy. Repeat echo ordered 3. Diabetes mellitus type II -patient's oral hypoglycemics held. Placed on long acting insulin, Accu-Cheks a.c. and at bedtime and covered with sliding scale insulin 4. Dyslipidemia ?Patient is on statin therapy, continued at home dose 5. Class I obesity with BMI of 34.2 -complicating care 6. Chronic kidney disease stage III ? Patient kidney function at baseline. Plan is to continue with monitoring with daily BMPs 7. Elevated troponin ? Secondary to demand ischemia from patient markedly elevated blood pressure and congestive heart failure patient presentation not consistent with ACS 8. DVT prophylaxis ? Subcu Heparin Charges/Coding Visit Charges Inpatient E&M: 87403 Subs Hosp L2
[2025-07-10] MEDS: Aspirin E.C. 81 MG Tablet PO (07:41)
--- NOTE | 2025-07-10 08:51 | CON.PCM.CA_ITS ---
HPI Consult Data Date of Consult: 07/10/25 HPI Narrative Reason for Consultation: Exacerbation of CHF HPI Narrative: NEWTON THORNE, is a 50 F with multiple comorbid conditions including but not limited to hypertension, hyperlipidemia, type 2 diabetes, CKD, tobacco abuse, and what appears to be nonischemic cardiomyopathy with previous ejection fraction of 10-15% presented to the emergency department by EMS after some reports of palpitations at work. [facility] Medical History (Updated 07/10/25 @ 02:[address] Malena Paz MD) Abscess of right breast MRSA cellulitis Depression Anxiety Diabetes Kidney stones Smoker Hypertension Migraines RSV (acute bronchiolitis due to respiratory syncytial virus) (04/2021) Hyperlipidemia Non-ischemic cardiomyopathy Genital herpes Bilateral pleural effusion (12/2019) Nonrheumatic mitral (valve) insufficiency Secondary pulmonary arterial hypertension Acute HFrEF (heart failure with reduced ejection fraction) (07/02/21) Essential hypertension Diabetes mellitus, type II Home Medications ?Medication ?Instructions ?Recorded ?Last Taken ?Type aspirin 81 mg tablet,delayed 81 mg PO DAILY #30 tabs 0 09/24/23 Unknown Rx release (Adult Aspirin Regimen) carvedilol 3.125 mg tablet 3.125 mg PO BID 30 days #60 tabs 03/31/24 Unknown Rx lisinopril 10 mg tablet 10 mg PO DAILY 30 days #30 t abs 03/31/24 Unknown Rx atorvastatin 20 mg tablet 20 mg PO DAILY #90 tabs 02/17 12/10 Unknown Rx blood-glucose sensor (FreeStyle #1 ea 03/12/25 Unknown Rx Janna 3 Sensor device) blood-glucose,tag press operator,cont #1 ea 03/12/25 Unknown Rx (FreeStyle Janna 3 [place]) furosemide 40 mg tablet (Lasix) 40 mg PO DAILY PRN zenaida ma #30 tabs 03/12/25 Unknown Rx insulin degludec 100 unit/mL (3 30 unit (0.3 mL) subcu t QHS #15 mL 03/12/25 Unknown Rx mL) subcutaneous pen (Tresiba FlexTouch U-100 insulin) insulin lispro 100 unit/mL See Protocol subcut .COMPLE X DM2 07/10/25 Unknown History subcutaneous pen (Humalog KwikPen (U-100) Insulin) Allergy/AdvReac Type Severity Reaction Status Date / Time metformin AdvReac Severe Abd Verified 07/09/25 17:00 cramps/diarrhea Family History Father Alcoholism Abnormal respiratory function Cancer Brother Alcoholism Myocardial infarction Sister Alcoholism Anxiety Depression Diabetes Mental disorder Psychiatric care Mother History of blood transfusion Depression Diabetes Heart disease Hypertension Age related osteoporosis Grandfather Cancer Grandmother Cancer cervical cancer Aunt Asthma Diabetes Surgical History H/O dilation and curettage History of right and left heart catheterization (07/16/21) History of incision and drainage (06/2021) History of carpal tunnel release History of left heart catheterization (2006) Social History household members: spouse current occupational status: employed Smoking Status: Current every day smoker tobacco type: cigarettes alcohol intake: never substance use type: does not use what type of physical activity do you participate in: walking do you feel safe at home: Yes Objective Data Vital Signs: Vital Signs Temp Pulse Resp BP Pulse Ox O2 Del Method 97.6 F L 86 17 174/111 H 97 Room Air 07/10/25 07:45 07/10/25 07:45 07/10/25 07:45 07/10/25 07:45 07/10/25 07:45 07/10/25 07:45 Oxygen Delivery Method Room Air Weight: 205 lb 12.8 oz Body Mass Index (BMI) 34.2 Intake & Output: Intake and Output for Last 24 Hours 07/08/25 07/09/25 07/10/25 23:59 23:59 23:59 Intake Total 180 / 180 Balance 180 / 180 Lab / Micro Data 07/09/25 19:04 07/09/25 19:04 Labs: Laboratory Results - last 24 hr 07/09/25 19:04: WBC 8.8, RBC 5.11, Hgb 14.7, Hct 45.4, MCV 88.8, MCH 28.8, MCHC 32.4, RDW Std Deviation 47.2 H, RDW Coeff of Silvia 14.6, Plt Count 198, MPV 12.3 H , Immature Gran % (Auto) 0.600, Neut % (Auto) 77.9 H, Lymph % (Auto) 15.5 L, [place] % (Auto) 4.3, Eos % (Auto) 1.1, Baso % (Auto) 0.6, Absolute Neuts (auto) 6.8, Absolute Lymphs (auto) 1.36, Nucleated RBC % 0, Sodium 137, Potassium 4.1, Chloride 98, Carbon Dioxide 24.9, Anion Gap 14, BUN 28 H, Creatinine 1.76 H, E stim Creat Clear Calc 43.91 L, Est GFR (MDRD) Non-Af 35 L, BUN/Creatinine Ratio 15.7, Glucose 365 H, Hemoglobin A1c 13.2 H, Calcium 9.0, Troponin T High Sens 48 H, [place] [id number] H 07/09/25 20:55: Troponin T Hi Sens 2 Hr 45 H 07/09/25 23:20: Troponin T Hi Sens 4Hr 48 H 07/10/25 00:20: POC Glucose 298 H 07/10/25 07:37: POC Glucose 269 H Cardiology Labs/Tests 07/09/25 19:04: WBC 8.8, RBC 5.11, Hgb 14.7, Hct 45.4, MCV 88.8, MCH 28.8, MCHC 32.4, Plt Count 198, MPV 12.3 H, Immature Gran % (Auto) 0.600, Neut % (Auto) 77.9 H, Lymph % (Auto) 15.5 L, [place] % (Auto) 4.3, Eos % (Auto) 1.1, Baso % (Auto) 0.6, Absolute Neuts (auto) 6.8, Nucleated RBC % 0, Sodium 137, Potassium 4.1, Chloride 98, Carbon Dioxide 24.9, Anion Gap 14, BUN 28 H, Creatinine 1.76 H , Est GFR (MDRD) Non-Af 35 L, BUN/Creatinine Ratio 15.7, Glucose 365 H, H emoglobin A1c 13.2 H, Calcium 9.0 Rhythm: EKG: ECHO: Stress Test: Cardiac Cath: PCI: CT Surgery: Holter monitor: EPS: PPM: CXR: Chest CT Scan: Radiography Diagnostic Testing: Radiology Impression Chest X-Ray 07/09/25 19:28 IMPRESSION: Mild cardiomegaly and central vascular congestion. No airspace consolidation or sizable pleural effusion. Reading Location: [id number]
--- NOTE | 2025-07-10 08:51 | PCM.CONS.C ---
Assessment & Plan Assessment/Plan (1) Acute on chronic systolic and diastolic heart failure, NYHA class 3: PLAN: ? Suspect exacerbation due to medication and general guideline noncompliance. ? Agree with current treatment will adjust guideline directed medical therapy however continue on IV diuretics. ? Echocardiogram ordered will review. ? Hopefully patient will be okay for discharge in the next 24 hours. (2) NSTEMI (non-ST elevated myocardial infarction): PLAN: ? Mildly elevated troponin overall flat not trending in ACS pattern. ? Patient with no concerning chest pain ? No plans for ischemic evaluation. Continue current treatment. No heparin drip indicated. (3) Severe hypertension: PLAN: ? Blood pressure still with poor control. ? As noted above will adjust guideline directed medical therapy for better control. Plan to add spironolactone 25 mg daily. Increase lisinopril dose. Continue current carvedilol dose for now. ? Patient with generally benefit from SGLT2 inhibitor which will help with blood pressure control as well as management of CHF however apparently has had issues in the past. Hold for now can be reevaluated as outpatient. (4) Intermittent palpitations: PLAN: ? At this point as noted above consider to possibly be related to PVCs. ? For now recommend continuation of monitoring on telemetry ? Continue carvedilol ? Recommend maintaining electrolytes with goal potassium greater than 4.0 and magnesium greater than 2.0. (5) Mixed hyperlipidemia: PLAN: ? Recommend at least moderate intensity statin. Goal LDL less than 100 (6) Diabetes: QUALIFIERS: Diabetes mellitus type: type 2 Diabetes mellitus terminal carman insulin use: without terminal carman use Diabetes mellitus complication status: with kidney complications Diabetes mellitus complication detail: with chronic kidney disease Chronic kidney disease stage: stage 3 (moderate) PLAN: ? Recent hemoglobin A1c of 9.0 shows poor control. Goal hemoglobin A1c less than 7.0 ? Further management per hospitalist team. Recommend maintaining glucose between 100?180 during admission (7) CKD (chronic kidney disease): QUALIFIERS: Chronic kidney disease stage: stage 3 (moderate) Chronic kidney disease stage 3 subtype: stage 3b (GFR 30-44) Qualified Code(s): N18.32 - Chronic kidney disease, stage 3b PLAN: ? Serum creatinine overall stable at 1.74. Unsure of exact baseline because 1 year ago serum creatinine was 1.3?1.4. ? For now continue current treatment with close monitoring as medications are adjusted for management of CHF exacerbation as well as during treatment with IV diuretics. ? Avoid nephrotoxic medications and treatments. PLAN: Plan ? As noted above adjust GDMT for better blood pressure control as well as management of CHF. Echocardiogram ordered will review. Continue IV diuretics for now hopefully transition to p.o. diuretics tomorrow with discharge ? Long discussion with patient about need for follow-up in office with cardiology after discharge. If ejection fraction remains low we will need to consider AICD placement as outpatient. Cardiology will follow. HPI Consult Data Date of Consult: 07/10/25 HPI Narrative Reason for Consultation: Exacerbation of CHF HPI Narrative: NEWTON THORNE, is a 50 F with multiple comorbid conditions including but not limited to hypertension, hyperlipidemia, type 2 diabetes, CKD, tobacco abuse, and what appears to be nonischemic cardiomyopathy with previous ejection fraction of 10-15% presented to the emergency department by EMS after some reports of palpitations at work. Review of the EMS report and EKG noted sinus tachycardia with no other significant arrhythmias. Patient overall hemodynamically stable with poorly controlled blood pressure was transported to the ED. At some point the patient started describing concerning symptoms for CHF exacerbation with some noted shortness of breath/dyspnea on exertion as well as orthopnea and possibly even some PND. This morning she reports that she was waking up out of her sleep at night gasping for air. It is noted that the patient is noncompliant with cardiology follow-up and management. It appears that she was originally diagnosed in 2020 with a heart cath negative for any significant CAD. It is noted that the patient does report a family history of cardiomyopathy with her mother also her dealing with this issue. She reports a history of marijuana use however no strong drugs apparently. She was only taking carvedilol apparently and not on true guideline directed medical therapy. Patient denies evaluation for AICD however again she has not followed with cardiology. Cardiology consulted for help with management of CHF exacerbation. This morning during my evaluation patient reports some improvement of her lower extremity edema, shortness of breath, and other issues however still having occasional episodes of palpitations. I am wondering if her PVCs are leading to the reported palpitations since she was reporting palpitations while I was in the room and telemetry only shows occasional PVCs no other significant arrhythmias. Patient overall hemodynamically stable blood pressure still elevated. Denies any chest pain, lightheadedness/dizziness, or other issues. She does report some occasional fevers and chills along with fatigue. [facility] Medical History (Updated 07/10/25 @ 09:[address] Red Low DO) Abscess of right breast MRSA cellulitis Depression Anxiety Diabetes Kidney stones Smoker Hypertension Migraines RSV (acute bronchiolitis due to respiratory syncytial virus) (04/2021) Hyperlipidemia Non-ischemic cardiomyopathy Genital herpes Bilateral pleural effusion (12/2019) Nonrheumatic mitral (valve) insufficiency Secondary pulmonary arterial hypertension Acute HFrEF (heart failure with reduced ejection fraction) (07/02/21) Essential hypertension Diabetes mellitus, type II Home Medications ?Medication ?Instructions ?Recorded ?Last Taken ?Type aspirin 81 mg tablet,delayed 81 mg PO DAILY #30 tabs 09/24/23 Unknown Rx release (Adult Aspirin Regimen) carvedilol 3.125 mg tablet 3.125 mg PO BID 30 days #60 tabs 03/31/24 Unknown Rx lisinopril 10 mg tablet 10 mg PO DAILY 30 days #30 tabs 03/31/24 Unknown Rx atorvastatin 20 mg tablet 20 mg PO DAILY #90 tabs 03/12/25 Unknown Rx blood-glucose sensor (FreeStyle #1 ea 03/12/25 Unknown Rx Janna 3 Sensor device) blood-glucose,clamp remover,cont #1 ea 03/12/25 Unknown Rx (FreeStyle Janna 3 [place]) furosemide 40 mg tablet (Lasix) 40 mg PO DAILY PRN edema #30 tabs 03/12/25 Unknown Rx insulin degludec 100 unit/mL (3 30 unit (0.3 mL) subcut QHS #15 mL 03/12/25 Unknown Rx mL) subcutaneous pen (Tresiba FlexTouch U-100 insulin) insulin lispro 100 unit/mL See Protocol subcut .COMPLEX DM2 07/10/25 Unknown History subcutaneous pen (Humalog KwikPen (U-100) Insulin) Allergy/AdvReac Type Severity Reaction Status Date / Time metformin AdvReac Severe Abd Verified 07/09/25 17:00 cramps/diarrhea Family History Father Alcoholism Abnormal respiratory function Cancer Brother Alcoholism Myocardial infarction Sister Alcoholism Anxiety Depression Diabetes Mental disorder Psychiatric care Mother History of blood transfusion Depression Diabetes Heart disease Hypertension Age related osteoporosis Grandfather Cancer Grandmother Cancer cervical cancer Aunt Asthma Diabetes Surgical History H/O dilation and curettage History of right and left heart catheterization (07/16/21) History of incision and drainage (06/2021) History of carpal tunnel release History of left heart catheterization (2006) Social History household members: spouse current occupational status: employed Smoking Status: Current every day smoker tobacco type: cigarettes alcohol intake: never substance use type: does not use what type of physical activity do you participate in: walking do you feel safe at home: Yes ROS ROS Narrative 12 systems reviewed and negative unless stated above. Physical Exam Const alert, oriented x3 and no apparent distress HEENT normocephalic Eyes PERRL Neck no carotid bruits Neck Narrative: Not able to appreciate significant JVD Resp normal respiratory effort and clear to auscultation bilaterally Resp Narrative: Decreased breath sounds. No wheezes, rales, or rhonchi Cardio regular rate, regular rhythm, no murmurs, no rub and no gallops GI normal to inspection, nondistended, normoactive bowel sounds and non-tender Skin no rashes or lesions noted Neuro Neuro Narrative: Patient moves all extremities with good sensation Psych Psych Narrative: Normal mood and affect Charges/Coding Visit Charges Inpatient E&M: 58893 Init Hosp L3 Objective Data Vital Signs: Vital Signs Temp Pulse Resp BP Pulse Ox O2 Del Method 97.6 F L 86 17 174/111 H 97 Room Air 07/10/25 07:45 07/10/25 07:45 07/10/25 07:45 07/10/25 07:45 07/10/25 07:45 07/10/25 07:45 Oxygen Delivery Method Room Air Weight: 205 lb 12.8 oz Body Mass Index (BMI) 34.2 Intake & Output: Intake and Output for Last 24 Hours 07/08/25 07/09/25 07/10/25 23:59 23:59 23:59 Intake Total 180 / 180 Balance 180 / 180 Lab / Micro Data Attestation: I reviewed the patient's lab results. Lab results narrative: Pertinent lab results discussed with the patient 07/09/25 19:04 07/09/25 19:04 Labs: Laboratory Results - last 24 hr 07/09/25 19:04: WBC 8.8, RBC 5.11, Hgb 14.7, Hct 45.4, MCV 88.8, MCH 28.8, MCHC 32.4, RDW Std Deviation 47.2 H, RDW Coeff of Silvia 14.6, Plt Count 198, MPV 12.3 H, Immature Gran % (Auto) 0.600, Neut % (Auto) 77.9 H, Lymph % (Auto) 15.5 L, [place] % (Auto) 4.3, Eos % (Auto) 1.1, Baso % (Auto) 0.6, Absolute Neuts (auto) 6.8, Absolute Lymphs (auto) 1.36, Nucleated RBC % 0, Sodium 137, Potassium 4.1, Chloride 98, Carbon Dioxide 24.9, Anion Gap 14, BUN 28 H, Creatinine 1.76 H, Estim Creat Clear Calc 43.91 L, Est GFR (MDRD) Non-Af 35 L, BUN/Creatinine Ratio 15.7, Glucose 365 H, Hemoglobin A1c 13.2 H, Calcium 9.0, Troponin T High Sens 48 H, [place] [address] H 07/09/25 20:55: Troponin T Hi Sens 2 Hr 45 H 07/09/25 23:20: Troponin T Hi Sens 4Hr 48 H 07/10/25 00:20: POC Glucose 298 H 07/10/25 07:37: POC Glucose 269 H Rhythm Strip Rhythm Strip: Sinus Rhythm (Telemetry reveals sinus rhythm with occasional premature immature contractions. No other significant arrhythmias appreciated) Cardiology Labs/Tests 07/09/25 19:04: WBC 8.8, RBC 5.11, Hgb 14.7, Hct 45.4, MCV 88.8, MCH 28.8, MCHC 32.4, Plt Count 198, MPV 12.3 H, Immature Gran % (Auto) 0.600, Neut % (Auto) 77.9 H, Lymph % (Auto) 15.5 L, [place] % (Auto) 4.3, Eos % (Auto) 1.1, Baso % (Auto) 0.6, Absolute Neuts (auto) 6.8, Nucleated RBC % 0, Sodium 137, Potassium 4.1, Chloride 98, Carbon Dioxide 24.9, Anion Gap 14, BUN 28 H, Creatinine 1.76 H, Est GFR (MDRD) Non-Af 35 L, BUN/Creatinine Ratio 15.7, Glucose 365 H, Hemoglobin A1c 13.2 H, Calcium 9.0 Rhythm: EKG: ECHO: Stress Test: Cardiac Cath: PCI: CT Surgery: Holter monitor: EPS: PPM: CXR: Chest CT Scan: Radiography Diagnostic Testing: Radiology Impression Chest X-Ray 07/09/25 19:28 IMPRESSION: Mild cardiomegaly and central vascular congestion. No airspace consolidation or sizable pleural effusion. Reading Location: [facility] [place] Risk Score for UA/STEMI Assesmment (YES = 1) Risk Stratification Applicable: Yes Age > or = 65: No > or = 3 CAD risk factors (HTN, Hypercholesterolemia, Diabetes, family hx, current smoker): Yes Known CAD (Stenosis > or = 50%): No ASA used in past 7 days: No Severe angina (> or = 2 episodes in 24 hrs): No EKG ST change > or = 0.5mm: No Positive cardiac markers: Yes Score MARIANNA Risk Score of mortality/ recurrent ischemic event over the next 14 days: 2 = 8.3% - Low Risk
--- NOTE | 2025-07-10 10:06 | CASEMGMT ---
ELLA ABDALLA Assessment Face to Face with patient for initial transition planning/care coordination assessment. ELLA ABDALLA introduced self and role at [facility], pt voices understanding. Pt is A&Ox4 and is resting comfortably in bed and is calm. Pharmacy, and demographics verified. Admitting dx: CHF Exacerbation LACE Strata: 2 PCP: No PCP, List was provided in the ED. Encouraged establishment Specialists: Denies Preferred Pharmacy: [facility] Insurance: [employer] Prescription Benefit:Yes. However, pt states that she has a 300$ total copay for her insulin that she cannot afford. SW notified and plans to follow up with the pt for resources LNOK: Gibran (H) Living Arrangements: Pt lives with her in a ground level apartment with 1 small step to enter ADLs/IADLs: Indep, 6-Click=24 Transportation: Self, DME: Pt states that she has a manual glucometer with sufficient testing supplies including lancets, tests strips, and EtOH swabs. Pt states that she has pen needles but has not been able to afford her insulin. See above. Pt states that she has a BP machine. Pt encouraged to get a scale to weigh herself with regarding her CHF HHC/SNF: denies hx of or needs Pt?s goal: Home Plan: Home with pt's once medically ready. EZE f/u for insulin $. Encouraged PCP establishment. Pt states that she feels safe returning home with her once she is medically ready and denies any further questions, concerns, or needs from this ELLA ABDALLA at this time. Calli Batista RN, CM
[2025-07-10] MEDS: Insulin Glargine-YFGN 100 UNIT/ML Pen 20 UNIT SC ×2 (10:36→22:28)
[2025-07-10] MEDS: FLU VACCINE 2025-26(6MOS UP) 45 MCG/0.5 ML SYRINGE IM (10:36)
[2025-07-10] MEDS: Heparin Injection (Vial) 5,000 UNIT/ML VIAL 5000 UNIT SC ×2 (14:54→22:40)
--- NOTE | 2025-07-10 16:15 | CASEMGMT ---
Social Work- SW met with pt to provide directives information, as well as Dory and other prescription assistance program information. Pt reports that she is over-income for [employer]. SW discussed finances as a whole and encouraged pt to look at other programs to financially assist pt with other expenses as well. SW encouraged pt to register for assistance this evening so that pt feel assured that she had the assistance she needed at d/c. Pt reports no other assistance needed. MARY Bloom
[2025-07-11 02:34] VITALS: BP 140/83; PULSE 79; RESP 12; TEMP 36.2; O2SAT 98
[2025-07-11 05:08] LABS: Hematocrit 38.9 % (37-47); Hemoglobin 12.8 g/dL (12.0-15.0); Immature Granulocytes Count 0.030 X10^3/uL (0.0-0.0); Mean Corp Hgb Conc 32.9 g/dL (32-36); Mean Corpuscular Volume 87.6 fL (81-99); Mean Platelet Vol. 12.1 fl (6.2-12.0); NRBC Flagged by Analyzer 0 % (0-5); Platelet Count 168 K/mm3 (150-450); RBC Distribution Width CV 14.6 % (11.6-14.6); RBC Distribution Width SD 45.9 fl (35.1-43.9); Red Blood Count 4.44 M/mm3 (4.2-5.4); White Blood Count 7.6 K/mm3 (4.4-11.0)
[2025-07-11 05:59] LABS: Anion Gap 9 (7-18); BUN 34 mg/dL (4-19); BUN/Creat Ratio 19.0 RATIO (10-20); Calcium,Total 8.3 mg/dL (7.6-11.0); Carbon Dioxide 29.3 mmol/L (20.0-29.0); Chloride 100 mmol/L (96-106); Estimated Creatinine Clearance 41.99 ml/min (50-250); Glucose 160 mg/dL (70-99); Magnesium 1.8 mg/dL (1.5-2.2); Potassium 3.5 mmol/L (3.5-5.1)
[2025-07-11 06:00] VITALS: BMI 33.9
[2025-07-11] MEDS: Heparin Injection (Vial) 5,000 UNIT/ML VIAL 5000 UNIT SC (06:43)
--- NOTE | 2025-07-11 07:09 | PCM.PN.HOSP ---
Reason for Visit Chief Complaint: Shortness of breath and leg swelling Subjective Subjective Patient seen breathing improved. Objective Data Objective Data Vital Signs: Vital Signs Temp Pulse Resp BP Pulse Ox O2 Del Method 97.2 F L 79 12 140/83 H 98 Room Air 07/11/25 02:34 07/11/25 02:34 07/11/25 02:34 07/11/25 02:34 07/11/25 02:34 07/11/25 04:18 Oxygen Delivery Method Room Air Weight: 92.4 kg Body Mass Index (BMI) 33.9 Intake & Output: Intake and Output for Last 24 Hours 07/09/25 07/10/25 07/11/25 23:59 23:59 23:59 Intake Total 540 / 540 Output Total 1000 / 1000 Balance -460 / -460 Lab / Micro Data 07/11/25 04:15 07/11/25 04:15 Labs: Laboratory Results - last 24 hr 07/09/25 19:04: Hemoglobin A1c 13.2 H 07/10/25 07:37: POC Glucose 269 H 07/10/25 10:39: POC Glucose 229 H 07/10/25 14:52: POC Glucose 137 H 07/10/25 18:10: POC Glucose 202 H 07/10/25 22:26: POC Glucose 251 H 07/11/25 04:15: WBC 7.6, RBC 4.44, Hgb 12.8, Hct 38.9, MCV 87.6, MCH 28.8, MCHC 32.9, RDW Std Deviation 45.9 H, RDW Coeff of Silvia 14.6, Plt Count 168, MPV 12.1 H, Immature Gran % (Auto) 0.400, Neut % (Auto) 70.0, Lymph % (Auto) 20.3, [place] % (Auto) 5.8, Eos % (Auto) 2.8, Baso % (Auto) 0.7, Absolute Neuts (auto) 5.3, Absolute Lymphs (auto) 1.54, Nucleated RBC % 0, Sodium 139, Potassium 3.5, Chloride 100, Carbon Dioxide 29.3 H, Anion Gap 9, BUN 34 H, Creatinine 1.79 H, Estim Creat Clear Calc 41.99 L, Est GFR (MDRD) Non-Af 34 L, BUN/Creatinine Ratio 19.0, Glucose 160 H, Hemoglobin A1c 12.8 H, Calcium 8.3, Phosphorus 4.0, Magnesium 1.8 Radiography Diagnostic Testing: Radiology Impression Echocardiogram 07/10/25 01:39 Interpretation Summary The estimated ejection fraction is 10???15 %. Mild concentric left ventricular hypertrophy. Mildly dilated left ventricle. Stage 2 diastolic dysfunction. Definity contrast utilized to visualize the endocardial border and no thrombus appreciated. Mildly dilated right ventricle. Mild global right ventricular systolic dysfunction. Moderate (2+) mitral valve insufficiency. Moderate (2+) tricuspid valve insufficiency. Right ventricular systolic pressure estimated to be 55-60 mmHg. Severe pulmonary hypertension. Mild (1+) pulmonic valve insufficiency identified. IVC dilated with poor respiratory collapse. Righter pressure estimated at 15 mmHg. Compared to previous echocardiogram from 2020 no significant changes appreciated. Stable severe dilated cardiomyopathy with ejection fraction of 10-15% with grade 2 diastolic dysfunction. Moderate valvular heart disease with moderate to severe pulmonary hypertension. Ordering Physician: Malena Paz Performed By: Mena Wise, JAI, RVT Rhythm Strip Rhythm Strip: Sinus Rhythm (Telemetry reveals sinus rhythm with occasional premature immature contractions. No other significant arrhythmias appreciated) Physical Exam Narrative GENERAL: cooperative HEENT: Atraumatic; normocephalic EYES; Anicteric, Normal Conjunctiva NECK; supple, normal thyroid, RESPIRATORY: Diminished to auscultation CARDIOVASCULAR: Regular S1 S2, GI: soft, normoactive bowel sounds, : No Renal angle tenderness; EXTREMITIES: Bipedal edema, no clubbing, MUSCULOSKELETAL: no muscle wasting NEURO: Awake; no lateralizing signs. SKIN: No Rash PSYCH; Flat affect Extremity Extremity Narrative: Bilateral edema Assessment & Plan Assessment/Plan (1) Acute decompensated heart failure: (2) Non-ischemic cardiomyopathy: (3) Essential hypertension: (4) Diabetes mellitus, type II: QUALIFIERS: Diabetes mellitus complication status: without complication Diabetes mellitus senior living insulin use: with senior living use Qualified Code(s): E11.9 - Type 2 diabetes mellitus without complications; Z79.4 - forming tube selector (current) use of insulin (5) CKD (chronic kidney disease): QUALIFIERS: Chronic kidney disease stage: stage 3 (moderate) Chronic kidney disease stage 3 subtype: stage 3b (GFR 30-44) Qualified Code(s): N18.32 - Chronic kidney disease, stage 3b PLAN: Plan Patient is a 50-year-old lady with multiple comorbidities including chronic congestive heart failure with reduced ejection fraction, chronic kidney disease stage III diabetes mellitus type 2 dyslipidemia presented to the emergency department with palpitations and markedly elevated blood. Chest x-ray did reveal mild cardiomegaly with central vascular congestion. Admitted to a monitored bed as a case of acute hypertensive emergency and CHF exacerbation 1. Acute hypertensive emergency ? Patient presented with markedly elevated blood pressure with evidence of endorgan damage?CHF. Admitted to monitored bed for subsequent management of the blood pressure as well as congestive heart failure ? 07/11/2025; patient blood pressure improved. Patient antihypertensive medications adjusted per recommendations from cardiology 2. Acute on chronic congestive heart failure with systolic dysfunction ? Patient previous 2D echo from 2020 demonstrated EF of 15%. Admitted to monitored bed manage with strict input and output, low-sodium diet, daily weight, fluid restriction low-sodium diet as well as diuretic therapy. Repeat echo ordered ? Repeat echo demonstrated The estimated ejection fraction is 10-15 % Mild concentric left ventricular hypertrophy. Mildly dilated left ventricle. Stage 2 diastolic dysfunction. Definity contrast utilized to visualize the endocardial border and no thrombus appreciated. Mildly dilated right ventricle. Mild global right ventricular systolic dysfunction. Moderate (2+) mitral valve insufficiency. Moderate (2+) tricuspid valve insufficiency. Right ventricular systolic pressure estimated to be 55-60 mmHg. Severe pulmonary hypertension. Mild (1+) pulmonic valve insufficiency identified. IVC dilated with poor respiratory collapse. Righter pressure estimated at 15 mmHg. Compared to previous echocardiogram from 2020 no significant changes appreciated. Stable severe dilated cardiomyopathy with ejection fraction of 10-15% with grade 2 diastolic dysfunction. Moderate valvular heart disease with moderate to severe pulmonary hypertension. Patient was discharged home on guideline directed medical therapy 3. Diabetes mellitus type II -patient's oral hypoglycemics held. Placed on long acting insulin, Accu-Cheks a.c. and at bedtime and covered with sliding scale insulin 4. Dyslipidemia ?Patient is on statin therapy, continued at home dose 5. Class I obesity with BMI of 34.2 -complicating care 6. Chronic kidney disease stage III ? Patient kidney function at baseline. Plan is to continue with monitoring with daily BMPs 7. Elevated troponin ? Secondary to demand ischemia from patient markedly elevated blood pressure and congestive heart failure patient presentation not consistent with ACS 8. DVT prophylaxis ? Subcu Heparin
[2025-07-11 08:16] VITALS: BP 144/104; PULSE 78; RESP 17; TEMP 36.4; O2SAT 93
[2025-07-11] MEDS: Aspirin E.C. 81 MG Tablet PO (08:17)
--- NOTE | 2025-07-11 08:36 | DS.PCM_ITS ---
Providers Date of Admission: 07/09/25 Date of Discharge: 07/11/25 Primary Care Physician: Juanita Primary Care Phys Consultations 07/10/25 01:39 Consult: Cardiology Routine Consulting Provider: Yvrose Ferrer Reason for Consult: CHF exacerbation EMERGENT Consult: No MD Notified: Yes Date Notified: 07/10/25 Time Notified: 06:42 Method of Notification: Text Reason For Visit: CHF EXACERBATION Diagnosis Discharge Diagnosis (1) Acute decompensated heart failure: Status: Acute Code(s): I50.9 - Heart failure, unspecified (2) Non-ischemic cardiomyopathy: Status: Chronic Code(s): I42.8 - Other cardiomyopathies (3) Essential hypertension: Status: Acute Code(s): I10 - Essential (primary) hypertension (4) Diabetes mellitus, type II: Status: Acute Code(s): E11.9 - Type 2 diabetes mellitus without complications Qualifiers: Diabetes mellitus manager terminal insulin use: with residential use Diabetes mellitus complication status: without complication Qualified Code(s): E11.9 - Type 2 diabetes mellitus without complications; Z79.4 - ad terminal makeup operator (current) use of insulin (5) CKD (chronic kidney disease): Status: Chronic Code(s): N18.9 - Chronic kidney disease, unspecified Qualifiers: Chronic kidney disease stage: stage 3 (moderate) Chronic kidney disease stage 3 subtype: stage 3b (GFR 30-44) Qualified Code(s): N18.32 - Chronic kidney disease, stage 3b Plan Patient is a 50-year-old lady with multiple comorbidities including chronic congestive heart failure with reduced ejection fraction, chronic kidney disease stage III diabetes mellitus type 2 dyslipidemia presented to the emergency department with palpitations and markedly elevated blood. Chest x-ray did reveal mild cardiomegaly with central vascular congestion. Admitted to a monitored bed as a case of acute hypertensive emergency and CHF exacerbation 1. Acute hypertensive emergency ? Patient presented with markedly elevated blood pressure with evidence of endorgan damage?CHF. Admitted to monitored bed for subsequent management of the blood pressure as well as congestive heart failure ? 07/11/2025; patient blood pressure improved. Patient antihypertensive medications adjusted per recommendations from cardiology 2. Acute on chronic congestive heart failure with systolic dysfunction ? Patient previous 2D echo from 2020 demonstrated EF of 15%. Admitted to monitored bed manage with strict input and output, low-sodium diet, daily weight, fluid restriction low-sodium diet as well as diuretic therapy. Repeat echo ordered ? Repeat echo demonstrated The estimated ejection fraction is 10-15 % Mild concentric left ventricular hypertrophy. Mildly dilated left ventricle. Stage 2 diastolic dysfunction. Definity contrast utilized to visualize the endocardial border and no thrombus appreciated. Mildly dilated right ventricle. Mild global right ventricular systolic dysfunction. Moderate (2+) mitral valve insufficiency. Moderate (2+) tricuspid valve insufficiency. Right ventricular systolic pressure estimated to be 55-60 mmHg. Severe pulmonary hypertension. Mild (1+) pulmonic valve insufficiency identified. IVC dilated with poor respiratory collapse. Righter pressure estimated at 15 mmHg. Compared to previous echocardiogram from 2020 no significant changes appreciated. Stable severe dilated cardiomyopathy with ejection fraction of 10-15% with grade 2 diastolic dysfunction. Moderate valvular heart disease with moderate to severe pulmonary hypertension. Patient was discharged home on guideline directed medical therapy 3. Diabetes mellitus type II -patient's oral hypoglycemics held. Placed on long acting insulin, Accu-Cheks a.c. and at bedtime and covered with sliding scale insulin 4. Dyslipidemia ?Patient is on statin therapy, continued at home dose 5. Class I obesity with BMI of 34.2 -complicating care 6. Chronic kidney disease stage III ? Patient kidney function at baseline. Plan is to continue with monitoring with daily BMPs 7. Elevated troponin ? Secondary to demand ischemia from patient markedly elevated blood pressure and congestive heart failure patient presentation not consistent with ACS 8. DVT prophylaxis ? Subcu Heparin Medications at Discharge Home Medications aspirin 81 mg tablet,delayed release (Adult Aspirin Regimen) 81 mg PO DAILY #30 tabs 09/24/23 carvedilol 3.125 mg tablet 3.125 mg PO BID 30 days #60 tabs 03/31/24 atorvastatin 20 mg tablet 20 mg PO DAILY #90 tabs 03/12/25 blood-glucose sensor (FreeStyle Janna 3 Sensor device) #1 ea 03/12/25 blood-glucose,cotton factor,cont (FreeStyle Janna 3 Gormania) #1 ea 03/12/25 furosemide 40 mg tablet (Lasix) 40 mg PO DAILY PRN edema #30 tabs 03/12/25 insulin degludec 100 unit/mL (3 mL) subcutaneous pen (Tresiba FlexTouch U-100 insulin) 30 unit (0.3 mL) subcut QHS #15 mL 03/12/25 insulin lispro 100 unit/mL subcutaneous pen (Humalog KwikPen (U-100) Insulin) See Protocol subcut .COMPLEX DM2 07/10/25 dapagliflozin propanediol 10 mg tablet (Farxiga) 10 mg PO DAILY #60 tabs 07/11/25 furosemide 40 mg tablet (Lasix) 40 mg PO DAILY 60 days #60 tabs 07/11/25 lisinopril 20 mg tablet 20 mg PO BID 60 days #120 tabs 07/11/25 spironolactone 25 mg tablet 25 mg PO DAILY 60 days #60 tabs 07/11/25 Hospital Course Summary of Care Provided Minutes Spent on Discharge: 35 Physical Exam Narrative GENERAL: cooperative HEENT: Atraumatic; normocephalic EYES; Anicteric, Normal Conjunctiva NECK; supple, normal thyroid, RESPIRATORY: Diminished to auscultation CARDIOVASCULAR: Regular S1 S2, GI: soft, normoactive bowel sounds, : No Renal angle tenderness; EXTREMITIES: Bipedal edema, no clubbing, MUSCULOSKELETAL: no muscle wasting NEURO: Awake; no lateralizing signs. SKIN: No Rash PSYCH; Flat affect Weight / BMI Weight Weight: 92.4 kg Body Mass Index (BMI) 33.9 ABG / Lab / Microbiology Data 07/11/25 04:15 07/11/25 04:15 Laboratory: Laboratory Results - last 24 hr 07/09/25 19:04: Hemoglobin A1c 13.2 H 07/10/25 10:39: POC Glucose 229 H 07/10/25 14:52: POC Glucose 137 H 07/10/25 18:10: POC Glucose 202 H 07/10/25 22:26: POC Glucose 251 H 07/11/25 04:15: WBC 7.6, RBC 4.44, Hgb 12.8, Hct 38.9, MCV 87.6, MCH 28.8, MCHC 32.9, RDW Std Deviation 45.9 H, RDW Coeff of Silvia 14.6, Plt Count 168, MPV 12.1 H , Immature Gran % (Auto) 0.400, Neut % (Auto) 70.0, Lymph % (Auto) 20.3, [place] % (Auto) 5.8, Eos % (Auto) 2.8, Baso % (Auto) 0.7, Absolute Neuts (auto) 5.3, Absolute Lymphs (auto) 1.54, Nucleated RBC % 0, Sodium 139, Potassium 3.5, Chloride 100, Carbon Dioxide 29.3 H, Anion Gap 9, BUN 34 H, Creatinine 1.79 H, E stim Creat Clear Calc 41.99 L, Est GFR (MDRD) Non-Af 34 L, BUN/Creatinine Ratio 19.0, Glucose 160 H, Hemoglobin A1c 12.8 H, Calcium 8.3, Phosphorus 4.0, Magnesium 1.8 Radiography Diagnostic Testing: Radiology Impression Echocardiogram 07/10/25 01:39 Interpretation Summary The estimated ejection fraction is 10???15 %. Mild concentric left ventricular hypertrophy. Mildly dilated left ventricle. Stage 2 diastolic dysfunction. Definity contrast utilized to visualize the endocardial border and no thrombus appreciated. Mildly dilated right ventricle. Mild global right ventricular systolic dysfunction. Moderate (2+) mitral valve insufficiency. Moderate (2+) tricuspid valve insufficiency. Right ventricular systolic pressure estimated to be 55-60 mmHg. Severe pulmonary hypertension. Mild (1+) pulmonic valve insufficiency identified. IVC dilated with poor respiratory collapse. Righter pressure estimated at 15 mmHg. Compared to previous echocardiogram from 2020 no significant changes appreciated. Stable severe dilated cardiomyopathy with ejection fraction of 10-15% with grade 2 diastolic dysfunction. Moderate valvular heart disease with moderate to severe pulmonary hypertension. Ordering Physician: Malena Paz Performed By: Mena Wise, JAI, RVT D/C Instructions DC O2, CPAP, BIPAP Needs Home O2 Discharge instructions: No Patient's Goals Of Care - F/U Goals Reviewed Goals of care reviewed with patient: Yes - No change Meaningful Use Info Meaningful Use Meaningful Use Diagnoses (Choose all that apply): CHF CHF [place]/ARB ordered at discharge?: Yes Documented LVEF (%): 10 Discharge Plan Admission Admit Date/Time: 07/09/25 22:54 Attending Provider: Fam Mccarthy Primary Care Provider: Care Physician,No Primary Consulting Providers: Sesar Hinds; Freddy Elizabeth; Janice Hylton; Uzma Laureano; Velvet Davila; Dontae Carrizales; Unruly Bradshaw; Sharath Mario; Fam Gibbons; Con Mejia; Red Low; Juan De Paz; William Ortiz; Connie Cleveland; Casey Ibanez; Talib Jang; Suresh Wise NP; Janet Urbina; Mahendra Hernández; Malena Paz Discharge Orders/Prescriptions Prescriptions: New lisinopril 20 mg Tablet 20 mg PO BID 60 Days Qty: 120 0RF spironolactone 25 mg Tablet 25 mg PO DAILY 60 Days Qty: 60 0RF furosemide [Lasix] 40 mg tablet 40 mg PO DAILY 60 Days Qty: 60 0RF dapagliflozin propanediol [Farxiga] 10 mg tablet 10 mg PO DAILY Qty: 60 0RF Continued aspirin [Adult Aspirin Regimen] 81 mg tablet,delayed release (DR/EC) 81 mg PO DAILY Qty: 30 0RF carvedilol 3.125 mg tablet 3.125 mg PO BID 30 Days Qty: 60 1RF Rx Instructions: must administer with a meal/food insulin lispro [Humalog KwikPen Insulin] 100 unit/mL insulin pen See Protocol subcut .COMPLEX Protocol: 3. Sliding Scale Insulin Med Dosing Condition: 150-189 mg/dl = 1 unit Condition: 190-229 mg/dl = 2 units Condition: 230-269 mg/dl = 3 units Condition: 270-309 mg/dl = 4 units Condition: 310-349 mg/dl = 5 units Condition: 350-399 mg/dl = 6 units Condition: 400-449 mg/dl = 7 units Condition: Greater than 449 call physician Protocol Text: Suggested for: - Patients on Total Daily Insulin Dose of 37-55 units - Obese, infected, or steroid patients MEDIUM DOSING ALGORITHIM Rx Instructions: subcutaneously 0800,1700,HS; atorvastatin 20 mg tablet 20 mg PO DAILY Qty: 90 1RF (DME) FreeStyle Janna 3 Sensor Device See Rx Instructions .Route Qty: 1 10RF Rx Instructions: As directed (DME) FreeStyle Janna 3 Gormania Misc See Rx Instructions .Route Qty: 1 0RF Rx Instructions: As directed furosemide [Lasix] 40 mg tablet 40 mg PO DAILY PRN (Reason: edema) Qty: 30 0RF Tresiba FlexTouch U-100 100 unit/mL (3 mL) insulin pen 30 unit SUBCUT QHS Qty: 15 1RF Discontinued lisinopril 10 mg tablet 10 mg PO DAILY 30 Days Qty: 30 1RF Referrals / Follow Up: Sharath Mario MD [Med Staff - Active Staff, Cardiology] - Within 2 Weeks Care Physician,No Primary [Primary Care Provider, Medical] Disposition Disposition (needs filled in before D/C Order can be placed): Home, Self Care Charges/Coding Visit Charges Inpatient E&M: 83717 Disch Hosp >30min
--- NOTE | 2025-07-11 09:57 | PCM.PN.CARD ---
Subjective Subjective Patient seen and examined currently sitting up in the bed getting her IV removed apparently has been discharged. She does report improvement of shortness of breath some occasional palpitations but otherwise is doing well. Patient overall hemodynamically stable however blood pressure remains elevated above goal. Objective Data Vital Signs: Vital Signs Temp Pulse Resp BP Pulse Ox O2 Del Method 97.6 F L 78 17 144/104 H 93 Room Air 07/11/25 08:16 07/11/25 08:16 07/11/25 08:16 07/11/25 08:16 07/11/25 08:16 07/11/25 09:00 Oxygen Delivery Method Room Air Weight: 203 lb 11.314 oz Body Mass Index (BMI) 33.9 Intake & Output: Intake and Output for Last 24 Hours 07/09/25 07/10/25 07/11/25 23:59 23:59 23:59 Intake Total 540 / 540 Output Total 1000 / 1000 Balance -460 / -460 Lab / Micro Data Attestation: I reviewed the patient's lab results. Lab results narrative: Labs reviewed and pertinent results discussed with the patient 07/11/25 04:15 07/11/25 04:15 Labs: Laboratory Results - last 24 hr 07/10/25 10:39: POC Glucose 229 H 07/10/25 14:52: POC Glucose 137 H 07/10/25 18:10: POC Glucose 202 H 07/10/25 22:26: POC Glucose 251 H 07/11/25 04:15: WBC 7.6, RBC 4.44, Hgb 12.8, Hct 38.9, MCV 87.6, MCH 28.8, MCHC 32.9, RDW Std Deviation 45.9 H, RDW Coeff of Silvia 14.6, Plt Count 168, MPV 12.1 H, Immature Gran % (Auto) 0.400, Neut % (Auto) 70.0, Lymph % (Auto) 20.3, [place] % (Auto) 5.8, Eos % (Auto) 2.8, Baso % (Auto) 0.7, Absolute Neuts (auto) 5.3, Absolute Lymphs (auto) 1.54, Nucleated RBC % 0, Sodium 139, Potassium 3.5, Chloride 100, Carbon Dioxide 29.3 H, Anion Gap 9, BUN 34 H, Creatinine 1.79 H, Estim Creat Clear Calc 41.99 L, Est GFR (MDRD) Non-Af 34 L, BUN/Creatinine Ratio 19.0, Glucose 160 H, Hemoglobin A1c 12.8 H, Calcium 8.3, Phosphorus 4.0, Magnesium 1.8 Rhythm Strip Rhythm Strip: Sinus Rhythm (Telemetry reveals sinus rhythm with occasional premature immature contractions. No other significant arrhythmias appreciated) Cardiology Labs/Tests 07/11/25 04:15: WBC 7.6, RBC 4.44, Hgb 12.8, Hct 38.9, MCV 87.6, MCH 28.8, MCHC 32.9, Plt Count 168, MPV 12.1 H, Immature Gran % (Auto) 0.400, Neut % (Auto) 70.0, Lymph % (Auto) 20.3, [place] % (Auto) 5.8, Eos % (Auto) 2.8, Baso % (Auto) 0.7, Absolute Neuts (auto) 5.3, Nucleated RBC % 0, Sodium 139, Potassium 3.5, Chloride 100, Carbon Dioxide 29.3 H, Anion Gap 9, BUN 34 H, Creatinine 1.79 H, Est GFR (MDRD) Non-Af 34 L, BUN/Creatinine Ratio 19.0, Glucose 160 H, Hemoglobin A1c 12.8 H, Calcium 8.3, Phosphorus 4.0, Magnesium 1.8 Rhythm: EKG: ECHO: Stress Test: Cardiac Cath: PCI: CT Surgery: Holter monitor: EPS: PPM: CXR: Chest CT Scan: Radiography Diagnostic Testing: Radiology Impression Echocardiogram 07/10/25 01:39 Interpretation Summary The estimated ejection fraction is 10???15 %. Mild concentric left ventricular hypertrophy. Mildly dilated left ventricle. Stage 2 diastolic dysfunction. Definity contrast utilized to visualize the endocardial border and no thrombus appreciated. Mildly dilated right ventricle. Mild global right ventricular systolic dysfunction. Moderate (2+) mitral valve insufficiency. Moderate (2+) tricuspid valve insufficiency. Right ventricular systolic pressure estimated to be 55-60 mmHg. Severe pulmonary hypertension. Mild (1+) pulmonic valve insufficiency identified. IVC dilated with poor respiratory collapse. Righter pressure estimated at 15 mmHg. Compared to previous echocardiogram from 2020 no significant changes appreciated. Stable severe dilated cardiomyopathy with ejection fraction of 10-15% with grade 2 diastolic dysfunction. Moderate valvular heart disease with moderate to severe pulmonary hypertension. Ordering Physician: Malena Paz Performed By: Mena Wise, JAI, RVT Physical Exam Const alert and oriented x3 Resp normal respiratory effort Resp Narrative: Decreased breath sounds. No wheezes, rales, or rhonchi Cardio regular rate, regular rhythm, no murmurs, no rub and no gallops GI normal to inspection, nondistended, normoactive bowel sounds Extremity normal to inspection Extremity Narrative: 1+ bilateral lower extremity pitting edema Neuro Neuro Narrative: Moves all extremities Psych Psych Narrative: Normal mood and affect Assessment & Plan Assessment/Plan (1) Acute on chronic systolic and diastolic heart failure, NYHA class 3: PLAN: ? Patient has had improvement of breathing and edema. Still some volume overload appreciated ? Patient has already been discharged. Recommend continuation of current medications. Transition to p.o. diuretics. Fluid/salt restriction after discharge ? Patient needs to follow-up in office with cardiology. Still has severe cardiomyopathy if no significant improvement after compliance with guideline directed medical therapy then she would require AICD placement. (2) NSTEMI (non-ST elevated myocardial infarction): PLAN: ? Type II NSTEMI due to CHF exacerbation ? Patient had a heart catheterization in 2020 no significant CAD. ? No plans for ischemic evaluation. (3) Severe hypertension: PLAN: ? Blood pressure still with poor control. ? Continue to adjust GDMT after discharge for better control. If able to tolerate/afford then patient possibly will need to transition to Entresto. ? Goal blood pressure less than 130/80. Follow-up in office with her PCP as well as with cardiology for further adjustment and management of medications (4) Intermittent palpitations: PLAN: ? Some improvement noted with addition of beta-iesha ? Would recommend discharge home on carvedilol. Continue to increase dose to maximally tolerated (5) Mixed hyperlipidemia: PLAN: ? Recommend at least moderate intensity statin. Goal LDL less than 100 (6) Diabetes: QUALIFIERS: Diabetes mellitus type: type 2 Diabetes mellitus terminal block assembler insulin use: without terminal block assembler use Diabetes mellitus complication status: with kidney complications Diabetes mellitus complication detail: with chronic kidney disease Chronic kidney disease stage: stage 3 (moderate) PLAN: ? Recent hemoglobin A1c of 9.0 shows poor control. Goal hemoglobin A1c less than 7.0 ? Further management per hospitalist team. Recommend maintaining glucose between 100?180 during admission (7) CKD (chronic kidney disease): QUALIFIERS: Chronic kidney disease stage: stage 3 (moderate) Chronic kidney disease stage 3 subtype: stage 3b (GFR 30-44) Qualified Code(s): N18.32 - Chronic kidney disease, stage 3b PLAN: ? Serum creatinine overall stable at 1.79 today. ? Recommend close monitoring after discharge. Patient would benefit from SGLT2 inhibitor. PLAN: Plan ? Patient has been discharged. As noted above recommend continuation of GDMT and transition to p.o. diuretic. ? Patient needs quick follow-up with PCP and cardiology hopefully within the next 7 days in order to avoid readmission. ? Long discussion with patient about need for compliance with medications as well as follow-up. We also discussed long-term prognosis. Charges/Coding Visit Charges Inpatient E&M: 95801 Subs Hosp L2
--- NOTE | 2025-07-11 10:44 | CASEMGMT ---
ELLA ABDALLA NOTE: Discharge order is in. Rx's have been sent to [facility], one is for Farxiga. Call placed to [facility], cost for generic is $485 for 60-day supply. They do brand-name Farxiga in stock. Farxiga savings card provided to pt & instructed on use. Pt voices appreciation. Per [facility], they do have insulins on hold, Humalog and Tresiba. Cost of Humalog is $70 and Tresiba is $175.58 for pack of 4 pens. Pt is aware and states this is not affordable. She states the has met w/her and has provided resources, which she plans to use. Discussed importance of getting established w/PCP and also provided w/[facility] info. Questions answered. She would like a hospital f/u visit scheduled @ [facility]. Call placed, appt scheduled for 07/18 @ 8 AM and this was added to discharge plan. Pt voices appreciation. She was made aware, if she wishes to get established w/[facility] as PCP to discuss with them @ hospital f/u appt. Also made aware she can discuss w/them financial concerns. She voices appreciation. She denies having other discharge needs or concerns. Alexandria RAMIREZ RN, CM
--- OUTSIDE RECORDS SUMMARY | 2025-07-24 21:33 | XMS RPT_ITS | CCD ---
Author Organization [facility] Care Team Providers Care Fisheries Biologist Name Role Phone Rosendo Hernandez MD Primary Care Provider [facility] Keti Unavailable Dr. Rosendo Hernandez Primary Care Provider Dr. Rosendo Hernandez Referring Provider VERONIKA Clinton Attending Provider Dr. Rosendo Hernandez Primary Care Provider Dr. Rosendo Hernandez Referring Provider JUDE Park Attending Provider Dr. Rosendo Hernandez Primary Care Provider Dr. Rosendo Hernandez Referring Provider IRENE ParkC Irene Attending Provider NURSE, BIM Attending Provider Unavailable Rosendo Hernandez MD Primary Care Provider Steinberg STEAMBOAT INSPECTOR.IT TEACHER, Rebecca Unavailable Lulu STEAMBOAT INSPECTOR.PUMP ATTENDANT, Michaela Unavailable ROSENDO HERNANDEZ Primary Care Unavailable Amanda INVESTIGATOR VICE-CBridgett Attending Provider [phone] Raoul Hancock Attending Unavailable [...] metFORMIN; Translations: [METFORMIN] Drug Allergy 07-03-2015 Diarrhea [facility] Work Phone: (1 source) metFORMIN Drug Allergy 03-08-2025 [facility] Repository Medications Current Medications Medication Drug [...] once daily. Blood-Glucose Meter,Continuous (Freestyle Janna 3 [place]) misc (4 sources) Start: 08-20-2023 Blood-Glucose Meter,Continuous (Freestyle Janna 3 [place]) misc Active 0 .Route 1 August 20, 2023 1:00am As directed Start: 08-20-2023 Blood-Glucose Meter,Continuous (Freestyle Janna 3 [place]) misc Active 0 .Route 1 August 20, 2023 12:00am As directed Blood-Glucose Sensor (Freest yle Janna 3 Sensor) device (16 sources) Start: 03-06-2024 Blood-Glucose Sensor (Freestyle Janna 3 Sensor) device Active 0 .Route 1 March 06, 2024 8:00am Type 2 diabetes mellitus Type 2 diabetes mellitus without complications senior care (current) use of insulin As directed Start: 09-24-2023 End: 03-06-2024 Blood-Glucose Sensor (Freest yle Janna 3 Sensor) device Discontinued 0 .Route 1 September 24, 2023 9:10am March 06, 2024 8:00am Type 2 diabetes mellitus Type 2 diabetes mellitus without complications senior care (current) use of insulin As directed Start: [...] mellitus Type 2 diabetes mellitus without complications senior care (current) use of insulin As directed Start: [...] 12:00am August 26, 2023 9:12am As directed Blood-Glucose,Distribution Associate,Cont (Freestyle Janna 3 [place]) misc (1 source) Start: 08-20-2023 Blood-Glucose,Distribution Associate,Cont (Freestyle Janna 3 [place]) misc Active 0 .Route 1 0 August [...] on above: Take 1 capsule by mo [facility] twice daily as needed for constipation. fluticasone [...] mellitus Type 2 diabetes mellitus without complications oysterman (current) use of insulin levonorgestrel 0.514818 mg/hr intrauterine system (12 sources) Progestin, Progestin-containing [...] mellitus Type 2 diabetes mellitus without complications senior care (current) use of insulin for 4 weeks [...] nipple] 07-09-2021 Episodic Other aftercare (1 source) oysterman (current) use of insulin; Translations: [senior care (current) use of insulin] Onset: 03-08-2025 Episodic [...] Vis kiran 03-08-2025 Internal Medicine Office Visit [facility] [address] [place] [address] [place] [address] OFFICE VISIT Date of Service: 03/08/25 MR#: [id number] Acct: [id number] Name: SLOANE THORNE Rep #: [id number] : 1975 Provider: JUDE ramires Age/Sex: 49/F Location[place] [facility] Status: Signed with Addenda ADDENDUM by JUDE Patel on 03/22/25 at 0830 HPI Details: SLOANE THORNE, is a 49 F who presents to the office today for Assessment and Plan Assessment and Plan (1) Diabetes mellitus, type II: Status: Acute Qualifiers: 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 Diabetes mellitus complication status: without complication Qualified Code(s): E11.9 - Type 2 diabetes mellitus without complications; Z79.4 - senior care (current) use of insulin (2) CKD (chronic [...] 2 diabetes mellitus without complications, Z79.4 - senior care (current) use of insulin CBC W/Diff, Automated [...] PO DAILY 90 tabs 1RF Bridgettjoy Hurdr, INVESTIGATOR VICE-C E78.5 - Hyperlipidemia, unspecified blood-glucose sensor As directed 1 ea 10RF Bridgett Manuelaadamr, INVESTIGATOR VICE-C E11.9 - Type 2 diabetes mellitus without complications, Z79.4 - senior care (current) use of insulin blood-glucose,renewable energy engineer,c ont As directed 1 ea 0RF Bridgettjoy Hurdr INVESTIGATOR VICE-C insulin degludec 30 units (0.3 mL) subcut QHS 15 mL 1RF Bridgett Vannessar, INVESTIGATOR VICE-C E11.9 - Type 2 diabetes mellitus without complications insulin lispro 15 units (0.15 mL) subcut BID 15 mL 2RF Bridgett Vannessar, INVESTIGATOR VICE-C E11.9 - Type 2 diabetes mellitus without complications, Z79.4 - oysterman (current) use of insulin Plan Details Follow [...] 03/08/25 03/08/25 Rx Janna 3 Sensor device) blood-glucose,renewable energy engineer,c ont #1 ea 03/08/25 03/08/25 Rx (FreeStyle Janna 3 [place]) furosemide 40 mg tablet (Lasix) 40 mg PO DAILY PRN 03/08/25 History insulin degludec 100 unit/mL (3 30 unit (0.3 mL) subcut QHS #15 mL 03/08/25 03/08/25 Rx mL) subcutaneous pen (Tresiba FlexTouch U-100 insulin) insulin lispro 100 unit/mL 15 unit (0.15 mL) subcut BID #15 m L 03/08/25 03/08/25 Rx subcutaneous pen (Humalog KwikPen (U-100) Insulin) PFSH (more content not included)... Normal [facility] Office Visit Reporton 2024 Office Visit Report [facility] [address] [place] [address] OFFICE VISIT Date of Service: 09/14/24 MR#: [id number] Acct: [id number] Patient: SLOANE THORNE Rep #: [id number] : 1975 Provider: VERONIKA Saravia Age/Sex: 49/F Location: [facility] Status: Signed Intake Vital Signs 05/03/24 20:22 [...] Oliver Signature: Date (if applicable) CC: Normal [facility] Urgent Care Visit Reporton 0 09-14-2024 Urgent Care Visit Report [facility] [address] [place] [address] OFFICE VISIT Date of Service: 09/14/24 MR#: [id number] Acct: [id number] Name: SLOANE THORNE Rep #: [id number] : 1975 Provider: VERONIKA Saravia Age/Sex: 49/F Location: [facility] Status: Signed Intake Vital Signs 05/03/24 20:22 09/14/24 06:28 Height 5 ft 5 in 5 ft 5 in 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 [address] OFFICE VISIT Date of Service: 07/27/24 MR#: [id number] Acct: [id number] Patient: SLOANE THORNE Rep #: [id number] : 1975 Provider: VERONIKA Saravia Age/Sex: 49/F Location: [facility] Status: Signed Intake Vital Signs 05/03/24 20:22 [...] Nealignsarabjit Signature: Date (if applicable) CC: Normal [facility] Urgent Care Visit Reporton 0 07-27-2024 Urgent Care Visit Report [facility] [address] [place] [address] OFFICE VISIT Date of Service: 07/27/24 MR#: [id number] Acct: [id number] Name: SLOANE THORNE Rep #: [id number] : 1975 Provider: VERONIKA Saravia Age/Sex: 49/F Location: [facility] Status: Signed Intake Vital Signs 05/03/24 20:22 Height 5 ft 5 in 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 [facility] Medical History Depression Anxiety Diabetes Kidney stones [...] Oliver Signature: Date (if applicable) CC: Normal [facility] Abdomen/Pelvis W IV Cont ONL [facility] 05-03-2024 Abdomen/Pelvis W IV Cont ONLY [facility] Imaging Services [address] [place] [address] [id number] Abdomen/Pelvis W IV Cont ONLY MR#: [id number] Acct: [id number] Name: SLOANE THORNE Rep #: [id number] : 1975 F 49 From: Talib bro DO PCP: Irene Park, INVESTIGATOR VICE-C Status: REG ER Study: Abdomen/Pelvis W IV Cont ONLY Date of Exam: Exam# [id number] Ordering Dr: Clifton Esquivel MD [id number] EXAM: CT ABDOMEN AND PELVIS WITH INTRAVENOUS [...] Paper guidelines (Jacky et al. JACR 2017; 14(11):5535-4643.) suggest the following. For patients with a [...] CC: JUDE Park; Dr. Clifton Esquivel MD Weather Teacher: Signed Normal [facility] CBC W/Diff, Automatedon 04-18 Absolute Lymph 1.58 X10 3/uL Normal 0.83-4.51 [facility] Comment on above: Performed By: #### L 700.6800, L501.2450, L100.0100, L500.4050 #### [facility] [address] [place], [address] Absolute Neut 7.2 X10 3/uL Normal 2.0-7.7 [facility] Comment on above: Performed By: #### L 700.6800, L501.2450, L100.0100, L500.4050 #### [facility] [address] [place], [address] Basophils/100 WBC (Bld) 0.4 % Normal 0-1 [facility] Comment on above: Performed By: #### L 700.6800, L501.2450, L100.0100, L500.4050 #### [facility] [address] [place], [address] Eosinophils/100 WBC (Bld) 3.5 % Normal 0-5 [facility] Comment on above: Performed By: #### L 700.6800, L501.2450, L100.0100, L500.4050 #### [facility] [address] [place], [address] Erythrocyte distribution width (RBC) [Ratio] 13.4 % Normal 11.6-14.6 [facility] Comment on above: Performed By: #### L 700.6800, L501.2450, L100.0100, L500.4050 #### [facility] [address] [place], [address] Hematocrit (Bld) [Volume fraction] 39.1 % Normal 37-47 [facility] Comment on above: Performed By: #### L 700.6800, L501.2450, L100.0100, L500.4050 #### [facility] [address] [place], [address] Hemoglobin (Bld) [Mass/Vol] 12.9 g/dL Normal 12.0-15.0 [facility] Comment on above: Performed By: #### L 700.6800, L501.2450, L100.0100, L500.4050 #### [facility] [address] [place], [address] IG% 0.400 Normal 0.0-0.9 [facility] Comment on above: Result Comment: IG% - Immature Granulocytes (promyelocytes, myelocytes and metamyelocytes) > 1% indicates that a LEFT SHIFT is Present. Performed By: #### L 700.6800, L501.2450, L100.0100, L500.4050 #### [facility] [address] [place], [address] Lymphocytes/100 WBC (Bld) 16.4 % Low 19-41 [facility] Comment on above: Performed By: #### L 700.6800, L501.2450, L100.0100, L500.4050 #### [facility] [address] [place], [address] MCH (RBC) [Entitic mass] 28.9 pg Normal 27.0-32.0 [facility] Comment on above: Performed By: #### L 700.6800, L501.2450, L100.0100, L500.4050 #### [facility] [address] [place], [address] MCHC (RBC) [Mass/Vol] 33.0 g/dL Normal 32-36 [facility] Comment on above: Performed By: #### L 700.6800, L501.2450, L100.0100, L500.4050 #### [facility] [address] [place], [address] MCV (RBC) [Entitic vol] 87.7 fL Normal 81-99 [facility] Comment on above: Performed By: #### L 700.6800, L501.2450, L100.0100, L500.4050 #### [facility] [address] [place], [address] Monocytes/100 WBC (Bld) 4.8 % Normal 0-10 [facility] Comment on above: Performed By: #### L 700.6800, L501.2450, L100.0100, L500.4050 #### [facility] [address] [place], [address] Neutrophils/100 WBC (Bld) 74.5 % High 47-70 [facility] Comment on above: Performed By: #### L 700.6800, L501.2450, L100.0100, L500.4050 #### [facility] [address] [place], [address] Nucleated RBC (Bld) [#/Vol] 0 10*3/uL Normal 0-5 [facility] Comment on above: Performed By: #### L 700.6800, L501.2450, L100.0100, L500.4050 #### [facility] [address] [place], [address] Platelet mean volume (Bld) [Entitic vol] 11.2 fL Normal 6.2-12.0 [facility] Comment on above: Performed By: #### L 700.6800, L501.2450, L100.0100, L500.4050 #### [facility] [address] [place], [address] Platelets (Bld) [#/Vol] 197 10*3/uL Normal 150-450 [facility] Comment on above: Performed By: #### L 700.6800, L501.2450, L100.0100, L500.4050 #### [facility] [address] [place], [address] RBC (Bld) [#/Vol] 4.46 10*6/uL Normal 4.2-5.4 [facility] Comment on above: Performed By: #### L 700.6800, L501.2450, L100.0100, L500.4050 #### [facility] [address] [place], [address] RDW SD 43.3 fl Normal 35.1-43.9 [facility] Comment on above: Performed By: #### L 700.6800, L501.2450, L100.0100, L500.4050 #### [facility] [address] [place], [address] WBC (Bld) [#/Vol] 9.6 10*3/uL Normal 4.4-11.0 [facility] Comment on above: Performed By: #### L 700.6800, L501.2450, L100.0100, L500.4050 #### [facility] [address] [place], [address] Comprehensive Metabolic Prof ilon 05-03-2024 Albumin [Mass/Vol] 3.3 g/dL Normal 3.2-5.0 [facility] Comment on above: Performed By: #### L 700.6800, L501.2450, L100.0100, L500.4050 #### [facility] [address] [place], [address] Albumin/Globulin [Mass ratio] 0.9 {ratio} Normal 0.9-2.4 [facility] Comment on above: Performed By: #### L 700.6800, L501.2450, L100.0100, L500.4050 #### [facility] [address] [place], [address] ALK P 84 U/L Normal 45-117 [facility] Comment on above: Performed By: #### L 700.6800, L501.2450, L100.0100, L500.4050 #### [facility] [address] [place], [address] ALT [Catalytic activity/Vol] 19 U/L Normal 13-56 [facility] Comment on above: Performed By: #### L 700.6800, L501.2450, L100.0100, L500.4050 #### [facility] [address] [place], [address] AST [Catalytic activity/Vol] 14 U/L Low 15-37 [facility] Comment on above: Performed By: #### L 700.6800, L501.2450, L100.0100, L500.4050 #### [facility] [address] [place], [address] Bilirubin [Mass/Vol] 0.60 mg/dL Normal 0.20-1.00 [facility] Comment on above: Result Comment: For patients on eltrombopag therapy, use of [place] TBIL is not recommended. Performed By: #### L 700.6800, L501.2450, L100.0100, L500.4050 #### [facility] [address] [place], [address] BUN/CRE 14.1 RATIO Normal 10-20 [facility] Comment on above: Performed By: #### L 700.6800, L501.2450, L100.0100, L500.4050 #### [facility] [address] [place], [address] CA,Total 9.0 mg/dL Normal 8.5-10.1 [facility] Comment on above: Performed By: #### L 700.6800, L501.2450, L100.0100, L500.4050 #### [facility] [address] [place], [address] Chloride [Moles/Vol] 104 mmol/L Normal 98-107 [facility] Comment on above: Performed By: #### L 700.6800, L501.2450, L100.0100, L500.4050 #### [facility] [address] [place], [address] CO2 [Moles/Vol] 27.0 mmol/L Normal 21.0-32.0 [facility] Comment on above: Performed By: #### L 700.6800, L501.2450, L100.0100, L500.4050 #### [facility] [address] [place], [address] Creatinine [Mass/Vol] 1.77 mg/dL High 0.55-1.02 [facility] Comment on above: Result Comment: The validity of the calculated GFR GFRAA in patients over 70 years has not been determined. Clinical correlation is essential. Performed By: #### L 700.6800, L501.2450, L100.0100, L500.4050 #### [facility] [address] [place], [address] ECRCL 43.41 ml/min Normal [facility] Comment on above: Performed By: #### L 700.6800, L501.2450, L100.0100, L500.4050 #### [facility] [address] [place], [address] EST GFR - AA 39 mL/min Low >60 [facility] Comment on above: Result Comment: Afri can Angolan GFR Calc Performed By: #### L 700.6800, L501.2450, L100.0100, L500.4050 #### [facility] [address] [place], [address] GAP 6 Normal 5-15 [facility] Comment on above: Performed By: #### L 700.6800, L501.2450, L100.0100, L500.4050 #### [facility] [address] [place], [address] GFR/1.73 sq M.predicted among non-blacks MDRD (S/P/Bld) [Vol rate/Area] 32 mL/min/{1.73_m2} Low >60 [facility] Comment on above: Result Comment: Non- GFR Calc Performed By: #### L 700.6800, L501.2450, L100.0100, L500.4050 #### [facility] [address] [place], [address] Globulin (S) [Mass/Vol] 3.8 g/dL Normal 2.2-4.2 [facility] Comment on above: Performed By: #### L 700.6800, L501.2450, L100.0100, L500.4050 #### [facility] [address] [place], [address] Glucose [Mass/Vol] 213 mg/dL High 74-106 [facility] Comment on above: Result Comment: Gluc ose result greater than or equal to 200 mg/dL suggests DIABETES MELLITUS per A.D.A. criteria. Performed By: #### L 700.6800, L501.2450, L100.0100, L500.4050 #### [facility] [address] [place], [address] Potassium [Moles/Vol] 4.1 mmol/L Normal 3.5-5.1 [facility] Comment on above: Performed By: #### L 700.6800, L501.2450, L100.0100, L500.4050 #### [facility] [address] [place], [address] Sodium [Moles/Vol] 137 mmol/L Normal 136-145 [facility] Comment on above: Performed By: #### L 700.6800, L501.2450, L100.0100, L500.4050 #### [facility] [address] [place], [address] T PROT 7.1 g/dL Normal 6.4-8.2 [facility] Comment on above: Performed By: #### L 700.6800, L501.2450, L100.0100, L500.4050 #### [facility] [address] [place], [address] Urea nitrogen [Mass/Vol] 25 mg/dL High 7-18 [facility] Comment on above: Performed By: #### L 700.6800, L501.2450, L100.0100, L500.4050 #### [facility] [address] [place], [address] Emergency Department Summary on 05-03-2024 Emergency Department Summary [facility] Medical Records Department [address] [place] [address] Emergency Department Summary 05/03/24 MR#: [id number] Acct: [id number] Name: SLOANE THORNE Rep #: [id number] : 1975 49 From: Clifton Esquivel MD PCP: Irene Park INVESTIGATOR VICE-C Status:REG ER Location: ED HPI HPI - [...] similar symptoms: Yes Recent Illness/Hospitalization: No PFSH [facility] Medical History Depression Anxiety Diabetes Kidney stones [...] ea 08/20/23 Unknown Rx (FreeStyle Janna 3 [place]) aspirin 81 mg tablet,delayed 81 mg PO [...] Respiratory/Chest Respiratory/Chest (more content not included)... Normal [facility] Lipaseon 10-16-2024 Lipase [Catalytic activity/Vol] 33 U/L Normal 13-75 [facility] Comment on above: Result Comment: Nelida camarena note: LIPASE revised reference range effective 22. New Lipase methodology. Expected to produce lower values than the previous assay method. NEW Reference Range: 13 - 75 U/L Performed By: #### L 700.6800, L501.2450, L100.0100, L500.4050 #### [facility] [address] [place], [address] ,Serum,hCG Quali.on 05-03-2024 HCG, SERUM QUAL Negative Normal [facility] Comment on above: Performed By: #### L 700.6800, L501.2450, L100.0100, L500.4050 #### [facility] [address] [place], [address] Urinalysis, Completeon 05-03 BACTERIA 2+ /hpf Normal None Seen [facility] Comment on above: Order Comment: CLEAN CATCH Performed By: #### L 400.0001 #### [facility] [address] [place], [address] EPI,RENAL 0-5 SEEN Normal 0-5 [facility] Comment on above: Order Comment: CLEAN CATCH Performed By: #### L 400.0001 #### [facility] [address] [place], [address] RBC 0-5 SEEN Normal 0-5 [facility] Comment on above: Order Comment: CLEAN CATCH Performed By: #### L 400.0001 #### [facility] [address] [place], [address] WBC 0-5 SEEN Normal 0-5 [facility] Comment on above: Order Comment: CLEAN CATCH Performed By: #### L 400.0001 #### [facility] [address] [place], [address] CAST,HYALINE 10-25 SEEN Normal 0-5 [facility] Comment on above: Order Comment: CLEAN CATCH Performed By: #### L 400.0001 #### [facility] [address] [place], [address] EPI,SQUAMOUS 5-10 SEEN Normal 5-10 [facility] Comment on above: Order Comment: CLEAN CATCH Performed By: #### L 400.0001 #### [facility] [address] [place], [address] Mucus Ql (Urine sed) 0 SEEN Normal [facility] Comment on above: Order Comment: CLEAN CATCH Performed By: #### L 400.0001 #### [facility] [address] [place], [place], [address] CNOVon 05-02-2024 CNOV Office Visit (UCWSTR ) -------- SLOANE THORNE ([id number]) 1975 F FNS Date Time Provider Department 05/02/24 6:15 PM GUILLE GRIFFITH [facility] During your visit today, we recorded the following information about you: Temperature Pulse Respiration Blood pressure 97.2 degrees 90/minute 18/minute 167/99 Weight 95 kg Guille Griffith APRN.PUMP ATTENDANT 05/02/2024 7:04 PM Signed Subjective HPI Nontoxic-appearing [...] disorder 07/03/[address] Gonzalez at the [facility] Genital herpes Genital HSV 09/28/2014 PID [...] (Patient not taking: No sig reported) Insulin [place], Disposable, (BD ULTRA-FINE PAULA PEN NEEDLE) 32 [...] since alyssa (more content not included)... Normal [facility] COVID AND INFLUENZA A/B AND RSV PCR, ROUTINEon 05-02-2024 SARS-CoV-2 (COVID-19) RNA BRAVO+probe Ql (Unsp spec) SARS-COV-2 (AGENT OF COVID-19) RNA: Not detected INFLUENZA A RNA: Not detected INFLUENZA B RNA: Not detected RESPIRATORY SYNCYTIAL VIRUS (RSV) RNA: Not detected Normal [facility] Comment on above: Performed By: #### C VFLRS #### [facility] CLIA [id number] [address] [place] [address] [address] [facility] Internal Medicine Office Vis iton 03-30-2024 Internal Medicine Office Visit [facility] [address] [place] [id number] OFFICE VISIT Date of Service: 03/31/24 MR#: [id number] Acct: [id number] Name: SLOANE THORNE Rep #: [id number] : 1975 Provider: JUDE vega Age/Sex: 48/F Location: [facility] Status: Signed Intake Vital Signs 12/24/23 07:34 [...] 3 M FU Chief Complaint: 3m f/u [employer] Physician Required: No Accompanied by: Self Is patient in pain?: No Allergies metformin Adverse Reaction (Severe, Verified 03/31/24 07:31) Abd cramps/diarrhea Medications ???Medication ???Instructions ???Recorded ???Confirmed ???Type blood-glucose meter,continuous #1 ea 08/20/23 03/31/24 Rx (FreeStyle Janna 3 [place]) aspirin 81 mg tablet,delayed 81 mg PO [...] edema, PN (more content not included)... Normal [facility] 02-07-2024 [facility] Telephone (INTMWS) -------- SLOANE THORNE ([id number]) 1975 F Date Time Provider Department 02/07/24 [...] by mouth every 12 hours. - Insulin [place], Disposable, (BD ULTRA-FINE PAULA PEN NEEDLE) 32 [...] by EMILY DE JESUS on 08/15/24 Normal [facility] Basophil percentageOrdered B y: Irene Xavier on 10-15-2023 Chloride [Moles/Vol] 108 mmol/L 98-107 [place] [facility] Glucose [Mass/Vol] 191 mg/dL 74-106 [place] [facility] Comment on above: Fasting Glucose resu lt greater than or equal to 126 mg/dL suggests DIABETES MELLITUS per A.D.A. criteria. Potassium [Moles/Vol] 4.8 mmol/L 3.5-5.1 [facility] Sodium [Moles/Vol] 140 mmol/L 136-145 [facility] - Chemistry and C hemistry - challengeOrdered By: Irene Park on 10-15-2023 CO2 [Moles/Vol] 29.0 mmol/L 21.0-32.0 [facility] Urea nitrogen/Creatinine [Mass ratio] 26.8 mg/mg 10-20 [facility] No Panel InformationOrdered By: Irene Park on 10-15-2023 Estimated GFR (MDRD) Amer 57 mL/min >60 [facility] Comment on above: GFR Calc Estimated GFR (MDRD) Non-Af Amer 47 mL/min >60 [facility] Comment on above: Non- GFR Calc Serum or plasma calcium kit urement (mass/volume)Ordered By: Irene Park on 10-15-2023 Calcium [Mass/Vol] 9.1 mg/dL 8.5-10.1 [facility] Serum or plasma creatinine m easurement (mass/volume)Ordered By: Irene Park on 10-15-2023 Creatinine [Mass/Vol] 1.27 mg/dL 0.55-1.02 [facility] Comment on above: The validity of the calculated GFR & GFRAA in patients over 70 years has not been determined. Clinical correlation is essential. Serum or plasma urea nitroge n measurement (mass/volume)Ordered By: Irene Park on 10-15-2023 Urea nitrogen [Mass/Vol] 34 mg/dL 7-18 [facility] Thin prep Papanicolaou smear with manual screeningOrdered By: Irene Park on 10-15-2023 Thin prep Papanicolaou smear with manual screening 3 5-15 [facility] Basophil percentageOrdered B y: Irene Park on 10-08-2023 Chloride [Moles/Vol] 106 mmol/L 98-107 [facility] Glucose [Mass/Vol] 153 mg/dL 74-106 [facility] Comment on above: Fasting Glucose resu lt greater than or equal to 126 mg/dL suggests DIABETES MELLITUS per A.D.A. criteria. Potassium [Moles/Vol] 5.3 mmol/L 3.5-5.1 [facility] Sodium [Moles/Vol] 138 mmol/L 136-145 [facility] Laboratory - Chemistry and C hemistry - challengeOrdered By: Irene Park on 10-08-2023 CO2 [Moles/Vol] 26.0 mmol/L 21.0-32.0 [facility] Urea nitrogen/Creatinine [Mass ratio] 26.9 mg/mg 10-20 [facility] No Panel InformationOrdered By: Irene Park on 10-08-2023 Estimated GFR (MDRD) Amer 30 mL/min >60 [facility] Comment on above: GFR Calc Estimated GFR (MDRD) Non-Af Amer 25 mL/min >60 [facility] Comment on above: Non- GFR Calc Serum or plasma calcium kit urement (mass/volume)Ordered By: Irene Park on 10-08-2023 Calcium [Mass/Vol] 9.9 mg/dL 8.5-10.1 [facility] Serum or plasma creatinine m easurement (mass/volume)Ordered By: Irene Park on 10-08-2023 Creatinine [Mass/Vol] 2.23 mg/dL 0.55-1.02 [facility] Comment on above: The validity of the calculated GFR & GFRAA in patients over 70 years has not been determined. Clinical correlation is essential. Serum or plasma urea nitroge n measurement (mass/volume)Ordered By: Irene Park on 10-08-2023 Urea nitrogen [Mass/Vol] 60 mg/dL 7-18 [facility] Thin prep Papanicolaou smear with manual screeningOrdered By: Irene Park on 10-08-2023 Thin prep Papanicolaou smear with manual screening 6 5-15 [facility] Basophil percentageOrdered B y: Irene Park on 10-01-2023 Chloride [Moles/Vol] 108 mmol/L 98-107 [facility] Glucose [Mass/Vol] 186 mg/dL 74-106 [facility] Comment on above: Fasting Glucose resu lt greater than or equal to 126 mg/dL suggests DIABETES MELLITUS per A.D.A. criteria. Potassium [Moles/Vol] 5.1 mmol/L 3.5-5.1 [facility] Sodium [Moles/Vol] 137 mmol/L 136-145 [facility] Laboratory - Chemistry and C hemistry - challengeOrdered By: Irene Park on 10-01-2023 CO2 [Moles/Vol] 23.0 mmol/L 21.0-32.0 [facility] Urea nitrogen/Creatinine [Mass ratio] 25.8 mg/mg 10- [facility] No Panel InformationOrdered By: Irene Park on 10-01-2023 Estimated GFR (MDRD) Amer 36 mL/min >60 [facility] Comment on above: GFR Calc Estimated GFR (MDRD) Non-Af Amer 30 mL/min >60 [facility] Comment on above: Non- GFR Calc Serum or plasma calcium kit urement (mass/volume)Ordered By: Irene Park on 10-01-2023 Calcium [Mass/Vol] 8.8 mg/dL 8.5-10.1 [facility] Serum or plasma creatinine m easurement (mass/volume)Ordered By: Irene Park on 10-01-2023 Creatinine [Mass/Vol] 1.90 mg/dL 0.55-1.02 [facility] Comment on above: The validity of the calculated GFR & GFRAA in patients over 70 years has not been determined. Clinical correlation is essential. Serum or plasma urea nitroge n measurement (mass/volume)Ordered By: Irene Park on 10-01-2023 Urea nitrogen [Mass/Vol] 49 mg/dL - [facility] Thin prep Papanicolaou smear with manual screeningOrdered By: Irene Park on 10-01-2023 Thin prep Papanicolaou smear with manual screening 6 11-30 [facility] Absolute lymphocyte countOrd ered By: Irene Park on 09-21-2023 Lymphocytes Auto (Unsp spec) [#/Vol] 2.53 10*3/uL 0.83-4.51 [facility] Automated lymphocyte count a s percentage of total leukocytesOrdered By: Irene Park on 09-21-2023 Lymphocytes/100 WBC Auto (Unsp spec) 28.2 % 19-41 [facility] Basophil percentageOrdered B y: Irene Park on 09-21-2023 Basophils/100 WBC (Bld) 0.4 % 0-1 [facility] Bilirubin [Mass/Vol] 0.20 mg/dL 0.20-1.00 [facility] Comment on above: For patients on eltr ombopag therapy, use of [place] TBIL is not recommended. Chloride [Moles/Vol] 111 mmol/L 98-107 [facility] Cholesterol [Mass/Vol] 168 mg/dL <200 [facility] Comment on above: <200 mg/dL Desirable 200-240 mg/dL Borderline >240 mg/dL High Risk Eosinophils/100 WBC (Bld) 5.9 % 0-5 [facility] Glucose [Mass/Vol] 96 mg/dL 74-106 [facility] Hemoglobin (Bld) [Mass/Vol] 13.8 g/dL 12.0-15.0 [facility] Monocytes/100 WBC (Bld) 5.0 % 0-10 [facility] Neutrophils (Bld) [#/Vol] 5.4 10*3/uL 2.0-7.7 [facility] Neutrophils/100 WBC (Bld) 60.3 % 47-70 [facility] Potassium [Moles/Vol] 4.6 mmol/L 3.5-5.1 [facility] Protein [Mass/Vol] 7.0 g/dL 6.4-8.2 [facility] Sodium [Moles/Vol] 141 mmol/L 136-145 [facility] Triglyceride [Mass/Vol] 132 mg/dL <199 [facility] Comment on above: The drugs N-Acetylcy steine and Metamizole may falsely depress this assay.Serum Triglycerides Reference Interval Normal <150 mg/dL Borderline high 150 - 199 mg/dL High 200 - 499 mg/dL Very High > or = 500 mg/dL WBC (Bld) [#/Vol] 9.0 10*3/uL 4.4-11.0 [facility] Determination of erythrocyte mean corpuscular volume (MCV)Ordered By: Irene Park on 09-21-2023 MCV (RBC) [Entitic vol] 89.1 fL 81-99 [facility] Erythrocyte distribution wid th ratioOrdered By: Irene Park on 09-21-2023 Erythrocyte distribution width (RBC) [Ratio] 14.2 % 11.6-14.6 [facility] Erythrocyte distribution wid th standard deviationOrdered By: Irene Park on 09-21-2023 Erythrocyte distribution width (RBC) [Entitic vol] 46.5 fL 35.1-43.9 [facility] Hematocrit Auto (Bld) [Volum e fraction]Ordered By: Irene Park on 09-21-2023 Hematocrit (Bld) [Volume fraction] 43.5 % 37-47 [facility] Immature granulocytes/100 WB C Auto (Bld)Ordered By: Irene Park on 09-21-2023 Immature granulocytes/100 WBC (Bld) 0.200 % 0.0-0.9 [facility] Comment on above: IG% - Immature Granu locytes (promyelocytes, myelocytes and metamyelocytes) > 1% indicates that a LEFT SHIFT is Present. Laboratory - Chemistry and C hemistry - challengeOrdered By: Irene Park on 09-21-2023 Albumin/Globulin [Mass ratio] 0.9 {ratio} 0.9-2.4 [facility] ALP [Catalytic activity/Vol] 83 U/L 45-117 [facility] ALT [Catalytic activity/Vol] 26 U/L 13-56 [facility] Cholesterol in HDL [Mass/Vol] 51 mg/dL >40 [facility] Comment on above: The drugs N-Acetylcy steine and Metamizole may falsely depress this assay. Reference Range HDL <40 mg/dL Low HDL Cholesterol HDL >or= 60 mg/dL High HDL Cholesterol Cholesterol in LDL [Mass/Vol] 91 mg/dL 0-130 [facility] CO2 [Moles/Vol] 30.0 mmol/L 21.0-32.0 [facility] Globulin (S) [Mass/Vol] 3.7 g/dL 2.2-4.2 [facility] Urea nitrogen/Creatinine [Mass ratio] 26.5 mg/mg 10-20 [facility] Laboratory - Hematology and Cell countsOrdered By: Irene Park on 09-21-2023 MCH (RBC) [Entitic mass] 28.3 pg 27.0-32.0 [facility] MCHC (RBC) [Mass/Vol] 31.7 g/dL 32-36 [facility] Nucleated RBC/100 WBC (Bld) [Ratio] 0 % 0-5 [facility] Platelet mean volume (Bld) [Entitic vol] 10.8 fL 6.2-12.0 [facility] Platelets (Bld) [#/Vol] 199 10*3/uL 150-450 [facility] No Panel InformationOrdered By: Irene Park on 09-21-2023 Estimated GFR (MDRD) Amer 49 mL/min >60 [facility] Comment on above: GFR Calc Estimated GFR (MDRD) Non-Af Amer 40 mL/min >60 [facility] Comment on above: Non- GFR Calc VLDL Cholesterol 26 mg/dL 5-40 [facility] RBC Auto (Bld) [#/Vol]Ordere d By: Irene Park on 09-21-2023 RBC (Bld) [#/Vol] 4.88 10*6/uL 4.2-5.4 [facility] Serum or plasma calcium kit urement (mass/volume)Ordered By: Irene Park on 09-21-2023 Calcium [Mass/Vol] 9.2 mg/dL 8.5-10.1 [facility] Serum or plasma creatinine m easurement (mass/volume)Ordered By: Irene Park on 09-21-2023 Creatinine [Mass/Vol] 1.47 mg/dL 0.55-1.02 [facility] Comment on above: The validity of the calculated GFR & GFRAA in patients over 70 years has not been determined. Clinical correlation is essential. Serum or plasma urea nitroge n measurement (mass/volume)Ordered By: Irene Park on 09-21-2023 Urea nitrogen [Mass/Vol] 39 mg/dL 7-18 [facility] Thin prep Papanicolaou smear with manual screeningOrdered By: Irene Park on 09-21-2023 Protein (U) [Mass/Vol] 124.0 mg/dL 0.0-11.8 [facility] Thin prep Papanicolaou smear with manual screening 3.3 g/dL 3.2-5.0 [facility] Thin prep Papanicolaou smear with manual screening 19 U/L 15-37 [facility] Thin prep Papanicolaou smear with manual screening 0 5-15 [facility] Thin prep Papanicolaou smear with manual screening 859.0 mg/L NO RANGE EST. [facility] Urine creatinine measurement (mass/volume)Ordered By: Irene Park on 09-21-2023 Creatinine (U) [Mass/Vol] 109.00 mg/dL NO RANGE EST. [facility] Urine protein/creatinine mas s ratioOrdered By: Irene Park on 09-21-2023 Protein/Creatinine (U) [Mass ratio] 1138 mg/g CRE 0-200 [facility] Absolute lymphocyte countOrd ered By: Gale Hull on 09-14-2023 Lymphocytes Auto (Unsp spec) [#/Vol] 2.18 10*3/uL 0.83-4.51 [facility] Automated lymphocyte count a s percentage of total leukocytesOrdered By: Gale Hull on 09-14-2023 Lymphocytes/100 WBC Auto (Unsp spec) 20.5 % 19-41 [facility] Basophil percentageOrdered B y: Gale Hull on 09-14-2023 Basophils/100 WBC (Bld) 0.6 % 0-1 [facility] Chloride [Moles/Vol] 109 mmol/L 98-107 [facility] Eosinophils/100 WBC (Bld) 5.3 % 0-5 [facility] Glucose [Mass/Vol] 124 mg/dL 74-106 [facility] Comment on above: Fasting Glucose resu lt from 100 to 125 mg/dL suggests IMPAIRED HOMEOSTASIS per A.D.A. criteria. Hemoglobin (Bld) [Mass/Vol] 14.6 g/dL 12.0-15.0 [facility] Monocytes/100 WBC (Bld) 5.0 % 0-10 [facility] Neutrophils (Bld) [#/Vol] 7.3 10*3/uL 2.0-7.7 [facility] Neutrophils/100 WBC (Bld) 68.3 % 47-70 [facility] Potassium [Moles/Vol] 4.7 mmol/L 3.5-5.1 [facility] Sodium [Moles/Vol] 138 mmol/L 136-145 [facility] WBC (Bld) [#/Vol] 10.6 10*3/uL 4.4-11.0 [facility] Determination of erythrocyte mean corpuscular volume (MCV)Ordered By: Gale Hull on 09-14-2023 MCV (RBC) [Entitic vol] 86.3 fL 81-99 [facility] Erythrocyte distribution wid th ratioOrdered By: Galehaydee Hull on 09-14-2023 Erythrocyte distribution width (RBC) [Ratio] 14.3 % 11.6-14.6 [facility] Erythrocyte distribution wid th standard deviationOrdered By: Gale Hull on 09-14-2023 Erythrocyte distribution width (RBC) [Entitic vol] 45.3 fL 35.1-43.9 [facility] Hematocrit Auto (Bld) [Volum e fraction]Ordered By: Gale Hull on 09-14-2023 Hematocrit (Bld) [Volume fraction] 45.3 % 37-47 [facility] Immature granulocytes/100 WB C Auto (Bld)Ordered By: Gale Hull on 09-14-2023 Immature granulocytes/100 WBC (Bld) 0.300 % 0.0-0.9 [facility] Comment on above: IG% - Immature Granu locytes (promyelocytes, myelocytes and metamyelocytes) > 1% indicates that a LEFT SHIFT is Present. Laboratory - Chemistry and C hemistry - challengeOrdered By: Gale Hull on 09-14-2023 CO2 [Moles/Vol] 26.0 mmol/L 21.0-32.0 [facility] Magnesium [Mass/Vol] 2.1 mg/dL 1.6-2.6 [facility] Urea nitrogen/Creatinine [Mass ratio] 24.6 mg/mg 10-20 [facility] Laboratory - Hematology and Cell countsOrdered By: Gale Hull on 09-14-2023 MCH (RBC) [Entitic mass] 27.8 pg 27.0-32.0 [facility] MCHC (RBC) [Mass/Vol] 32.2 g/dL 32-36 [facility] Nucleated RBC/100 WBC (Bld) [Ratio] 0 % 0-5 [facility] Platelet mean volume (Bld) [Entitic vol] 11.9 fL 6.2-12.0 [facility] Platelets (Bld) [#/Vol] 229 10*3/uL 150-450 [facility] No Panel InformationOrdered By: Gale Hull on 09-14-2023 Troponin I High Sensitivity 23 pg/mL 3.0-54.0 [facility] Comment on above: Please Note: [place] t Units and Gender Specific Reference Ranges. For more information see Policy Stat Procedure Halls High Sensitivity Troponin (TNIH) and attachments. Estimated Creatinine Clearance Calc 59.36 ml/min [facility] Estimated GFR (MDRD) Amer 54 mL/min >60 [facility] Comment on above: GFR Calc Estimated GFR (MDRD) Non-Af Amer 45 mL/min >60 [facility] Comment on above: Non- GFR Calc RBC Auto (Bld) [#/Vol]Ordere d By: Gale Hull on 09-14-2023 RBC (Bld) [#/Vol] 5.25 10*6/uL 4.2-5.4 [facility] Serum or plasma calcium kit urement (mass/volume)Ordered By: Gale Hull on 09-14-2023 Calcium [Mass/Vol] 9.4 mg/dL 8.5-10.1 [facility] Serum or plasma creatinine m easurement (mass/volume)Ordered By: Gale Hull on 09-14-2023 Creatinine [Mass/Vol] 1.34 mg/dL 0.55-1.02 [facility] Comment on above: The validity of the calculated GFR & GFRAA in patients over 70 years has not been determined. Clinical correlation is essential. Serum or plasma thyroid stim ulating hormone (TSH) measurement (units/volume)Ordered By: Gale Hull on 09-14-2023 TSH Qn 2.21 uIU/mL 0.358-3.74 [facility] Serum or plasma urea nitroge n measurement (mass/volume)Ordered By: Gale Hull on 09-14-2023 Urea nitrogen [Mass/Vol] 33 mg/dL 7-18 [facility] Thin prep Papanicolaou smear with manual screeningOrdered By: Gale Hull on 09-14-2023 Thin prep Papanicolaou smear with manual screening 3 5-15 [facility] Laboratory - Hematology and Cell countson 08-20-2023 HbA1c (Bld) [Mass fraction] 10.0 % 4.2-6.3 [facility] Absolute lymphocyte countOrd ered By: Janetmikaela Urbina on 09-18-2022 Lymphocytes Auto (Unsp spec) [#/Vol] 2.18 10*3/uL 0.83-4.51 [facility] Basophil percentageOrdered B y: Janet Urbina on 09-18-2022 Basophils/100 WBC (Bld) 0.4 % 0-1 [facility] Bilirubin [Mass/Vol] 0.20 mg/dL 0.20-1.00 [facility] Comment on above: For patients on eltr ombopag therapy, use of [place] TBIL is not recommended. Chloride [Moles/Vol] 101 mmol/L 98-107 [facility] Cholesterol [Mass/Vol] 141 mg/dL <200 [facility] Comment on above: <200 mg/dL Desirable 200-240 mg/dL Borderline >240 mg/dL High Risk Eosinophils/100 WBC (Bld) 3.8 % 0-5 [facility] Glucose [Mass/Vol] 413 mg/dL 74-106 [facility] Comment on above: Glucose result great er than or equal to 200 mg/dLsuggests DIABETES MELLITUS per A.D.A. criteria. Neutrophils (Bld) [#/Vol] 5.4 10*3/uL 2.0-7.7 [facility] Neutrophils/100 WBC (Bld) 64.2 % 47-70 [facility] Potassium [Moles/Vol] 4.6 mmol/L 3.5-5.1 [facility] Protein [Mass/Vol] 7.2 g/dL 6.4-8.2 [facility] Sodium [Moles/Vol] 137 mmol/L 136-145 [facility] Triglyceride [Mass/Vol] 197 mg/dL <199 [facility] Comment on above: The drugs N-Acetylcy steine and Metamizole may falsely depress this assay.Serum Triglycerides Reference Interval Normal <150 mg/dL Borderline high 150 - 199 mg/dL High 200 - 499 mg/dL Very High > or = 500 mg/dL WBC (Bld) [#/Vol] 8.3 10*3/uL 4.4-11.0 [facility] Blood erythrocytes count (nu mber/volume)Ordered By: Janet Urbina on 09-18-2022 RBC (Bld) [#/Vol] 4.04 10*6/uL 4.2-5.4 [facility] Blood hemoglobin measurement (mass/volume)Ordered By: Janet Urbina on 09-18-2022 Hemoglobin (Bld) [Mass/Vol] 11.9 g/dL 12.0-15.0 [facility] Blood lymphocytes/100 leukoc ytesOrdered By: Janet Urbina on 09-18-2022 Lymphocytes/100 WBC (Bld) 26.2 % 19-41 [facility] Blood monocytes/100 leukocyt esOrdered By: Janet Urbina on 09-18-2022 Monocytes/100 WBC (Bld) 5.0 % 0-10 [facility] Blood platelet mean volumeOr dered By: Janet Urbina on 09-18-2022 Platelet mean volume (Bld) [Entitic vol] 11.0 fL 6.2-12.0 [facility] Determination of erythrocyte mean corpuscular volume (MCV)Ordered By: Janet Urbina on 09-18-2022 MCV (RBC) [Entitic vol] 91.1 fL 81-99 [facility] Hematocrit Auto (Bld) [Volum e fraction]Ordered By: Janet Urbina on 09-18-2022 Hematocrit (Bld) [Volume fraction] 36.8 % 37-47 [facility] Laboratory - Chemistry and C hemistry - challengeOrdered By: Janet Urbina on 09-18-2022 ALP [Catalytic activity/Vol] 90 U/L 45-117 [facility] ALT [Catalytic activity/Vol] 23 U/L 13-56 [facility] CO2 [Moles/Vol] 26.0 mmol/L 21.0-32.0 [facility] Globulin (S) [Mass/Vol] 3.8 g/dL 2.2-4.2 [facility] Urea nitrogen/Creatinine [Mass ratio] 21.3 mg/mg 10-20 [facility] Laboratory - Hematology and Cell countsOrdered By: Janet Urbina on 09-18-2022 Erythrocyte distribution width (RBC) [Entitic vol] 48.2 fL 35.1-43.9 [facility] Erythrocyte distribution width (RBC) [Ratio] 14.6 % 11.6-14.6 [facility] Immature granulocytes/100 WBC (Bld) 0.400 % 0.0-0.9 [facility] Comment on above: IG% - Immature Granu locytes (promyelocytes, myelocytes and metamyelocytes) > 1% indicates that a LEFT SHIFT is Present. MCH (RBC) [Entitic mass] 29.5 pg 27.0-32.0 [facility] Nucleated RBC/100 WBC (Bld) [Ratio] 0 % 0-5 [facility] MCHC Auto (RBC) [Mass/Vol]Or dered By: Janet Urbina on 09-18-2022 MCHC (RBC) [Mass/Vol] 32.3 g/dL 32-36 [facility] No Panel InformationOrdered By: Janet Urbina on 09-18-2022 Estimated GFR (MDRD) Amer 39 mL/min >60 [facility] Comment on above: GFR Calc Estimated GFR (MDRD) Non-Af Amer 32 mL/min >60 [facility] Comment on above: Non- GFR Calc Thyroid Stimulating Hormone (TSH) 2.59 uIU/mL 0.358-3.74 [facility] Platelets bldOrdered By: Nolan Urbina on 09-18-2022 Platelets (Bld) [#/Vol] 227 10*3/uL 150-450 [facility] Serum or plasma albumin kit urement (mass/volume)Ordered By: Janet Urbina on 09-18-2022 Albumin [Mass/Vol] 3.4 g/dL 3.2-5.0 [facility] Serum or plasma albumin/glob ulin mass ratioOrdered By: Janet Urbina on 09-18-2022 Albumin/Globulin [Mass ratio] 0.9 {ratio} 0.9-2.4 [facility] Serum or plasma calcium kit urement (mass/volume)Ordered By: Janet Urbina on 09-18-2022 Calcium [Mass/Vol] 8.7 mg/dL 8.5-10.1 [facility] Serum or plasma cholesterol in HDL measurement (mass/volume)Ordered By: Janet Urbina on 09-18-2022 Cholesterol in HDL [Mass/Vol] 37 mg/dL >40 [facility] Comment on above: The drugs N-Acetylcy steine and Metamizole may falsely depress this assay. Reference Range HDL <40 mg/dL Low HDL Cholesterol HDL >or= 60 mg/dL High HDL Cholesterol Serum or plasma cholesterol in VLDL measurement (mass/volume)Ordered By: Janet Urbina on 09-18-2022 Cholesterol in VLDL [Mass/Vol] 39 mg/dL 5-40 [facility] Serum or plasma creatinine m easurement (mass/volume)Ordered By: Janet Urbina on 09-18-2022 Creatinine [Mass/Vol] 1.78 mg/dL 0.55-1.02 [facility] Comment on above: The validity of the calculated GFR & GFRAA in patients over 70 years has not been determined. Clinical correlation is essential. Serum or plasma low density lipoprotein (LDL) cholesterol measurement (mass/volume)Ordered By: Janet Urbina on 09-18-2022 Cholesterol in LDL [Mass/Vol] 65 mg/dL 0-130 [facility] Serum or plasma urea nitroge n measurement (mass/volume)Ordered By: Janet Urbina on 09-18-2022 Urea nitrogen [Mass/Vol] 38 mg/dL 7-18 [facility] Thin prep Papanicolaou smear with manual screeningOrdered By: Janet Urbina on 09-18-2022 Thin prep Papanicolaou smear with manual screening 13 U/L 15-37 [facility] Thin prep Papanicolaou smear with manual screening 10 5-15 [facility] ANES POSTPROC EVALon 05-31-2 020 ANES POSTPROC EVAL HNO ID: [id number] Author: Maizn Savage Service: ? Author Type: Anesthesiologist Type: Anesthesia Postprocedure Evaluation Filed: 05/31/2020 2:33 PM Note Text: POST ANESTHESIA EVALUATION NOTE : 1975 Procedure Summary Date: 05/31/20 Room / Location: [place] [address] / [place] Anesthesia Start: 1042 Anesthesia Stop: 1149 [...] May 31, 2020 TIME: 2:33 PM CSN: [id number] [facility] ANES PRE-OPon 05-31-2020 ANES PRE-OP HNO ID: [id number] Author: Mazin Savage Service: ? Author Type: Anesthesiologist Type: Anesthesia Preprocedure Evaluation Filed: 05/31/2020 9:34 AM Note Text: ANESTHESIOLOGY DAY OF SURGERY NOTE : 1975 Procedure(s) (LRB): DECOMPRESSION NERVE MEDIAN CARPAL TUNNEL (Right) RELEASE TRIGGER FINGER (Right) RELEASE TRIGGER THUMB (Right) Surgeon(s): Gonzales Brown Estimated body mass index [...] by INTRAUTERINE route as directed. - Insulin [place], Disposable, (BD ULTRA-FINE PAULA PEN NEEDLE) 32 [...] May 31, 2020 TIME: 9:34 AM CSN: [id number] [facility] OPERATIVE NOon 05-31-2020 OPERATIVE NO HNO ID: [id number] Author: Gonzales Brown Service: Orthopaedic Surgery Author Type: Physician Type: Operative Report Filed: 05/31/2020 11:48 AM Note Text: OPERATIVE/PROCEDURE REPORT LOG ID: [id number] SURGERY/PROCEDURE DATE: 05/31/2020 INCISION/PROCEDURE START TIME: 10:56 AM INCISION CLOSE/PROCEDURE END TIME: 1143 SURGEON(S)/PROCEDURALIST (S) AND VENETIAN BLIND MAKER(S): Surgeon(s) and Role: * Gonzales Brown - Primary Physician Compositor Apprentice: Gloria Gonzalez) Bebe SURGERY/PROCEDURE(S): 1. Right carpal [...] resistance. Subsequently, I selected a mini meniscotome [place] blade and slid this in the protective guide, completely dividing the transverse carpal ligament. Britt rakes were used to view up the wound to visualize for complete release and a [place] elevator was used to palpate for complete [...] 31, 2020 TIME: 11:43 AM PAGER/CONTACT #: [facility] HOSPon 05-27-2020 HOSP Patient:Sloane Shelley MRN: Height:5' [...] INSULIN) 100 unit/mL (3 mL) inpn Insulin [place], Disposable, (BD ULTRA-FINE PAULA PEN NEEDLE) 32 [...] for the following basenames: K,HCT Progress Notes ([facility]): Delfina Grace RN 05/27/2020 1:15 [...] and time and verbalizes understanding. Karen [facility] 05/28/2020 8:59 AM Signed Noted in [place]. [place] Ma 05/28/2020 9:53 AM Signed Surgery scheduled as requested. Progress Notes ([facility]): Gonzales Brown MD 05/27/2020 2:02 PM Signed Gonzales Brown MD Department of Orthopaedics Orthopaedics [address] [place] [id number] Dept: [phone] Dept May 27, 2020 CHIEF COMPLAINT: Post Op of the Right Wrist and 1 week 5 days post op Right CTR (and 1-5 left trigger finger releases). HPI Sutures intact except she popped one of the sutures in her thumb when doing her OT exercises. Continuing OT and home exercises. Taking [place] as needed for the pain. Patient would [...] as directed with sliding scale - Insulin [place], Disposable, (BD ULTRA-FINE PAULA PEN NEEDLE) 32 [...] allergies. This note was partially generated using [employer] voice recognition system, and there may be [...] has been using vaseline as instructed by [facility] OT on incisions. Pt. instructed not to do this until incisions well healed, and to keep clean and dry and open to air as much as possible. She verbalizes understanding. Previous Version Normal [facility] ANES POSTPROC EVALon 020 ANES POSTPROC EVAL HNO ID: [id number] Author: Michael Bliss Service: ? Author Type: Anesthesiologist Type: Anesthesia Postprocedure Evaluation Filed: 05/15/2020 5:48 PM Note Text: POST ANESTHESIA EVALUATION NOTE : 1975 Procedure Summary Date: 05/15/20 Room / Location: [place] OR / [place] Anesthesia Start: 1547 Anesthesia Stop: 1648 [...] May 15, 2020 TIME: 5:48 PM CSN: [id number] [facility] ANES PRE-OPon 05-15-2020 ANES PRE-OP HNO ID: [id number] Author: Segundo Tomas MD Service: ? Author [...] by INTRAUTERINE route as directed. - Insulin [place], Disposable, (BD ULTRA-FINE PAULA PEN NEEDLE) 32 [...] May 15, 2020 TIME: 1:59 PM CSN: [id number] [facility] OPERATIVE NOon 05-15-2020 OPERATIVE NO HNO ID: [id number] Author: Gonzales Brown Service: Orthopaedic Surgery Author Type: Physician Type: Operative Report Filed: 05/17/2020 5:49 PM Note Text: OPERATIVE/PROCEDURE REPORT LOG ID: [id number] SURGERY/PROCEDURE DATE: 05/15/2020 INCISION/PROCEDURE START TIME: 3:59 PM INCISION CLOSE/PROCEDURE END TIME: 4:42 PM SURGEON(S)/PROCEDURALIST (S) AND VENETIAN BLIND MAKER(S): Surgeon(s) and Role: * Gonzales Brown - Primary Physician Compositor Apprentice: Gloria Spence (Pa) SURGERY/PROCEDURE(S): 1. Left carpal [...] resistance. Subsequently, I selected a mini meniscotome [place] blade and slid this in the protective guide, completely dividing the transverse carpal ligament. Britt rakes were used to view up the wound to visualize for complete release and a [place] elevator was used to palpate for complete [...] 17, 2020 TIME: 5:43 PM PAGER/CONTACT #: [facility] 05-07-2020 [facility] Patient:Sloane Shelley MRN: Height:5' 5[patient reported[(1.651 [...] INSULIN) 100 unit/mL (3 mL) inpn Insulin [place], Disposable, (BD ULTRA-FINE PAULA PEN NEEDLE) 32 [...] for the following basenames: K,HCT Progress Notes ([facility]): Delfina Grace RN 05/13/2020 12:59 PM Signed Pt. dropped of signed release only for [employer] and states they will be faxing paperwork. Progress Notes ([facility]): Temitope Ford Ma 05/06/2020 9:49 AM Signed Please schedule patient for Left CTR and trigger finger releases left hand digits 1-5. Please schedule post op appointments in [place]. Pre op COVID test in [place], if possible. Please file pre op COVID order. Temitope Ford Ma 05/06/2020 2:24 PM Signed Sorry, 05/15/2020. [facility] 05/07/2020 10:52 AM Signed Surgical request, post ops and covid test scheduled. Please place covid test order. Gloria Spence PA-C 05/07/2020 12:24 PM Signed COVID test ordered. Temitope Ford Ma 05/08/2020 10:01 AM Signed Surgery has been scheduled as requested. Normal [facility] Glucose,Bedsideon 10-25-2017 Glucose mass conc 261 mg/dL High 70-100 [facility] Comment on above: Result Comment: Test performed by glucose meter. Results may be 10%-15% lowerthan serum/plasma values. (CLIA ID [id number]) Performed By: #### B GLU ####The performing lab is in the report. Basic Metabolic Panelon Anion gap 8 mmol/L Normal [facility] Comment on above: Performed By: #### B MP3, LIPD2 ####The performing lab is in the report. Calcium 8.7 mg/dL Normal 8.2-10.1 [facility] Comment on above: Performed By: #### B MP3, LIPD2 ####The performing lab is in the report. Chloride 105 mmol/L Normal 98-109 [facility] Comment on above: Performed By: #### B MP3, LIPD2 ####The performing lab is in the report. CO2 25 mmol/L Normal 21-32 [facility] Comment on above: Performed By: #### B MP3, LIPD2 ####The performing lab is in the report. Creatinine 0.66 mg/dL Normal 0.55-1.40 [facility] Comment on above: Performed By: #### B MP3, LIPD2 ####The performing lab is in the report. eGFR (black) mL/min/{1.73_m2} Normal >60 [facility] Comment on above: Performed By: #### B MP3, LIPD2 ####The performing lab is in the report. eGFR (non-black) mL/min/{1.73_m2} Normal >60 [facility] Comment on above: Result Comment: Sour ce- MDRD equation with creatinine calibration to IDMS(NKDEP)eGFR not recommended for drug dose adjustment Performed By: #### B MP3, LIPD2 ####The performing lab is in the report. Glucose mass conc 242 mg/dL High 70-100 [facility] Comment on above: Performed By: #### B MP3, LIPD2 ####The performing lab is in the report. Potassium molar conc 3.8 mmol/L Normal 3.5-5.1 [facility] Comment on above: Performed By: #### B MP3, LIPD2 ####The performing lab is in the report. Sodium 138 mmol/L Normal 135-145 [facility] Comment on above: Performed By: #### B MP3, LIPD2 ####The performing lab is in the report. Urea nitrogen 12 mg/dL Normal 7-25 [facility] Comment on above: Performed By: #### B MP3, LIPD2 ####The performing lab is in the report. Lipid Panelon 10-24-2017 Cholesterol to HDL Ratio 6 {ratio} Normal [facility] Comment on above: Result Comment: Ref Range:< 3 Low Risk for CHD3-6 Mod Risk for CHD> 6 High Risk for CHD Performed By: #### B MP3, LIPD2 ####The performing lab is in the report. HDL Cholesterol 32 mg/dL Low 40-60 [facility] Comment on above: Performed By: #### B MP3, LIPD2 ####The performing lab is in the report. Low Density Lipoprotein 119 mg/dL Abnormal <100 [facility] Comment on above: Performed By: #### B MP3, LIPD2 ####The performing lab is in the report. Triglyceride 172 mg/dL Abnormal <150 [facility] Comment on above: Performed By: #### B MP3, LIPD2 ####The performing lab is in the report. Cholesterol 185 mg/dL Normal < 200 [facility] Comment on above: Performed By: #### B MP3, LIPD2 ####The performing lab is in the report. Vital Signs Date Time Vital Sign Value Performing Clinician Lupe guillen 03-08-2025 09:10-0400 Body height 165.1 cm Bridgett Ungerer INVESTIGATOR VICE-C Work Phone: [facility] 03-08-2025 09:10-0400 Body mass index (BMI) [Ratio] 34.4 kg/m2 Bridgett Ungerer INVESTIGATOR VICE-C Work Phone: [facility] 03-08-2025 09:10-0400 Body temperature 98.2 [degF] Bridgett Ungerer INVESTIGATOR VICE-C Work Phone: [facility] 03-08-2025 09:10-0400 Body weight 93.89 kg Bridgett Ungerer INVESTIGATOR VICE-C Work Phone: [facility] 03-08-2025 09:10-0400 Diastolic blood pressure 80 mm[Hg] Bridgett Ungerer INVESTIGATOR VICE-C Work Phone: [facility] 03-08-2025 09:10-0400 Heart rate 76 /min Bridgett Ungerer INVESTIGATOR VICE-C Work Phone: [facility] 03-08-2025 09:10-0400 Respiratory rate 16 /min Bridgett Ungerer INVESTIGATOR VICE-C Work Phone: [facility] 03-08-2025 09:10-0400 SaO2% (BldA) [Mass fraction] 99 % Bridgett Ungerer INVESTIGATOR VICE-C Work Phone: [facility] 03-08-2025 09:10-0400 Systolic blood pressure 130 mm[Hg] Bridgett Ungerer INVESTIGATOR VICE-C Work Phone: [facility] 05-02-2024 18:32-0400 Body mass index (BMI) [Ratio] 33.8 kg/m2 Guille Griffith APRN.CNP Work Phone: [facility] 05-02-2024 18:32-0400 Body temperature 97.2 [degF] [facility] STEAMBOAT INSPECTOR.PUMP ATTENDANT Work Phone: [facility] 05-02-2024 18:32-0400 Body weight 95 kg [facility] STEAMBOAT INSPECTOR.PUMP ATTENDANT Work Phone: [facility] 05-02-2024 18:32-0400 Diastolic blood pressure 99 mm[Hg] [facility] STEAMBOAT INSPECTOR.PUMP ATTENDANT Work Phone: [facility] 05-02-2024 18:32-0400 Heart rate 90 /min [facility] STEAMBOAT INSPECTOR.PUMP ATTENDANT Work Phone: [facility] 05-02-2024 18:32-0400 Respiratory rate 18 /min [facility] STEAMBOAT INSPECTOR.PUMP ATTENDANT Work Phone: [facility] 05-02-2024 18:32-0400 SaO2% (BldA) [Mass fraction] 100 % [facility] STEAMBOAT INSPECTOR.PUMP ATTENDANT Work Phone: [facility] 05-02-2024 18:32-0400 Systolic blood pressure 167 mm[Hg] [facility] STEAMBOAT INSPECTOR.PUMP ATTENDANT Work Phone: [facility] 10-01-2023 07:34-0400 Diastolic blood pressure 84 mm[Hg] Dr. Rosendo Hernandez Work Phone: [facility] 10-01-2023 07:34-0400 Heart rate 86 /min Dr. Rosendo Hernandez Work Phone: [facility] 10-01-2023 07:34-0400 SaO2% (BldA) [Mass fraction] 99 % Dr. Rosendo Hernandez Work Phone: [facility] 10-01-2023 07:34-0400 Systolic blood pressure 128 mm[Hg] Dr. Rosendo Hernandez Work Phone: [facility] 09-24-2023 07:29-0500 Body height 165.[address] Rosendo Hernandez Work Phone: [facility] 09-24-2023 07:29-0500 Body mass index (BMI) [Ratio] 35.8 kg/m2 Dr. Rosendo Hernandez Work Phone: 5(109)761-626050 [place] [address] 09-24-2023 07:29-0500 Body temperature 97 [degF] Dr. Rosendo Hernandez Work Phone: 8(210)859-928969 [place] [address] 09-24-2023 07:29-0500 Body weight 97.[address] Rosendo Hernandez Work Phone: 4(595)641-534569 [place] [address] 09-24-2023 07:29-0500 Diastolic blood pressure 80 mm[Hg] Dr. Rosendo Hernandez Work Phone: 7(818)846-025869 [place] [address] 09-24-2023 07:29-0500 Heart rate 62 /min Dr. Rosendo Hernandez Work Phone: 3(125)689-220569 [place] [address] 09-24-2023 07:29-0500 Respiratory rate 16 /min Dr. Rosendo Hernandez Work Phone: 9(226)754-608769 [place] [address] 09-24-2023 07:29-0500 SaO2% (BldA) [Mass fraction] 97 % Dr. Rosendo Hernandez Work Phone: 4(215)989-157269 [place] [address] 09-24-2023 07:29-0500 Systolic blood pressure 138 mm[Hg] Dr. Rosendo Hernandez Work Phone: 4(095)133-676069 [place] [address] 09-14-2023 05:10-0500 Body temperature 97.5 [degF] Dr. Rosendo Hernandez Work Phone: 9(464)505-397169 [place] [address] 09-14-2023 05:10-0500 Diastolic blood pressure 84 mm[Hg] Dr. Rosendo Hernandez Work Phone: 6(664)846-273569 [place] [address] 09-14-2023 05:10-0500 Heart rate 87 /min Dr. Rosenod Hernandez Work Phone: 8(369)680-233069 [place] [address] 09-14-2023 05:10-0500 Respiratory rate 16 /min Dr. Rosendo Hernandez Work Phone: 5(138)792-677869 [place] [address] 09-14-2023 05:10-0500 SaO2% (BldA) [Mass fraction] 97 % Dr. Rosendo Hernandez Work Phone: 2(852)113-812450 [place] [address] 09-14-2023 05:10-0500 Systolic blood pressure 146 mm[Hg] Dr. Rosendo Hernandez Work Phone: 3(333)058-445669 [place] [address] 09-14-2023 01:00-0500 Body mass index (BMI) [Ratio] 36.5 kg/m2 Dr. Rosendo Hernandez Work Phone: 3(348)721-410569 [place] [address] 09-14-2023 01:00-0500 Body weight 99.[address] Rosendo Hernandez Work Phone: 5(099)783-547469 [place] [address] 08-20-2023 07:41-0500 Body mass index (BMI) [Ratio] 35.5 kg/m2 Dr. Rosendo Hernandez Work Phone: 7(348)129-643269 [place] [address] 08-20-2023 07:41-0500 Body temperature 97.4 [degF] Dr. Rosendo Hernandez Work Phone: 0(605)850-847869 [place] [address] 08-20-2023 07:41-0500 Body weight 99.[address] Rosendo Hernandez Work Phone: 0(892)174-056069 [place] [address] 08-20-2023 07:41-0500 Diastolic blood pressure 80 mm[Hg] Dr. Rosendo Hernandez Work Phone: 0(976)290-988369 [place] [address] 08-20-2023 07:41-0500 Heart rate 96 /min Dr. Rosendo Hernandez Work Phone: 9(970)802-994269 [place] [address] 08-20-2023 07:41-0500 Respiratory rate 16 /min Dr. Rosendo Hernandez Work Phone: 5(498)333-977369 [place] [address] 08-20-2023 07:41-0500 SaO2% (BldA) [Mass fraction] 97 % Dr. Rosendo Hernandez Work Phone: 0(221)298-418769 [place] [address] 08-20-2023 07:41-0500 Systolic blood pressure 140 mm[Hg] Dr. Rosendo Hernandez Work Phone: [facility] 09-18-2022 12:05-0500 Diastolic blood pressure 70 mm[Hg] Dr. Rosendo Hernandez Work Phone: [facility] 09-18-2022 12:05-0500 Heart rate 92 /min Dr. Rosendo Hernandez Work Phone: 4(364)710-858350 [place] [address] 09-18-2022 12:05-0500 Systolic blood pressure 140 mm[Hg] Dr. Rosendo Hernandez Work Phone: 7(814)319-189750 [place] [address] 09-18-2022 11:40-0500 Body height 167.[address] Rosendo Hernandez Work Phone: 5(368)845-973269 [place] [address] 09-18-2022 11:40-0500 Body mass index (BMI) [Ratio] 37.1 kg/m2 Dr. Rosendo Hernandez Work Phone: 5(931)704-224750 [place] [address] 09-18-2022 11:40-0500 Body weight 104.[address] Rosendo Hernandez Work Phone: 9(285)046-594550 [place] [address] 09-18-2022 11:40-0500 Respiratory rate 16 /min Dr. Rosendo Hernandez Work Phone: [facility] 08-14-2022 11:28-0500 Body weight 99.79 kg Rebecca Steinberg STEAMBOAT INSPECTOR.IT TEACHER Work Phone: [facility] 08-14-2022 11:28-0500 Diastolic blood pressure 82 mm[Hg] Rebecca Steinberg STEAMBOAT INSPECTOR.IT TEACHER Work Phone: [facility] 08-14-2022 11:28-0500 Heart rate 112 /min Rebecca Steinberg STEAMBOAT INSPECTOR.IT TEACHER Work Phone: [facility] 08-14-2022 11:28-0500 Respiratory rate 16 /min Rebecca Steinberg STEAMBOAT INSPECTOR.IT TEACHER Work Phone: [facility] 08-14-2022 11:28-0500 SaO2% (BldA) [Mass fraction] 97 % Rebecca Steinberg STEAMBOAT INSPECTOR.IT TEACHER Work Phone: [facility] 08-14-2022 11:28-0500 Systolic blood pressure 120 mm[Hg] Rebecca Steinberg STEAMBOAT INSPECTOR.IT TEACHER Work Phone: [facility] Encounters Encounter Date Encounter Type Care Provider Facility Start: 03-08-2025 End: 03-08-2025 Patient encounter procedure Bridgett Patel INVESTIGATOR VICE-C -[facility] Work Phone: Start: 03-08-2025 End: 03-08-2025 ambulatory Bridgett Patel [facility] Start: 09-14-2024 End: 09-14-2024 ambulatory Raoul BANDA Facility:[facility] Start: 07-27-2024 End: 07-27-2024 ambulatory [facility] Facility:[facility] Start: 05-03-2024 End: 05-03-2024 Emergency department patient visit Clifton Esquivel Facility:[facility] Start: 05-02-2024 End: 05-02-2024 ambulatory ROSENDO HERNANDEZ Facility:[facility] Start: 05-02-2024 End: 05-02-2024 Office outpatient visit 25 minutes Guille Griffith STEAMBOAT INSPECTOR.PUMP ATTENDANT Work Phone: [facility] Comment on above: Viral illness (Prima ry Dx) Start: 03-31-2024 Patient encounter status Barb Patel INVESTIGATOR VICE-C Work Phone: [facility] Start: 03-31-2024 End: 03-31-2024 ambulatory [facility] Facility:[facility] Start: 02-07-2024 End: 08-15-2024 Telephone encounter Rosendo Hernandez MD Work Phone: [facility] [place] Comment on above: Appointment Start: 12-08-2023 ambulatory Rosendo chan MD Work Phone: Internal Medicine [facility] Start: 10-15-2023 End: 10-15-[address] Rosendo Hernandez Work Phone: [facility] Work Phone: Start: 10-15-2023 End: 10-15-[address] Rosendo Hernandez Work Phone: [facility] [place] Start: 10-08-2023 End: 10-08-[address] Rosendo Hernandez Work Phone: [facility] Work Phone: Start: 10-08-2023 End: 10-08-[address] Rosendo Hernandez Work Phone: [facility] [place] Start: 10-01-2023 End: 10-01-[address] Rosendo Hernandez Work Phone: [facility] Work Phone: Start: 10-01-2023 End: 10-01-[address] Rosendo Hernandez Work Phone: [facility] [place] Start: 10-01-2023 End: 10-01-[address] Rosendo Hernandez Work Phone: [facility] Work Phone: Start: 09-24-2023 End: 09-24-[address] Rosendo Hernandez Work Phone: [facility] Work Phone: Start: 09-21-2023 End: 09-21-[address] Rosendo Hernandez Work Phone: [facility] Work Phone: Start: 09-21-2023 End: 09-21-[address] [facility] Start: 09-14-2023 End: 09-14-2023 Emergency department patient [facility] Work [facility]: Start: 08-20-2023 End: 08-20-[address] Rosendo Hernandez Work Phone: [facility] Medicine Work Phone: Start: 09-18-2022 End: 09-18-[address] Rosendo Hernandez Work Phone: [facility] Work Phone: Start: 09-18-2022 End: 09-18-[address] Rosendo Hernandez Work Phone: [facility] Start: 08-14-2022 End: 08-14-2022 Office outpatient visit 25 minutes Rebecca Steinberg STEAMBOAT INSPECTOR.IT TEACHER Work Phone: [facility] [place] Comment on above: Type 2 diabetes matheus itus without complication, with long-term current use of insulin (HCC) (Primary Dx); Encounter for immunization; Screening for colon cancer; Screening for diabetic retinopathy; Mixed hyperlipidemia; Smoker; Essential hypertension; Uncontrolled type 2 diabetes mellitus with hyperglycemia (HCC); Generalized anxiety disorder; Depression, unspecified depression type; Decreased cardiac ejection fraction Start: 07-23-2022 Refill Bhavana Gramajo Work Phone: [facility] [place] Comment on above: Refill Request Start: 01-14-2022 ambulatory Rosendo chan MD Work Phone: [facility] [place] Start: 07-03-2015 End: 04-27-2016 Patient encounter status Rosendo Hernandez MD Work Phone: [facility] Procedures Date Procedure Procedure Detail Performing Clinician Start: 09-14-2023 Plain chest X-ray Dr. Rebekah Hernandez Work Phone: Start: 08-14-2022 INFLUENZA VACCINE QUADRIVALENT 6 MO - 64 YRS IM Rebecca Steinberg STEAMBOAT INSPECTOR.IT TEACHER Work Phone: Start: 08-14-2022 PFIZER-BIONTECH COVI D-19 BIVALENT BOOSTER VACCINE, AGE 12+ YR Rebecca Steinberg STEAMBOAT INSPECTOR.IT TEACHER Work Phone: Start: 09-06-2019 Mammography Rosendo peng MD Work Phone: Plan of Treatment Date Care Activity Detail Author Start: 2039 PNEUMOCOCCAL (3 - PP SV23 if available, else PCV20) PNEUMOCOCCAL (3 - PPSV23 if available, else PCV20) [facility] Start: 2039 PNEUMOCOCCAL (3 - PP SV23 or PCV20) PNEUMOCOCCAL (3 - PPSV23 or PCV20) [facility] Start: 2039 Pneumococcal vaccination Pneum ococcal Vaccine (3 of 3 - PPSV23 or PCV20) [facility] Start: 03-29-2025 Pneumococcal Vaccine : 50+ (3 of 3 - PCV20 or PCV21) Pneumococcal Vaccine: 50+ (3 of 3 - PCV20 or PCV21) [facility] Start: 09-06-2024 HPV TESTING HPV TESTING [facility] Start: 09-06-2024 PAP TESTING PAP TESTING [facility] Start: 09-06-2024 Screening for malign ant neoplasm of cervix [facility] Start: 2024 Screening for malign ant neoplasm of lung Lung Cancer Screening [facility] Start: 2024 Shingrix Vaccine (1 of 2) Shingrix Vaccine (1 of 2) [facility] Start: 03-19-2024 Covid-19 Vaccine ( season) Covid-19 Vaccine ( season) [facility] Start: 03-19-2024 Influenza vaccination Influenz a Vaccine (Season Ended) [facility] Start: 09-14-2023 [facility] Start: 09-14-2023 [facility] Start: 08-20-2023 Patient referral [facility] Work Phone: Start: 08-14-2023 ANNUAL PCP TEAM QUALITY ASSURANCE AUDITOR IRENE DISEASE VISIT ANNUAL PCP TEAM CHRONIC DISEASE VISIT [facility] Start: 08-14-2023 BP CONTROLLED (<130/80) BP CONTROLLE D (<130/80) [facility] Start: 08-14-2023 COLORECTAL CANCER SCREENING COLORECTAL CANCER SCREENING [facility] Comment on above: Postponed from 04/08 (Declined at this time) Start: 03-19-2023 Covid-19 Vaccine (4 - 2023-24 season) Covid-19 Vaccine () [facility] Start: 01-23-2023 Urine microalbumin profile [facility] Start: 09-05-2022 BP CONTROLLED (<130/80) BP CONTROLLE D (<130/80) [facility] Start: 08-14-2022 End: 10-14-2022 ALBUMIN/CREAT RATIO RND UR ALBUMIN/CREAT RATIO RND UR Lab Routine Type 2 diabetes mellitus without complication, with long-term current use of insulin (HCC) Expected: 08/14/2022, Expires: 10/14/2022 [facility] Work Phone: Comment on above: Expected: 08/14/2022 , Expires: 10/14/2022 Start: 08-14-2022 End: 10-14-2022 CBC W Auto Differential panel - Blood CBC + DIFF Lab Routine Type 2 diabetes mellitus without complication, with long-term current use of insulin ([facility]) Expected: 08/14/2022, Expires: 10/14/2022 [facility] Work Phone: Comment on above: Expected: 08/14/2022 , Expires: 10/14/2022 Start: 08-14-2022 End: 10-14-2022 Comprehensive metabolic 2000 panel - Serum or Plasma COMP METABOLIC PANEL Lab Routine Type 2 diabetes mellitus without complication, with long-term current use of insulin (HCC) Expected: 08/14/2022, Expires: 10/14/2022 [facility] Work Phone: Comment on above: Expected: 08/14/2022 , Expires: 10/14/2022 Start: 08-14-2022 End: 10-14-2022 Hemoglobin A1c in Blood HGB A1C Lab Routine Type 2 diabetes mellitus without complication, with long-term current use of insulin (HCC) Expected: 08/14/2022, Expires: 10/14/2022 [facility] Work Phone: Comment on above: Expected: 08/14/2022 , Expires: 10/14/2022 Start: 08-14-2022 End: 10-14-2022 Lipid 1996 panel - Serum or Plasma LIPID PANEL BASIC Lab Routine Type 2 diabetes mellitus without complication, with long-term current use of insulin (HCC) Expected: 08/14/2022, Expires: 10/14/2022 [facility] Work Phone: Comment on above: Expected: 08/14/2022 , Expires: 10/14/2022 Start: 06-24-2022 ANNUAL PCP TEAM QUALITY ASSURANCE AUDITOR IRENE DISEASE VISIT ANNUAL PCP TEAM CHRONIC DISEASE VISIT [facility] Start: 06-19-2022 Hepatitis B screening URINE ALBUMIN:CREATININE RATIO [facility] Start: 06-19-2022 Hepatitis B surface antibody level LDL CHOLESTEROL [facility] Start: 03-19-2022 Influenza vaccination INFLUENZA (#1) [facility] Start: 09-17-2021 Hemoglobin A1c measurement HbA1C [facility] Start: 09-17-2021 Hemoglobin A1c/Hemoglobin.total in Blood HBA1C [facility] Start: 05-27-2021 COVID-19 VACCINE (3 - Booster for Pfizer series) COVID-19 VACCINE (3 - Booster for Pfizer series) [facility] Start: 02-19-2021 COVID-19 VACCINE (3 - Booster for Pfizer series) COVID-19 VACCINE (3 - Booster for Pfizer series) [facility] Start: 02-15-2021 3 comp foot exam completed DIABETIC FOOT EXAM [facility] Start: 02-15-2021 Diabetic foot examination Diabetic Foot Exam [facility] Start: 09-06-2020 Mammography MAMMOGRAM [facility] Start: 09-06-2020 Screening for malign ant neoplasm of breast Mammogram Screening [facility] Start: 08-21-2020 Glaucoma screening Dilated Retinal E xam [facility] Start: 08-21-2020 Hepatitis C antibody , confirmatory test DILATED RETINAL EXAM [facility] Start: 2019 COLOGUARD (FIT-DNA) COLOGUARD (FIT-D NA) [facility] Start: 2019 Colonoscopy COLONOSCOPY [facility] Start: 2019 COLORECTAL CANCER SCREENING COLORECTAL CANCER SCREENING [facility] Start: [address] COLONOGRAPHY [facility] Start: 2019 FECAL OCCULT BLOOD FECAL OCCULT BLOO D [facility] Start: 2019 Screening for malign ant neoplasm of colon [facility] Start: 2019 SIGMOIDOSCOPY SIGMOIDOSCOPY [facility] Start: 1993 HEPATITIS B (1 of 3 - Risk 3-dose series) HEPATITIS B (1 of 3 - Risk 3-dose series) [facility] Start: 1993 Hepatitis B Vaccine (1 of 3 - 19+ 3-dose series) Hepatitis B Vaccine (1 of 3 - 19+ 3-dose series) [facility] Start: 1974 HEPATITIS B (1 of 3 - 3-dose series) HEPATITIS B (1 of 3 - 3-dose series) [facility] 24 Hour ECG [facility] Anion gap measurement [facility] Blood chemistry [facility] BUN/Creatinine ratio [facility] Calcium [Mass/volume ] in Serum or Plasma [facility] Carbon dioxide, tota l [Moles/volume] in Serum or Plasma [facility] CBC W Auto Different ial panel - Blood [facility] Chloride [Moles/volu me] in Serum or Plasma [facility] COVID & INFLUENZA A/ B & RSV PCR, ROUTINE COVID & INFLUENZA A/B & RSV PCR, ROUTINE Microbiology Routine Viral illness 05/02/2024 6:49 PM EDT [facility] Work Phone: Creatinine [Moles/volume] in Serum or Plasma [facility] Glucose [Mass/volume ] in Serum or Plasma [facility] Hemoglobin A1c/Hemoglobin.total in Blood [facility] Measurement of renal function [facility] MG Breast - bilatera l Screening [facility] End: 01-06-2025 MG Breast Screening [facility] SCREENING Radiology Routine Encounter for screening mammogram for breast cancer 1 Occurrences starting 12/08/2023 until 01/06/2025 [facility] Work Phone: Comment on above: 1 Occurrences starti ng 12/08/2023 until 01/06/2025 Patient Education ED Palpitations [facility] Work Phone: Patient referral [facility] Work Phone: Potassium [Moles/vol ume] in Serum or Plasma [facility] End: 02-13-2023 Screening mammography bi 2-view breast inc cad [facility] SCREENING Radiology Routine Encounter for screening mammogram for breast cancer 1 Occurrences starting 01/14/2022 until 02/13/2023 [facility] Work Phone: Comment on above: 1 Occurrences starti ng 01/14/2022 until 02/13/2023 Sodium [Moles/volume ] in Serum or Plasma [facility] Urea nitrogen [Mass/volume] in Serum or Plasma [facility] Immunizations Immunization Date Immunization Notes Care Provider Vicki estevez 03-31-2024 influenza, injectabl e, quadrivalent, preservative free Bridgett Patel INVESTIGATOR VICE-C Work Phone: [facility] 08-14-2022 COVID-19 booster vaccine, age 12+ yr, bivalent ([employer]) Rebecca Steinberg APRN.IT TEACHER Work Phone: [facility] Work Phone: 08-14-2022 influenza, injectabl e, quadrivalent, contains preservative Rebecca Steinberg APRN.IT TEACHER Work Phone: [facility] Work Phone: 08-14-2022 influenza virus vacc ine, unspecified formulation Rosendo Hernandez MD Work Phone: [facility] 03-29-2020 influenza, injectabl e, quadrivalent, contains preservative Rosendo Hernandez MD Work Phone: [facility] 03-29-2020 pneumococcal polysaccharide vaccine, 23 valent Rosendo Hernandez MD Work Phone: [facility] 08-28-2019 influenza, injectabl e, quadrivalent, contains preservative Rosendo Hernandez MD Work Phone: [facility] Work Phone: 05-08-2016 influenza, injectabl e, quadrivalent, contains preservative Rosendo Hernandez MD Work Phone: [facility] Work Phone: 07-03-2015 influenza, injectabl e, quadrivalent, contains preservative Rosendo Hernandez MD Work Phone: [facility] Work Phone: 07-03-2015 pneumococcal conjuga te vaccine, 13 valent Rosendo Hernandez MD Work Phone: [facility] Work Phone: 01-23-2013 tetanus toxoid, redu trina diphtheria toxoid, and acellular pertussis vaccine, adsorbed Rosendo Hernandez MD Work Phone: [facility] Work Phone: Payers Date Payer Category Payer Unknown [id number] 2024 Self-pay [id number] 2023 Private Health Insurance [facility] SUREST [id number] 2023-Present [phone] [address] [place] [address] PPO [id number] 2023 Unknown [id number] 2022 Unknown [id number] 2021 Private Health Insurance URSULA JEFFREY OAP [id number] 2021-Present [phone] [address] [place] [address] Open Access [id number] Medicaid MEDICAID [id number] Private Health Insurance [id number] Unknown ANTHEM [id number] Unknown [id number] Unknown [id number] Unknown [id number] Unknown [id number] Unknown [id number] Unknown [id number] Unknown [id number] Social History Date Type Detail Facility Start: 06-24-2021 End: 03-05-2025 Tobacco smoking status NHIS Smokes tobacco daily [facility] Work Phone: Start: 08-12-1996 End: 08-12-2019 History of tobacco use Cigarette Smoker [facility] Work Phone: Start: 06-24-2021 End: 03-03-2023 Cigarettes smoked current (pack per day) - Reported 1 [facility] Start: 06-24-2021 End: 08-14-2022 Tobacco use and exposure Smokeless tobacco non-user [facility] Work Phone: Start: 09-05-2021 End: 08-14-2022 Alcohol intake Ex-drinker (finding) [facility] Start: 06-19-2021 History SDOH Alcohol Frequency 2 [facility] Start: 06-19-2021 History SDOH Alcohol Std Drinks 1 [facility] Start: 05-13-2020 History SDOH Alcohol Comment last drink 09/02/2017 [facility] Start: 06-19-2021 History SDOH Social Connections Phone 5 [facility] Start: 06-19-2021 History SDOH Social Connections Living 8 [facility] Start: 06-19-2021 History SDOH Stress 3 [facility] Start: 03-28-2020 Education 15 [facility] Start: 06-24-2021 End: 08-14-2022 Tobacco Comment 5 cigarettes daily [facility] Start: 1975 Sex Assigned At Female [facility] Start: 09-18-2022 End: 10-01-2023 Tobacco smoking status NHIS Unknown if ever smoked [facility] Start: 06-19-2021 End: 03-03-2023 Social connection and isolation panel [facility] Do you belong to any clubs or organizations such as faith groups, unions, fraternal or athletic groups, or school groups? No [facility] Are you now , , , , never or living with a partner? Living with partner [facility] How often to you hav e a drink containing alcohol? Monthly or less [facility] How many standard dr inks containing alcohol do you have on a typical day? 1 or 2 [facility] How often do you hav e 6 or more drinks on 1 occasion? Never [facility] How hard is it for y ou to pay for the very basics like food, housing, medical care, and heating Hard [facility] Adult Depression Screening Assessment 0 [facility] Do you feel stress - tense, restless, nervous, or anxious, or unable to sleep at night because your mind is troubled all the time - these days [OSQ] To some extent [facility] (I/We) worried wheth er (my/our) food would run out before (I/we) got money to buy more. Sometimes true [facility] In the past 12 month s, was there a time when you were not able to pay the mortgage or rent on time? Yes [facility] Start: 05-29-2020 Gender identity Identifies as female gender (finding) [facility] Start: 05-29-2020 Sexual orientation Bisexual (finding ) [facility] Medical Equipment Procedure Code Equipment Code Equipment Original Text Equipment Identifier Dates [id number], [id number], [id number], [id number] Start: 08-10-2019 Comment on above: Test blood sugar(s) 3 daily. Dx: Uncontrolled type 2 diabetes . Insulin: yes Use one needle for e ach dose. 4/day and as needed. Use 1 syringe for ea ch dose 4/day and as needed Mental Status Date Assessment Result Facility 09-14-2023 Cognitive function Voice/Name [facility] Work Phone: Clinical Notes 07-03-2015 to 05-02-2024 Patient InstructionsGuille Griffith APRN.PUMP ATTENDANT - 05/02/2024 6:30 PM EDTTelephone Encounter - Emily De JesusCARLENE - 02/07/2024 2:38 PM Dell Steinberg APRN.IT TEACHER - 08/14/2022 11:20 AM EST Note Date & Type Note Facility 05-02-2024 Instructions Guille Griffith APRN.PUMP ATTENDANT - 05/02/2024 6:43 PM EDT How to [...] concerning to you. documented in this encounter [facility] 05-02-2024 Note HNO ID: [id number] Author: GUILLE GRIFFITH APRN.CNP Service: ? Author [...] (Patient not taking: No sig reported) Insulin [place], Disposable, (BD ULTRA-FINE PAULA PEN NEEDLE) 32 [...] Review of System (more content not included)... [facility] 05-02-2024 History of Presen t illness Narrative [...] (Patient not taking: No sig reported) Insulin [place], Disposable, (BD ULTRA-FINE PAULA PEN NEEDLE) 32 [...] of care. This note was generated using Narus software. It may contain errors in wording, punctuation, or spelling. Guille Griffith APRN.NETTIE documented in this encounter [facility] 02-07-2024 Telephone encounter Note Attempted to contact patient for an appointment. Patient has not been seen in over a year for her diabetes. When scheduled please route back so provider can order lab work to be done prior to appointment. [facility] 02-07-2024 Miscellaneous Notes Attempted to contact patient for an appointment. Patient has not been seen in over a year for her diabetes. When scheduled please route back so provider can order lab work to be done prior to appointment. documented in this encounter [facility] 12-08-2023 Note Patient Outreach (IN TMMN) SLOANE SHELLEY ([id number]) 1975 F FNS Date Time Provider Department 12/08/23 ROSENDO HERNANDEZ During your visit today, we recorded the following information about you: Allergies As of Date: 12/08/2023 Noted Allergy Reaction METFORMIN 07/03/2015 6 - Diarrhea Comments: GI (severe) Date Reviewed: 08/14/2022 Reviewed by: Emily Charles LPN - Fully Assessed Visit Diagnosis:Encounter for screening mammogram for breast cancer [Z12.31] Order(s):[facility] SCREEN[facility] [[id number]] Order #: [id number] FUTURE Prescriptions as of 12/13/2023 - insulin [...] by mouth every 12 hours. - Insulin [place], Disposable, (BD ULTRA-FINE PAULA PEN NEEDLE) 32 [...] pleural effusion [J90] 08/14/2022 Encounter Status:Closed by [employer], eyeOSUSER on 12/13/23 [facility] 08-14-2022 History of Presen t illness Narrative [...] She has been following with Dr. Mario, [facility]. On carvedilol. Presents for follow up of cellulitis and abscess of trunk, viral illness, suspected COVID-19. Seen in urgent care August 25, 2021. COVID-19 testing was negative. Doxycycline was provided to treat cellulitis x5 days. She presented [facility] on August 28, 2021 with cellulitis [...] mouth daily at bedtime. For cholesterol. Insulin [place], Disposable, (BD ULTRA-FINE PAULA PEN NEEDLE) 32 [...] Depression 07/03/2015 Diabetes mellitus type 2, uncomplicated ([facility]) 07/03/2015 Encounter for insertion of [...] complication, with long-term current use of insulin ([facility]) - ICD9: 250.00, V58.67, ICD10: [...] immunization - ICD9: V03.89, ICD10: Z23 - [facility] [facility] COVID-19 BIVALENT BOOSTER VACCINE, AGE 12+ YR - INFLUENZA VACCINE QUADRIVALENT 6 MO - 64 YRS IM 3. Screening for colon cancer - ICD9: V76.51, ICD10: Z12.11 Declined 4. Screening for diabetic retinopathy - ICD9: V80.2, ICD10: Z13.5 Completes at [facility] 5. Mixed hyperlipidemia - ICD9: 272.2, ICD10: [...] 794.39, ICD10: R93.1 Has been following with [facility]. Lisinopril spironolactone and carvedilol have [...] 6 mo follow up MD Rebecca Sanders, STEAMBOAT INSPECTOR.IT TEACHER Medical Decision Making: Problems: Moderate: 2+ stable chronic illnesses Data: Unique test(s) ordered: 3+ Risk: Moderate: Drug management Medical Decision Making Level: 4 - Moderate documented in this encounter [facility] 07-23-2022 Miscellaneous Notes Patient has been identified by name and date of : Yes, Provider Mary Date 07/23/22 Time 1:25pm. Called patient, no answer. Left message for patient to call office and ask to speak to nurse/research nurse practitioner to schedule an appointment. Patient phones for [...] Emily Charles LPN documented in this encounter [facility] 07-03-2015 History of Past i llness Narrative Problem Noted Date Resolved Date Well adult exam 07/03/2015 04/27/2016 Overview: Last done: 07/03/2015 documented as of this encounter (statuses as of 01/19/2022) [facility]12-16-2015 History of Past illness Narrative* Problem Noted Date Resolved Date Well adult exam 07/03/2015 04/27/2016 Overview: Last done: 07/03/2015 documented as of this encounter (statuses as of 07/24/2022) [facility]12-16-2015 History of Past illness Narrative* Problem Noted Date Resolved Date Well adult exam 07/03/2015 04/27/2016 Overview: Last done: 07/03/2015 documented as of this encounter (statuses as of 07/24/2022) [facility] History of Past illness Narrative* Problem Noted Date Resolved Date Well adult exam 07/03/2015 04/27/2016 Overview: Last done: 07/03/2015 documented as of this encounter (statuses as of 08/14/2022) [facility] Diagnosis Encounter for screening mammogram for breast cancer [facility] Diagnosis Type 2 diabetes mellitus without complication, with long-term current use of insulin (HCC) Uncontrolled type 2 diabetes mellitus with hyperglycemia (HCC) [facility]* Diagnosis Type 2 diabetes mellitus without [...] system function study [facility]* Diagnosis Onset Date Resolution Status Essential hypertension acute Hyperlipidemia acute Nonrheumatic mitral (valve) insufficiency acute Secondary pulmonary arterial hypertension acute Tachycardia acute Non-ischemic cardiomyopathy [facility] Work Phone: Evaluation note* Diagnosis Onset Date [...] breast cancer acute CKD (chronic kidney disease) [facility] Work Phone: Evaluation note* Diagnosis Onset Date [...] (chronic kidney disease) chronic Essential hypertension acute [facility] Work Phone: Evaluation note* Diagnosis Encounter for screening mammogram for breast cancer documented in this encounter [facility] note* Diagnosis Pre-op exam- Primary Preoperative examination, [...] of unspecified site documented in this encounter [facility] noteNo assessment information [facility] Work Phone: Reason for referral (narrative)* Diagnostic Procedure Only (Routine) - Pending Review Specialty Diagnoses / Procedures Referred By Jamel cole Referred To Contact [facility] Diagnoses Encounter for screening mammogram for breast cancer Procedures [facility]ICO SCREENING SCREENING MAMMOGRAPHY [place] 2-[place] [address] [place] [address] [facility] [address], [place] [address] Referral ID Status Reason Start Date Expiration Date Visits Requested Visits Authorized [id number] Pending Review Auto-Generat ed Referral 01/14/2022 02/13/2023 1 1 [facility] for referral (narrative)* Diagnostic Procedure Only (Routine) - Pending Review Specialty Diagnoses / Procedures Referred By Jamel cole Referred To Contact [facility] Diagnoses Encounter for screening mammogram for breast cancer Procedures CHICO SCREENING SCREENING MAMMOGRAPHY BI 2-VIEW BREAST INC Rosendo Underwood MD [address] [place] [address] [facility] [address] [place] [address] Referral ID Status Reason Start Date Expiration Date Visits Requested Visits Authorized [id number] Pending Review Auto-Generat ed Referral 12/08/2023 01/06/2025 1 1 [facility] for referral (narrative)No reason for referral information [facility]Evans[facility] Work Phone: Summary Purpose Family History [...] FoundDocuments on File Type Date Recorded Patient Crayon Grader Expl anation Advance Directive(s) 05/28/2020 8:38 AM Advance Directive(s) 05/15/2020 1:09 PM Advance Directive(s) 05/13/2020 8:23 AM Advance Directive Response Recorded Date/ Time Living Will No August 28 022 11:01pm Power of Rack Worker No August 28, 2021 11:01pm Advance Directive Response Recorded Date/ Time Living Will No September 14 024 1:05am Power of Rack Worker No September 14, 2023 1:05am Advance Directive Response Recorded Date/ Time Living Will No September 14 024 2:05am Power of Rack Worker No September 14, 2023 2:05am Chief Complaint and Reason for Visit Chief Complaint OVERDUE FOR OV (2020 ) E ORDERS Reason for Visit Essential hypertensi on Hyperlipidemia Nonrheumatic mitral (valve) insufficiency Secondary pulmonary arterial hypertension Tachycardia Non-ischemic cardiomyopathy Chief Complaint INVESTIGATOR VICE EST CARE - PPW SE NT palpitation 5 WEEK FOLLOW UP Reason for Visit Diabetes mellitus, t ype II Encounter to establish care Essential hypertension Hyperlipidemia CKD (chronic kidney disease) Non-ischemic cardiomyopathy Acute HFrEF (heart failure with reduced ejection fraction) Diabetes mellitus, type II Essential hypertension Hyperlipidemia Screening for breast cancer CKD (chronic kidney disease) Chief Complaint INVESTIGATOR VICE EST CARE - PPW SE NT palpitation [...] section and content) DATE CREATED AUTHOR 01/06/2018 [facility] DATE CREATED AUTHOR AUTHOR'S ORGANIZ ATION 05/31/2020 [facility] DATE CREATED AUTHOR AUTHOR'S ORGANIZ ATION 08/17/2024 [facility] DATE CREATED AUTHOR AUTHOR'S ORGANIZ ATION 03/24/2025 [facility] Source Comments (unrecognize d section and content) In the event this informatio n is protected by the Federal Confidentiality of Alcohol and Drug Abuse Patient Records regulations: The Federal rules restrict any use of the information to criminally investigate or prosecute any alcohol or drug abuse patient.[facility] the event this information is protected by the Federal Confidentiality of Alcohol and Drug Abuse Patient Records regulations: The Federal rules restrict any use of the information to criminally investigate or prosecute any alcohol or drug abuse patient.[facility] the event this information is protected by the Federal Confidentiality of Alcohol and Drug Abuse Patient Records regulations: The Federal rules restrict any use of the information to criminally investigate or prosecute any alcohol or drug abuse patient.[facility] the event this information is protected by the Federal Confidentiality of Alcohol and Drug Abuse Patient Records regulations: The Federal rules restrict any use of the information to criminally investigate or prosecute any alcohol or drug abuse patient.[facility] the event this information is protected by the Federal Confidentiality of Alcohol and Drug Abuse Patient Records regulations: The Federal rules restrict any use of the information to criminally investigate or prosecute any alcohol or drug abuse patient.[facility] the event this information is protected by the Federal Confidentiality of Alcohol and Drug Abuse Patient Records regulations: The Federal rules restrict any use of the information to criminally investigate or prosecute any alcohol or drug abuse patient.[facility] Hospital[facility] the event this information is protected by the Federal Confidentiality of Alcohol and Drug Abuse Patient Records regulations: The Federal rules restrict any use of the information to criminally investigate or prosecute any alcohol or drug abuse patient.[facility] Care Teams (unrecognized sec tion and content) Fisheries Biologist Relationship Specialty Start Date End Date Rosendo Hernandez MD [address] [place] [address] PCP - General Internal Medicine 07/27/18 [facility] [address] [place] [address] Pharmacist Pharmacy 06/26/21 Fisheries Biologist Relationship Specialty Start Date End Date Rosendo Hernandez MD [address] [place] [address] PCP - General Internal Medicine 07/27/18 [facility] [address] [place] [address] Pharmacist Pharmacy 06/26/21 Fisheries Biologist Relationship Specialty Start Date End Date Rosendo Hernandez MD [address] [place] [address] PCP - General Internal Medicine 07/27/18 [facility] [address] [place] [address] Pharmacist Pharmacy 06/26/21 Fisheries Biologist Relationship Specialty Start Date End Date Rosendo Hernandez MD [address] [place] [address] PCP - General Internal Medicine 07/27/18 Jarrett Nguyen, [facility] [address] [place], [place] [address] Pharmacist Pharmacy 06/26/21 Team Status: Active Member [...] Provid er, Attending Provider, Referring Provider Active Fisheries Biologist Relationship Specialty Start Date End Date Rosendo Hernandez MD [address] [place] [address] PCP - General Internal Medicine 07/27/18 Fisheries Biologist Relationship Specialty Start Date End Date Rosendo Hernandez MD [address] [place] [address] PCP - General Internal Medicine 07/27/18 Fisheries Biologist Relationship Specialty Start Date End Date Rosendo Hernandez MD [address] [place] [address] PCP - General Internal Medicine 07/27/18 Rebecca Steinberg APRN.IT TEACHER [address] [place] [address] Network Strategist Internal Medicine 06/26/24 Michaela Lawson STEAMBOAT INSPECTOR.PUMP ATTENDANT [address] [place] [address] Network Strategist Internal Medicine 06/26/24 Team Status: Active Member [...] BE BASED ON THE PRIMARY CLINICAL RECORDS. [facility] [email or web address] [facility]. provides no warranty or guarantee of the accuracy or completeness of information in this document.
== END 2025-07-11 11:14 | disposition home or self-care (01) ==
LOC: ED 19:37 → ICU 07-10 07:01 → PCU 07-11 09:05 → ICU 07-24 17:14 → PCU 07-24 17:14
PROVIDERS: Admitting Provider Internal Medicine; Emergency Provider Emergency Medicine; Visit Provider Internal Medicine
DX: I16.1 Hypertensive emergency (principal); I13.0 Hypertensive heart and chronic kidney disease with heart failure and stage 1 through stage 4 chronic kidney disease, or unspecified chronic kidney disease; I50.43 Acute on chronic combined systolic (congestive) and diastolic (congestive) heart failure; I27.21 Secondary pulmonary arterial hypertension; I42.8 Other cardiomyopathies; I42.0 Dilated cardiomyopathy; E11.22 Type 2 diabetes mellitus with diabetic chronic kidney disease; Z79.4 Long term (current) use of insulin; N18.32 Chronic kidney disease, stage 3b; I08.1 Rheumatic disorders of both mitral and tricuspid valves; E66.811 Obesity, class 1; F17.210 Nicotine dependence, cigarettes, uncomplicated; E78.9 Disorder of lipoprotein metabolism, unspecified; Z82.49 Family history of ischemic heart disease and other diseases of the circulatory system; Z79.82 Long term (current) use of aspirin; Z79.899 Other long term (current) drug therapy; Z68.34 Body mass index [BMI] 34.0-34.9, adult
CPT/HCPCS: 71045; 80048; 82962; 83036; 83735; 83880; 84100; 84484; 85025; 93005; 93306; 96372; 96374; 96376; 99221; 99285; Q9957; A4216; C8929; G0378; J1938